=== PATIENT | female | born 1975 | race Two or more races ===

== ENCOUNTER 2020-07-04 09:09 | Outpatient (REF) | payer OTHER, SELFPAY ==
[2020-07-08 15:37] LABS: HPV mRNA E6/E7 rflx Not Detected (Not Detected)
[2020-07-09 11:36] LABS: CT PCR NOT DETECTED (Not Detect.); NG PCR NOT DETECTED (Not Detect.)
== END 2020-07-04 09:10 | disposition home or self-care (01) ==
LOC: HO.LAB 09:09
PROVIDERS: PCP Nurse Practitioner Family; Visit Provider Advanced Practice Midwife
DX: Z01.419 Encounter for gynecological examination (general) (routine) without abnormal findings (principal); Z11.8 Encounter for screening for other infectious and parasitic diseases; Z11.3 Encounter for screening for infections with a predominantly sexual mode of transmission
CPT/HCPCS: 87491; 87591; 87624; 87625; 88142

== ENCOUNTER 2020-07-05 16:33 | Outpatient (REF) | payer OTHER, SELFPAY | END 2020-07-05 16:34 | disposition home or self-care (01) | LOC: HO.MAMMO 16:33 | PROVIDERS: PCP Internal Medicine; Visit Provider Advanced Practice Midwife | DX: Z13.89 Encounter for screening for other disorder (principal) ==

== ENCOUNTER 2020-07-08 09:34 | Outpatient (REF) | payer OTHER, SELFPAY ==
--- NOTE | 2020-07-08 09:39 | MM_ITS ---
EXAMINATION: MM SCREENING DIGITAL MAMMOGRAPHY, BILATERAL CLINICAL INFORMATION: Screening. Asymptomatic. The lifetime risk of breast cancer based on the Tyrer-Cuzick Model is 10.6%. COMPARISON: Mammography: October 24, 2018 and October 08, 2017 TECHNIQUE: Digital mammography is performed in craniocaudal and mediolateral oblique views along with computer-aided detection (CAD). FINDINGS: The breasts are heterogeneously dense, which may obscure small masses (ACR BI-RADS breast composition Category c). There are no significant masses, abnormal calcifications, or other abnormalities. MM/MM screening mammo BI IMPRESSION: There are no significant changes from prior study. ASSESSMENT: BI-RADS 1: Negative RECOMMENDATION: Routine annual mammography screening. This patient's information was entered into a reminder system with a target due date for their next mammogram.
== END 2020-07-08 09:35 | disposition home or self-care (01) ==
LOC: HO.MAMMO 09:34
PROVIDERS: PCP Internal Medicine; Visit Provider Internal Medicine
DX: Z01.419 Encounter for gynecological examination (general) (routine) without abnormal findings (principal); Z12.31 Encounter for screening mammogram for malignant neoplasm of breast
CPT/HCPCS: 77067

== ENCOUNTER → 2020-07-09 13:09 | Outpatient (BNVA) | payer OTHER, SELFPAY | PROVIDERS: Visit Provider Advanced Practice Midwife | DX: Z30.433 Encounter for removal and reinsertion of intrauterine contraceptive device (principal) | CPT/HCPCS: 81025 ==

== ENCOUNTER 2020-08-13 14:39 | Outpatient (REF) | payer OTHER, SELFPAY ==
[2020-08-14 12:28] LABS: BV Int Neg Control Negative (Negative); BV Int Pos Control Positive (Positive)
[2020-08-14 18:57] LABS: C. trachomatis RNA TMA NOT DETECTED (NOT DETECTED); N. gonorrhoeae RNA TMA NOT DETECTED (NOT DETECTED)
== END 2020-08-13 14:40 | disposition home or self-care (01) ==
LOC: HO.LAB 14:39
PROVIDERS: PCP Nurse Practitioner Family; Visit Provider Advanced Practice Midwife
DX: R10.2 Pelvic and perineal pain (principal); Z30.431 Encounter for routine checking of intrauterine contraceptive device
CPT/HCPCS: 36415; 87480; 87491; 87510; 87591; 87660; 99212

== ENCOUNTER 2020-08-20 14:38 | Outpatient (REF) | payer OTHER, SELFPAY ==
--- NOTE | 2020-08-20 14:42 | US_ITS ---
EXAMINATION: PELVIC ULTRASOUND CLINICAL INFORMATION: Pelvic and perineal pain COMPARISON: Pelvic ultrasound report most recent September 2008. Images not available. TECHNIQUE: Transabdominal and transvaginal pelvic ultrasound was performed. Transvaginal exam was performed for better visualization of the uterus and ovaries. FINDINGS: The uterus is anteverted and measures 8 x 4.8 x 5 cm in dimension. There is an IUD in the uterus in satisfactory position. Endometrial thickness is normal estimated at 1.4 cm. There are nabothian cysts in the cervix. No focal uterine lesion is seen. The right ovary is normal-appearing and measures 2.9 x 2.6 x 2.6 cm. The left ovary is enlarged and measures 4.9 x 5.4 x 2.6 cm. There is a 4.1 x 1.9 x 3.9 cm slightly complex cyst with several septations. There is no fluid in the pelvis. US/US transvaginal IMPRESSION: IUD in the uterus in satisfactory position. Enlarged left ovary containing a 4.1 x 1.9 x 3.9 cm slightly complex cyst with several septations.
--- NOTE | 2020-08-20 14:42 | US_ITS ---
EXAMINATION: PELVIC ULTRASOUND CLINICAL INFORMATION: Pelvic and perineal pain COMPARISON: Pelvic ultrasound report most recent September 2008. Images not available. TECHNIQUE: Transabdominal and transvaginal pelvic ultrasound was performed. Transvaginal exam was performed for better visualization of the uterus and ovaries. FINDINGS: The uterus is anteverted and measures 8 x 4.8 x 5 cm in dimension. There is an IUD in the uterus in satisfactory position. Endometrial thickness is normal estimated at 1.4 cm. There are nabothian cysts in the cervix. No focal uterine lesion is seen. The right ovary is normal-appearing and measures 2.9 x 2.6 x 2.6 cm. The left ovary is enlarged and measures 4.9 x 5.4 x 2.6 cm. There is a 4.1 x 1.9 x 3.9 cm slightly complex cyst with several septations. There is no fluid in the pelvis. US/US pelvic complete IMPRESSION: IUD in the uterus in satisfactory position. Enlarged left ovary containing a 4.1 x 1.9 x 3.9 cm slightly complex cyst with several septations.
== END 2020-08-20 14:39 | disposition home or self-care (01) ==
LOC: HO.US 14:38
PROVIDERS: Visit Provider Advanced Practice Midwife
DX: R10.2 Pelvic and perineal pain (principal)
CPT/HCPCS: 76830; 76856

== ENCOUNTER → 2020-09-10 12:02 | Outpatient (BNVA) | payer OTHER, SELFPAY | PROVIDERS: PCP Nurse Practitioner Family; Visit Provider Advanced Practice Midwife ==

== ENCOUNTER 2020-11-11 12:35 | Outpatient (REF) | payer OTHER, SELFPAY ==
--- NOTE | ~2020-11-11 | US_ITS ---
EXAMINATION: PELVIC ULTRASOUND CLINICAL INFORMATION: Left-sided ovarian cyst COMPARISON: Previous pelvic ultrasound most recent August 2018 TECHNIQUE: Transabdominal and transvaginal pelvic ultrasound was performed. Transvaginal exam was performed for better visualization of the uterus and ovaries. FINDINGS: The uterus is anteverted and measures 8.9 x 4.6 x 5.5 cm in dimension. There is an IUD in the uterus in satisfactory position. Endometrial thickness is normal measuring 0.9 cm. No focal uterine lesion is seen. There are nabothian cysts in the cervix. The right ovary is normal-appearing and measures 3.3 x 2.2 x 2.3 cm. Left ovary is enlarged and measures 4.4 x 3.2 x 4.4 cm. There is a 3.8 x 2.8 x 3.8 cm slightly complex left ovarian cyst with slightly thickened irregular wall. This is decreased in size from 4.1 x 1.9 x 3.9 cm on August 2020 exam. There is a small amount of fluid in the pelvis. US/US transvaginal IMPRESSION: IUD in the uterus in satisfactory position. Interval decrease in size in the slightly complex left ovarian cyst now measuring 3.8 x 2.8 x 3.8 cm compared to August 2020 exam.
--- NOTE | ~2020-11-11 | US_ITS ---
EXAMINATION: PELVIC ULTRASOUND CLINICAL INFORMATION: Left-sided ovarian cyst COMPARISON: Previous pelvic ultrasound most recent August 2018 TECHNIQUE: Transabdominal and transvaginal pelvic ultrasound was performed. Transvaginal exam was performed for better visualization of the uterus and ovaries. FINDINGS: The uterus is anteverted and measures 8.9 x 4.6 x 5.5 cm in dimension. There is an IUD in the uterus in satisfactory position. Endometrial thickness is normal measuring 0.9 cm. No focal uterine lesion is seen. There are nabothian cysts in the cervix. The right ovary is normal-appearing and measures 3.3 x 2.2 x 2.3 cm. Left ovary is enlarged and measures 4.4 x 3.2 x 4.4 cm. There is a 3.8 x 2.8 x 3.8 cm slightly complex left ovarian cyst with slightly thickened irregular wall. This is decreased in size from 4.1 x 1.9 x 3.9 cm on August 2020 exam. There is a small amount of fluid in the pelvis. US/US pelvic complete IMPRESSION: IUD in the uterus in satisfactory position. Interval decrease in size in the slightly complex left ovarian cyst now measuring 3.8 x 2.8 x 3.8 cm compared to August 2020 exam.
== END 2020-11-11 12:36 | disposition home or self-care (01) ==
LOC: HO.US 12:35
PROVIDERS: PCP Nurse Practitioner Family; Visit Provider Advanced Practice Midwife
DX: N83.292 Other ovarian cyst, left side (principal)
CPT/HCPCS: 76830; 76856

== ENCOUNTER → 2020-11-25 11:46 | Outpatient (BNVA) | payer OTHER, SELFPAY | PROVIDERS: PCP Nurse Practitioner Family; Visit Provider Advanced Practice Midwife ==

== ENCOUNTER 2020-11-26 08:12 | Outpatient (REF) | payer OTHER, MEDICAID, SELFPAY ==
[2020-11-27 09:36] LABS: CA-125 13 U/mL (<35)
== END 2020-11-26 08:13 | disposition home or self-care (01) ==
LOC: HO.LAB 08:12
PROVIDERS: Visit Provider Advanced Practice Midwife
DX: N83.292 Other ovarian cyst, left side (principal)
CPT/HCPCS: 36415; 86304

== ENCOUNTER 2021-02-10 11:04 | Outpatient (REF) | payer OTHER, MEDICAID, SELFPAY ==
--- NOTE | ~2021-02-10 | US_ITS ---
EXAMINATION: ULTRASOUND PELVIS CLINICAL INFORMATION: Left ovarian cyst COMPARISON: Ultrasound pelvis 11/11/2020 TECHNIQUE: Transabdominal and transvaginal ultrasound of pelvis is performed. FINDINGS: The uterus is anteverted and anteflexed measuring 8.0 cm in length, 4.1 cm in AP and 6.7 cm in transverse dimension. Endometrial thickness is 1.0 cm. The uterus is otherwise homogeneous in echotexture without any focal lesion. There is a small nabothian cysts in the cervix. There is echogenic IUD noted in incorrect location. Right ovary measures 5.9 x 3.1 x 3.3 cm and volume 31.6 mL. There is anechoic cyst measuring 3.6 x 3.1 x 3.2 cm. The left ovary measures 3.6 x 2.2 x 1.9 cm and volume 7.9. Multiple small anechoic small cysts are seen. Previously seen complex cyst left ovary has resolved. Previously right ovary measured 4.4 x 3.2 x 4.4 cm. There is no free fluid in the cul-de-sac. US/US pelvic and transvaginal IMPRESSION: Complex cyst in the left ovary has resolved. There are multiple small left ovarian cysts. A simple right ovarian cyst measuring 3.6 x 3.1 x 3.2 cm. Small nabothian cysts in the cervix. IUD is in correct position.
== END 2021-02-10 11:05 | disposition home or self-care (01) ==
LOC: HO.US 11:04
PROVIDERS: Visit Provider Advanced Practice Midwife
DX: N83.292 Other ovarian cyst, left side (principal)
CPT/HCPCS: 76830; 76856

== ENCOUNTER → 2021-03-03 12:09 | Outpatient (BNVA) | payer OTHER, SELFPAY | PROVIDERS: Visit Provider Advanced Practice Midwife ==

== ENCOUNTER 2021-07-09 08:19 | Outpatient (REF) | payer OTHER, SELFPAY ==
--- NOTE | ~2021-07-09 | MM_ITS ---
EXAMINATION: MM SCREENING DIGITAL BREAST TOMOSYNTHESIS, BILATERAL CLINICAL INFORMATION: Screening. Asymptomatic. The lifetime risk of breast cancer based on the Tyrer-Cuzick Model is 6.8%. COMPARISON: Mammography: July 08, 2020 and studies dating back to December 08, 2017 TECHNIQUE: Digital breast tomosynthesis is performed in both the craniocaudal and mediolateral oblique views along with computer-aided detection (CAD). Synthesized 2D images are generated from the tomosynthesis. FINDINGS: The breasts are heterogeneously dense, which may obscure small masses (ACR BI-RADS breast composition Category c). There are no significant masses, abnormal calcifications, or other abnormalities. MM/MM tomosynthesis screening BI IMPRESSION: There are no significant changes from prior study. ASSESSMENT: BI-RADS 1: Negative RECOMMENDATION: Routine annual mammography screening. This patient's information was entered into a reminder system with a target due date for their next mammogram.
== END 2021-07-09 08:20 | disposition home or self-care (01) ==
LOC: HO.MAMMO 08:19
PROVIDERS: Visit Provider Internal Medicine
DX: Z12.31 Encounter for screening mammogram for malignant neoplasm of breast (principal)
CPT/HCPCS: 77063; 77067

== ENCOUNTER 2021-11-18 08:17 | Outpatient (REF) | payer OTHER, SELFPAY ==
[2021-11-19 07:30] LABS: CT PCR NOT DETECTED (Not Detect.); NG PCR NOT DETECTED (Not Detect.)
[2021-11-19 12:09] LABS: BV Int Neg Control Negative (Negative); BV Int Pos Control Positive (Positive)
== END 2021-11-18 08:18 | disposition home or self-care (01) ==
LOC: HO.LAB 08:17
PROVIDERS: Visit Provider Advanced Practice Midwife
DX: Z01.411 Encounter for gynecological examination (general) (routine) with abnormal findings (principal); N89.8 Other specified noninflammatory disorders of vagina
CPT/HCPCS: 87480; 87491; 87510; 87591; 87660

== ENCOUNTER 2021-12-10 10:39 | Outpatient (REF) | payer OTHER, SELFPAY ==
--- NOTE | ~2021-12-10 | US_ITS ---
EXAMINATION: US PELVIS CLINICAL INFORMATION: EXAMINATION:US pelvic and transvaginal CLINICAL INFORMATION: Reason for Exam R10.2 - Pelvic and perineal pain COMPARISON: Prior ultrasound January 2021 LMP: IUD FINDINGS: UTERUS: The uterus is anteverted. Size: 10.7 x 4.5 x 6.2 cm. Uterine mass: There is no uterine mass. Cervix: There is a nabothian cyst otherwise Grossly unremarkable. Endometrium: No ultrasound evidence of endometrial lesion. endometrial thickness measures 0.[address] ADNEXA: Normal Right ovary: Normal in size. Mildly complex cystic structure in the right ovary 4.5 x 2.9 x 4.1 cm with a daughter cysts. Slightly enlarged compared with the prior study from January 2021, continued surveillance recommended one year follow-up. Left ovary: Normal in size. Doppler exam: Normal Doppler flow identified in both ovaries. FREE FLUID: Trace amount of free fluid. OTHER FINDINGS: None US/US pelvic and transvaginal IMPRESSION: 1. IUD in place properly positioned. 2. Heterogeneous uterus, no measurable fibroid. 3. Mildly complex cystic structure in the right ovary 4.5 cm., This has slightly enlarged, one year follow-up recommended.
== END 2021-12-10 10:40 | disposition home or self-care (01) ==
LOC: HO.US 10:39
PROVIDERS: Visit Provider Advanced Practice Midwife
DX: R10.2 Pelvic and perineal pain (principal)
CPT/HCPCS: 76830; 76856

== ENCOUNTER → 2021-12-25 10:48 | Outpatient (BNVA) | payer OTHER, SELFPAY | PROVIDERS: Visit Provider Advanced Practice Midwife | DX: N83.299 Other ovarian cyst, unspecified side (principal); Z71.2 Person consulting for explanation of examination or test findings | CPT/HCPCS: 99212 ==

== ENCOUNTER 2022-01-29 13:44 | Outpatient (REF) | payer OTHER, SELFPAY ==
--- NOTE | ~2022-01-29 | US_ITS ---
EXAMINATION: US PELVIS CLINICAL INFORMATION: Right ovarian cyst. COMPARISON: None TECHNIQUE: Ultrasound of the pelvis is performed using both transabdominal and transvaginal transducers along with Doppler. Transvaginal imaging is performed due to inadequate visualization transabdominally. FINDINGS: UTERUS: The uterus is anteverted and measures 10.2 cm in length, 5.0 cm in AP and 5.8 cm in transverse dimension. The double wall endometrial thickness is 0.6 cm. There is an IUD within the endometrial canal in correct position. The uterus is smooth in contour and has normal myometrial echogenicity. No visible fibroid. ADNEXA: Both ovaries are visualized. There is normal color flow to the adnexa. There is no ovarian torsion. There is no pelvic ascites or fluid collection. Right ovary measures 3.4 x 3.8 x 2.3 cm and volume 15.6 mL. It appears unremarkable. Previously right ovary measured 5.8 x 3.1 x 5.0 cm and volume 47.1 mL. Left ovary measures 4.2 x 2.1 x 1.7 cm and volume 7.9 mL. It appears unremarkable. Previously left ovary measured 4.5 x 1.5 x 2.9 cm and volume 10.3 mL. US/US pelvic and transvaginal IMPRESSION: IUD in correct position within the endometrial canal. The ovaries are unremarkable. The uterus is unremarkable.
== END 2022-01-29 13:45 | disposition home or self-care (01) ==
LOC: HO.US 13:44
PROVIDERS: Visit Provider Advanced Practice Midwife
DX: N83.291 Other ovarian cyst, right side (principal)
CPT/HCPCS: 76830; 76856

== ENCOUNTER → 2022-03-03 14:03 | Outpatient (BNVA) | payer OTHER, SELFPAY | PROVIDERS: Visit Provider Advanced Practice Midwife | DX: Z71.2 Person consulting for explanation of examination or test findings (principal); Z97.5 Presence of (intrauterine) contraceptive device | CPT/HCPCS: 99212 ==

== ENCOUNTER 2022-07-13 08:59 | Outpatient (REF) | payer OTHER, SELFPAY ==
--- NOTE | ~2022-07-13 | MM_ITS ---
EXAMINATION: MM SCREENING DIGITAL BREAST TOMOSYNTHESIS, BILATERAL CLINICAL INFORMATION: Screening. Asymptomatic. The lifetime risk of breast cancer based on the Tyrer-Cuzick Model is 7%. COMPARISON: Mammography: 07/09/2021, 07/08/2020, 10/24/2018 TECHNIQUE: Digital breast tomosynthesis is performed in both the craniocaudal and mediolateral oblique views along with computer-aided detection (CAD). Synthesized 2D images are generated from the tomosynthesis. FINDINGS: The breasts are heterogeneously dense, which may obscure small masses (ACR BI-RADS breast composition Category c). There are no significant masses, abnormal calcifications, or other abnormalities. No developing density or architectural abnormality. Axillary nodes is similar to prior exam 2019. The skin contours are smooth. MM/MM tomosynthesis screening BI IMPRESSION: No mammographic evidence of malignancy. ASSESSMENT: BI-RADS 2: Benign RECOMMENDATION: Routine annual mammography screening. This patient's information was entered into a reminder system with a target due date for their next mammogram.
== END 2022-07-13 09:00 | disposition home or self-care (01) ==
LOC: HO.MAMMO 08:59
PROVIDERS: PCP Internal Medicine; Visit Provider Internal Medicine
DX: Z12.31 Encounter for screening mammogram for malignant neoplasm of breast (principal)
CPT/HCPCS: 77063; 77067

== ENCOUNTER 2022-11-09 10:08 | Outpatient (REF) | payer OTHER, SELFPAY ==
--- NOTE | ~2022-11-09 | XR_ITS ---
EXAMINATION: XR HAND, RIGHT CLINICAL INFORMATION: Chronic pain. COMPARISON: None available. TECHNIQUE: PA, lateral, and oblique views of the right hand. FINDINGS: Bony alignment and mineralization are normal. The proximal and distal carpal rows are intact. No fracture or dislocation is seen. There is minimal osteoarthritic change of the second distal interphalangeal joint. No abnormal bone erosion or periosteal thickening is seen. No focal soft tissue swelling, gas or foreign body is seen. XR/XR hand RT min 3V IMPRESSION: There is minimal osteoarthritic change of the right second (index finger) distal interphalangeal joint. EXAMINATION: XR KNEE, LEFT CLINICAL INFORMATION: Chronic pain. COMPARISON: Radiographs dated 03/12/2015. TECHNIQUE: AP, lateral, tunnel, and sunrise views of the left knee. FINDINGS: Bones and soft tissues are normal. No fracture or joint effusion. Alignment is anatomic. Joint spaces are well maintained. Small enthesophytes incidentally arise from the superior pole of the patella and the anterior tibial tuberosity. No abnormal soft tissue calcification. IMPRESSION: Normal knee.
--- NOTE | ~2022-11-09 | XR_ITS ---
EXAMINATION: XR HAND, RIGHT CLINICAL INFORMATION: Chronic pain. COMPARISON: None available. TECHNIQUE: PA, lateral, and oblique views of the right hand. FINDINGS: Bony alignment and mineralization are normal. The proximal and distal carpal rows are intact. No fracture or dislocation is seen. There is minimal osteoarthritic change of the second distal interphalangeal joint. No abnormal bone erosion or periosteal thickening is seen. No focal soft tissue swelling, gas or foreign body is seen. XR/XR knee LT 4V IMPRESSION: There is minimal osteoarthritic change of the right second (index finger) distal interphalangeal joint. EXAMINATION: XR KNEE, LEFT CLINICAL INFORMATION: Chronic pain. COMPARISON: Radiographs dated 03/12/2015. TECHNIQUE: AP, lateral, tunnel, and sunrise views of the left knee. FINDINGS: Bones and soft tissues are normal. No fracture or joint effusion. Alignment is anatomic. Joint spaces are well maintained. Small enthesophytes incidentally arise from the superior pole of the patella and the anterior tibial tuberosity. No abnormal soft tissue calcification. IMPRESSION: Normal knee.
== END 2022-11-09 10:09 | disposition home or self-care (01) ==
LOC: HO.XRAY 10:08
PROVIDERS: PCP Internal Medicine; Visit Provider Internal Medicine
DX: M25.562 Pain in left knee (principal); G89.29 Other chronic pain; M65.9 Synovitis and tenosynovitis, unspecified
CPT/HCPCS: 73130; 73564

== ENCOUNTER 2022-11-20 08:20 | Outpatient (REF) | payer OTHER, SELFPAY ==
[2022-11-20 10:36] LABS: HBc Num1 0.07 S/CO (0.00-0.79); HIV AB/AG Nonreactive (Nonreactive); HIV Num 1 0.09 S/CO (0.00-0.99); Hepatitis B Core Antibody Nonreactive (Nonreactive); ~Hepatitis C Antibody Nonreactive (Nonreactive)
[2022-11-20 10:37] LABS: Syphilis Screen Nonreactive (Nonreactive)
[2022-11-20 12:06] LABS: CT PCR NOT DETECTED (Not Detect.); NG PCR NOT DETECTED (Not Detect.)
[2022-11-21 11:33] LABS: BV Int Neg Control Negative (Negative); BV Int Pos Control Positive (Positive)
== END 2022-11-20 08:21 | disposition home or self-care (01) ==
LOC: HO.LAB 08:20
PROVIDERS: PCP Internal Medicine; Visit Provider Advanced Practice Midwife
DX: Z11.4 Encounter for screening for human immunodeficiency virus [HIV] (principal); R10.2 Pelvic and perineal pain; Z20.2 Contact with and (suspected) exposure to infections with a predominantly sexual mode of transmission; N83.299 Other ovarian cyst, unspecified side
CPT/HCPCS: 0353U; 86704; 86780; 86803; 87389; 87480; 87510; 87660

== ENCOUNTER 2023-01-25 09:00 | Outpatient (RCR) | payer OTHER, SELFPAY ==
--- NOTE | 2022-12-07 13:55 | MHC.OT.EP ---
[address] [phone] Occupational Therapy Plan of Care Patient Name: Candido Rivera Date of Evaluation: 12/07/22 Diagnosis: Right finger tenosynovitis Pain Location: 8 throbbing at 2nd MC and ache at 1st CMC jt Pain Score: 8 Pain Scale Used: Numeric (0 - 10) Aggravating Factors: Gripping, daily activities Alleviating Factors: Heat Assessment: Pt is a 47 yo female with a 6 mo ho for right hand pain and mild paresthesia consistent with a dx of 1St basal jt OA and index finger tenosynovitis. 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 Sounding Device Operator Goals: Same as above Treatment Plan: Therapeutic Exercise Therapeutic Activity Home Exercise Program Splinting Patient Education Edema Control ADL Training Ultrasound Iontophoresis Paraffin MHP Joint Mobilization Soft Tissue Mobilization Electronically Signed By: Afsaneh Gastelum OT CHT CLT Please Sign and return to therapist. Thank you once again for your referral.
== END 2023-12-28 13:58 | disposition home or self-care (01) ==
LOC: HO.OT 09:00
PROVIDERS: PCP Internal Medicine; Visit Provider Internal Medicine
DX: M65.9 Synovitis and tenosynovitis, unspecified (principal)
CPT/HCPCS: 29125; 97033; 97035; 97110; 97166; 97760

== ENCOUNTER 2023-03-22 07:07 | Outpatient (REF) | payer OTHER, SELFPAY ==
[2023-03-22 08:19] LABS: Estimated Average Glucose 108 mg/dL; Hemoglobin A1c % 5.4 %
[2023-03-22 08:48] LABS: Cholesterol 163 mg/dL; HDL Cholesterol 35 mg/dL; LDL Cholesterol Calculated 102 mg/dl; Triglycerides 133 mg/dL
[2023-03-22 08:56] LABS: Anion Gap 12 (12-20); Blood Urea Nitrogen 12 mg/dL (9-16); Calcium 9.6 mg/dL (8.4-10.2); Carbon Dioxide 26 mmol/L (22-29); Chloride 105 mmol/L (96-108); Estimated Glomerular Filt Rate 60; Glucose Random 103 mg/dL (60-115); Potassium 3.6 mmol/L (3.3-5.1); Sodium 139 mmol/L (135-145)
[2023-03-22 09:04] LABS: TSH reflex Free T4 3.99 uIU/mL (0.32-4.0)
[2023-03-22 10:00] LABS: Reflex LDLD? No
== END 2023-03-22 07:08 | disposition home or self-care (01) ==
LOC: HO.LAB 07:07
PROVIDERS: Visit Provider Internal Medicine
DX: I10 Essential (primary) hypertension (principal); R73.02 Impaired glucose tolerance (oral)
CPT/HCPCS: 36415; 80048; 80061; 83036; 84443

== ENCOUNTER → 2023-06-28 19:30 | Outpatient (BNV) | payer OTHER, SELFPAY | PROVIDERS: PCP Internal Medicine; Visit Provider Internal Medicine | DX: R06.83 Snoring (principal) | CPT/HCPCS: 95810 ==

== ENCOUNTER → 2023-06-28 20:30 | Outpatient (REF) | payer OTHER, SELFPAY | LOC: HO.SL 20:30 | PROVIDERS: PCP Internal Medicine; Visit Provider Internal Medicine | DX: R06.83 Snoring (principal); I10 Essential (primary) hypertension | CPT/HCPCS: 95810 ==

== ENCOUNTER 2023-11-11 11:27 | Outpatient (REF) | payer OTHER, SELFPAY ==
[2023-11-11 13:32] LABS: Estimated Average Glucose 123 mg/dL; Hemoglobin A1c % 5.9 % (<6.0)
[2023-11-11 13:58] LABS: Anion Gap 13 (12-20); Blood Urea Nitrogen 7 mg/dL (9-16); Calcium 9.6 mg/dL (8.4-10.2); Carbon Dioxide 27 mmol/L (22-29); Chloride 103 mmol/L (96-108); Estimated Glomerular Filt Rate > 60; Glucose Random 95 mg/dL (60-115); Potassium 3.6 mmol/L (3.3-5.1); Sodium 139 mmol/L (135-145); Vitamin D 25-OH Total 32.8 ng/mL (>30)
== END 2023-11-11 11:28 | disposition home or self-care (01) ==
LOC: HO.HHCL 11:27
PROVIDERS: Visit Provider Internal Medicine
DX: I10 Essential (primary) hypertension (principal)
CPT/HCPCS: 36415; 80048; 82306; 83036

== ENCOUNTER 2023-11-22 08:18 | Outpatient (REF) | payer OTHER, SELFPAY | END 2023-11-22 08:19 | disposition home or self-care (01) | LOC: HO.MAMMO 08:18 | PROVIDERS: PCP Internal Medicine; Visit Provider Internal Medicine | DX: Z12.31 Encounter for screening mammogram for malignant neoplasm of breast (principal) | CPT/HCPCS: 77063; 77067 ==

== ENCOUNTER → 2023-11-22 09:30 | Outpatient (BNV) | payer OTHER, SELFPAY | PROVIDERS: PCP Internal Medicine; Visit Provider Radiology Diagnostic Radiology | DX: Z12.31 Encounter for screening mammogram for malignant neoplasm of breast (principal) | CPT/HCPCS: 77063; 77067 ==

== ENCOUNTER 2023-11-25 08:11 | Outpatient (AMB) | payer OTHER, SELFPAY ==
--- NOTE | 2023-11-25 08:21 | A.OFFVIS_ITS ---
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 Doing well with no concerns. She tries to eat healthy and stays active with exercise. Currently is sexually active. She external irritation in a specific area, was given a topical cream in the past which did not help.. STI screening offered; she declines. Denies family history of breast, ovarian or colon cancer. Last pap smear 2019, negative. Mammogram: Completed, pending final read. [facility] Medical History HTN (hypertension) Surgical History H/O wrist surgery Family History Mother HTN (hypertension) Social History Household Members: Spouse and Children Housing: House Alcohol intake: never Patient Tobacco Use Status: Never used Tobacco Current occupational status: unemployed Sexual orientation: Straight/Heterosexual Gender identity: Female Female Reproductive History Menstrual Duration of menses: 3-5 days control method: progestin IUCD (07/2020 Mirena, strings cut short) Total pregnancies: 3 Full term: 3 Number of Living Children: 3 Date of last pap smear: 07/05/20 (negative) Date of Mammogram: 11/22/23 Review of Systems Const All systems reviewed & are unremarkable except as noted in HPI and below Reports as per HPI Eyes Reports no additional complaints ENT Reports no additional complaints Card Reports no additional complaints Resp Reports no additional complaints GI Reports as per HPI and Reports no additional complaints Reports as per HPI Musc Reports no additional complaints Skin/Breast Reports as per HPI Neuro Reports no additional complaints Psych Reports no additional complaints Endo Reports no additional complaints Clark/Lymph Reports no additional complaints Aller/Immun Reports no additional complaints Physical Exam Vital Signs: Last Vital Signs BP 122/82 11/25/23 08:22 BMI result Body Mass Index 33.6 Const General: cooperative, healthy appearing, no acute distress, well developed and alert Orientation/consciousness: patient oriented x3 HEENT Head: Yes normal to inspection Eyes General: appearance normal, both eyes and all related structures Neck Neck: Yes normal visual inspection Thyroid: Thyroid normal Chest Chest palpation & inspection: normal inspection of the chest and other (no puckering, dimpling, peau de orange, retraction, discharge, masses) Breast/axilla inspection: normal inspection of the breasts Breast/axilla palpation: normal palpation of the breasts Resp Effort & Inspection: normal respiratory effort GI Inspection: Yes normal to inspection Palpation (GI): Soft to palpation Rectal Exam - Female: deferred Other: Erythema with a mild excoriation midline above clitoral maxwell, not herpetic appearing General: Yes bladder normal to palpation External Female Exam: normal external appearance and normal appearance of the urethra Speculum Exam - Vagina: normal appearance of the vagina, normal palpation and normal vaginal discharge Speculum Exam - Cervix: normal appearance of the cervix and normal palpation Bimanual exam- vagina & uterus: normal bimanual exam, normal palpation, uterine size normal, bladder normal to palpation, normal palpation and non-tender Bimanual Exam- Adnexa, other: no masses Skin General skin exam: no rashes or lesions noted Rashes: no rashes Neuro General: patient oriented x3 Cognition (Neuro): normal cognition Extrem General: Yes normal to inspection Psych Attitude: cooperative Thought process: Normal thought process present Assessment & Plan Assessment & Plan (1) Encounter for well woman exam with routine gynecological exam: Code(s): Z01.419 - Encounter for gynecological examination (general) (routine) without abnormal findings (2) Vulvar irritation: Code(s): N90.89 - Other specified noninflammatory disorders of vulva and perineum Plan Discussed: Current recommendations for pap smears per ASCCP guidelines. Breast awareness and periodic breast exams. Maintain a healthy lifestyle including a well balanced diet and routine exercise. Mammogram yearly. Advised to clip vulvar hair long to avoid it from curling in an entering the skin surface irritating. Use mild soap and rinse off quickly. Use only cotton underwear. Return to the office in 2-3 weeks for a skin check if there is any a lorie of concern she may require a skin biopsy. Patient verbalizes understanding and agrees to the plan of care. She was given opportunity to ask questions and all questions were answered to the best of my ability. RTO in one year for annual boat cleaner examination. This note is constructed using voice recognition software. While every effort has been made to ensure accuracy, cardiopulmonary technician and eeg tech errors may have been included. Medications: New betamethasone dipropionate 0.05% Apply a thin coat to the area for 1 to 2 weeks or until itching has resolved 1 appl topical BID 2 weeks 45 grams 0RF Discontinued fluconazole (Diflucan) Discontinued Reason: No Longer Medically Relevant 150 mg PO ONCE 1 day 1 tab 0RF Coding Level of Care Code Est Pt Prev Care 40-64y(96675) Diagnoses Encounter for well woman exam with routine gynecological exam Z01.419 Vulvar irritation N90.89
[2023-11-25 08:22] VITALS: BP 122/82; BMI 33.6
== END 2023-11-25 08:42 | disposition home or self-care (01) ==
LOC: HO.HWS 08:11
PROVIDERS: PCP Internal Medicine; Visit Provider Advanced Practice Midwife
DX: Z01.419 Encounter for gynecological examination (general) (routine) without abnormal findings (principal); N90.89 Other specified noninflammatory disorders of vulva and perineum
CPT/HCPCS: 99396

== ENCOUNTER → 2023-11-25 08:11 | Outpatient (BNVA) | payer OTHER, SELFPAY | PROVIDERS: PCP Internal Medicine; Visit Provider Advanced Practice Midwife | DX: Z01.419 Encounter for gynecological examination (general) (routine) without abnormal findings (principal); N90.89 Other specified noninflammatory disorders of vulva and perineum | CPT/HCPCS: 99396 ==

== ENCOUNTER 2023-12-15 08:09 | Outpatient (AMB) | payer OTHER, SELFPAY ==
[2023-12-15 08:38] VITALS: BP 110/70; BMI 33.6
--- NOTE | 2023-12-15 08:38 | MHC.OFFVIS ---
Vital Signs 12/15/23 08:38 Height 5 ft 1 in Weight 178 lb BMI 33.6 BP 110/70 Intake Visit Reasons: Vulva Re-Check? BX Commercial Relationship Manager Required: Yes Commercial Relationship Manager Language: Document Reviewer Name: Marija ACE Information Interpreted: non-clinical & clinical Steward/Stewardess Smoke Room: Steward/Stewardess Smoke Room Present (Marija ACE) Allergies carrot Allergy (Unknown, Verified 12/15/23 08:39) Unknown Is last menstrual period known: No HPI Comments Details: Patient is here for follow up skin check previous appointment was she was given some betamethasone to help itching, had some mild excoriations most likely due to scratching at the time. She reports using the medication which was helpful but then her symptoms have started back again when she stopped the medication. PFSH Medical History HTN (hypertension) Surgical History H/O wrist surgery Family History Mother HTN (hypertension) Social History Household Members: Spouse and Children Housing: House Alcohol intake: never Patient Tobacco Use Status: Never used Tobacco Current occupational status: unemployed Sexual orientation: Straight/Heterosexual Gender identity: Female Female Reproductive History Menstrual control method: none Date of last pap smear: 07/05/20 (negative) Review of Systems Const All systems reviewed & are unremarkable except as noted in HPI and below Endo Reports no additional complaints Physical Exam Vital Signs: Last Vital Signs BP 110/70 12/15/23 08:38 BMI result Body Mass Index 33.6 Const General: cooperative, healthy appearing and no acute distress Other: External exam only- mild hypopigmentation on the clitoris and a flat hyperpigmented lesion on the upper right labia minora abutting the clitoral region. No excoriations. Female genitals images: 1. Upper right labial minora biopsy site Psych Appearance: well kempt Attitude: cooperative Thought process: Normal thought process present Office Procedures Skin Biopsy Details: Vulvar Biopsy: Preop Diagnosis: Vulvar biopsy. The patient was consented for a vulvar skin biopsy procedure today. The purpose of the procedure is to rule out any skin abnormalities in the area of concern(s) including: MARYAM, or skin conditions such as lichen sclerosis. All the risks and benefits were reviewed. The risk of the procedure including: pain, bleeding, swelling, bruising, injury to nerves blood supply, and surrounding tissue, scarring, and permanent skin discoloration. All of her questions and concerns were addressed to the best of my ability and shared decision making. She is agreeable to the plan of care. The patient was placed in the dosal lithotomy position. Using aseptic technique for the procedure the biopsy area was cleansed and prepped with Betadine solution. The skin area was anesthetized with Lidocaine 1% using a 3cc syringe and a 25g needle, 0.5cc was injected perpendicular into the dermis at the biopsy site until elevation was noted. A Shave biopsy technique was utilized. The bleeding site was minimal and controlled by direct pressure for several seconds. Vaseline ointment and guaze dressing was applied to the biopsy site. The patient tolerated the procedure well and left the department in good condition. Post biopsies skin care: Keep the area clean and dry. Apply Vaseline to the area as directed for the 1st week. Wear loose clothing and avoid intimacy until well healed. Report any signs of infection: Fever flu-like symptom, increased pain, redness, any foul odor or pus discharge. Return to the office in 2 weeks for biopsy results. Call sooner if any concerns. All of her questions and concerns were addressed to the best of my ability and shared decision making. She is agreeable to the plan of care. This note is constructed using voice recognition software. While every effort has been made to ensure accuracy, brim curler errors may have been included. Skin biopsy performed by: Omaira Diaz Informed consent given: Yes Consent signed: Yes Type of Biopsy: shave Anesthesia: local Hemostasis: pressure Wound closure: secondary intention Patient tolerated procedure: well Complications: No Results AMB Test Urine AMB Test Urine Negative Last Edit by Marija Calderon CMA on 12/15/23 09:24 Results Reviewed Results Reviewed: Laboratory Last Values Tst Clinic Negative 12/15/23 09:24 Assessment & Plan Assessment & Plan (1) Vulvar lesion: Code(s): N90.89 - Other specified noninflammatory disorders of vulva and perineum (2) Vulvar pruritus: Code(s): L29.2 - Pruritus vulvae Plan See skin biopsy notes. Return to the office in 2 weeks for test results. Orders: Orders AMB HCG Urine Test Today Z32.02 - Encounter for test, result negative Surgical Today N90.89 - Other specified noninflammatory disorders of vulva and perineum Coding Level of Care Code Procedure Only Diagnoses Vulvar lesion N90.89 Vulvar pruritus L29.2
== END 2023-12-15 09:36 | disposition home or self-care (01) ==
PROVIDERS: PCP Internal Medicine; Visit Provider Advanced Practice Midwife
DX: N90.89 Other specified noninflammatory disorders of vulva and perineum (principal); L29.2 Pruritus vulvae; Z32.02 Encounter for pregnancy test, result negative
CPT/HCPCS: 56605

== ENCOUNTER 2023-12-15 08:09 | Outpatient (REF) | payer OTHER, SELFPAY | END 2023-12-15 08:10 | disposition home or self-care (01) | LOC: HO.LNP 08:09 | PROVIDERS: PCP Internal Medicine; Visit Provider Advanced Practice Midwife | DX: N90.89 Other specified noninflammatory disorders of vulva and perineum (principal); L30.8 Other specified dermatitis; L29.2 Pruritus vulvae | CPT/HCPCS: 56605; 81025; 88305; 88312 ==

== ENCOUNTER 2024-06-15 08:10 | Outpatient (REF) | payer OTHER, SELFPAY ==
[2024-06-16 07:51] LABS: CT PCR NOT DETECTED (Not Detect.); NG PCR NOT DETECTED (Not Detect.)
[2024-06-16 09:50] LABS: Bacterial Vaginosis PCR NEGATIVE (Negative); Candida Group PCR DETECTED (Not Detect); Candida glab krusei PCR DETECTED (Not Detect); Trichomonas vaginalis PCR NOT DETECTED (Not Detect)
== END 2024-06-15 08:11 | disposition home or self-care (01) ==
LOC: HO.LNP 08:10
PROVIDERS: PCP Internal Medicine; Visit Provider Advanced Practice Midwife
DX: R10.2 Pelvic and perineal pain (principal); Z71.2 Person consulting for explanation of examination or test findings; L30.9 Dermatitis, unspecified; Z97.5 Presence of (intrauterine) contraceptive device
CPT/HCPCS: 0352U; 81002; 87491; 87591; 99212

== ENCOUNTER 2024-06-15 08:10 | Outpatient (AMB) | payer OTHER, SELFPAY ==
[2024-06-15 08:42] VITALS: BP 116/72; BMI 37.1
--- NOTE | 2024-06-15 08:42 | MHC.OFFVIS ---
Vital Signs 06/15/24 08:42 Height 5 ft 1 in Weight 196 lb 8 oz BMI 37.1 BP 116/72 Blood Pressure Location Lt radial Position Sitting Intake Visit Reasons: Biopsy results, Room 4 Heddler Tier Required: Yes Heddler Tier Services: Heddler Tier Present Programs Director: Programs Director Present Allergies carrot Allergy (Unknown, Verified 12/15/23 08:39) Unknown Is last menstrual period known: Yes (IUD no periods) Post menopausal: No Patient : No HPI Comments Details: Patient is here today for follow up on vulvar biopsy results. She has a history of vulvar itching and burning predominantly in the bilateral labia, had tried the prescribed medication and felt it worked for several days and then her symptoms reoccurred even though she was using the medicine for at least a week. Today she also admits to having pelvic pain with a pinching sensation in the lower pelvis over the last 2 weeks. She denies any urinary symptoms, bowel changes, vaginal discharge or odor, history of Mirena IUD in place with no regular menstrual cycles. [facility] Medical History (Updated 06/15/24 @ 09:57 by Omaira Diaz CNM) IUD (intrauterine device) in place HTN (hypertension) Surgical History H/O wrist surgery Family History Mother HTN (hypertension) Social History Household Members: Spouse and Children Housing: House Alcohol intake: never Patient Tobacco Use Status: Never used Tobacco Current occupational status: unemployed Sexual orientation: Straight/Heterosexual Gender identity: Female Female Reproductive History Menstrual control method: progestin IUCD Total pregnancies: 3 Full term: 3 Premature: 0 Number of Living Children: 3 Ab induced: 0 Ab spontaneous: 0 Ectopics: 0 Multiple births: 0 History of abnormal pap smear: Yes (12/2023) History of STI: No Review of Systems Const All systems reviewed & are unremarkable except as noted in HPI and below Endo Reports no additional complaints Physical Exam Vital Signs: Last Vital Signs BP 116/72 06/15/24 08:42 BMI result Body Mass Index 37.1 Const General: cooperative, healthy appearing and no acute distress Orientation/consciousness: patient oriented x3 GI Inspection: Yes normal to inspection Palpation (GI): Soft to palpation and Other GI palpation findings present (Nontender) Rectal Exam - Female: visual inspection normal Other: External no findings in area patient reports itching and burning. General: Yes bladder normal to palpation External Female Exam: normal appearance of the urethra Speculum Exam - Vagina: normal appearance of the vagina, normal palpation, normal vaginal discharge, vaginal bleeding (Small amount at the os) and other Speculum Exam - Cervix: normal appearance of the cervix, normal palpation and Other cervical findings present (IUD strings present) Bimanual exam- vagina & uterus: normal bimanual exam, normal palpation, uterine size normal, bladder normal to palpation, normal palpation, uterine shape normal and non-tender Bimanual Exam- Adnexa, other: normal adnexae and tender on the left OB/external & speculum: vaginal bleeding (Small amount at the os) Neuro General: patient oriented x3 Psych Appearance: well kempt Attitude: cooperative Thought process: Normal thought process present Results AMB Urinalysis Dipstick UR Leukocytes Negative Last Edit by Ruth Pedersen on 06/15/24 10:08 UR Nitrite Negative Last Edit by Ruth Pedersen on 06/15/24 10:08 UR Urobilinogen 4 Last Edit by Ruth Pedersen on 06/15/24 10:08 UR Protein Negative Last Edit by Ruth Pedersen on 06/15/24 10:08 UR Ph 6.0 Last Edit by Ruth Pedersen on 06/15/24 10:08 UR Blood Negative Last Edit by Ruth Pedersen on 06/15/24 10:08 UR Specific Hamer 1.010 Last Edit by Ruth Pedersen on 06/15/24 10:08 UR Ketone Negative Last Edit by Ruth Pedersen on 06/15/24 10:08 UR Bilirubin Negative Last Edit by Ruth Pedersen on 06/15/24 10:08 UR Glucose Negative Last Edit by Ruth Pedersen on 06/15/24 10:08 Results Reviewed Results Reviewed: Laboratory Last Values Urine pH (Clinic) 6.0 06/15/24 09:36 Specific Hamer (Clinic) 1.010 06/15/24 09:36 Ur Protein (Clinic) Negative 06/15/24 09:36 Ur Ketones (Clinic) Negative 06/15/24 09:36 Urine Blood (Clinic) Negative 06/15/24 09:36 Urine Nitrite Negative 06/15/24 09:36 Urine Bilirubin (Clinic) Negative 06/15/24 09:36 Urobilinogen (Clinic) 4 06/15/24 09:36 Leukocyte Esterase (Clinic) Negative 06/15/24 09:36 Urine Glucose (Clinic) Negative 06/15/24 09:36 Name: Candido Rivera Age/Sex: 48/F Attending: Omaira Diaz CNM : 1975 Submitted by: Omaira Diaz CNM Copies to: Alejandra Morris MD MR #: [id number] Status: DEP REF Collected: 12/15/23 Location: [facility] Received: 12/16/23 Diagnosis Vulva, right labia minora, excision: Spongiotic dermatitis with rare eosinophils. See description and comment. Comment: The findings are nonspecific. The differential includes contact/irritant, drug, infection and allergy/atopy. Clinical History Vulva lesion Microscopic Description Sections have a small fragment of skin with compact hyperkeratosis, mild spongiosis and mild superficial chronic inflammation comprised of lymphocytes and rare plasma cells and eosinophils. Scattered pigment incontinence is present. No fungi are seen, supported by PAS stain. No dysplasia is seen. Material Received Right labia minora lesion Gross Description Received in formalin labeled ?r. labia minora lesion? is a 0.35 greatest dimension draeyobxe-dhzov-pgvvre fragment of allred mucosa, submitted in toto in a cassette labeled A. CEDS Special studies ordered and performed: PAS stain Copies To Alejandra Morris MD [address] [place] [id number] Omaira Diaz CNM [address] [place] [address] Dr. Richter [address] [place] [id number] NOTE: Unless otherwise stated, all tissue is formalin-fixed and paraffin-embedded. Some or all of the immunohistochemical tests reported herein may have been developed and their performance characteristics determined by [facility]. Patient: Candido Rivera Age/[facility]: 48/[id number] MR#: [id number] Page 1 of 2 Assessment & Plan Assessment & Plan (1) Vulvar dermatitis: Code(s): L30.9 - Dermatitis, unspecified (2) IUD (intrauterine device) in place: Code(s): Z97.5 - Presence of (intrauterine) contraceptive device (3) Pelvic pain: Code(s): R10.2 - Pelvic and perineal pain (4) Encounter to discuss test results: Code(s): Z71.2 - Person consulting for explanation of examination or test findings Plan Discussed: Vulvar biopsy results. Skin Care Instructions: Clean with warm water, no soaps, scented products. Use a cool cloth to the area several times a day if swollen and/or uncomfortable. Wear loose, cotton underclothes, avoid tight outer clothing. Air when possible. Avoid any sanitary products with scents. Complete all medications as prescribed. Await final pending results for any changes in the plan of care. Call the office if there is no improvement in 24-48hrs., or if worsening symptoms. Pelvic pain workup-cervical cultures today, urine dip, UPT negative, pelvic ultrasound, and follow up in person for results and plan of care. If increased pain or prolonged symptoms to call the office or seek immediate care in the ED moxe-eyr-hwsukto self-help comfort measures including Tylenol or ibuprofen as prescribed per manufacture taken with food as directed. Heating pad p.r.n.. Reviewed medication use for vulvar symptoms. Review at next visit for plan of care, call sooner if any concerns. All of her questions and concerns were addressed to the best of my ability and shared decision making. She is agreeable to the plan of care. This note is constructed using voice recognition software. While every effort has been made to ensure accuracy, emergency operator errors may have been included. Orders: Orders CT NG by PCR Today Z71.2 - Person consulting for explanation of examination or test findings US pelvic and transvaginal Today R10.2 - Pelvic and perineal pain Bacterial Vaginosis Panel Today Z71.2 - Person consulting for explanation of examination or test findings AMB HCG Urine Test Today Z32.02 - Encounter for test, result negative AMB Urinalysis Dipstick Today R10.2 - Pelvic and perineal pain Medications: Changed From betamethasone dipropionate 0.05% Apply a thin coat to the area for 1 to 2 weeks or until itching has resolved 1 appl topical BID 2 weeks 45 grams 0RF To betamethasone dipropionate 0.05% Apply a thin coat to the area for nightly for one week, then every other night for one week, then twice a week. 1 appl topical BID 2 weeks 45 grams 0RF Coding Level of Care Code Est Pt Level 4 (63523) Diagnoses Vulvar dermatitis L30.9 IUD (intrauterine device) in place Z97.5 Pelvic pain R10.2 Encounter to discuss test results Z71.2
== END 2024-06-15 09:34 | disposition home or self-care (01) ==
PROVIDERS: PCP Internal Medicine; Visit Provider Advanced Practice Midwife
DX: L30.9 Dermatitis, unspecified (principal); Z97.5 Presence of (intrauterine) contraceptive device; R10.2 Pelvic and perineal pain; Z71.2 Person consulting for explanation of examination or test findings
CPT/HCPCS: 99214

== ENCOUNTER 2024-07-05 14:39 | Outpatient (REF) | payer OTHER, SELFPAY | END 2024-07-05 14:40 | disposition home or self-care (01) | LOC: HO.US 14:39 | PROVIDERS: PCP Internal Medicine; Visit Provider Advanced Practice Midwife | DX: R10.2 Pelvic and perineal pain (principal) | CPT/HCPCS: 76830; 76856 ==

== ENCOUNTER 2024-08-24 14:13 | Outpatient (AMB) | payer OTHER, SELFPAY ==
--- NOTE | 2024-08-24 14:22 | MHC.OFFVIS ---
Intake Visit Reasons: Ultra sound follow up Fabric Machine Operator Required: Yes Fabric Machine Operator Language: Mechanical Technologist Name: Brandee [id number] Information Interpreted: non-clinical & clinical Hospitality Services Manager: Hospitality Services Manager Present Allergies carrot Allergy (Unknown, Verified 08/24/24 14:24) Unknown Is last menstrual period known: Yes HPI Comments Details: Patient is here today for US results. She has a history of pelvic pain with pinching sensation. History of ovarian cyst. History of IUD in place. Today she is not reporting any discomfort, but randomly she will have some discomfort. She reports she has ibuprofen at home that she can use. PFSH Medical History Ovarian cyst IUD (intrauterine device) in place HTN (hypertension) Surgical History H/O wrist surgery Family History Mother HTN (hypertension) Social History Household Members: Spouse and Children Housing: House Alcohol intake: never Patient Tobacco Use Status: Never used Tobacco Current occupational status: unemployed Sexual orientation: Straight/Heterosexual Gender identity: Female Female Reproductive History Menstrual control method: progestin IUCD (Mirena 07/2020) Total pregnancies: 3 Full term: 3 Number of Living Children: 3 Review of Systems Const All systems reviewed & are unremarkable except as noted in HPI and below Endo Reports no additional complaints Physical Exam Const General: cooperative, healthy appearing and no acute distress Psych Appearance: well kempt Attitude: cooperative Thought process: Normal thought process present Results Reviewed Results Reviewed: [address] [address] Ultrasound Report Signed Patient: Candido Rivera MR#: [id number] : 1975 Acct:[id number] Age/Sex: 48 / F ADM Date: 07/05/24 Loc: HO.US Attending Dr: Omaira Diaz CNM Ordering Physician: Omaira Diaz CNM Date of Service: 07/05/24 Procedure(s): US pelvic and transvaginal Accession Number(s): [id number] cc: Alejandra Morris MD; Omaira Diaz CNM~ EXAMINATION: US PELVIS CLINICAL INFORMATION: Pelvic and perineal pain, occasional spotting, IUD. COMPARISON: 01/29/2022. TECHNIQUE: Ultrasound of the pelvis is performed using both transabdominal and transvaginal transducers along with Doppler. Transvaginal imaging is performed due to inadequate visualization transabdominally. FINDINGS: The anteverted uterus measures 6.7 x 3.8 x 5.9 cm. Limited visualization due to bowel gas and body habitus. IUD in place within the endometrial cavity. Left ovary measures 3.0 x 1.0 x 1.1 cm, volume 1.7 mL. Right ovary measures 6.5 x 3.7 x 4.8 cm, volume 60 mL. Multiple right ovarian cysts, largest 3.4 cm, 2.9 cm and 2.2 cm are likely simple. US/US pelvic and transvaginal IMPRESSION: 1. IUD in place within the endometrial cavity. Visualization of the endometrium is limited due to shadowing artifact from the IUD. 2. Right ovarian likely simple cysts, largest 3.4 cm, as detailed above, not identified on the prior exam. Correlation with clinical exam recommended to determine further management. Recommend followup ultrasound in 6-8 weeks. Electronically signed by: Jackeline Yates MD 08/20/2024 11:55 AM EST Dictated By: Jackeline Yates MD Signed By: <Electronically signed by Jackeline Yates MD in OV> 08/20/24 1155 DD/ 1454 TD/TT: 07/05/24 1516 R D Manager: Assessment & Plan Assessment & Plan (1) Ovarian cyst: Code(s): N83.209 - Unspecified ovarian cyst, unspecified side Category: Medical Qualifiers: Laterality: unspecified laterality Qualified Code(s): N83.209 - Unspecified ovarian cyst, unspecified side Plan Discussed: Ultrasound findings bilateral multiple ovarian cysts, largest on the right is 3.4 cm. IUD is in position. Advised pelvic rest and warnings if having pelvic pain, if it increases to call for sooner evaluation, if severe pain to go to the emergency room for immediate evaluation. Use of yyww-dlr-ppftssk ibuprofen or prescription as she has on hand. Advised the does she has is high and she should not stay on high level of ibuprofen for long periods of time use it very intermittently and sparingly. She can talk with her primary care about headache management as sometimes you can have a rebound effect from ibuprofen. Always take with food to prevent any GI upset. Most ovarian cysts resolve on their own, very common with the use of the IUD. If complex are persistent and she will need to have further workup of her evaluation. Ultrasound follow up early September, with in office review of results when completed. Advised to schedule her annual exam for October. The patient expressed understanding and agreement with the plan of care. All of her questions and concerns were addressed to the best of my ability. This note is constructed using voice recognition software. While every effort has been made to ensure accuracy, superintendent communications errors may have been included. Total time I personally spent on visit and management today: ?30 minutes. Time spent included review of pertinent office notes in the electronic health record; review of laboratory and imaging results; review of personal family medical history; discussing diagnosis and plan of care with the patient; documenting the encounter in the EMR. Orders: Orders US pelvic and transvaginal 10/02/24 N83.209 - Unspecified ovarian cyst, unspecified side Coding Level of Care Code Est Pt Level 3 (45684) Diagnoses Cyst of ovary, unspecified laterality N83.209 Laterality: unspecified laterality
== END 2024-08-24 15:19 | disposition home or self-care (01) ==
PROVIDERS: PCP Internal Medicine; Visit Provider Advanced Practice Midwife
DX: N83.209 Unspecified ovarian cyst, unspecified side (principal)
CPT/HCPCS: 99213

== ENCOUNTER → 2024-08-24 14:13 | Outpatient (BNVA) | payer OTHER, SELFPAY | PROVIDERS: PCP Internal Medicine; Visit Provider Advanced Practice Midwife | DX: N83.209 Unspecified ovarian cyst, unspecified side (principal); R10.2 Pelvic and perineal pain | CPT/HCPCS: 99212 ==

== ENCOUNTER 2024-10-02 13:00 | Outpatient (REF) | payer OTHER, SELFPAY ==
--- NOTE | ~2024-10-02 | US_ITS ---
CLINICAL HISTORY: N83.209 - Unspecified ovarian cyst, unspecified side US pelvis transabdominal and transvaginal Comparison: 07/05/2024 Findings: Uterus measures 9.5 x 4.7 x 5 cm. Centrally positioned uterine IUD with proximal tip located 8 mm distal to the tip of the gastric fundus. Submucosal fibroid measuring 3.5 x 2.8 x 2.1 cm in the proximal uterine body. Endometrial thickness measures up to 5 mm. Right ovary measures 5.6 x 4 x 5.3 cm. Either 2 separate right ovarian cysts versus septated right ovarian cyst. The 2 cysts/loculatiosn measures 3.9 x 2.6 x 2.9 cm and 4.5 x 3.8 x 3.7 cm, versus 2.2 x 2.1 x 1.4 cm and 3.3 x 3.4 x 3.4 cm previously. Left ovary 3.6 x 1.7 x 1.8 cm. No free fluid. IMPRESSION: 1. Low-lying central IUD with proximal tip located 8 mm distal to the proximal fundal tip. 2. Subserosal fibroid. 3. Either 2 separate right ovarian cysts versus septated right ovarian cyst are more conspicuous than the prior exam. Follow-up with a 6 week ultrasound recommended. This document has been electronically signed by: Zelda Arnold MD on 10/03/2024 10:37:59
--- OUTSIDE RECORDS SUMMARY | 2024-10-02 15:14 | XMS_ITS | Encounter Summary ---
Author Organization [facility] Address [address] [place] [address] Care Team Providers Care Day Haul [employer] Charter Bus Driver Name Role Phone Alejandra Morris MD Primary Care Provider + Jovan Porter PharmD Unavailable [phone] Rhona Saldivar DDS Unavailable + [phone] Reason for Visit * Reason Comments Med Refill Encounter Details Date Type Department Care Team (Late st Contact Info) Description 06/07/2023 Refill [facility] [address], [place] [phone] Alejandra Morris MD [address] [place], [place] [phone] Slow transit constipation Social History Tobacco Use Types Packs/Day Years Used Date Smoking Tobacco: Never Passive Smoke Exposure: Never Smokeless Tobacco: Never Alcohol Use Standard Drinks/Week Comments Never 0 (1 standard drink = 0.6 oz pur e alcohol) Depression Answer Date Recorded Patient Health Questionnaire-9 Score 0 11/09/2022 Housing Stability Answer Date Recorded What is your housing situation today? I have nilsaadela gardner 05/18/[address] you li ve. Do you have problems with any of the following? None of the above 05/18/2023 Food Insecurity Answer Date Recorded Within the past 12 months, y ou worried that your food would run out before you got money to buy more: Never True 05/18/2023 Within the past 12 months,th e food you bought just didn't last and you didn't have enough money to get more: Never True Transportation Answer Date Recorded In the past 12 months, has l ack of transportation kept you from medical appts, meetings, work or from getting things needed for daily living? No 05/18/2023 Utilities Answer Date Recorded In the past 12 months, has t he electric, gas, oil or water company threatened to shut off services in your home? No 05/18/2023 Depression Answer Date Recorded Patient Health Questionnaire-2 Score 0 11/09/2022 Comments Unknown Sex and Gender Information Value Date Recorded Sex Assigned at Female 06/01/2022 10:17 AM EDT Legal Sex Female 10:17 AM EDT Gender Identity Female 06/01/2022 10:17 AM EDT Sexual Orientation Straight 06/01/2022 10 :17 AM EDT documented as of this encounter Plan of Treatment Upcoming Encounters Date Type Department Care Team (Late st Contact Info) Description 11/21/2024 10:30 AM EDT Office Visit [facility] MED[facility]INE [address] [place] [phone] Alejandra Morris MD [address] [place] [phone] documented as of this encounter Goals Goal Patient Goal Type Associated Problems Recent Progress Patient-Stated? Author Blood Pressure < 140/90 Blood Pressure 134/85( 025 8:14 AM EST) No Jovan Porter PharmD documented as of this encounter Visit Diagnoses Diagnosis Slow transit constipation documented in this encounter Additional Health Concerns Assessment Noted Time PHQ-9 Depression Total Score: 0 11/10/19 23 9:18 AM EDT documented as of this encounter Care Teams Day [employer] Charter Bus Driver Relationship Specialty Start Date End Date Alejandra Morris MD [address] [place] [id number] PCP - General Family Medicine 12/17/17 Jovan Porter, Joaquín [address] [place] [phone] Pharmacist Internal Medicine 05/24/23 Rhona Saldivar DDS [address] [place] [address] Dental Production Checker 07/03/24 documented as of this encounter
--- OUTSIDE RECORDS SUMMARY | 2024-10-02 15:14 | XMS_ITS | Encounter Summary ---
Author Organization [facility] Address [address] [place] [address] Care Team Providers Care Turkey Picker Name Role Phone Alejandra Morris MD Primary Care Provider + Jovan Porter PharmD Unavailable [phone] Rhona Saldivar DDS Unavailable [phone] Reason for Visit * Reason Comments route canal Patient presents tod for a route canal on tooth #28 Encounter Details Date Type Department Care Team (Late st Contact Info) Description 09/12/2024 8:00 AM EST Office Visit [facility] [address] [place] [address] hRona Saldivar DDS [address] [place] [address] Irreversible pulpitis (Primary Dx) Social History Tobacco Use Types Packs/Day Years Used Date Smoking Tobacco: Never Passive Smoke Exposure: Never Smokeless Tobacco: Never Alcohol Use Standard Drinks/Week Comments Never 0 (1 standard drink = 0.6 oz pur e alcohol) Depression Answer Date Recorded Patient Health Questionnaire-9 Score 0 11/09/2022 Housing Stability Answer Date Recorded What is your housing situation today? I have nilsa gardner 05/18/[address] you [...] Patient Health Questionnaire-2 Score 0 11/09/2022 Comments No Sex and Gender Information Value Date Recorded Sex Assigned at Female 06/01/2022 10:17 AM EDT Legal Sex Female 10:17 AM EDT Gender Identity Female 06/01/2022 10:17 AM EDT Sexual Orientation Straight 06/01/2022 10 :17 AM EDT documented as of this encounter Last Filed Vital Signs Vital Sign Reading Time Taken Comments Blood Pressure 134/85 09/12/2024 8:14 AM EST Pulse - - Temperature - - Respiratory Rate - - Oxygen Saturation - - Inhaled Oxygen Concentration - - Weight - - Height - - Body Mass Index - - documented in this encounter Progress Notes * Rhona Saldivar DDS - 09/12/2024 8:00 AM EST Patient ID: Candido Rivera is a 49 y.o. female. Time Out: Date: 09/12/2024 Tooth: #28 Procedure: Root Canal Verified the above with patient, assistant director of security, and provider. Confirmed via patient's chart, intraorally and by radiographs. Gas Turbine Powerplant Mechanic: not applicable Medical Hx: Vitals: Blood pressure 134/85. Medications, Med Hx reviewed with patient and updated in chart. Consent Obtained: The risks, benefits, indications, potential complications, and alternatives were explained to the patient and informed consent was obtained with good understanding. Treatment Provided: Dental procedures in this visit D3320 - ENDODONTICS - ENDODONTIC THERAPY (INCLUDING TREATMENT PLAN, CLINICAL PROCEDURES AND FOLLOW-UP CARE) - ENDODONTIC THERAPY, PREMOLAR TOOTH (EXCLUDING FINAL PRESYBETERIAN) 28 (Completed) Service provider: Rhona Saldivar DDS Billing provider: Rhona Saldivar DDS [id number] - ADJUNCTIVE GENERAL SERVICES - PROFESSIONAL VISITS - CASE PRESENTATION, SUBSEQUENT TO DETAILED AND EXTENSIVE TREATMENT PLANNING (Completed) Service provider: Rhona Saldivar DDS Billing provider: Rhona Saldivar DDS Diagnosis: Irreversible pulpitis Topical: 20% Benzocaine Anesthesia: 2% Lidocaine (Xylocaine) w/ 1:100,000 epinephrine Number of Cartridges: 1.5 Injection Type: Buccal infiltration, Long buccal nerve block, and LI nerve infiltration Confirmed profound anesthesia. Isolation: Rub[place] Created access preparation. Working length radiograph taken: 19.5 mm Irrigated with: 6% NaOCl, RC Prep, and 17% EDTA Instrumented using: Hand files Final File: 40 Multi-Step Visit: N/A Master cone size: 40 Master cone radiograph taken. Sealer: Bioceramic Sealer Obturation Material: Ok Percha Removed excess ok percha. Restorative Material: Cavit Final radiograph taken. Patient tolerated procedure well, no complications. Post op instructions given. Dismissed in good condition. NV: POC and crown Clinical Laboratory Scientist: Dara Sheehan/FRANCISCO Stevenson student Dentist: Rhona Saldivar DDS documented in this encounter Plan of Treatment Upcoming Encounters Date Type Department Care Team (Late st Contact Info) Description 11/21/2024 10:30 AM EDT Office Visit [facility] [address] [place] [address] Alejandra Morris MD [address] [place] [address] documented as of this encounter Goals Goal Patient Goal Type Associated Problems Recent Progress Patient-Stated? Author Blood Pressure < 140/90 Blood Pressure 134/85( 025 8:14 AM EST) Jovan Carmichael, PharmD documented as of this encounter Procedures Procedure Name Priority Date/Time Associated Diagnosis Comments 28 ENDODONTIC THERAPY, PREMOLAR TOOTH Routine 09/12/2024 8:00 AM EST Irreversible pulpitis CASE PRESENTATION, DETAILED AND EXTENSIVE TREATMENT PLANNING Routine 09/12/2024 8:00 AM EST Irreversible pulpitis documented in this encounter Visit Diagnoses Diagnosis Irreversible pulpitis- Primary documented in this encounter Additional Health Concerns Assessment Noted Time PHQ-9 Depression Total Score: 0 11/10/19 23 9:18 AM EDT documented as of this encounter Care Teams Turkey Picker Relationship Specialty Start Date End Date Alejandra Morris MD [address] [place] [address] PCP - General Family Medicine 12/17/17 Jovan Porter, Joaquín [address] [place] [id number] Pharmacist Internal Medicine 05/24/23 Rhona Saldivar DDS [address] [place] [id number] Dental Parts Casting Machine Operator 07/03/24 documented as of this encounter
--- OUTSIDE RECORDS SUMMARY | 2024-10-02 15:14 | XMS_ITS | Encounter Summary ---
Author Organization [facility] Address [address] [place] [address] 7 [place] [address] Care Team Providers Care Hogshead Packer Name Role Phone Alejandra Morris MD Primary Care Provider + Jovan Porter PharmD Unavailable [phone] Rhona Saldivar DDS Unavailable [phone] Encounter Details Date Type Department Care Team (Late st Contact Info) Description 07/13/2022 Orders Only [facility] [address] [place], [place] [phone] Dara Bruno, RN [address] [place], [place] [phone] Social History Tobacco Use Types Packs/Day Years Used Date Smoking Tobacco: Never Assessed Comments Unknown Sex and Gender Information Value Date Recorded Sex Assigned at Female 06/01/2022 10:17 AM EDT Legal Sex Female 10:17 AM EDT Gender Identity Female 06/01/2022 10:17 AM EDT Sexual Orientation Straight 06/01/2022 10 :17 AM EDT documented as of this encounter Miscellaneous Notes * Result Encounter Note - Alejandra Morris MD - 07/13/2022 9:59 AM EST Please update mammogram on 07/13/22, benign/BIRADs 2. Next one on 23 * Result Encounter Note - Alejandra Morris MD - 07/13/2022 9:59 AM EST Please update 07/13/22 mammogram -->neg/BIRADs 2, next one on documented in this encounter Plan of Treatment Upcoming Encounters Date Type Department Care Team (Late st Contact Info) Description 11/21/2024 10:30 AM EDT Office Visit [facility] [address] [facility] [place] [address] Alejandra Morris MD [address] [facility] [place] [address] documented as of this encounter Procedures Procedure Name Priority Date/Time Associated Diagnosis Comments BI MAMMOGRAM SCREENING TOMOSYNTHESIS BILATERAL Routine 07/13/2022 9:20 AM EST documented in this encounter Results * BI Mammogram Screening Tomosynthesis Bilateral (07/13/2022 9:20 AM EST) Anatomical Region Laterality Modality Breast Bilateral Mammography 07/13/2022 9:20 AM EST Narrative 07/14/2022 5:06 PM EST ? [facility] ? [address] ?[place] [address] ? Mammography Report ? Signed ? Patient: Candido Rivera ?MR#: [id number] ? : 1975 ?Acct:[id number] ? Age/Sex: 46 / F ?ADM Date: 12/12/22 ? Loc: HO.MAMMO ? Attending Dr: Alejandra Morris MD ? Ordering Physician: Alejandra Morris MD ?Results: 2Be ?? nign Findings ? Date of Service: 07/13/22 ?Follow Up: 1 Year From Orig ?? inal Mammogram ? Procedure(s): MM tomosynthesis screening BI ?? Accession Number(s): [id number] ? cc: Alejandra Morris MD ? EXAMINATION: ?? MM SCREENING DIGITAL BREAST TOMOSYNTHESIS, BILATERAL ? CLINICAL INFORMATION: ? Screening. Asymptomatic. ? The lifetime risk of breast cancer based on the Tyrer-Cuzick Model is ?? 7%. ? COMPARISON: ?? Mammography: 07/09/2021, 07/08/2020, 10/24/2018 ? TECHNIQUE: ?? Digital breast tomosynthesis is performed in both the craniocaudal and ?? mediolateral oblique views along with computer-aided detection (CAD). ?? Synthesized 2D images are generated from the tomosynthesis. ? FINDINGS: ?? The breasts are heterogeneously dense, which may obscure small masses ?? (ACR BI-RADS breast composition Category c). ? There are no significant masses, abnormal calcifications, or other ?? abnormalities. ?? No developing density or architectural abnormality. ?? Axillary nodes is similar to prior exam 2019. The skin contours are ?? smooth. ? MM/MM tomosynthesis screening BI ?? IMPRESSION: ?? No mammographic evidence of malignancy. ? ASSESSMENT: ? BI-RADS 2: Benign ? RECOMMENDATION: ?? Routine annual mammography screening. ? This patient's information was entered into a reminder system with a ?? target due date for their next mammogram. ? Dictated By: ?Alberto Vela MD ? Signed By: ?<Electronically signed by Alberto Vela MD in OV> ?12/13/22 1703 ? DD/DT: 1212/ 0920 ? TD/TT: ? Senior Copywriter: BOLANOS ? Procedure Note Luanne, Image - 12/13/2022 [facility] [address] [place] [address] Mammography Report Signed Patient: Javier Rivera#: [id number] : 1975Acct:[id number] Age/Sex: 46 / FADM Date: 07/13/22 Loc: HO.MAMMO Attending Dr: Alejandra Morris MD Ordering Physician: Alejandra Morris MDResults: 2Be nign Findings Date of Service: 07/13/22Follow Up: 1 Year From Orig inal Mammogram Procedure(s): MM tomosynthesis screening BI Accession Number(s): [id number] cc: Alejandra Morris MD EXAMINATION: MM SCREENING DIGITAL BREAST TOMOSYNTHESIS, BILATERAL CLINICAL INFORMATION: Screening. Asymptomatic. The lifetime risk of breast cancer based on the Tyrer-Cuzick Model is 7%. COMPARISON: Mammography: 07/09/2021, 07/08/2020, 10/24/2018 TECHNIQUE: Digital breast tomosynthesis is performed in both the craniocaudal and mediolateral oblique views along with computer-aided detection (CAD). Synthesized 2D images are generated from the tomosynthesis. FINDINGS: The breasts are heterogeneously dense, which may obscure small masses (ACR BI-RADS breast composition Category c). There are no significant masses, abnormal calcifications, or other abnormalities. No developing density or architectural abnormality. Axillary nodes is similar to prior exam 2019. The skin contours are smooth. MM/MM tomosynthesis screening BI IMPRESSION: No mammographic evidence of malignancy. ASSESSMENT: BI-RADS 2: Benign RECOMMENDATION: Routine annual mammography screening. This patient's information was entered into a reminder system with a target due date for their next mammogram. Dictated By: Alberto Vela MD Signed By: <Electronically signed by Alberto Vela MD in OV> 07/14/22 2098 DD/ 0920 TD/TT: Senior Copywriter: BOLANOS [facility] External Provider IMG BI PROCEDURES Final Result documented in this encounter Visit Diagnoses Not on filedocumented in this encounter Care Teams Hogshead Packer Relationship Specialty Start Date End Date Alejandra Morris MD [address] [place], [place] [phone] PCP - General Family Medicine 12/17/17 Jovan Porter PharmD [address], [place] [phone] Pharmacist Internal Medicine 05/24/23 Rhona Saldivar DDS [address] [place], [place] [phone] Dental Slot Floorperson 07/03/24 documented as of this encounter
--- OUTSIDE RECORDS SUMMARY | 2024-10-02 15:14 | XMS_ITS | Clinical Summary ---
Author Organization [facility] Address [address] [place] [address] Care Team Providers Care Laundry Aide Name Role Phone Alejandra Morris MD Primary Care Provider + Jovan Porter PharmD Unavailable [phone] Rhona Saldivar DDS Unavailable [phone] Allergies Active Allergy Reactions Criticality Noted Date Comments Flavoring Agent (Non-Screening) 07/02 Cat Dander Unknown 04/30/2020 Daucus Carota Unknown 04/30/2020 Dog Epithelium (Canis Lupus Familiaris) Unknown 04/30/2020 Medications Levonorgestrel (Mirena, 52 MG,) 20 MCG/DAY intrauterine device 1 Units by Intrauterine route continuously. Active labetalol (Normodyne) 100 MG tabletIndication s:Primary hypertension TAKE 1 TABLET BY MOUTH TWICE DAILY 180 tablet 3 08/03/19 24 Active ergocalciferol (Vitamin D2) 1.25 MG (60622 UT) capsuleIndicatio ns:Vitamin D deficiency TAKE 1 CAPSULE BY MOUTH ONCE A WEEK 12 capsule 3 09/01/19 24 Active cetirizine (ZyrTEC) 10 MG tablet Take 1 tablet (10 mg) by mouth if needed each day for allergies. 30 tablet 11/11/19 24 Active losartan-hydroCH LOROthiazide (Hyzaar) 100-25 MG tabletIndication s:Primary hypertension TAKE 1 TABLET BY MOUTH EVERY DAY 90 tablet 01/31/20 24 Active cyclobenzaprine (Flexeril) 10 MG tabletIndication s:Spasm of thoracic back muscle Take 1 tablet (10 mg) by mouth at bedtime. 30 tablet 10/21/20 24 Active omeprazole (PriLOSEC) [address] capsule TAKE 1 CAPSULE BY MOUTH DAILY 30-60 MINUTES BEFORE A MEAL 90 capsule 3 05/24/20 24 Active ibuprofen 600 MG tablet Take 1 tablet (600 mg) by mouth every 6 (six) hours if needed for mild pain for up to 10 days. 15 each 09/12/19 25 025 Active Problems Problem Noted Date Diagnosed Date Benign paroxysmal positional vertigo due to bilateral vestibular disorder 05/22/2024 Assessment & Plan (05/22/2024 10:45 AM EDT): D/w patient benign nature of condition, she will re consult prn if sxs persists beyond 4mo Advised to keep hydrated and change position slowly. Take meclizine prn Check BP prn sxs Encounter for colorectal cancer screening 2023 Assessment & Plan (05/22/2024 1:01 PM EDT): She's never had a colonoscopy. I gave her info re cologuard and I will fu at next appt. Urticaria 11/11/2023 Assessment & Plan (11/11/2023 10:25 AM EDT): Resolving. Use zyrtec prn Missing teeth, acquired 07/22/2023 Localized gingival recession 07/22/2023 Spasm of thoracic back muscle 07/12/2023 Assessment & Plan (05/22/2024 10:44 AM EDT): Advised to rs PT appt, she has PT info. Take Meloxicam or flexeril prn, can alternate with tylenol. Assessment & Plan (11/11/2023 10:25 AM EDT): Recurrent, refer to PT Recommended acupuncture clinic Assessment & Plan (07/12/2023 10:24 AM EST): Import Clerk regarding to apply heat to affected area Import Clerk regarding stretch exercises Take Tylenol BID x1 week Import Clerk regarding attending walk-in acupuncture Reconsult PRN and f/u with me in 3 MOS Acute rhinitis 07/12/2023 Assessment & Plan (07/12/2023 10:25 AM EST): Status Post URI Use NS PRN Use Fluticasone x1 week and reconsult PRN Ill-fitting dentures 07/12/2023 Open fracture of tooth with nonunion 05/26/2023 Tooth fracture with loss of restorative material 04/13/2023 Dizziness 04/12/2023 Assessment & Plan (04/13/2023 4:45 PM EDT): Improving Counseled to check BP prn dizziness CT scan brain on 2018 was neg Dysuria 03/11/2023 Assessment & Plan (03/11/2023 12:13 PM EDT): She has UTI Start bactrim x 5 days. I will add Lotrisone cream on vulvar area only externally fu with me PRN if symptoms do not resolve in 3 days Habitual snoring 03/11/2023 Assessment & Plan (03/11/2023 12:13 PM EDT): Due to history of uncontrolled HTN, I will order sleep study Slow transit constipation 03/11/2023 Assessment & Plan (03/11/2023 12:13 PM EDT): Prescription for Colace BID increase water and fiber consumption Vitamin D deficiency 11/09/2022 Assessment & Plan (11/09/2022 10:01 AM EDT): to complete 1 more month of Vit d supplementation recommedned out door exercise at least 15 minutes of sun exposure fu vit d levels in 1 year Chronic pain of left knee 11/09/2022 Assessment & Plan (03/11/2023 12:14 PM EDT): Refer to PT Use Tylenol PRN Assessment & Plan (11/09/2022 10:05 AM EDT): refer to PT continue tylenol PRN Cough 11/06/2022 Sinusitis 11/06/2022 Subacute vaginitis 11/06/2022 Erosion of teeth, limited to enamel 10/01/2022 Atopic dermatitis 08/31/2022 Greater trochanteric pain syndrome 08/31/2022 Assessment & Plan (11/11/2023 10:24 AM EDT): Recurrent Refer to PT Hypertriglyceridemia 08/31/2022 Assessment & Plan (11/09/2022 10:03 AM EDT): We discussed re rx options. She wants to be more strict with life style modifications. Recommended moderate amount of exercise and increased consumption of fruit, vegetables, fish and high fiber foods. We discussed about avoiding consumption of highly saturated fats or trans fats. Information given for low-fat diet FU lipids in 6-12 months Impaired glucose tolerance 08/31/2022 Assessment & Plan (04/13/2023 4:42 PM EDT): Significantly improved. A1c is normal. Has strong Fam Hx DM Counseled re more frequent low calorie/carb meals. Encouraged physical activity as tolerated. FU in 6 months. Assessment & Plan (03/11/2023 12:14 PM EDT): I have discussed with patient regarding increasing physicial activity and decrease calorie intake I'll check FBS with next set of labs. To check RBS at next visit. order labs fu with me in 4 weeks Assessment & Plan (11/09/2022 10:03 AM EDT): Pt has sister's with DM Counseled re more frequent low calorie/carb meals. Encouraged physical activity as tolerated. FU in 6 months Tenosynovitis of finger 08/31/2022 Assessment & Plan (03/11/2023 12:15 PM EDT): Partial improvement s/p OT refer to joint injection clinic continue tylenol and OT exercises at home + finger braces Assessment & Plan (11/09/2022 10:04 AM EDT): Right 2nd MCP joint recommended diclofenac gel and tylenol PRN Refer to PT, consider interarticular injection Assessment & Plan (08/31/2022 12:20 PM EST): Use Tylenol BID, r/o Gout or inflammatory arthritis. FU with me in 3 months. Dental caries 08/28/2022 Dental plaque on multiple teeth 08/28/2022 Secondary oligomenorrhea 12/19/2018 Flexural eczema 12/19/2018 Angioedema 10/24/2018 Chronic low back pain 06/22/2018 Acute serous otitis media 04/20/2018 Primary hypertension 06/10/2015 Assessment & Plan (05/22/2024 10:44 AM EDT): Controlled. Compliant w/meds Continue losartan and labetalol same dose Counseled re low salt diet/increase moderate physical activity. Check home BP BIW and prn CP/SHOEMAKER/MANRIQUEZ Non smoking patient. FU in 6m w labs Assessment & Plan (11/11/2023 10:24 AM EDT): Controlled. Compliant w/meds Continue losartan/hctz + labetalol same dose Counseled re low salt diet/increase moderate physical activity. Check home BP BIW and prn CP/SHOEMAKER/MANRIQUEZ Non smoking patient. Order BMP, due for lipids in 6m Assessment & Plan (07/12/2023 10:02 AM EST): Controlled. Compliant w/meds Continue lisinopril/hctz + labetalol same dose Counseled re low salt diet/increase moderate physical activity. Check home BP BIW and prn CP/SHOEMAKER/MANRIQUEZ Non smoking patient. Assessment & Plan (04/13/2023 4:41 PM EDT): Better controlled, not quite at goal. Encouraged to continue daily meds: Losartan/hctz + labetalol Counseled re low salt diet/increase moderate physical activity. Check home BP BIW and prn CP/SHOEMAKER/MANRIQUEZ Non smoking patient. Fu in 3m Assessment & Plan (03/11/2023 12:16 PM EDT): Uncontrolled. Continue losartan/HCTZ and add low labetalol 100mg BID Counseled re low salt diet/increase moderate physical activity. Check home BP BIW and prn CP/SHOEMAKER/MANRIQUEZ Non smoking patient. Fu with me in 1 month refer to [facility] clinic, order labs Assessment & Plan (11/09/2022 10:02 AM EDT): Seems to be uncontrolled today, per pt it is controlled at home. No change in medications today Counseled re low salt diet/increase moderate physical activity. Check home BP BIW and prn CP/SHOEMAKER/MANRIQUEZ Non smoking patient. Pt to keep BP log for next appointment FU in 4 months Assessment & Plan (08/31/2022 12:20 PM EST): Uncontrolled. Increase losartan to 100/25 mg once per day and FU with me in 3 weeks. Allergic rhinitis 06/10/2015 Obesity 06/10/2015 Assessment & Plan (05/22/2024 1:01 PM EDT): Discussed re weight reduction options including exercise, life style modifications, diet. Recommended to decrease soda and sugary beverage consumption, increase protein intake with meals (at least 1 portion of protein with each meal) to assist with satiety, increase dietary fiber Recommended at least 150 min/week of moderate intensity exercise. 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 doretha fied surface antigen) 05/01/2013,04/12/2012 Influenza, seasonal, injecta ble, preservative free 05/22/2024,04/12/2023 MMRV 07/02/2005 TD (adult), 2 Lf tetanus tox oid, preservative free, adsorbed 07/02/2005 Tdap 05/24/2023,02/10/2011 Social History Tobacco Use Types Packs/Day Years Used Date Smoking Tobacco: Never Passive Smoke Exposure: Never Smokeless Tobacco: Never Tobacco Cessation:Counseling Given: Not Answered Alcohol Use Standard Drinks/Week Comments Never 0 [...] Orientation Straight 06/01/2022 10 :17 AM EDT Last Filed Vital Signs Vital Sign Reading Time Taken Comments Blood Pressure 134/85 09/12/2024 8:14 AM EST Pulse 77 05/22/2024 10:16 AM EDT Temperature 36.8 ??C (98.2 ??F) 05/22/2024 10:16 AM E DT Respiratory Rate 20 07/12/2023 8:52 AM EST Oxygen Saturation 98% 05/22/2024 10:16 AM EDT Inhaled Oxygen Concentration - - Weight 76.4 kg (168 lb 6 oz) 05/22/2024 10:16 AM EDT Height 157.5 cm (5' 2 ) 05/22/2024 10:16 AM EDT Body Mass Index 30.8 05/22/2024 10:16 AM EDT Plan of Treatment Upcoming Encounters Date Type Department Care Team (Late st Contact Info) Description 11/21/2024 10:30 AM EDT Office Visit [facility] MEDICINE [address], [place] [phone] Alejandra Morris MD [address] [place], [place] [phone] Health Maintenance Due Date Last Done Comments CT Colonography 1977 Colonoscopy 1977 Colorectal Cancer Screening 1977 FIT DNA/Cologuard 1977 FIT 1977 FOBT 1975 Sigmoidoscopy 1977 Alcohol/Substance Use Screening 1989 Family Planning (PISQ) 1992 Pap Smear 1998 Depression Screening 11/10/2023 11/09/2022, 11/10/19 23 Dental Prophylaxis 01/22/2024 07/22/2023, 08/28/2022 Dental Oral Exam 02/22/2024 08/23/2023 COVID-19 Vaccine ( season) 2024 08/17/2021, 12/25/2020, 11/27/2020 SDOH Screening 11/01/2024 11/02/2023 Diabetes: Hemoglobin A1C 11/10/2024 024, 03/22/2023, 05/21/2020 Mammogram 11/21/2024 11/22/2023, 07/02, 07/09/2021, Additional history exists Dental X-Ray: Bitewings 06/28/2025 06/27/20 24, 04/21/2024, 11/25/2023, Additional history exists Cervical Cancer Screening 07/04/2025 HPV/Cotest 07/04/2025 07/04/2020, 04/14/2016 Tobacco Screening 09/12/2025 09/12/2024 Dental X-Ray: Full Mouth 07/23/2026 07/22/2023, 11/30 Zoster Vaccines (1 of 2) 2027 Lipid Panel 03/22/2028 03/22/2023, 08/04, 06/09/2021, Additional history exists DTaP/Tdap/Td Vaccines (3 - Td or Tdap) 05/24/2033 05/24/2023, 02/10/2011, 07/02/2005 RSV Patients and Patients Aged 60 years or older (1 - 1-dose 75+ series) 2052 Hepatitis B Vaccines Completed 06/04/2016, 01/17/2016, 11/11/2015 HIV Screening Completed 11/20/2022 Hepatitis C Screening Completed 11/20/2022 Influenza Vaccine Completed 05/22/2024, , 06/10/2021, Additional history exists HIB Vaccines Aged Out No longer eligi ble based on patient's age to complete this topic HPV Vaccines Aged Out No longer eligi ble based on patient's age to complete this topic Hepatitis A Vaccines Aged Out No long er eligible based on patient's age to complete this topic IPV Vaccines Aged Out No longer eligi ble based on patient's age to complete this topic Meningococcal Vaccine Aged Out No shara benjy eligible based on patient's age to complete this topic Pneumococcal Vaccine: Pediatrics (0 to 5 Years) and At-Risk Patients (6 to 49) Years) Aged Out No longer eligible based on patient's age to complete this topic RSV under 20 months Aged Out No longe r eligible based on patient's age to complete this topic Rotavirus Vaccines Aged Out No longer eligible based on patient's age to complete this topic Goals Goal Patient Goal Type Associated Problems Recent Progress Patient-Stated? Author Blood Pressure < 140/90 Blood Pressure 134/85( 025 8:14 AM EST) No Porter, Jovan, Joaquín Procedures Procedure Name Priority Date/Time Associated Diagnosis Comments CASE PRESENTATION, DETAILED AND EXTENSIVE TREATMENT PLANNING Routine 09/12/2024 8:00 AM EST Irreversible pulpitis 28 ENDODONTIC THERAPY, PREMOLAR TOOTH Routine 09/12/2024 8:00 AM EST Irreversible pulpitis US PELVIS TRANSVAGINAL Routine 07/05/2024 2:54 PM EST BITEWING - SINGLE RADIOGRAPHIC IMAGE Routine 06/27/2024 11:30 AM EST Dental crowns status Fracture of removable partial denture BI MAMMOGRAM SCREENING TOMOSYNTHESIS BILATERAL Routine 11/22/2023 9:00 AM EDT HEMOGLOBIN A1C Routine 11/11/2023 11:29 AM EDT Primary hypertension PERIODIC ORAL EVALUATION - ESTABLISHED PATIENT Routine 08/23/2023 10:30 AM EST PROPHYLAXIS - ADULT Routine 07/22/2023 9 :00 AM EST INTRAORAL - COMPLETE SERIES OF RADIOGRAPHIC IMAGES Routine 07/22/2023 9:00 AM EST LIPID PANEL WITH REFLEX TO DIRECT LDL Routine 03/22/2023 7:22 AM EDT Primary hypertension HEPATITIS C ANTIBODY Routine 11/20/2022 9:35 AM EDT HIV ANTIBODY/ANTIGEN ([place] DPH) Routine 11/20/2022 9:35 AM EDT ZZZ HISTORICAL HPV E6/E7 RFLX CARLEY 16 18/45 Routine 07/04/2020 10:04 AM EST from Last 3 Months or Most Recently Relevant to Health Maintenance Results * US Pelvis Transvaginal (07/05/2024 2:54 PM EST) Anatomical Region Laterality Modality Pelvis Ultrasound 07/05/2024 2:54 PM EST Narrative 08/20/2024 11:57 AM EST ? [facility] ?[address] ?[place] [address] ? Ultrasound Report ? Signed ? Patient: Rivera,Betis ?MR#: [id number] ? : 1975 ?Acct:[id number] ? Age/Sex: 48 / F ?ADM Date: 07/05/24 ? Loc: HO.US ? Attending Dr: Omaira Diaz CNM ? Ordering Physician: Omaira Diaz CNM ?? Date of Service: 07/05/24 ?? Procedure(s): US pelvic and transvaginal ?? Accession Number(s): [id number] ? cc: Alejandra Morris MD; Omaira Diaz CNM ? EXAMINATION: ? US PELVIS ? CLINICAL INFORMATION: ? Pelvic and perineal pain, occasional spotting, IUD. ? COMPARISON: ?? 01/29/2022. ? TECHNIQUE: ?? Ultrasound of the pelvis is performed using both transabdominal and ?? transvaginal transducers along with Doppler. Transvaginal imaging is ?? performed due to inadequate visualization transabdominally. ? FINDINGS: ?? The anteverted uterus measures 6.7 x 3.8 x 5.9 cm. Limited ?? visualization due to bowel gas and body habitus. ? IUD in place within the endometrial cavity. ? Left ovary measures 3.0 x 1.0 x 1.1 cm, volume 1.7 mL. ? Right ovary measures 6.5 x 3.7 x 4.8 cm, volume 60 mL. Multiple right ?? ovarian cysts, largest 3.4 cm, 2.9 cm and 2.2 cm are likely simple. ? US/US pelvic and transvaginal ?? IMPRESSION: ?? 1. IUD in place within the endometrial cavity. Visualization of the ?? endometrium is limited due to shadowing artifact from the IUD. ? 2. Right ovarian likely simple cysts, largest 3.4 cm, as detailed ?? above, not identified on the prior exam. Correlation with clinical exam ?? recommended to determine further management. Recommend followup ?? ultrasound in 6-8 weeks. ? Electronically signed by: ??Jackeline Yates MD ??08/20/2024 11:55 AM EST ?? RP ? Dictated By: ?Jackeline Yates MD ? Signed By: ?<Electronically signed by Jackeline Yates MD in OV> ? 08/20/24 1155 ? DD/ 1454 ? TD/TT: 07/05/24 1516 ? Client Representative: ? Procedure Note Donotuseinterpreter, Image - 08/20/[address] [address] Ultrasound Report Signed Patient: Javier Rivera#: [id number] : 1975Acct:[id number] Age/Sex: 48 / FADM Date: 07/05/24 Loc: HO.US Attending Dr: Omaira Diaz CNM Ordering Physician: Omaira Diaz CNM Date of Service: 07/05/24 Procedure(s): US pelvic and transvaginal Accession Number(s): [id number] cc: Alejandra Morris MD; Omaira Diaz CNM EXAMINATION: US PELVIS CLINICAL INFORMATION: Pelvic and perineal pain, occasional spotting, IUD. COMPARISON: 01/29/2022. TECHNIQUE: Ultrasound of the pelvis is performed using both transabdominal and transvaginal transducers along with Doppler. Transvaginal imaging is performed due to inadequate visualization transabdominally. FINDINGS: The anteverted uterus measures 6.7 x 3.8 x 5.9 cm. Limited visualization due to bowel gas and body habitus. IUD in place within the endometrial cavity. Left ovary measures 3.0 x 1.0 x 1.1 cm, volume 1.7 mL. Right ovary measures 6.5 x 3.7 x 4.8 cm, volume 60 mL. Multiple right ovarian cysts, largest 3.4 cm, 2.9 cm and 2.2 cm are likely simple. US/US pelvic and transvaginal IMPRESSION: 1. IUD in place within the endometrial cavity. Visualization of the endometrium is limited due to shadowing artifact from the IUD. 2. Right ovarian likely simple cysts, largest 3.4 cm, as detailed above, not identified on the prior exam. Correlation with clinical exam recommended to determine further management. Recommend followup ultrasound in 6-8 weeks. Electronically signed by: Jackeline Yates MD 08/20/2024 11:[address] [facility] Dictated By: Jackeline Yates MD Signed By: <Electronically signed by Jackeline Yates MD in OV> 08/20/24 1155 DD/ 1454 TD/TT: 07/05/24 1516 Client Representative: [facility] External Provider IMG US PROCEDURES Edited Result - Final * BI Mammogram Screening Tomosynthesis Bilateral (11/22/2023 9:00 AM EDT) Anatomical Region Laterality Modality Breast Bilateral Mammography 11/22/2023 9:00 AM EDT Narrative 12/20/2023 4:57 AM EDT ? [facility] [place] ? [address] [place] [address] ? Mammography Report ? Signed ? Patient: Rivera,Candido ?MR#: [id number] ? : 1975 ?Acct:[id number] ? Age/Sex: 48 / F ?ADM Date: 11/22/23 ? Loc: HO.MAMMO ? Attending Dr: Alejandra Morris MD ? Ordering Physician: Alejandra Morris MD ?Results: 1Ne ?? gative ? Date of Service: 11/22/23 ?Follow Up: 1 Year From Orig ?? inal Mammogram ? Procedure(s): MM tomosynthesis screening BI ?? Accession Number(s): [id number] ? cc: Alejandra Morris MD ? EXAMINATION: ?? MM SCREENING DIGITAL BREAST TOMOSYNTHESIS, BILATERAL ? CLINICAL INFORMATION: ? Screening. Asymptomatic. ? COMPARISON: ?? Mammography: This study is compared with prior exams dating back to ?? 2019. ? TECHNIQUE: ?? Digital breast tomosynthesis is performed in both the craniocaudal and ?? mediolateral oblique views along with computer-aided detection (CAD). ?? Synthesized 2D images are generated from the tomosynthesis. ? FINDINGS: ?? The breasts are heterogeneously dense, which may obscure small masses ?? (ACR BI-RADS breast composition Category c). ? There are no significant masses, abnormal calcifications, or other ?? abnormalities. ? MM/MM tomosynthesis screening BI ?? IMPRESSION: ?? No mammographic evidence of malignancy. ? ASSESSMENT: ? BI-RADS BI-RADS 1 - Negative ? RECOMMENDATION: ?? Routine annual mammography screening. ? 1 year F/U ? This examination should not preclude the clinical evaluation of a ?? suspicious palpable abnormality. ? This patient's information was entered into a reminder system with a ?? target due date for their next mammogram. ? Dictated By: ?Janie Ramirez MD ? Signed By: ?<Electronically signed by Janie Ramirez MD in OV> ? 12/20/23 0453 ? DD/ 0900 ? TD/TT: ? Client Representative: ? Procedure Note Gerardo Stroud - 12/20/2023 [place] [facility] [address] [place] [address] Mammography Report Signed Patient: Javier Rivera#: [id number] : 1975Acct:[id number] Age/Sex: 48 / FADM Date: 11/22/23 Loc: [facility] Attending Dr: Alejandra Morris MD Ordering Physician: Alejandra Morrisesults: 1Ne gative Date of Service: 11/22/23Follow Up: 1 Year From Orig inal Mammogram Procedure(s): MM tomosynthesis screening BI Accession Number(s): [id number] cc: Alejandra Morris MD EXAMINATION: MM SCREENING DIGITAL BREAST TOMOSYNTHESIS, BILATERAL CLINICAL INFORMATION: Screening. Asymptomatic. COMPARISON: Mammography: This study is compared with prior exams dating back to 2019. TECHNIQUE: Digital breast tomosynthesis is performed in both the craniocaudal and mediolateral oblique views along with computer-aided detection (CAD). Synthesized 2D images are generated from the tomosynthesis. FINDINGS: The breasts are heterogeneously dense, which may obscure small masses (ACR BI-RADS breast composition Category c). There are no significant masses, abnormal calcifications, or other abnormalities. MM/MM tomosynthesis screening BI IMPRESSION: No mammographic evidence of malignancy. ASSESSMENT: BI-RADS BI-RADS 1 - Negative RECOMMENDATION: Routine annual mammography screening. 1 year F/U This examination should not preclude the clinical evaluation of a suspicious palpable abnormality. This patient's information was entered into a reminder system with a target due date for their next mammogram. Dictated By: Janie Ramirez MD Signed By: <Electronically signed by Janie Ramirez MD in OV> 12/20/23 0453 DD/ 0900 TD/TT: Client Representative: Alejandra Morris MD [facility] [place] PROCEDURES Edited Result - Final * Hemoglobin A1c (11/11/2023 11:29 AM EDT) Hemoglobin A1c 5.9 <6.0 % [facility] Comment:Hemoglobin A1C Refer ence Range Adults: 4.8 - 6.0 % Non diabetic: < 6.0 % Goal: < 7.0 %Additional Action Suggested: > 8.0 %Note: Hemoglobin A1c results are invalid for patients with abnormal amounts of HbF. Blood transfusions may impact the HbA1c concentration in the patient sample. Estimated Average Glucose 123 mg/dL [facility] Comment:eAG = Estimated ave rage glucose which is %A1C expressed asaverage glucose, using the formula of the K2P-WcgusjqZwcrgrf Glucose study (ADAG), Diabetes Care, Vol.31,#8,Mar. 2007 Blood Venous blood specimen / Unknown 11/11/2023 11:29 AM EDT 11/11/2023 1:20 PM EDT Alejandra Morris MD LAB BLOOD ORDERABLES Fin al Result Performing Organization Address [facility] [address]/[facility] Co de Phone Number [facility] [address] [place] [address] [phone] * Lipid Panel with Reflex to Direct LDL (03/22/2023 7:22 AM EDT) Triglycerides 133 mg/dL [facility] Comment:Desirable Triglyceri de: less than 150 mg/dLBorderline High Triglyceride 150-199 mg/dLHigh Triglyceride: 200-499 mg/dLVery High Triglyceride: greater than or equal to 5OO mg/dL Cholesterol 163 mg/dL [facility] Comment:Desirable Cholestero l: less than 200 mg/dLBorderline High Cholesterol: 200-239 mg/dLHigh Cholesterol: greater than 239 mg/dL LDL Cholesterol Calculated 102 mg/dl [facility] Comment:Desirable LDL: less than 100 mg/dLNear Optimal/Above Optimal LDL: 110- 129 mg/dLBorderline High LDL: 130-159 mg/dLHigh LDL: 160-189 mg/dLVery High LDL: greater than or equal to 190 mg/dL HDL Cholesterol 35 mg/dL [facility] Comment:Desirable HDL: great er than 40 mg/dL Note: This HDL assay may give artificially low results in patients with liver disease. Blood 03/22/2023 7:22 AM EDT 03/22/2023 7:22 AM EDT Alejandra Morris MD LAB BLOOD ORDERABLES Fin al Result Performing Organization Address City/[facility] [address]/ZIP Co de Phone Number [facility] [address] [place] [address] [phone] * Hepatitis C Ab (11/20/2022 9:35 AM EDT) Hepatitis C Antibody Nonreactive Nonreactive [facility] Comment:Antibodies to HCV no t detected; does not exclude early acuteHCV infection. 11/20/2022 9:35 AM EDT 11/20/2022 9:35 AM EDT [facility] External Provider LAB BLO OD ORDERABLES Final Result Performing Organization Address [facility] [address]/ZIP Co de Phone Number [facility] [address] [place] [address] [phone] * HIV Ab/Ag ([facility]) (11/20/2022 9:35 AM EDT) HIV AB/AG Nonreactive Nonreactive [facility] [facility] Comment:HIV-1 p24 Ag and/or HIV-1/HIV-2 Ab not detected.A test result that is nonreactive does not exclude thepossibility of exposure to or infection with HIV-1 and/orHIV-2. Nonreactive results in this assay for individualswith prior exposure to HIV-1 and/or HIV-2 may be due toantigen and antibody levels that are below the limit ofdetection of this assay.The [employer] HIV Ag/Ab Combo assay result andsupplemental assay results should be interpreted inconjunction with the patient's clinical presentation,history and other laboratory results. If the results areinconsistent with clinical evidence, additional testing issuggested to confirm the result. 11/20/2022 9:35 AM EDT 11/20/2022 9:35 AM EDT [facility] External Provider LAB BLO OD ORDERABLES Final Result Performing Organization Address [facility] [address]/ZIP Co de Phone Number [facility] [address] [place] [address] [phone] * HPV E6/E7 RFLX CARLEY 16 18/45 (07/04/2020 10:04 AM EST) HPV mRNA E6/E7 rflx Not Detected Not Detected [facility] Comment: This test was performed using the APTIMA HPV Assay ([employer] This assay detects E6/E7 viral messenger RNA (mRNA) from 14 high-risk HPV types (16,18,31,33,35,39,45,51,52,56,58,59,66,68). The analytical performance characteristics of this assay have been determined by [facility]. The modifications have not been cleared or approved by the FDA. This assay has been validated pursuant to the CLIA regulations and is used for clinical purposes. THIS TEST WAS PERFORMED AT: [email or web address] [address] [place], [place] ??[phone] RIVKA DUPONT MD 07/04/2020 10:0 4 AM EST us Omaira Diaz HISTORICAL/NON ORDERABLE LABS Fi nal Result [facility] [place] [address], from Last 3 Months or Most Recently Relevant to Health Maintenance Insurance HSN FULL [facility] ADULT DENTAL - [place] FULL (MEDICAID) Care Teams Laundry Aide Relationship Specialty Start Date End Date Alejandra Morris MD [address] [place] [address] PCP - General Family Medicine 12/17/17 Jovan Porter, MichelleD [address] [place] [address] Pharmacist Internal Medicine 05/24/23 Rhona Saldivar DDS [address] [place] [address] Dental Bowling Ball Engraver 07/03/24
--- OUTSIDE RECORDS SUMMARY | 2024-10-02 15:14 | XMS_ITS | Encounter Summary ---
Author Organization [employer] [facility] Address [address] [facility] 7t [place] [address] Care Team Providers Care Production Service Manager Name Role Phone Alejandra Morris MD Primary Care Provider + Jovan Porter PharmD Unavailable [phone] Rhona Saldivar DDS Unavailable [phone] Encounter Details Date Type Department Care Team (Late st Contact Info) Description 09/02/2022 Orders Only [facility] [address] [place] [address] Alejandra Morris MD [address] [place], [place] [phone] Vitamin D deficiency (Primary Dx) Social History Tobacco Use Types Packs/Day Years Used Date Smoking Tobacco: Never Passive Smoke Exposure: Never Smokeless Tobacco: Never Alcohol Use Standard Drinks/Week Comments Never 0 (1 standard drink = 0.6 oz pur e alcohol) Comments Unknown Sex and Gender Information Value Date Recorded Sex Assigned at Female 06/01/2022 10:17 AM EDT Legal Sex Female 10:17 AM EDT Gender Identity Female 06/01/2022 10:17 AM EDT Sexual Orientation Straight 06/01/2022 10 :17 AM EDT COVID-19 Exposure Response Date Recorded In the last 10 days, have yo u been in contact with someone who was confirmed or suspected to have Coronavirus/COVID-19? No / Unsure 08/31/2022 11:02 AM EST documented as of this encounter Plan of Treatment Upcoming Encounters Date Type Department Care Team (Late st Contact Info) Description 11/21/2024 10:30 AM EDT Office Visit [facility] [address] [place] [address] Alejandra Morris MD [address] [place] [phone] documented as of this encounter Visit Diagnoses Diagnosis Vitamin D deficiency- Primary documented in this encounter Care Teams Production Service Manager Relationship Specialty Start Date End Date Alejandra Morris MD [address] [place] [phone] PCP - General Family Medicine 12/17/17 Jovan Porter, Joaquín [address] [place] [address] [phone] Pharmacist Internal Medicine 05/24/23 Rhona Saldivar DDS [address] [place] [address] [phone] Dental Thermocouple Tester 07/03/24 documented as of this encounter
--- OUTSIDE RECORDS SUMMARY | 2024-10-02 15:14 | XMS_ITS | Encounter Summary ---
Author Organization [facility] [facility] Address [address] [facility] 7t [place] [address] Care Team Providers Care Warp Bleaching Vat Tender Name Role Phone Alejandra Morris MD Primary Care Provider + Jovan Porter PharmD Unavailable [phone] Rhona Saldivar DDS Unavailable [phone] Encounter Details Date Type Department Care Team (Late st Contact Info) Description 10/02/2022 Abstract [facility] [address] [place] [address] Dharmesh Reyes DDS [address] [place] [address] Social History Tobacco Use Types Packs/Day Years [...] suspected to have Coronavirus/COVID-19? No / Unsure 10/01/2022 1:13 PM EST documented as of this encounter Plan of Treatment Upcoming Encounters Date Type Department Care Team (Late st Contact Info) Description 11/21/2024 10:30 AM EDT Office Visit [facility] [address] [place] [address] Alejandra Morris MD [address] [place] [address] documented as of this encounter Visit Diagnoses Not on filedocumented in this encounter Care Teams Warp Bleaching Vat Tender Relationship Specialty Start Date End Date Alejandra Morris MD [address] [place] [phone] PCP - General Family Medicine 12/17/17 Jovan Porter PharmD [address] [place] [address] [phone] Pharmacist Internal Medicine 05/24/23 Rhona Saldivar DDS [address] [place] [address] [phone] Dental Net Application Support Specialist 07/03/24 documented as of this encounter
--- OUTSIDE RECORDS SUMMARY | 2024-10-02 15:14 | XMS_ITS | Encounter Summary ---
Author Organization [employer] [facility] Address [address] [place] [address] 7t [place] [address] Care Team Providers Care Audiovisual Technician Name Role Phone Alejandra Morris MD Primary Care Provider + Jovan Porter PharmD Unavailable [phone] Rhona Saldivar DDS Unavailable [phone] Encounter Details Date Type Department Care Team (Latest Contact Info) Description 12/16/2018 Abstract [facility] CON[facility] Dental, Provider, DDS Social History Tobacco Use Types Packs/Day Years [...] Description 11/21/2024 10:30 AM EDT Office Visit [facility] [address] [place] [address] Alejandra Morris MD [address] [place], [place] [phone] documented as of this encounter Visit Diagnoses Not on filedocumented in this encounter Care Teams Audiovisual Technician Relationship Specialty Start Date End Date Alejandra Morris MD [address] [place], [place] [phone] PCP - General Family Medicine 5/18/18 Jovan Porter, Joaquín [address] [place], [place] [phone] Pharmacist Internal Medicine 05/24/23 Rhona Saldivar DDS [address] [place], [place] [phone] Dental Licensed Insurance Sales Agent 07/03/24 documented as of this encounter
--- OUTSIDE RECORDS SUMMARY | 2024-10-02 15:14 | XMS_ITS | Encounter Summary ---
Author Organization [employer] [facility] Address [address] [facility] 7t [place] [address] Care Team Providers Care Medical Management Specialist Name Role Phone Alejandra Morris MD Primary Care Provider + Jovan Porter PharmD Unavailable [phone] Rhona Saldivar DDS Unavailable [phone] Encounter Details Date Type Department Care Team (Late st Contact Info) Description 10/02/[address] [facility] [address] [place] [address] Dharmesh Reyes DDS [address] [place] [address] Social History Tobacco Use Types Packs/Day Years [...] Description 11/21/2024 10:30 AM EDT Office Visit [facility] [address] [place] [address] Alejandra Morris MD [address] [place] [address] documented as of this encounter Visit Diagnoses Not on filedocumented in this encounter Care Teams Medical Management Specialist Relationship Specialty Start Date End Date Alejandra Morris MD [address] [place] [phone] PCP - General Family Medicine 12/17/17 Jovan Porter PharmD [address] [place] [address] [phone] Pharmacist Internal Medicine 05/24/23 Rhona Saldivar DDS [address] [place] [address] [phone] Dental Credit Rating Checker 07/03/24 documented as of this encounter
== END 2024-10-02 13:01 | disposition home or self-care (01) ==
LOC: HO.US 13:00
PROVIDERS: PCP Internal Medicine; Visit Provider Advanced Practice Midwife
DX: N83.209 Unspecified ovarian cyst, unspecified side (principal)
CPT/HCPCS: 76830; 76856

== ENCOUNTER → 2024-10-02 13:02 | Outpatient (BNV) | payer OTHER, SELFPAY | PROVIDERS: PCP Internal Medicine; Visit Provider Radiology Diagnostic Radiology | DX: N83.201 Unspecified ovarian cyst, right side (principal) | CPT/HCPCS: 76830; 76856 ==

== ENCOUNTER 2024-10-10 08:29 | Outpatient (REF) | payer OTHER, SELFPAY ==
--- OUTSIDE RECORDS SUMMARY | 2024-10-10 12:04 | XMS_ITS | Encounter Summary ---
Author Organization [employer] [facility] Address [address] [facility] 7t [place] [address] Care Team Providers Care Accounts Receivable Executive Name Role Phone Alejandra Morris MD Primary Care Provider + Jovan Porter PharmD Unavailable [phone] Rhona Saldivar DDS Unavailable [phone] Reason for Visit * Reason Comments Med Refill Encounter Details Date Type Department Care Team (Late st Contact Info) Description 06/07/2023 Refill [facility] MEDICINE [address] [place], [place] [phone] Alejandra Morris MD 230 [place], [place] [phone] Slow transit constipation Social History Tobacco Use [...] Description 11/21/2024 10:30 AM EDT Office Visit [facility] MEDICINE [address] [place] [phone] Alejandra Morris MD [address] [place] [address] documented as of this encounter Goals Goal [...] documented as of this encounter Care Teams Accounts Receivable Executive Relationship Specialty Start Date End Date Alejandra Morris MD [address] [place] [phone] PCP - General Family Medicine 12/17/17 Jovan Porter, Joaquín [address] [place] [address] Pharmacist Internal Medicine 05/24/23 Rhona Saldivar DDS [address] [place] [address] Dental Microbial Specialist 07/03/24 documented as of this encounter
--- OUTSIDE RECORDS SUMMARY | 2024-10-10 12:04 | XMS_ITS | Encounter Summary ---
Author Organization [employer] [facility] Address [address] [facility] 7t [place] [address] Care Team Providers Care Record Maker Name Role Phone Alejandra Morris MD Primary Care Provider + Jovan Porter PharmD Unavailable [phone] Rhona Saldivar DDS Unavailable [phone] Encounter Details Date Type Department Care Team (Late st Contact Info) Description 09/02/2022 Orders Only [facility] MEDICINE [address] [place] [address] Alejandra Morris MD 230 [place], [place] [phone] Vitamin D deficiency (Primary Dx) Social History [...] Description 11/21/2024 10:30 AM EDT Office Visit [facility] MEDICINE [address] [place] [address] Alejandra Morris MD [address] [place] [phone] documented as of this encounter Visit Diagnoses Diagnosis Vitamin D deficiency- Primary documented in this encounter Care Teams Record Maker Relationship Specialty Start Date End Date Alejandra Morris MD [address] [place] [phone] PCP - General Family Medicine 12/17/17 Jovan Porter, Joaquín [address] [place] [address] [phone] Pharmacist Internal Medicine 05/24/23 Rhona Saldivar DDS [address] [place] [address] [phone] Dental Hearing Stenographer 07/03/24 documented as of this encounter
--- OUTSIDE RECORDS SUMMARY | 2024-10-10 12:04 | XMS_ITS | Clinical Summary ---
Author Organization [employer] [facility] Address [address] [facility] 7t [place] [address] Care Team Providers Care Animal Caretaker Name Role Phone Alejandra Morris MD Primary Care Provider + Jovan Porter PharmD Unavailable [phone] Rhona Saldivar DDS Unavailable [phone] Allergies Active Allergy Reactions Criticality Noted Date [...] 24 Active ergocalciferol (Vitamin D2) 1.25 MG (26811 UT) capsuleIndicatio ns:Vitamin D deficiency TAKE 1 [...] Assessment & Plan (07/12/2023 10:24 AM EST): Dementia Program Director regarding to apply heat to affected area Dementia Program Director regarding stretch exercises Take Tylenol BID x1 week Dementia Program Director regarding attending walk-in acupuncture Reconsult PRN and [...] activity. Check home BP BIW and prn CP/SHOEMAKER/AMNRIQUEZ Non smoking patient. Order BMP, due for [...] with me in 1 month refer to [facility] clinic, order labs Assessment & Plan (11/09/2022 [...] Department Care Team Description 10/02/2024 Orders Only [facility] External Provider, [facility] 09/12/2024 8:00 AM EST Office Visit [facility] ADULT DENTAL [address] [place] [address] Rhona Saldivar, DDS Irreversible pulpitis (Primary Dx) 09/01/2024 Telephone [facility] MEDICINE [address] [place] [address] Alejandra Morris MD October recall from Last [...] Office Visit [facility] MEDICINE [address] [place], [place] [phone] Alejandra Morris MD [address] [place], [place] [phone] Health Maintenance Due Date Last Done Comments [...] EST Narrative 10/03/2024 10:39 AM EST ? [facility] ?[address] ?[place] [address] ? Ultrasound Report ? Signed ? Patient: Rivera,Betis ?MR#: [id number] ? : 1975 ?Acct:[id number] ? Age/Sex: 49 / F ?ADM Date: 10/02/24 ? Loc: HO.US ? Attending Dr: Omaira Diaz CNM ? Ordering Physician: Omaira Diaz CNM ?? Date of Service: 10/02/24 ?? Procedure(s): US pelvic and transvaginal ?? Accession Number(s): [id number] ? cc: Alejandra Morris MD; Omaira Diaz [...] 10/03/ 1037 ? TD/TT: 10/03/24 1037 ? Automobile Mechanic Helper: ? Procedure Note Donotuseinterpreter, Image - 10/03/[address] [address] Ultrasound Report Signed Patient: Javier Rivera#: [id number] : 1975Acct:[id number] Age/Sex: 49 / FADM Date: 10/02/24 Loc: HO.US Attending Dr: Omaira Diaz CNM Ordering Physician: Omaira Diaz CNM Date of Service: 10/02/24 Procedure(s): US pelvic and transvaginal Accession Number(s): [id number] cc: Alejandra Morris MD; Omaira Diaz CNM [...] 10/03/24 1038 DD/ 1037 TD/TT: 10/03/24 1037 Automobile Mechanic Helper: [facility] External Provider IMG US PROCEDURES Final Result * BI Mammogram Screening Tomosynthesis Bilateral (11/22/2023 9:00 AM EDT) Anatomical Region Laterality Modality Breast Bilateral Mammography 11/22/2023 9:00 AM EDT Narrative 12/20/2023 4:57 AM EDT ? [facility] ? [address] ?[place] [address] ? Mammography Report ? Signed ? Patient: Candido Rivera ?MR#: [id number] ? : 1975 ?Acct:[id number] ? Age/Sex: 48 / F ?ADM Date: 11/22/23 ? Loc: HO.MAMMO ? Attending Dr: Alejandra Morris MD ? Ordering Physician: Alejandra Morris MD ?Results: 1Ne ?? gative ? Date of Service: 11/22/23 ?Follow Up: 1 Year From Orig ?? inal Mammogram ? Procedure(s): MM tomosynthesis screening BI ?? Accession Number(s): [id number] ? cc: Alejandra Morris MD ? EXAMINATION: [...] 0453 ? DD/ 0900 ? TD/TT: ? Automobile Mechanic Helper: ? Procedure Note Sterlingeliazar, Image - 12/20/2023 [facility] [address] [place] [address] Mammography Report Signed Patient: Javier Rivera#: [id number] : 1975Acct:[id number] Age/Sex: 48 / FADM Date: 11/22/23 Loc: HASMUKH Attending Dr: Alejandra Morris MD Ordering Physician: Alejandra Morris MDResults: 1Ne gative Date of Service: 11/22/23Follow Up: 1 Year From Orig inal Mammogram Procedure(s): MM tomosynthesis screening BI Accession Number(s): [id number] cc: Alejandra Morris MD EXAMINATION: MM SCREENING [...] in OV> 12/20/23 0453 DD/ 0900 TD/TT: Automobile Mechanic Helper: Alejandra Morris MD IMG BI PROCEDURES Edited Result - Final * Hemoglobin A1c (11/11/2023 11:29 AM EDT) Hemoglobin A1c 5.9 <6.0 % [facility] Comment:Hemoglobin A1C Refer ence Range Adults: 4.8 - 6.0 % Non diabetic: < 6.0 % Goal: < 7.0 %Additional Action Suggested: > 8.0 %Note: Hemoglobin A1c results are invalid for patients with abnormal amounts of HbF. Blood transfusions may impact the HbA1c concentration in the patient sample. Estimated Average Glucose 123 mg/dL [facility] Comment:eAG = Estimated ave rage glucose which is %A1C expressed asaverage glucose, using the formula of the M9Q-ImrjafqFynloui Glucose study (ADAG), Diabetes Care, Vol.31,#8,Mar. 2007 Blood Venous blood specimen / Unknown 11/11/2023 11:29 AM EDT 11/11/2023 1:20 PM EDT Alejandra Morris MD LAB BLOOD ORDERABLES Fin al Result Performing Organization Address [facility] Co de Phone Number [facility] [address] [place] [phone] * Lipid Panel with Reflex to Direct LDL (03/22/2023 7:22 AM EDT) Triglycerides 133 mg/dL [facility] Comment:Desirable Triglyceri de: less than 150 mg/dLBorderline High Triglyceride 150-199 mg/dLHigh Triglyceride: 200-499 mg/dLVery High Triglyceride: greater than or equal to 5OO mg/dL Cholesterol 163 mg/dL [facility] Comment:Desirable Cholestero l: less than 200 mg/dLBorderline High Cholesterol: 200-239 mg/dLHigh Cholesterol: greater than 239 mg/dL LDL Cholesterol Calculated 102 mg/dl [facility] Comment:Desirable LDL: less than 100 mg/dLNear Optimal/Above Optimal LDL: 110- 129 mg/dLBorderline High LDL: 130-159 mg/dLHigh LDL: 160-189 mg/dLVery High LDL: greater than or equal to 190 mg/dL HDL Cholesterol 35 mg/dL [facility] Comment:Desirable HDL: great er than 40 mg/dL Note: This HDL assay may give artificially low results in patients with liver disease. Blood 03/22/2023 7:22 AM EDT 03/22/2023 7:22 AM EDT us Alejandra Morris MD LAB BLOOD ORDERABLES Fin al Result Performing Organization Address [facility]/ZIP Co de Phone Number [facility] [address] [place] [address] [phone] * Hepatitis C Ab (11/20/2022 9:35 AM EDT) Hepatitis C Antibody Nonreactive Nonreactive [facility] Comment:Antibodies to HCV no t detected; does not exclude early acuteHCV infection. 11/20/2022 9:35 AM EDT 11/20/2022 9:35 AM EDT [facility] External Provider LAB BLO OD ORDERABLES Final Result Performing Organization Address [facility] Co de Phone Number [facility] [address] [place] [address] [phone] * HIV Ab/Ag ([facility] CHERYL) (11/20/2022 9:35 AM EDT) Pathologist [facility] HIV AB/AG Nonreactive Nonreactive [facility] Comment:HIV-1 p24 Ag and/or HIV-1/HIV-2 Ab not detected.A test result that is nonreactive does not exclude thepossibility of exposure to or infection with HIV-1 and/orHIV-2. Nonreactive results in this assay for individualswith prior exposure to HIV-1 and/or HIV-2 may be due toantigen and antibody levels that are below the limit ofdetection of this assay.The Mandel Shingle Grader HIV Ag/Ab Combo assay result andsupplemental assay results should be interpreted inconjunction with the patient's clinical presentation,history and other laboratory results. If the results areinconsistent with clinical evidence, additional testing issuggested to confirm the result. 11/20/2022 9:35 AM EDT 11/20/2022 9:35 AM EDT [facility] External Provider LAB BLO OD ORDERABLES Final Result Performing Organization Address [facility] Co de Phone Number [facility] [address] [place] [address] [phone] * HPV E6/E7 RFLX CARLEY 16 18/45 (07/04/2020 10:04 AM EST) HPV mRNA E6/E7 rflx Not Detected Not Detected [facility] Comment: This test was performed using the APTIMA HPV Assay ([employer] This assay detects E6/E7 viral messenger RNA (mRNA) from 14 high-risk HPV types (16,18,31,33,35,39,45,51,52,56,58,59,66,68). The analytical performance characteristics of this assay have been determined by [employer]. The modifications have not been cleared or approved by the FDA. This assay has been validated pursuant to the CLIA regulations and is used for clinical purposes. THIS TEST WAS PERFORMED AT: [facility] [address] [place] [address] [address] [place], [place] ??[phone] RIVKA DUPONT MD 07/04/2020 10:0 4 AM EST us Omaira Diaz HISTORICAL/NON ORDERABLE LABS Fi nal Result Performing Organization Address City/State/[facility] Co de Phone Number [facility] Anywhere [address] from Last 3 Months or Most Recently Relevant to Health Maintenance Insurance HS FULL [facility] LIMITED DENTAL - HSN FULL (MEDICAID) Care Teams Animal Caretaker Relationship Specialty Start Date End Date Alejandra Morris MD [address] [place] [address] PCP - General Family Medicine 12/17/17 Jovan Porter, PharmD [address] [place] [address] Pharmacist Internal Medicine 05/24/23 Rhona Saldivar DDS [address] [place] [address] Dental Granite Block Paver 07/03/24
--- OUTSIDE RECORDS SUMMARY | 2024-10-10 12:04 | XMS_ITS | Encounter Summary ---
Author Organization [facility] Address [address] [facility] 7t [place] [address] Care Team Providers Care Manuscript Reader Name Role Phone Alejandra Morris MD Primary Care Provider + Jovan Porter PharmD Unavailable [phone] Rhona Saldivar DDS Unavailable [phone] Reason for Visit * Reason Comments route canal Patient presents tod for a route canal on tooth #28 Encounter Details Date Type Department Care Team (Late st Contact Info) Description 09/12/2024 8:00 AM EST Office Visit [facility] ADULT DENTAL [address] [place] [address] Rhona Saldivar DDS [address] [place] [address] Irreversible pulpitis (Primary Dx) Social History Tobacco [...] Root Canal Verified the above with patient, dental office assistant, and provider. Confirmed via patient's chart, intraorally and by radiographs. Finishing Range Operator: not applicable Medical Hx: Vitals: Blood pressure [...] - ENDODONTIC THERAPY, PREMOLAR TOOTH (EXCLUDING FINAL HINDU) 28 (Completed) Service provider: Rhona Saldivar DDS [...] in good condition. NV: POC and crown Stock Holder: Dara Sheehan/FRANCISCO Stevenson student Dentist: Rhona Saldivar DDS documented in this encounter Plan of Treatment Upcoming Encounters Date Type Department Care Team (Late st Contact Info) Description 11/21/2024 10:30 AM EDT Office Visit [facility] [address] [place] [address] Alejandra Morris MD [address] [place] [address] documented as of this encounter Goals Goal [...] documented as of this encounter Care Teams Manuscript Reader Relationship Specialty Start Date End Date Alejandra Morris MD [address] [place] [address] PCP - General Family Medicine 12/17/17 Jovan Porter, Joaquín [address] [place] [phone] Pharmacist Internal Medicine 05/24/23 Rhona Saldivar DDS [address] [place] [phone] Dental Train Planner 07/03/24 documented as of this encounter
--- OUTSIDE RECORDS SUMMARY | 2024-10-10 12:05 | XMS_ITS | Encounter Summary ---
Author Organization [employer] [facility] Address [address] [facility] 7t [place] [address] Care Team Providers Care Big Data Developer Name Role Phone Alejandra Morris MD Primary Care Provider + Jovan Porter PharmD Unavailable [phone] Rhona Saldivar DDS Unavailable [phone] Encounter Details Date Type Department Care Team (Late st Contact Info) Description 10/02/2022 Abstract [facility] ADULT DENT[facility] [address] [place] [address] Dharmesh Reyes DDS [address] [place] [address] Social History Tobacco Use Types Packs/Day Years [...] Description 11/21/2024 10:30 AM EDT Office Visit [facility] MED[facility] [address] [place] [address] Alejandra Morris MD [address] [place] [address] documented as of this encounter Visit Diagnoses Not on filedocumented in this encounter Care Teams Big Data Developer Relationship Specialty Start Date End Date Alejandra Morris MD [address] [place] [phone] PCP - General Family Medicine 12/17/17 Jovan Porter PharmD [address] [place] [address] [phone] Pharmacist Internal Medicine 05/24/23 Rhona Saldivar DDS [address] [place] [address] [phone] Dental Barrel Dedenting Machine Operator 07/03/24 documented as of this encounter
--- OUTSIDE RECORDS SUMMARY | 2024-10-10 12:05 | XMS_ITS | Encounter Summary ---
Author Organization [employer] [facility] Address [address] [place] [address] 7t [place] [address] Care Team Providers Care Aerospace Physiological Technician Name Role Phone Alejandra Morris MD Primary Care Provider + Jovan Porter PharmD Unavailable [phone] Rhona Saldivar DDS Unavailable [phone] Encounter Details Date Type Department Care Team (Latest Contact Info) Description 12/16/2018 Abstract [facility] Dental, Provider, DDS Social History [...] Description 11/21/2024 10:30 AM EDT Office Visit [facility] MEDICINE [address] [place] [address] Alejandra Morris MD [address] [place], [place] [phone] documented as of this encounter Visit Diagnoses Not on filedocumented in this encounter Care Teams Aerospace Physiological Technician Relationship Specialty Start Date End Date Alejandra Morris MD [address] [place], [place] [phone] PCP - General Family Medicine 5/18/18 Jovan Porter, Joaquín [address] [place], [place] [phone] Pharmacist Internal Medicine 05/24/23 Rhona Saldivar DDS [address] [place], [place] [phone] Dental Mulcher Operator 07/03/24 documented as of this encounter
--- OUTSIDE RECORDS SUMMARY | 2024-10-10 12:05 | XMS_ITS | Encounter Summary ---
Author Organization [facility] Address [address] [place] [address] 7 [place] [address] Care Team Providers Care Sonar Watchstander Name Role Phone Alejandra Morris MD Primary Care Provider + Jovan Porter PharmD Unavailable [phone] Rhona Saldivar DDS Unavailable [phone] Encounter Details Date Type Department Care Team (Late st Contact Info) Description 07/13/2022 Orders Only [facility] [address] [place], [place] [phone] Dara Bruno, RN [address] [place], [place] [phone] Social History Tobacco Use Types Packs/Day Years [...] Office Visit [facility] [address] [facility] [place] [address] Alejandra Morris MD [address] [facility] [place] [address] documented as of this encounter Procedures Procedure Name Priority Date/Time Associated Diagnosis Comments BI MAMMOGRAM SCREENING TOMOSYNTHESIS BILATERAL Routine 07/13/2022 9:20 AM EST documented in this encounter Results * BI Mammogram Screening Tomosynthesis Bilateral (07/13/2022 9:20 AM EST) Anatomical Region Laterality Modality Breast Bilateral Mammography 07/13/2022 9:20 AM EST Narrative 07/14/2022 5:06 PM EST ? [facility] [place] ? [address] ?[place] [address] ? Mammography Report ? Signed ? Patient: Candido Rivera ?MR#: [id number] ? : 1975 ?Acct:[id number] ? Age/Sex: 46 / F ?ADM Date: 12/12/22 ? Loc: HO.MAMMO ? Attending Dr: Alejandra Morris MD ? Ordering Physician: Alejandra Morris MD ?Results: 2Be ?? nign Findings ? Date of Service: 07/13/22 ?Follow Up: 1 Year From Orig ?? inal Mammogram ? Procedure(s): MM tomosynthesis screening BI ?? Accession Number(s): [id number] ? cc: Alejandra Morris MD ? EXAMINATION: [...] ? DD/DT: 1212/ 0920 ? TD/TT: ? Laboratory Monitor: BOLANOS ? Procedure Note Luanne, Image - 12/13/2022 [facility] [address] [place] [address] Mammography Report Signed Patient: Javier Rivera#: [id number] : 1975Acct:[id number] Age/Sex: 46 / FADM Date: 07/13/22 Loc: HO.MAMMO Attending Dr: Alejandra Morris MD Ordering Physician: Alejandra Morris MDResults: 2Be nign Findings Date of Service: 07/13/22Follow Up: 1 Year From Orig inal Mammogram Procedure(s): MM tomosynthesis screening BI Accession Number(s): [id number] cc: Alejandra Morris MD EXAMINATION: MM SCREENING [...] by Alberto Vela MD in OV> 07/14/22 5267 DD/ 0920 TD/TT: Laboratory Monitor: BOLANOS [facility] External Provider IMG BI PROCEDURES Final Result documented in this encounter Visit Diagnoses Not on filedocumented in this encounter Care Teams Sonar Watchstander Relationship Specialty Start Date End Date Alejandra Morris MD [address] [place], [place] [phone] PCP - General Family Medicine 12/17/17 Jovan Porter PharmD [address] [place], [place] [phone] Pharmacist Internal Medicine 05/24/23 Rhona Saldivar DDS 230 [place], [place] [phone] Dental Manager Of Enterprise 07/03/24 documented as of this encounter
--- OUTSIDE RECORDS SUMMARY | 2024-10-10 12:05 | XMS_ITS | Encounter Summary ---
Author Organization [employer] [facility] Address [address] [facility] 7t [place] [address] Care Team Providers Care Meat Process Worker Name Role Phone Alejandra Morris MD Primary Care Provider + Jovan Porter PharmD Unavailable [phone] Rhona Saldivar DDS Unavailable [phone] Encounter Details Date Type Department Care Team (Late st Contact Info) Description 10/02/2022 Abstract [facility] ADULT DENTAL [address] [place] [address] Dharmesh Reyes DDS [address] [place] [address] Social History Tobacco Use Types Packs/Day Years [...] Description 11/21/2024 10:30 AM EDT Office Visit [facility] 230 [place] [address] Alejandra Morris MD 230 [place] [address] documented as of this encounter Visit Diagnoses Not on filedocumented in this encounter Care Teams Meat Process Worker Relationship Specialty Start Date End Date Alejandra Morris MD [address] [place] [address] PCP - General Family Medicine 12/17/17 Jovan Porter PharmD [address] [place] [address] [phone] Pharmacist Internal Medicine 05/24/23 Rhona Saldivar DDS [address] [place] [address] [phone] Dental Data Communications Software Consultant 07/03/24 documented as of this encounter
--- OUTSIDE RECORDS SUMMARY | 2024-10-10 12:05 | XMS_ITS | Encounter Summary ---
Author Organization [facility] Address [address] 7t [place] [address] Care Team Providers Care Learning Technologist Name Role Phone Alejandra Morris MD Primary Care Provider + Jovan Porter PharmD Unavailable [phone] Rhona Saldivar DDS Unavailable + Encounter Details Date Type Department Care Team (Late st Contact Info) Description 10/02/2024 Orders Only [facility] External Provider, [facility] Social History Tobacco Use Types Packs/Day Years [...] the past 12 months, has t he [employer], gas, oil or water [email or web address] threatened to shut off services in your [...] Description 11/21/2024 10:30 AM EDT Office Visit [facility] [address] [place] [address] Alejandra Morris MD [address] [place] [address] documented as of this encounter Goals Goal [...] EST Narrative 10/03/2024 10:39 AM EST ? [facility] ?[address] ?[place] [address] ? Ultrasound Report ? Signed ? Patient: Rivera,Betis ?MR#: [id number] ? : 1975 ?Acct:[id number] ? Age/Sex: 49 / F ?ADM Date: 03/03/25 ? Loc: HO.US ? Attending Dr: Omaira Diaz CNM ? Ordering Physician: Omaira Diaz CNM ?? Date of Service: 10/02/24 ?? Procedure(s): US pelvic and transvaginal ?? Accession Number(s): [id number] ? cc: Alejandra Morris MD; Omaira Diaz [...] DD/ 1037 ? TD/TT: 10/03/24 1037 ? Hand Stemmer: ? Procedure Note Gerardo Stroud - 10/03/[address] [address] Ultrasound Report Signed Patient: Alejandra RiveraArthur#: [id number] : 1975Acct:[id number] Age/Sex: 49 / FADM Date: 10/02/24 Loc: HO.US Attending Dr: Omaira Diaz CNM Ordering Physician: Omaira Diaz CNM Date of Service: 10/02/24 Procedure(s): US pelvic and transvaginal Accession Number(s): [id number] cc: Alejandra Morris MD; Omaira Diaz CNM [...] 10/03/24 1038 DD/ 1037 TD/TT: 10/03/24 1037 Hand Stemmer: [facility] External Provider IMG US PROCEDURES Final Result documented in this encounter Visit Diagnoses Not on filedocumented in this encounter Additional Health Concerns Assessment Noted Time PHQ-9 Depression Total Score: 0 04/10/20 23 9:18 AM EDT documented as of this encounter Care Teams Learning Technologist Relationship Specialty Start Date End Date Alejandra Morris MD 230 [place] [address] PCP - General Family Medicine 12/17/17 Jovan Porter PharmD 230 [place] [address] Pharmacist Internal Medicine 05/24/23 Rhona Saldivar DDS [address] [place] [address] Dental Hostess 07/03/24 documented as of this encounter
[2024-10-11 05:12] LABS: CT PCR NOT DETECTED (Not Detect.); NG PCR NOT DETECTED (Not Detect.)
== END 2024-10-10 08:30 | disposition home or self-care (01) ==
LOC: HO.LNP 08:29
PROVIDERS: PCP Internal Medicine; Visit Provider Advanced Practice Midwife
DX: Z30.433 Encounter for removal and reinsertion of intrauterine contraceptive device (principal); N83.201 Unspecified ovarian cyst, right side; D21.9 Benign neoplasm of connective and other soft tissue, unspecified
CPT/HCPCS: 58300; 58301; 81025; 87491; 87591; J7298

== ENCOUNTER 2024-10-10 08:29 | Outpatient (AMB) | payer OTHER, SELFPAY ==
--- NOTE | 2024-10-10 09:04 | A.OFFVIS_ITS ---
Vital Signs 10/10/24 09:09 Height 5 ft 1 in Weight 196 lb BMI 37.0 BP 110/80 Intake Visit Reasons: US follow up Coating Machine Operator Helper Required: Yes Coating Machine Operator Helper Language: Data Governance Consultant Services: Coating Machine Operator Helper Present (in person) Coating Machine Operator Helper Name: Marija ACE Information Interpreted: non-clinical & clinical Wire Galvanizer: Wire Galvanizer Present (Marija ACE) Accompanied by: Self / Same As Patient Allergies carrot Allergy (Unknown, Verified 10/10/24 09:10) Unknown Is last menstrual period known: No (mirena) HPI Comments Details: Patient is here today for a follow up pelvic ultrasound due to history of ovarian cyst. She currently has an Mirena IUD in place in the ultrasound reveals it is low lying. She wishes to have it exchanged today. [facility] Medical History (Updated 10/10/24 @ 09:44 by Omaira Diaz CNM) Fibroid Ovarian cyst IUD (intrauterine device) in place HTN (hypertension) Surgical History H/O wrist surgery Family History Mother HTN (hypertension) Social History Household Members: Spouse and Children Housing: House Alcohol intake: never Patient Tobacco Use Status: Never used Tobacco Current occupational status: unemployed Sexual orientation: Straight/Heterosexual Gender identity: Female Review of Systems Const All systems reviewed & are unremarkable except as noted in HPI and below Physical Exam Vital Signs: Last Vital Signs BP 110/80 10/10/24 09:09 BMI result Body Mass Index 37.0 Const General: cooperative, healthy appearing and no acute distress Orientation/consciousness: patient oriented x3 GI Inspection: Yes normal to inspection Palpation (GI): Soft to palpation and Other GI palpation findings present ( Nontender) Rectal Exam - Female: visual inspection normal General: Yes bladder normal to palpation External Female Exam: normal appearance of the urethra Speculum Exam - Vagina: normal appearance of the vagina, normal palpation and normal vaginal discharge Speculum Exam - Cervix: normal appearance of the cervix, normal palpation and Other cervical findings present (IUD strings at the os) Bimanual exam- vagina & uterus: normal bimanual exam, normal palpation, uterine size normal, bladder normal to palpation, normal palpation, uterine shape normal and non-tender Bimanual Exam- Adnexa, other: normal adnexae Neuro General: patient oriented x3 Office Procedures IUD Insert/Removal Details 59012-DBR Insertion 81338-OCM Removal Procedure code (CPT) selection complete Contraception Insert/Removal Details Details: The patient is here today for a Mirena IUD removal/ reinsertion, due to low lying IUD position. She was counseled on the side effects including: menstrual cycle changes, pain, infection, bleeding, or expulsion. A urine test was completed and was negative. She was consented for the IUD insertion and has signed the consent form. All questions were answered. The patient was placed in the dorsal lithotomy position. A speculum was inserted vaginally and the cervix and strings were visualized at the os. A ring forcep was utilized, and the patient was asked to give a deep cough while the strings were grasped and gently tugged at the same time, removing the IUD device intact. A single toothed tenaculum was applied to the cervix for stabilization, and the uterus was sounded to 9 cm. The device was inserted and released with a gentle motion. Bleeding from the tenaculum sites and the procedure were minimal. The strings were trimmed to 3cm. All of the equipment was removed and the bimanual was normal, no tip was palpable at the cervical os. The patient tolerated the procedure well and left the office in good condition. Post IUD Insertion Care: There may be some post insertion bleeding for several days that is usually light and can turn to a light brown or pink in color. Mild cramping may occur. Nothing in the vagina including: tampons, douching or intimacy for several days. You may take an over the counter mild analgesia like Tylenol or Advil (if no allergies), per the manufacturers recommendations on dosing and frequency. Follow the directions completely. Call the office if any: fever (over 100.4), flu like symptoms, abdominal pain, worsening cramping not resolved with over the counter medications, foul smelling vaginal odor, signs of infected appearing discharge, or heavy bleeding. Use a condom for a back up method if indicated for 7 days. Always use a condom for STI prevention; IUD's are not protective against STD's. Return to the office in 6 weeks for IUD recheck. This note is constructed using voice recognition software. While every effort has been made to ensure accuracy, classified ad taker errors may have been included. 81673 - Insertion and Removal Office Meds Mirena 21 mcg/24 hr (up to 8 years) 52 mg intrauterine device Performing Provider: Omaira Diaz CNM Performing Location: [facility] Administered by: Marija Calderon CMA on 10/10/24 10:09 Dose Route Admin Location Dispensed Lot Number Expiration Date [facility] [place] [employer] 1 device intrauterine [facility] 1 device [id number] 12/29/26 86391-853-79 [employer] Results AMB Test Urine AMB Test Urine Negative Last Edit by Marija Calderon CMA on 09:15 Results Reviewed Results Reviewed: Laboratory Last Values [facility] Clinic Negative 10/10/24 09:11 [place] [address] Ultrasound Report Signed Patient: Candido Rivera MR#: [id number] : 1975 Acct:[id number] Age/Sex: 49 / F ADM Date: 10/02/24 Loc: HO.US Attending Dr: Omaira Diaz CNM Ordering Physician: Omaira Diaz CNM Date of Service: 10/02/24 Procedure(s): US pelvic and transvaginal Accession Number(s): [id number] cc: Alejandra Morris MD; Omaira Diaz CNM~ CLINICAL HISTORY: N83.209 - Unspecified ovarian cyst, unspecified side US pelvis transabdominal and transvaginal Comparison: 07/05/2024 Findings: Uterus measures 9.5 x 4.7 x 5 cm. Centrally positioned uterine IUD with proximal tip located 8 mm distal to the tip of the gastric fundus. Submucosal fibroid measuring 3.5 x 2.8 x 2.1 cm in the proximal uterine body. Endometrial thickness measures up to 5 mm. Right ovary measures 5.6 x 4 x 5.3 cm. Either 2 separate right ovarian cysts versus septated right ovarian cyst. The 2 cysts/loculatiosn measures 3.9 x 2.6 x 2.9 cm and 4.5 x 3.8 x 3.7 cm, versus 2.2 x 2.1 x 1.4 cm and 3.3 x 3.4 x 3.4 cm previously. Left ovary 3.6 x 1.7 x 1.8 cm. No free fluid. IMPRESSION: 1. Low-lying central IUD with proximal tip located 8 mm distal to the proximal fundal tip. 2. Subserosal fibroid. 3. Either 2 separate right ovarian cysts versus septated right ovarian cyst are more conspicuous than the prior exam. Follow-up with a 6 week ultrasound recommended. This document has been electronically signed by: Zelda Arnold MD on 10/03/2024 10:37:59 Dictated By: Zelda Arnold MD Signed By: <Electronically signed by Zelda Arnold MD in OV> 10/03/24 1038 DD/ 1037 TD/TT: 10/03/24 1037 Divisional Merchandising Manager: Assessment & Plan Assessment & Plan (1) Ovarian cyst: Code(s): N83.209 - Unspecified ovarian cyst, unspecified side Category: Medical Qualifiers: Laterality: right Qualified Code(s): N83.201 - Unspecified ovarian cyst, right side Plan: Discussed: Ultrasound findings-fibroid, complex ovarian cyst, and low lying IUD positioning. See report for details. Plan a follow up sooner for ovarian cyst. IUD exchange today. Follow up in person for test results with the IUD check an ultrasound results. Advised to call if there is any right-sided pelvic pain or other concerns. Counseled regarding findings of: Complex ovarian cyst, which is often benign, and most resolve on their own overtime. Some develop into premalignant or malignant tumors. Limitations of testing for diagnostic purposes. Further monitoring and evaluation is recommended with US, possible CT, or MRI study. If persists, or is indicated (Ca-125, Carbohydrate Antigen 19-9, & Carcinoe mbryonic Antigen) labs will be ordered and referral to [facility] or general gynecology for MD care if indicated for possible surgical consult. The patient expressed understanding and agreement with the plan of care. All of her questions and concerns were addressed to the best of my ability. This note is constructed using voice recognition software. While every effort has been made to ensure accuracy, classified ad taker errors may have been included. (2) Fibroid: Code(s): D21.9 - Benign neoplasm of connective and other soft tissue, unspecified Category: Medical Plan: Counseled re: Leiomyoma: common pelvic neoplasm. Differential diagnosis-may include but not limited to- leiomyosarcoma which is a rare uterine sarcoma 3- 7/100,000, difficult to distinguish from fibroids on ultrasound from uterine sarcoma's. Unlikely any single test will have a highly positive predictive value. Hysterectomy is not recommended for sole purpose of excluding malignant neoplasm. Consult for surgical exploration, medical treatment, other treatments, verses expectant management, pros and cons, risks and benefits. Expectant management follow up in 6 months, then yearly for stability. Patient prefers to proceed with expectant management. Report any AUB, pelvic pressure, bloating, or pain. Referral to MD if indicated for level of care if indicated. Orders: Orders AMB HCG Urine Test Today Z32.02 - Encounter for test, result negative US pelvic and transvaginal 11/13/24 N83.209 - Unspecified ovarian cyst, unspecified side AMB IUD Insertion/Removal - Practice Supplied Today Z30.430 - Encounter for insertion of intrauterine contraceptive device CT NG by PCR Today Z30.430 - Encounter for insertion of intrauterine contraceptive device Coding Level of Care Code Procedure Only Diagnoses Cyst of right ovary N83.201 Laterality: right Fibroid D21.9 CPT Codes Details - CPT: 22695-NTX Insertion ([id number]) Details - CPT: 09343-GNY Removal ([id number]) Details - Contraception: 99734 - Insertion and Removal ([id number])
[2024-10-10 09:09] VITALS: BP 110/80; BMI 37.0
--- OUTSIDE RECORDS SUMMARY | 2024-10-10 09:11 | XMS_ITS | Clinical Summary ---
Author Organization [employer] [facility] Address [address] [facility] 7t [place] [address] Care Team Providers Care Rose Grower Name Role Phone Alejandra Morris MD Primary Care Provider + Jovan Porter PharmD Unavailable [phone] Rhona Saldivar DDS Unavailable [phone] Allergies Active Allergy Reactions Criticality Noted Date [...] 24 Active ergocalciferol (Vitamin D2) 1.25 MG (40196 UT) capsuleIndicatio ns:Vitamin D deficiency TAKE 1 [...] Assessment & Plan (07/12/2023 10:24 AM EST): Metal Fitter regarding to apply heat to affected area Metal Fitter regarding stretch exercises Take Tylenol BID x1 week Metal Fitter regarding attending walk-in acupuncture Reconsult PRN and [...] with me in 1 month refer to [facility] clinic, order labs Assessment & Plan (11/09/2022 10:02 AM EDT): Seems to be uncontrolled today, per pt it is controlled at home. No change in medications today Counseled re low salt diet/increase moderate physical activity. Check home BP BIW and prn CP/SHOEMAKER/MARNIQUEZ Non smoking patient. Pt to keep BP [...] Encounters Date Type Department Care Team Description 10/02/2024 Orders Only [facility] External Provider, [facility] 09/12/2024 8:00 AM EST Office Visit [facility] [address] [place] [address] Rhona Saldivar, DDS Irreversible pulpitis (Primary Dx) 09/01/2024 Telephone [facility] [address] [place] [address] Alejandra Morris MD October recall from Last 3 Months Immunizations Name Administration [...] Description 11/21/2024 10:30 AM EDT Office Visit [facility] [address] [place], [place] [phone] Alejandra Morris MD [address] [place], [place] [phone] Health Maintenance Due Date Last Done Comments [...] 025 8:14 AM EST) No Porter, Jovan, PharmD Procedures Procedure Name Priority Date/Time Associated Diagnosis Comments US PELVIS TRANSVAGINAL Routine 10/03/2024 10:37 AM EST CASE PRESENTATION, DETAILED AND EXTENSIVE TREATMENT PLANNING Routine 09/12/2024 8:00 AM EST Irreversible pulpitis 28 ENDODONTIC THERAPY, PREMOLAR TOOTH Routine 09/12/2024 8:00 AM EST Irreversible pulpitis BITEWING - SINGLE RADIOGRAPHIC IMAGE Routine 06/27/2024 [...] Health Maintenance Results * US Pelvis Transvaginal (10/03/2024 10:37 AM EST) Anatomical Region Laterality Modality Pelvis Ultrasound 10/03/2024 10:3 7 AM EST Narrative 10/03/2024 10:39 AM EST ? [facility] ?[address] ?[place] [address] ? Ultrasound Report ? Signed ? Patient: Rivera,Betis ?MR#: [id number] ? : 1975 ?Acct:[id number] ? Age/Sex: 49 / F ?ADM Date: 10/02/24 ? Loc: HO.US ? Attending Dr: Omaira Diaz CNM ? Ordering Physician: Omaira Diaz CNM ?? Date of Service: 10/02/24 ?? Procedure(s): US pelvic and transvaginal ?? Accession Number(s): [id number] ? cc: Alejandra Mroris MD; Omaira Diaz CNM ? CLINICAL HISTORY: N83.209 - Unspecified ovarian cyst, unspecified side ? US pelvis transabdominal and transvaginal ? Comparison: 07/05/2024 ? Findings: ?? Uterus measures 9.5 x 4.7 x 5 cm. Centrally positioned uterine IUD with ?? proximal tip located 8 mm distal to the tip of the gastric fundus. ?? Submucosal fibroid measuring 3.5 x 2.8 x 2.1 cm in the proximal uterine ?? body. ?? Endometrial thickness measures up to 5 mm. ?? Right ovary measures 5.6 x 4 x 5.3 cm. Either 2 separate right ovarian ?? cysts versus septated right ovarian cyst. The 2 cysts/loculatiosn measures ?? 3.9 x 2.6 x 2.9 cm and 4.5 x 3.8 x 3.7 cm, versus 2.2 x 2.1 x 1.4 cm and ?? 3.3 x 3.4 x 3.4 cm previously. ?? Left ovary 3.6 x 1.7 x 1.8 cm. ? No free fluid. ? IMPRESSION: ?? 1. Low-lying central IUD with proximal tip located 8 mm distal to the ?? proximal fundal tip. ?? 2. Subserosal fibroid. ?? 3. Either 2 separate right ovarian cysts versus septated right ovarian ?? cyst are more conspicuous than the prior exam. Follow-up with a 6 week ?? ultrasound recommended. ? This document has been electronically signed by: Zelda Arnold MD on ?? 10/03/2024 10:37:59 ? Dictated By: ?Zelda Arnold MD ? Signed By: ?<Electronically signed by Zelda Arnold MD in OV> ? 10/03/24 1038 ? DD/DT: 10/03/ 1037 ? TD/TT: 10/03/24 1037 ? Stencil Printer: ? Procedure Note Donotuseinterpreter, Image - 10/03/[address] [address] Ultrasound Report Signed Patient: Javier Rivera#: [id number] : 1975Acct:[id number] Age/Sex: 49 / FADM Date: 10/02/24 Loc: HO.US Attending Dr: Omaira Diaz CNM Ordering Physician: Omaira Diaz CNM Date of Service: 10/02/24 Procedure(s): US pelvic and transvaginal Accession Number(s): [id number] cc: Alejandra Morris MD; Omaira Diaz CNM CLINICAL HISTORY: N83.209 - Unspecified ovarian cyst, unspecified side US pelvis transabdominal and transvaginal Comparison: 07/05/2024 Findings: Uterus measures 9.5 x 4.7 x 5 cm. Centrally positioned uterine IUD with proximal tip located 8 mm distal to the tip of the gastric fundus. Submucosal fibroid measuring 3.5 x 2.8 x 2.1 cm in the proximal uterine body. Endometrial thickness measures up to 5 mm. Right ovary measures 5.6 x 4 x 5.3 cm. Either 2 separate right ovarian cysts versus septated right ovarian cyst. The 2 cysts/loculatiosn measures 3.9 x 2.6 x 2.9 cm and 4.5 x 3.8 x 3.7 cm, versus 2.2 x 2.1 x 1.4 cm and 3.3 x 3.4 x 3.4 cm previously. Left ovary 3.6 x 1.7 x 1.8 cm. No free fluid. IMPRESSION: 1. Low-lying central IUD with proximal tip located 8 mm distal to the proximal fundal tip. 2. Subserosal fibroid. 3. Either 2 separate right ovarian cysts versus septated right ovarian cyst are more conspicuous than the prior exam. Follow-up with a 6 week ultrasound recommended. This document has been electronically signed by: Zelda Arnold MD on 10/03/2024 10:37:59 Dictated By: Zelda Arnold MD Signed By: <Electronically signed by Zelda Arnold MD in OV> 10/03/24 1038 DD/ 1037 TD/TT: 10/03/24 1037 Stencil Printer: [facility] External Provider IMG US PROCEDURES Final Result * BI Mammogram Screening Tomosynthesis Bilateral (11/22/2023 9:00 AM EDT) Anatomical Region Laterality Modality Breast Bilateral Mammography 11/22/2023 9:00 AM EDT Narrative 12/20/2023 4:57 AM EDT ? [facility] [place] ? [address] ?[place] [address] ? Mammography Report ? Signed ? Patient: Candido Rivera ?MR#: [id number] ? : 1975 ?Acct:[id number] ? Age/Sex: 48 / F ?ADM Date: 11/22/23 ? Loc: HO.MAMMO ? Attending Dr: Alejandra Morris MD ? Ordering Physician: Alejandra Morris MD ?Results: 1Ne ?? gative ? Date of Service: 11/22/23 ?Follow Up: 1 Year From Orig ?? inal Mammogram ? Procedure(s): MM tomosynthesis screening BI ?? Accession Number(s): [id number] ? cc: Alejandra Morris MD ? EXAMINATION: [...] 0453 ? DD/ 0900 ? TD/TT: ? Stencil Printer: ? Procedure Note Sterlingeliazar, Image - 12/20/2023 [facility] [address] [place] [address] Mammography Report Signed Patient: Javier Rivera#: [id number] : 1975Acct:[id number] Age/Sex: 48 / FADM Date: 11/22/23 Loc: HASMUKH Attending Dr: Alejandra Morris MD Ordering Physician: Alejandra Morris MDResults: 1Ne gative Date of Service: 11/22/23Follow Up: 1 Year From Orig inal Mammogram Procedure(s): MM tomosynthesis screening BI Accession Number(s): [id number] cc: Alejandra Morris MD EXAMINATION: MM SCREENING [...] in OV> 12/20/23 0453 DD/ 0900 TD/TT: Stencil Printer: Alejandra Morris MD IMG BI PROCEDURES Edited Result - Final * Hemoglobin A1c (11/11/2023 11:29 AM EDT) Hemoglobin A1c 5.9 <6.0 % [facility] Comment:Hemoglobin A1C Refer ence Range Adults: 4.8 - 6.0 % Non diabetic: < 6.0 % Goal: < 7.0 %Additional Action Suggested: > 8.0 %Note: Hemoglobin A1c results are invalid for patients with abnormal amounts of HbF. Blood transfusions may impact the HbA1c concentration in the patient sample. Estimated Average Glucose 123 mg/dL [facility] Comment:eAG = Estimated ave rage glucose which is %A1C expressed asaverage glucose, using the formula of the U0P-YycdixsXjknagb Glucose study (ADAG), Diabetes Care, Vol.31,#8,Mar. 2007 Blood Venous blood specimen / Unknown 11/11/2023 11:29 AM EDT 11/11/2023 1:20 PM EDT Alejandra Morris MD LAB BLOOD ORDERABLES Fin al Result Performing Organization Address [facility] Co de Phone Number [facility] [address] [place] [phone] * Lipid Panel with Reflex to Direct LDL (03/22/2023 7:22 AM EDT) Triglycerides 133 mg/dL [facility] Comment:Desirable Triglyceri de: less than 150 mg/dLBorderline High Triglyceride 150-199 mg/dLHigh Triglyceride: 200-499 mg/dLVery High Triglyceride: greater than or equal to 5OO mg/dL Cholesterol 163 mg/dL [facility] Comment:Desirable Cholestero l: less than 200 mg/dLBorderline High Cholesterol: 200-239 mg/dLHigh Cholesterol: greater than 239 mg/dL LDL Cholesterol Calculated 102 mg/dl [facility] Comment:Desirable LDL: less than 100 mg/dLNear Optimal/Above Optimal LDL: 110- 129 mg/dLBorderline High LDL: 130-159 mg/dLHigh LDL: 160-189 mg/dLVery High LDL: greater than or equal to 190 mg/dL HDL Cholesterol 35 mg/dL [facility] Comment:Desirable HDL: great er than 40 mg/dL Note: This HDL assay may give artificially low results in patients with liver disease. Blood 03/22/2023 7:22 AM EDT 03/22/2023 7:22 AM EDT us Alejandra Morris MD LAB BLOOD ORDERABLES Fin al Result Performing Organization Address [facility]/ZIP Co de Phone Number [facility] [address] [place] [address] [phone] * Hepatitis C Ab (11/20/2022 9:35 AM EDT) Hepatitis C Antibody Nonreactive Nonreactive [facility] Comment:Antibodies to HCV no t detected; does not exclude early acuteHCV infection. 11/20/2022 9:35 AM EDT 11/20/2022 9:35 AM EDT [facility] External Provider LAB BLO OD ORDERABLES Final Result Performing Organization Address [facility] Co de Phone Number [facility] [address] [place] [address] [phone] * HIV Ab/Ag (MI CHERYL) (11/20/2022 9:35 AM EDT) Pathologist [facility] HIV AB/AG Nonreactive Nonreactive [facility] Comment:HIV-1 p24 Ag and/or HIV-1/HIV-2 Ab not detected.A test result that is nonreactive does not exclude thepossibility of exposure to or infection with HIV-1 and/orHIV-2. Nonreactive results in this assay for individualswith prior exposure to HIV-1 and/or HIV-2 may be due toantigen and antibody levels that are below the limit ofdetection of this assay.The [employer] HIV Ag/Ab Combo assay result andsupplemental assay results should be interpreted inconjunction with the patient's clinical presentation,history and other laboratory results. If the results areinconsistent with clinical evidence, additional testing issuggested to confirm the result. 11/20/2022 9:35 AM EDT 11/20/2022 9:35 AM EDT [facility] External Provider LAB BLO OD ORDERABLES Final Result Performing Organization Address [facility] Co de Phone Number [facility] [address] [place] [address] [phone] * HPV E6/E7 RFLX CARLEY 16 18/45 (07/04/2020 10:04 AM EST) HPV mRNA E6/E7 rflx Not Detected Not Detected [facility] Comment: This test was performed using the APTIMA HPV Assay ([employer] This assay detects E6/E7 viral messenger RNA (mRNA) from 14 high-risk HPV types (16,18,31,33,35,39,45,51,52,56,58,59,66,68). The analytical performance characteristics of this assay have been determined by [employer]. The modifications have not been cleared or approved by the FDA. This assay has been validated pursuant to the CLIA regulations and is used for clinical purposes. THIS TEST WAS PERFORMED AT: [facility] [address] [place] [address] [address] [place], [place] ??[phone] RIVKA DUPONT MD 07/04/2020 10:0 4 AM EST us Omaira Diaz HISTORICAL/NON ORDERABLE LABS Fi nal Result Performing Organization Address City/State/[facility] Co de Phone Number [facility] [address] from Last 3 Months or Most Recently Relevant to Health Maintenance Insurance HS FULL [facility] - HSN FULL (MEDICAID) Care Teams Rose Grower Relationship Specialty Start Date End Date Alejandra Morris MD [address] [place] [phone] PCP - General Family Medicine 12/17/17 Jovan Porter, PharmD [address] [place] [address] Pharmacist Internal Medicine 05/24/23 Rhona Saldivar DDS [address] [place] [address] Dental Kitchen Assistant 07/03/24
--- OUTSIDE RECORDS SUMMARY | 2024-10-10 09:11 | XMS_ITS | Encounter Summary ---
Author Organization [email or web address] [facility] Address [address] [facility] 7t [place] [address] Care Team Providers Care Apartment Locator Name Role Phone Alejandra Morris MD Primary Care Provider + Jovan Porter PharmD Unavailable [phone] Rhona Saldivar DDS Unavailable [phone] Reason for Visit * Reason Comments Med Refill Encounter Details Date Type Department Care Team (Late st Contact Info) Description 06/07/2023 Refill [facility] [address] [place], [place] [phone] Alejandra Morris MD [address] [place], [place] [phone] Slow transit constipation Social History Tobacco Use [...] Description 11/21/2024 10:30 AM EDT Office Visit [facility] [address] [place] [phone] Alejandra Morris MD [address] [place] [phone] documented as of this encounter Goals Goal [...] documented as of this encounter Care Teams Apartment Locator Relationship Specialty Start Date End Date Alejandra Morris MD [address] [place] [address] PCP - General Family Medicine 12/17/17 Jovan Porter, Joaquín [address] [place] [address] Pharmacist Internal Medicine 05/24/23 Rhona Saldivar DDS [address] [place] [address] Dental Organizational Research Consultant 07/03/24 documented as of this encounter
--- OUTSIDE RECORDS SUMMARY | 2024-10-10 09:12 | XMS_ITS | Encounter Summary ---
Author Organization [employer] [facility] Address [address] [place] [address] 7 [place] [address] Care Team Providers Care Motorman/Woman Name Role Phone Alejandra Morris MD Primary Care Provider + Jovan Porter PharmD Unavailable [phone] Rhona Saldivar DDS Unavailable [phone] Encounter Details Date Type Department Care Team (Late st Contact Info) Description 07/13/2022 Orders Only [facility] [address] [place], [place] [phone] Dara Bruno, RN [address] [place], [place] [phone] Social History Tobacco Use Types Packs/Day Years [...] Description 11/21/2024 10:30 AM EDT Office Visit [facility] [address] [facility] [place] [address] Alejandra Morris MD [address] [facility] [place] [address] documented as of this encounter Procedures Procedure Name Priority Date/Time Associated Diagnosis Comments BI MAMMOGRAM SCREENING TOMOSYNTHESIS BILATERAL Routine 07/13/2022 9:20 AM EST documented in this encounter Results * BI Mammogram Screening Tomosynthesis Bilateral (07/13/2022 9:20 AM EST) Anatomical Region Laterality Modality Breast Bilateral Mammography 07/13/2022 9:20 AM EST Narrative 07/14/2022 5:06 PM EST ? [facility] [place] ? [address] ?[place] [address] ? Mammography Report ? Signed ? Patient: Candido Rivera ?MR#: [id number] ? : 1975 ?Acct:[id number] ? Age/Sex: 46 / F ?ADM Date: 12/12/22 ? Loc: HO.MAMMO ? Attending Dr: Alejandra Morris MD ? Ordering Physician: Alejandra Morris MD ?Results: 2Be ?? nign Findings ? Date of Service: 07/13/22 ?Follow Up: 1 Year From Orig ?? inal Mammogram ? Procedure(s): MM tomosynthesis screening BI ?? Accession Number(s): [id number] ? cc: Alejandra Morris MD ? EXAMINATION: [...] ? DD/DT: 1212/ 0920 ? TD/TT: ? Button Sewer: BOLANOS ? Procedure Note Luanne, Image - 12/13/2022 [facility] [address] [place] [address] Mammography Report Signed Patient: Javier Rivera#: [id number] : 1975Acct:[id number] Age/Sex: 46 / FADM Date: 07/13/22 Loc: HO.MAMMO Attending Dr: Alejandra Morris MD Ordering Physician: Alejandra Morris MDResults: 2Be nign Findings Date of Service: 07/13/22Follow Up: 1 Year From Orig inal Mammogram Procedure(s): MM tomosynthesis screening BI Accession Number(s): [id number] cc: Alejandra Morris MD EXAMINATION: MM SCREENING [...] by Alberto Vela MD in OV> 07/14/22 2491 DD/ 0920 TD/TT: Button Sewer: BOLANOS [facility] External Provider IMG BI PROCEDURES Final Result documented in this encounter Visit Diagnoses Not on filedocumented in this encounter Care Teams Motorman/Woman Relationship Specialty Start Date End Date Alejandra Morris MD [address] [place], [place] [phone] PCP - General Family Medicine 12/17/17 Jovan Porter PharmD [address] [place], [place] [phone] Pharmacist Internal Medicine 05/24/23 Rhona Saldivar DDS [address] [place], [place] [phone] Dental Rate Manager 07/03/24 documented as of this encounter
--- OUTSIDE RECORDS SUMMARY | 2024-10-10 09:12 | XMS_ITS | Encounter Summary ---
Author Organization [facility] Address [address] [facility] 7t [place] [address] Care Team Providers Care Hvac Service Technician Name Role Phone Alejandra Morris MD Primary Care Provider + Jovan Porter PharmD Unavailable [phone] Rhona Saldivar DDS Unavailable [phone] Encounter Details Date Type Department Care Team (Late st Contact Info) Description 09/02/2022 Orders Only [facility] [address] [place] [address] Alejandra Morris MD [address] [place], [place] [phone] Vitamin D deficiency (Primary Dx) Social History [...] Description 11/21/2024 10:30 AM EDT Office Visit [facility] [address] [place] [address] Alejandra Morris MD [address] [place] [address] documented as of this encounter Visit Diagnoses Diagnosis Vitamin D deficiency- Primary documented in this encounter Care Teams Hvac Service Technician Relationship Specialty Start Date End Date Alejandra Morris MD [address] [place] [phone] PCP - General Family Medicine 12/17/17 Jovan Porter, Joaquín [address] [place] [phone] Pharmacist Internal Medicine 05/24/23 Rhona Saldivar DDS [address] [place] [phone] Dental Merchandise Planner 07/03/24 documented as of this encounter
--- OUTSIDE RECORDS SUMMARY | 2024-10-10 09:12 | XMS_ITS | Encounter Summary ---
Author Organization [employer] [facility] Address [address] 7t [place] [address] Care Team Providers Care Bulk Picker Name Role Phone Alejandra Morris MD Primary Care Provider + Jovan Porter PharmD Unavailable [phone] Rhona Saldivar DDS Unavailable + Encounter Details Date Type Department Care Team (Late st Contact Info) Description 10/02/2024 Orders Only [facility] External Provider, [facility] Social History Tobacco Use Types Packs/Day Years [...] the past 12 months, has t he [employer], gas, oil or water [employer] threatened to shut off services in your [...] Description 11/21/2024 10:30 AM EDT Office Visit [facility] [address] [place] [address] Alejandra Morris MD [address] [place] [address] documented as of this encounter Goals Goal Patient Goal Type Associated Problems Recent Progress Patient-Stated? Author Blood Pressure < 140/90 Blood Pressure 134/85( 025 8:14 AM EST) No Jovan Porter, Joaquín documented as of this encounter Procedures Procedure Name Priority Date/Time Associated Diagnosis Comments US PELVIS TRANSVAGINAL Routine 10/03/2024 10:37 AM EST documented in this encounter Results * US Pelvis Transvaginal (10/03/2024 10:37 AM EST) Anatomical Region Laterality Modality Pelvis Ultrasound 10/03/2024 10:3 7 AM EST Narrative 10/03/2024 10:39 AM EST ? [facility] ?[address] ?[place] [address] ? Ultrasound Report ? Signed ? Patient: Rivera,Betis ?MR#: [id number] ? : 1975 ?Acct:[id number] ? Age/Sex: 49 / F ?ADM Date: 03/03/25 ? Loc: HO.US ? Attending Dr: Omaira Diaz CNM ? Ordering Physician: Omaira Diaz CNM ?? Date of Service: 10/02/24 ?? Procedure(s): US pelvic and transvaginal ?? Accession Number(s): [id number] ? cc: Alejandra Morris MD; Omaira Diaz CNM ? CLINICAL HISTORY: [...] MD in OV> ? 10/03/24 1038 ? DD/ 1037 ? TD/TT: 10/03/24 1037 ? Business Project Manager: ? Procedure Note Gerardo Stroud - 10/03/[address] [address] Ultrasound Report Signed Patient: Alejandra RiveraArthur#: [id number] : 1975Acct:[id number] Age/Sex: 49 / FADM Date: 10/02/24 Loc: HO.US Attending Dr: Omaira Diaz CNM Ordering Physician: Omaira Diaz CNM Date of Service: 10/02/24 Procedure(s): US pelvic and transvaginal Accession Number(s): [id number] cc: Alejandra Morris MD; Omaira Diaz CNM [...] 10/03/24 1038 DD/ 1037 TD/TT: 10/03/24 1037 Business Project Manager: [facility] External Provider IMG US PROCEDURES Final Result documented in this encounter Visit Diagnoses Not on filedocumented in this encounter Additional Health Concerns Assessment Noted Time PHQ-9 Depression Total Score: 0 04/10/20 23 9:18 AM EDT documented as of this encounter Care Teams Bulk Picker Relationship Specialty Start Date End Date Alejandra Morris MD [address] [place] [address] PCP - General Family Medicine 12/17/17 Jovan Porter PharmD [address] [place] [address] Pharmacist Internal Medicine 05/24/23 Rhona Saldivar DDS [address] [place] [address] Dental Weight Loss Consultant 07/03/24 documented as of this encounter
--- OUTSIDE RECORDS SUMMARY | 2024-10-10 09:12 | XMS_ITS | Encounter Summary ---
Author Organization [employer] [facility] Address [address] [place] [address] 7t [place] [address] Care Team Providers Care Recovery Coach Name Role Phone Alejandra Morris MD Primary Care Provider + Jovan Porter PharmD Unavailable [phone] Rhona Saldivar DDS Unavailable [phone] Encounter Details Date Type Department Care Team (Latest Contact Info) Description 12/16/2018 Abstract [facility] Dental, Provider, DDS Social History Tobacco [...] Description 11/21/2024 10:30 AM EDT Office Visit [facility] [address] [place] [address] Alejandra Morris MD [address] [place], [place] [phone] documented as of this encounter Visit Diagnoses Not on filedocumented in this encounter Care Teams Recovery Coach Relationship Specialty Start Date End Date Alejandra Morris MD [address] [place], [place] [phone] PCP - General Family Medicine 5/18/18 Jovan Porter, Joaquín [address] [place], [place] [phone] Pharmacist Internal Medicine 05/24/23 Rhona Saldivar DDS [address] [place], [place] [phone] Dental Electronics Research Engineer 07/03/24 documented as of this encounter
--- OUTSIDE RECORDS SUMMARY | 2024-10-10 09:12 | XMS_ITS | Encounter Summary ---
Author Organization [employer] [facility] Address [address] [facility] 7t [place] [address] Care Team Providers Care Credit Risk Review Officer Name Role Phone Alejandra Morris MD Primary Care Provider + Jovan Porter PharmD Unavailable [phone] Rhona Saldivar DDS Unavailable [phone] Reason for Visit * Reason Comments route canal Patient presents tod for a route canal on tooth #28 Encounter Details Date Type Department Care Team (Late st Contact Info) Description 09/12/2024 8:00 AM EST Office Visit [facility] ADULT DENTAL [address] [place] [address] Rhona Saldivar DDS [address] [place] [address] Irreversible pulpitis (Primary Dx) Social History Tobacco [...] Root Canal Verified the above with patient, photo studio assistant, and provider. Confirmed via patient's chart, intraorally and by radiographs. Talent Acquisition Administrator: not applicable Medical Hx: Vitals: Blood pressure [...] - ENDODONTIC THERAPY, PREMOLAR TOOTH (EXCLUDING FINAL CONFUCIANIST) 28 (Completed) Service provider: Rhona Saldivar DDS [...] in good condition. NV: POC and crown Charrer: Dara Sheehan/FRANCISCO Stevenson student Dentist: Rhona Saldivar DDS documented in this encounter Plan of Treatment Upcoming Encounters Date Type Department Care Team (Late st Contact Info) Description 11/21/2024 10:30 AM EDT Office Visit [facility] MEDICINE [address] [place] [address] Alejandra Morris MD [address] [place] [address] documented as of this encounter Goals Goal [...] documented as of this encounter Care Teams Credit Risk Review Officer Relationship Specialty Start Date End Date Alejandra Morris MD [address] [place] [address] PCP - General Family Medicine 12/17/17 Jovan Porter, Joaquín [address] [place] [phone] Pharmacist Internal Medicine 05/24/23 Rhona Saldivar DDS [address] [place] [phone] Dental Conflict Resolution Professional 07/03/24 documented as of this encounter
--- OUTSIDE RECORDS SUMMARY | 2024-10-10 09:12 | XMS_ITS | Encounter Summary ---
Author Organization [employer] [facility] Address [address] [facility] 7t [place] [address] Care Team Providers Care Rotary Derrick Operator Name Role Phone Alejandra Morris MD Primary Care Provider + Jovan Porter PharmD Unavailable [phone] Rhona Saldivar DDS Unavailable [phone] Encounter Details Date Type Department Care Team (Late st Contact Info) Description 10/02/2022 Abstract [facility] ADULT DENTAL [address] [place] [address] Dharmesh Reyes DDS [address] [place] [address] Social History Tobacco Use Types Packs/Day Years [...] 10:30 AM EDT Office Visit [facility] MEDICINE [address] [place] [address] Alejandra Morris MD 230 [place] [address] documented as of this encounter Visit Diagnoses Not on filedocumented in this encounter Care Teams Rotary Derrick Operator Relationship Specialty Start Date End Date Alejandra Morris MD [address] [place] [address] PCP - General Family Medicine 12/17/17 Jovan Porter PharmD [address] [place] [address] [phone] Pharmacist Internal Medicine 05/24/23 Rhona Saldivar DDS [address] [place] [address] [phone] Dental Ammonium Nitrate Crystallizer 07/03/24 documented as of this encounter
--- OUTSIDE RECORDS SUMMARY | 2024-10-10 09:12 | XMS_ITS | Encounter Summary ---
Author Organization [employer] [facility] Address [address] [facility] 7t [place] [address] Care Team Providers Care Pastoral Counselor Name Role Phone Alejandra Morris MD Primary Care Provider + Jovan Porter PharmD Unavailable [phone] Rhona Saldivar DDS Unavailable [phone] Encounter Details Date Type Department Care Team (Late st Contact Info) Description 10/02/2022 Abstract [facility] ADULT DENTAL [address] [place] [address] Dharmesh Reyes DDS 230 [place] [address] Social History Tobacco Use Types Packs/Day Years [...] Description 11/21/2024 10:30 AM EDT Office Visit [facility] MEDICINE 230 [place] [address] Alejandra Morris MD 230 [place] [address] documented as of this encounter Visit Diagnoses Not on filedocumented in this encounter Care Teams Pastoral Counselor Relationship Specialty Start Date End Date Alejandra Morris MD [address] [place] [phone] PCP - General Family Medicine 12/17/17 Jovan Porter PharmD [address] [place] [address] [phone] Pharmacist Internal Medicine 05/24/23 Rhona Saldivar DDS [address] [place] [address] [phone] Dental Blown Film Extrusion Operator 07/03/24 documented as of this encounter
== END 2024-10-10 10:23 | disposition home or self-care (01) ==
LOC: HO.HWS 08:29
PROVIDERS: PCP Internal Medicine; Visit Provider Advanced Practice Midwife
DX: Z30.430 Encounter for insertion of intrauterine contraceptive device (principal); N83.201 Unspecified ovarian cyst, right side; D21.9 Benign neoplasm of connective and other soft tissue, unspecified; Z32.02 Encounter for pregnancy test, result negative
CPT/HCPCS: 58300; 58301

== ENCOUNTER 2024-11-16 10:55 | Outpatient (REF) | payer OTHER, SELFPAY ==
--- OUTSIDE RECORDS SUMMARY | 2024-11-16 13:19 | XMS_ITS | Encounter Summary ---
Author Organization [employer] [facility] Address [address] [facility] 7t [place] [address] Care Team Providers Care Returned Goods Receiving Clerk Name Role Phone Alejandra Morris MD Primary Care Provider + Jovan Porter PharmD Unavailable [phone] Rhona Saldivar DDS Unavailable [phone] Reason for Visit * Reason Comments Med Refill Encounter Details Date Type Department Care Team (Late st Contact Info) Description 06/07/2023 Refill [facility] 230 [place], [place] [phone] Alejandra Morris MD 230 [place], [place] [phone] Slow transit constipation Social History Tobacco Use [...] Team (Late st Contact Info) Description 11/21/2024 1:45 PM EDT Office Visit [facility] [address] [place] [address] Alejandra Morris MD [address] [place] [address] 12/05/2024 10:00 AM EDT Office Visit [facility] ADULT DENTAL [address] [place] [address] Rhona Saldivar DDS 230 [place] [address] documented as of this encounter Goals Goal Patient Goal Type Associated Problems Recent Progress Patient-Stated? Author Blood Pressure < 140/90 Blood Pressure 166/98( 025 9:16 AM EDT) Jovan Carmichael, MichelleD documented as of this encounter Visit Diagnoses Diagnosis Slow transit constipation documented in this encounter Additional Health Concerns Assessment Noted Time PHQ-9 Depression Total Score: 0 11/10/19 23 9:18 AM EDT documented as of this encounter Care Teams Returned Goods Receiving Clerk Relationship Specialty Start Date End Date Alejandra Morris MD [address] [place] [address] PCP - General Family Medicine 12/17/17 Jovan Porter, MichelleD 230 [place] [address] Pharmacist Internal Medicine 05/24/23 Rhona Saldivar DDS 230 [place] [address] Dental Group Tester 07/03/24 documented as of this encounter
--- OUTSIDE RECORDS SUMMARY | 2024-11-16 13:20 | XMS_ITS | Encounter Summary ---
Author Organization [facility] Address [address] [facility] 7t [place] [address] Care Team Providers Care Auto Body Mechanic Name Role Phone Alejandra Morris MD Primary Care Provider + Jovan Porter PharmD Unavailable [phone] Rhona Saldivar DDS Unavailable [phone] Reason for Visit * Reason Comments Rosa Sanchez Rosa Sanchez prep, post and core Encounter Details Date Type Department Care Team (Late st Contact Info) Description 11/16/2024 8:00 AM EDT Office Visit [facility] D[facility]AL 230 [place] [address] Rhona Saldivar DDS 230 [place] [address] Full coverage crown needed for root canal-treated tooth (Primary Dx); Full coverage crown needed for tooth at risk for fracture Social History Tobacco Use Types Packs/Day Years Used Date Smoking Tobacco: Never Passive Smoke Exposure: Never Smokeless Tobacco: Never Alcohol Use Standard Drinks/Week Comments Never 0 (1 standard drink = 0.6 oz pur e alcohol) Depression Answer Date Recorded Patient Health Questionnaire-9 Score 0 11/09/2022 Housing Stability Answer Date Recorded What is your housing situation today? I have nilsa gardner 11/10/[address] you li ve. Do you have problems with any of the following? None of the above 11/10/2024 Food Insecurity Answer Date Recorded Within the [...] getting things needed for daily living? No 11/10/2024 Utilities Answer Date Recorded In the past 12 months, has t he electric, gas, oil or water company threatened to shut off services in your home? No 11/10/2024 Depression Answer Date Recorded Patient Health Questionnaire-2 Score 0 11/09/2022 Internet Access Answer Date Recorded Internet Access Q1 Yes 11/10/2024 Internet Access Q2 Not on file 11/10/2024 Comments No Sex and Gender Information Value Date Recorded Sex Assigned at Female 06/01/2022 10:17 AM EDT Legal Sex Female 10:17 AM EDT Gender Identity Female 06/01/2022 10:17 AM EDT Sexual Orientation Straight 06/01/2022 10 :17 AM EDT documented as of this encounter Last Filed Vital Signs Vital Sign Reading Time Taken Comments Blood Pressure 166/98 11/16/2024 9:16 AM EDT Pulse 72 11/16/2024 8:19 AM EDT Temperature - - Respiratory Rate - - Oxygen Saturation - - Inhaled Oxygen Concentration - - Weight - - Height - - Body Mass Index - - documented in this encounter Progress Notes * Rhona Saldivar, NILE - 11/16/2024 8:00 AM EDT Patient ID: Candido Rivera is a 49 y.o. female. Time Out: Timeout Date: 11/16/24, Timeout Time: 823 (POst&core crown prep #28) Location: [facility] Tooth: #28 Procedure: Rosa Sanchez and Post & Core Verified the above with patient, mri assistant, and provider. Confirmed via patient's chart, intraorally and by radiographs. Precision Mechanical Instrument Maker: not applicable Chief Complaint Patient presents with Rosa Sanchez Rosa Sanchez prep, post and core Medical Hx: Vitals: Blood pressure (!) 166/98, pulse 72. Medications, Med Hx reviewed with patient and updated in chart. Consent Obtained: The risks, benefits, indications, potential complications, and alternatives were explained to the patient and informed consent was obtained with good understanding. Treatment Provided: Dental procedures in this visit D2954 - PREFABRICATED POST AND CORE IN ADDITION TO CROWN 28 (Completed) Service provider: Rhona Saldivar DDS Billing provider: Rhona Saldivar DDS D2700.1 - CROWN PREP (Completed) Service provider: Rhona Saldivar DDS Billing provider: Rhona Saldivar DDS D0220 - INTRAORAL - PERIAPICAL FIRST RADIOGRAPHIC IMAGE (Completed) Service provider: Rhona Saldivar DDS Billing provider: Rhona Saldivar DDS D9450 - CASE PRESENTATION, DETAILED AND EXTENSIVE TREATMENT PLANNING (Completed) Service provider: Rhona Saldivar DDS Billing provider: Rhona Saldivar DDS Topical: 20% Benzocaine Anesthesia: 3% Carbocaine (Mepivacaine) w/o epinephrine Number of Cartridges: 1 Injection Type: Buccal infiltration, Long buccal nerve block, and LI nerve infiltration Confirmed profound anesthesia. Isolation: high speed suction and cotton rolls Post and Core: Temporary buddhist removed. Canal length: 19.5 mm Neel-percha removed using Dillon Ludwin Post space made: 14 mm Peeso reamer used size: 0-yellow Post type used: Flexipost Post size used: 0-yellow PA taken to confirm post size and length. Irrigation: Chlorhexidine Post space dried using paper points. Etch: 37% Phosphoric Acid Etch Corbin: I-Corbin Post cemented with: Relyx Unicem Core: Filtek [place] Flowable Composite PA taken to confirm fit. Occlusion checked with articulating paper and adjustments made as needed. Core smoothed and polished. .Rosa Sanchez Preparation: Prepared tooth for: Ceramic crown Gingival Retraction: Traxodent and Retraction cap Final Impression taken with: [employer] Light Body Bite Registration taken with: Oliver VPS Provisional fabricated with: Paradigm Temp Material and cemented with: TempBond Shade: A3 Lab used: [facility] Due Date: 11/29/2024 POI given to patient with instructions for homecare, to avoid sticky or crunchy foods, and to call if temp crown becomes dislodged. All questions answered. Patient tolerated procedure well, and was discharged alert, oriented, and in stable condition. NV: Rosa Sanchez delivery and mail sorter: FRANCISCO Christianson Dentist: Rhona Saldivar DDS documented in this encounter Plan of Treatment Upcoming Encounters Date Type Department Care Team (Late st Contact Info) Description 11/21/2024 1:45 PM EDT Office Visit [facility] [address] [place] [address] Alejandra Morris MD 230 [place] [address] 12/05/2024 10:00 AM EDT Office Visit [facility] [address] [place] [address] Rhona Saldivar DDS 230 [place] [address] Scheduled Orders Name Type Priority Associated Diagnoses Orde r Schedule DENTAL LAB FIXED Dental Routine Ordered: 11/16/2024 documented as of this encounter Goals Goal Patient Goal Type Associated Problems Recent Progress Patient-Stated? Author Blood Pressure < 140/90 Blood Pressure 166/98( 025 9:16 AM EDT) No Jovan Porter, PharmD documented as of this encounter Procedures Procedure Name Priority Date/Time Associated Diagnosis Comments CROWN PREP Routine 11/16/2024 8:00 AM EDT Full coverage crown needed for root canal-treated tooth Full coverage crown needed for tooth at risk for fracture 28 PREFABRICATED POST AND CORE IN ADDITION TO CROWN Routine 11/16/2024 8:00 AM EDT Full coverage crown needed for root canal-treated tooth Full coverage crown needed for tooth at risk for fracture INTRAORAL - PERIAPICAL FIRST RADIOGRAPHIC IMAGE Routine 11/16/2024 8:00 AM EDT Full coverage crown needed for root canal-treated tooth Full coverage crown needed for tooth at risk for fracture CASE PRESENTATION, DETAILED AND EXTENSIVE TREATMENT PLANNING Routine 11/16/2024 8:00 AM EDT Full coverage crown needed for root canal-treated tooth Full coverage crown needed for tooth at risk for fracture documented in this encounter Visit Diagnoses Diagnosis Full coverage crown needed for root canal-treated tooth- Primary Full coverage crown needed for tooth at risk for fracture documented in this encounter Additional Health Concerns Assessment Noted Time PHQ-9 Depression Total Score: 0 11/10/19 23 9:18 AM EDT documented as of this encounter Care Teams Auto Body Mechanic Relationship Specialty Start Date End Date Alejandra Morris MD 230 [place] [address] PCP - General Family Medicine 12/17/17 Jovan Porter PharmD [address] [place] [address] Pharmacist Internal Medicine 05/24/23 Rhona Saldivar DDS [address] [place] [address] Dental English Lecturer 07/03/24 documented as of this encounter
--- OUTSIDE RECORDS SUMMARY | 2024-11-16 13:20 | XMS_ITS | Encounter Summary ---
Author Organization [employer] [facility] Address [address] [place] [address] 7t [place] [address] Care Team Providers Care Selling Manager Name Role Phone Alejandra Morris MD Primary Care Provider + Jovan Porter PharmD Unavailable [phone] Rhona Saldivar DDS Unavailable [phone] Encounter Details Date Type Department Care Team (Latest Contact Info) Description 12/16/2018 Abstract [facility] CONVERSIONS Dental, Provider, DDS Social History Tobacco [...] Description 11/21/2024 1:45 PM EDT Office Visit [facility] MEDICINE [address] [place] [address] Alejandra Morris MD 230 [place], [place] [phone] 12/05/2024 10:00 AM EDT Office Visit [facility] ADULT DENTAL [address] [place] [address] Rhona Saldivar, DDS [address] [place] [address] documented as of this encounter Visit Diagnoses Not on filedocumented in this encounter Care Teams Selling Manager Relationship Specialty Start Date End Date Alejandra Morris MD [address] [place] [address] PCP - General Family Medicine 12/17/17 Jovan Porter PharmD [address] [place] [address] Pharmacist Internal Medicine 05/24/23 Rhona Saldivar DDS [address] [place] [address] [phone] Dental Pearl Diver 07/03/24 documented as of this encounter
--- OUTSIDE RECORDS SUMMARY | 2024-11-16 13:20 | XMS_ITS | Encounter Summary ---
Author Organization [employer] [facility] Address [address] [place] [address] 7 [place] [address] Care Team Providers Care Assignment Editor Name Role Phone Alejandra Morris MD Primary Care Provider + Jovan Porter PharmD Unavailable [phone] Rhona Saldivar DDS Unavailable [phone] Encounter Details Date Type Department Care Team (Late st Contact Info) Description 07/13/2022 Orders Only [facility] 230 [place], [place] [phone] Dara Bruno, RN [address] [place], [place] [phone] Social History Tobacco Use Types Packs/Day Years [...] 07/13/22 mammogram -->neg/BIRADs 2, next one on '23 documented in this encounter Plan of Treatment Upcoming Encounters Date Type Department Care Team (Late st Contact Info) Description 11/21/2024 1:45 PM EDT Office Visit [facility] [address] [facility] [place] [address] Alejandra Morris MD [address] [place] [address] 12/05/2024 10:00 AM EDT Office Visit [facility] ADULT D[facility]AL [address] [facility] [place] [address] Rhona Saldivar DDS [address] [facility] [place] [address] documented as of this encounter Procedures Procedure Name Priority Date/Time Associated Diagnosis Comments BI MAMMOGRAM SCREENING TOMOSYNTHESIS BILATERAL Routine 07/13/2022 9:20 AM EST documented in this encounter Results * BI Mammogram Screening Tomosynthesis Bilateral (07/13/2022 9:20 AM EST) Anatomical Region Laterality Modality Breast Bilateral Mammography 07/13/2022 9:20 AM EST Narrative 07/14/2022 5:06 PM EST ? [facility] ? [address] ?[place] [address] ? Mammography Report ? Signed ? Patient: Rivera,Betis ?MR#: [id number] ? : 1975 ?Acct:[id number] ? Age/Sex: 46 / F ?ADM Date: 12/12/22 ? Loc: HO.MAMMO ? Attending Dr: Radha. Alexandra MD ? Ordering Physician: Alejandra Morris MD ?Results: 2Be ?? nign Findings ? Date of Service: 07/13/22 ?Follow Up: 1 Year From Orig ?? inal Mammogram ? Procedure(s): MM tomosynthesis screening BI ?? Accession Number(s): [id number] ? cc: Alejandra Morris MD ? EXAMINATION: [...] signed by Alberto Vela MD in OV> ?07/14/22 1703 ? DD/ 0920 ? TD/TT: ? Rate Clerk: BOLANOS ? Procedure Note Donotmylater, Image - 07/14/2022 Maria D [facility]'s [address] [place] [address] Mammography Report Signed Patient: Javier Rivera#: [id number] : 1975Acct:[id number] Age/Sex: 46 / FADM Date: 07/13/22 Loc: HO.MAMMO Attending Dr: Alejandra Morris MD Ordering Physician: Alejandra Morris MDResults: 2Be nign Findings Date of Service: 07/13/22Follow Up: 1 Year From Orig inal Mammogram Procedure(s): MM tomosynthesis screening BI Accession Number(s): [id number] cc: Alejandra Morris MD EXAMINATION: MM SCREENING [...] by Alberto Vela MD in OV> 07/14/22 1703 DD/ 0920 TD/TT: Rate Clerk: [facility] External Provider IMG BI PROCEDURES Final Result documented in this encounter Visit Diagnoses Not on filedocumented in this encounter Care Teams Assignment Editor Relationship Specialty Start Date End Date Alejandra Morris MD 230 [place] [address] PCP - General Family Medicine 12/17/17 Jovan Porter, Joaquín [address] [place] [address] Pharmacist Internal Medicine 05/24/23 Rhona Saldivar DDS 230 [place] [address] Dental Psychiatric Registered Nurse 07/03/24 documented as of this encounter
--- OUTSIDE RECORDS SUMMARY | 2024-11-16 13:20 | XMS_ITS | Clinical Summary ---
Author Organization [facility] Address [address] [facility] 7t [place] [address] Care Team Providers Care Supercharger Mechanic Name Role Phone Alejandra Morris MD Primary Care Provider + Jovan Porter PharmD Unavailable [phone] Rhona Saldivar DDS Unavailable [phone] Allergies Active Allergy Reactions Criticality Noted Date Comments Flavoring Agent (Non-Screening) 07/02 Cat Dander Unknown 04/30/2020 Daucus Carota Unknown 04/30/2020 Dog Epithelium (Canis Lupus Familiaris) Unknown 04/30/2020 Medications Levonorgestrel (Mirena, 52 MG,) 20 MCG/DAY intrauterine device 1 Units by Intrauterine route continuously. Active labetalol (Normodyne) 100 MG tabletIndication s:Primary hypertension TAKE 1 TABLET BY MOUTH TWICE DAILY 180 tablet 3 4 Active ergocalciferol (Vitamin D2) 1.25 MG (05111 UT) capsuleIndicatio ns:Vitamin D deficiency TAKE 1 CAPSULE BY MOUTH ONCE A WEEK 12 capsule 3 4 Active Additional Information Patient not taking.Reported on 11/16/2024 cetirizine (ZyrTEC) 10 MG tablet Take 1 tablet (10 mg) by mouth if needed each day for allergies. 30 tablet 4 Active losartan-hydroCH LOROthiazide (Hyzaar) 100-25 MG tabletIndication s:Primary hypertension TAKE 1 TABLET BY MOUTH EVERY DAY 90 tablet 4 Active cyclobenzaprine (Flexeril) 10 MG tabletIndication s:Spasm of thoracic back muscle Take 1 tablet (10 mg) by mouth at bedtime. 30 tablet 4 Active omeprazole (PriLOSEC) [address] capsule TAKE 1 CAPSULE BY MOUTH DAILY 30-60 MINUTES BEFORE A MEAL 90 capsule 3 4 Active Active Problems Problem Noted Date Diagnosed Date [...] Assessment & Plan (07/12/2023 10:24 AM EST): Claims Sorter regarding to apply heat to affected area Claims Sorter regarding stretch exercises Take Tylenol BID x1 week Claims Sorter regarding attending walk-in acupuncture Reconsult PRN and [...] with me in 1 month refer to [facility] clinic, order labs Assessment & Plan (11/09/2022 [...] Encounters Date Type Department Care Team Description 11/16/2024 8:00 AM EDT Office Visit [facility] [address] [place] [address] Rhona Saldivar, NILE Full coverage crown needed for root canal-treated tooth (Primary Dx); Full coverage crown needed for tooth at risk for fracture 11/10/2024 Patient Outreach [facility] [address] [place] [address] Alejandra Morris MD Pre-visit Planning (SDOH screening negative and tobacco screening negative) 10/24/2024 Telephone [facility] [address] [place] [address] Alejandra Morris MD Appointment Request 10/10/2024 Orders Only GENERIC EXTERNAL DATA DEPARTMENT Provider, Generic External Data 10/02/2024 Orders Only [facility] External Provider, [facility] 09/12/2024 8:00 AM EST Office Visit [facility] [address] [place] [address] FernieBoyd, Rhona, DDS Irreversible pulpitis (Primary Dx) 09/01/2024 Telephone [facility] [address] [place] [address] Alejandra Morris MD October recall from Last [...] Pulse 72 11/16/2024 8:19 AM EDT Temperature 36.8 ??C (98.2 ??F) [...] Description 11/21/2024 1:45 PM EDT Office Visit [facility] [address] [place] [address] Alejandra Morris MD [address] [place] [address] 12/05/2024 10:00 AM EDT Office Visit [facility] [address] [place] [address] Rhona Saldivar DDS [address] [place] [address] Health Maintenance Due Date Last Done Comments CT Colonography 1977 Colonoscopy 1977 Colorectal Cancer Screening 1977 FIT DNA/Cologuard 1977 FIT 1977 FOBT 1977 Sigmoidoscopy 1977 Alcohol/Substance Use Screening 1989 Family Planning (PISQ) 1992 Pap Smear 1998 Depression Screening 11/10/2023 11/09/2022, 11/10/19 Dental Prophylaxis 01/22/2024 07/22/2023, 08/28/2022 Dental Oral Exam 02/22/2024 08/23/2023 COVID-19 Vaccine ( season) 2024 08/17/2021, 12/25/2020, 11/27/2020 SDOH Screening 11/01/2024 11/02/2023 Mammogram 11/21/2024 11/22/2023, 07/02, 07/09/2021, Additional history exists Dental X-Ray: Bitewings 06/28/2025 06/27/20 24, 04/21/2024, 11/25/2023, Additional history exists Cervical Cancer Screening 07/04/2025 HPV/Cotest 07/04/2025 07/04/2020, 04/14/2016 Tobacco Screening 11/16/2025 11/16/2024 Dental X-Ray: Full Mouth 07/23/2026 07/22/2023, 11/30 [...] 025 9:16 AM EDT) No Jovan Porter, MichelleD Procedures Procedure Name Priority Date/Time Associated Diagnosis [...] needed for tooth at risk for fracture CROWN PREP Routine 11/16/2024 8:00 AM EDT Full coverage crown needed for root canal-treated tooth Full coverage crown needed for tooth at risk for fracture 28 PREFABRICATED POST AND CORE IN ADDITION TO CROWN Routine 11/16/2024 8:00 AM EDT Full coverage crown needed for root canal-treated tooth Full coverage crown needed for tooth at risk for fracture CHLAMYDIA/N. GONORRHOEAE RNA, TMA, UROGENITAL Routine 10/10/2024 8:29 AM EDT US PELVIS TRANSVAGINAL Routine 10/03/2024 10:37 AM EST CASE PRESENTATION, DETAILED AND EXTENSIVE TREATMENT PLANNING Routine 09/12/2024 8:00 AM EST Irreversible pulpitis 28 ENDODONTIC THERAPY, PREMOLAR TOOTH Routine 09/12/2024 8:00 AM EST Irreversible pulpitis BITEWING - SINGLE RADIOGRAPHIC IMAGE Routine 06/27/2024 11:30 AM EST Dental crowns status Fracture of removable partial denture BI MAMMOGRAM SCREENING TOMOSYNTHESIS BILATERAL Routine 11/22/2023 9:00 AM EDT PERIODIC ORAL EVALUATION - ESTABLISHED PATIENT Routine [...] Recently Relevant to Health Maintenance Results * Chlamydia/N. Gonorrhoeae RNA, TMA, Urogenitial (10/10/2024 8:29 AM EDT) CT PCR NOT DETECTED Not Detect. [facility] Comment:A not detected test result does not exclude the possibilityof infection because test results can be affected byimproper specimen collection, concurrent antibiotic therapy,or the number of organisms in the specimen which may bebelow the sensitivity of the test. As with many diagnostictests, results from the Xpert CT/NG assay should beinterpreted in conjunction with other laboratory andclinical data available to the clinician.Xpert CT/NG performance has not been evaluated in patientsless than 14 years of age. The assay should not be used forthe evaluationof suspected sexual abuse or for other medico-legalindications. Additional testing is recommended in anycircumstance when false positive or false negative resultscould lead to adverse medical, social or psychologicalconsequences. NG PCR NOT DETECTED Not Detect. [facility] Comment:A not detected test result does not exclude the possibilityof infection because test results can be affected byimproper specimen collection, concurrent antibiotic therapy,or the number of organisms in the specimen which may bebelow the sensitivity of the test. As with many diagnostictests, results from the Xpert CT/NG assay should beinterpreted in conjunction with other laboratory andclinical data available to the clinician.Xpert CT/NG performance has not been evaluated in patientsless than 14 years of age. The assay should not be used forthe evaluationof suspected sexual abuse or for other medico-legalindications. Additional testing is recommended in anycircumstance when false positive or false negative resultscould lead to adverse medical, social or psychologicalconsequences. 10/10/2024 8:29 AM EDT 10/10/2024 3:10 PM EDT Narrative [facility] - 10/11/2024 5:12 AM EDT Vaginal us Generic External Data Provider LAB MICROBIOLOGY - GENERAL ORDERABLES Final Result Performing Organization Address City/State/[facility] Co de Phone Number [facility] [address] [place] [address] [phone] * US Pelvis Transvaginal (10/03/2024 10:37 AM EST) Anatomical Region Laterality Modality Pelvis Ultrasound 10/03/2024 10:3 7 AM EST Narrative 10/03/2024 10:39 AM EST ? [facility] ?[address] [place] [address]. ?[place] [address] ? Ultrasound Report ? Signed ? Patient: Rivera,Betis ?MR#: [id number] ? : 1975 ?Acct:[id number] ? Age/Sex: 49 / F ?ADM Date: 03/03/25 ? Loc: HO.US ? Attending Dr: Omaira Diaz CNM ? Ordering Physician: Omaira Diaz CNM ?? Date of Service: 10/02/24 ?? Procedure(s): US pelvic and transvaginal ?? Accession Number(s): [id number] ? cc: Alejandra Morris MD; Omaira Diaz [...] DD/ 1037 ? TD/TT: 10/03/24 1037 ? Community Ambassador: ? Procedure Note Gerardo Stroud - 10/03/[address] [address] Ultrasound Report Signed Patient: Javier Rivera#: [id number] : 1975Acct:[id number] Age/Sex: 49 / FADM Date: 10/02/24 Loc: HO.US Attending Dr: Omaira Diaz CNM Ordering Physician: Omaira Diaz CNM Date of Service: 10/02/24 Procedure(s): US pelvic and transvaginal Accession Number(s): [id number] cc: Alejandra Morris MD; Omaira Diaz CNM [...] 10/03/24 1038 DD/ 1037 TD/TT: 10/03/24 1037 Community Ambassador: [facility] External Provider IMG US PROCEDURES Final Result * BI Mammogram Screening Tomosynthesis Bilateral (11/22/2023 9:00 AM EDT) Anatomical Region Laterality Modality Breast Bilateral Mammography 11/22/2023 9:00 AM EDT Narrative 12/20/2023 4:57 AM EDT ? [place] [facility] ? [address] [place] [address] ? Mammography Report ? Signed ? Patient: Rivera,Betis ?MR#: [id number] ? : 1975 ?Acct:[id number] ? Age/Sex: 48 / F ?ADM Date: 11/22/23 ? Loc: HO.MAMMO ? Attending Dr: Alejandra Morris MD ? Ordering Physician: Alejandra Morris MD ?Results: 1Ne ?? gative ? Date of Service: 11/22/23 ?Follow Up: 1 Year From Orig ?? inal Mammogram ? Procedure(s): MM tomosynthesis screening BI ?? Accession Number(s): [id number] ? cc: Alejandra Morris MD ? EXAMINATION: [...] by Janie Ramirez MD in OV> ? 12/20/23452 ? DD/ 0900 ? TD/TT: ? Community Ambassador: ? Procedure Note Luanne, Gerardo - 12/20/2023 [place] [facility] [address] [place] [address] Mammography Report Signed Patient: Javier Rivera#: [id number] : 1975Acct:[id number] Age/Sex: 48 / FADM Date: 11/22/23 Loc: HO.MAMMO Attending Dr: Alejandra Morris MD Ordering Physician: Alejandra Morris MDResults: 1Ne gative Date of Service: 11/22/23Follow Up: 1 Year From Orig ina Mammogram Procedure(s): MM tomosynthesis screening BI Accession Number(s): [id number] cc: Alejandra Morris MD EXAMINATION: MM SCREENING [...] Ramirez MD in OV> 12/20/23 0453 DD/ 09 TD/TT: Community Ambassador: Alejandra Morris MD IMG BI PROCEDURES Edited Result - Final * Lipid Panel with Reflex to Direct LDL (03/22/2023 7:22 AM EDT) Triglycerides 133 mg/dL [facility] Comment:Desirable Triglyceri de: less than 150 mg/dLBorderline High Triglyceride 150-199 mg/dLHigh Triglyceride: 200-499 mg/dLVery High Triglyceride: greater than or equal to 5OO mg/dL Cholesterol 163 mg/dL [facility] Comment:Desirable Cholestero l: less than 200 mg/dLBorderline High Cholesterol: 200-239 mg/dLHigh Cholesterol: greater than 239 mg/dL LDL Cholesterol Calculated 102 mg/dl [facility] Comment:Desirable LDL: less than 100 mg/dLNear Optimal/Above Optimal LDL: 110- 129 mg/dLBorderline High LDL: 130-159 mg/dLHigh LDL: 160-189 mg/dLVery High LDL: greater than or equal to 190 mg/dL HDL Cholesterol 35 mg/dL [facility] Comment:Desirable HDL: great er than 40 mg/dL Note: This HDL assay may give artificially low results in patients with liver disease. Blood 03/22/2023 7:22 AM EDT 03/22/2023 7:22 AM EDT us Alejandra Morris MD LAB BLOOD ORDERABLES Fin al Result Performing Organization Address [facility] de Phone Number [facility] [address] [place] [phone] * Hepatitis C Ab (11/20/2022 9:35 AM EDT) Hepatitis C Antibody Nonreactive Nonreactive [facility] Comment:Antibodies to HCV no t detected; does not exclude early acuteHCV infection. 11/20/2022 9:35 AM EDT 11/20/2022 9:35 AM EDT Result [facility] External Provider LAB BLO OD ORDERABLES Final Result Performing Organization Address [facility] [address] [place] [phone] * HIV Ab/Ag (CANDY SQUIRES) (11/20/2022 9:35 AM EDT) HIV AB/AG Nonreactive Nonreactive [facility] Comment:HIV-1 p24 Ag and/or HIV-1/HIV-2 Ab not detected.A test result that is nonreactive does not exclude thepossibility of exposure to or infection with HIV-1 and/orHIV-2. Nonreactive results in this assay for individualswith prior exposure to HIV-1 and/or HIV-2 may be due toantigen and antibody levels that are below the limit ofdetection of this assay.The [employer]el Carpet Floor Layer Apprentice HIV Ag/Ab Combo assay result andsupplemental assay results should be interpreted inconjunction with the patient's clinical presentation,history and other laboratory results. If the results areinconsistent with clinical evidence, additional testing issuggested to confirm the result. 11/20/2022 9:35 AM EDT 11/20/2022 9:35 AM EDT Result [facility] External Provider LAB BLO OD ORDERABLES Final Result Performing Organization Address [facility] Co de Phone Number [facility] [address] [place] [address] [phone] * HPV E6/E7 RFLX CARLEY 16 18/45 (07/04/2020 10:04 AM EST) HPV mRNA E6/E7 rflx Not Detected Not Detected [facility] Comment: This test was performed using the APTIMA HPV Assay ([employer] This assay detects E6/E7 viral messenger RNA (mRNA) from 14 high-risk HPV types (16,18,31,33,35,39,45,51,52,56,58,59,66,68). The analytical performance characteristics of this assay have been determined by [employer]. The modifications have not been cleared or approved by the FDA. This assay has been validated pursuant to the CLIA regulations and is used for clinical purposes. THIS TEST WAS PERFORMED AT: [facility] [address] [place], [place] ??[phone] RIVKA DUPONT MD 07/04/2020 10:0 4 AM EST us Omaira Diaz HISTORICAL/NON ORDERABLE LABS Fi nal Result [facility] [address] from Last 3 Months or Most Recently Relevant to Health Maintenance Insurance [facility]SN F[facility] AD[facility]ENTAL - HSN FULL (MEDICAID) Care Teams Supercharger Mechanic Relationship Specialty Start Date End Date Alejandra Morris MD [address] [place] [address] PCP - General Family Medicine 12/17/17 Jovan Porter, MichelleD [address] [place] [phone] Pharmacist Internal Medicine 05/24/23 Rhona Saldivar DDS [address] [place] [address] Dental Manager Winter 07/03/24
--- OUTSIDE RECORDS SUMMARY | 2024-11-16 13:20 | XMS_ITS | Encounter Summary ---
Author Organization [facility] Address [address] [facility] 7t [place] [address] Care Team Providers Care Peoplesoft Hr Developer Name Role Phone Alejandra Morris MD Primary Care Provider + Jovan Porter PharmD Unavailable [phone] Rhona Saldivar DDS Unavailable [phone] Encounter Details Date Type Department Care Team (Late st Contact Info) Description 09/02/2022 Orders Only [facility] [address] [place] [address] Alejandra Morris MD [address] [place], [place] [phone] Vitamin D deficiency (Primary Dx) Social History [...] Description 11/21/2024 1:45 PM EDT Office Visit [facility] [address] [place] [address] Alejandra Morris MD [address] [place] [phone] 12/05/2024 10:00 AM EDT Office Visit [facility] [address] [place] [address] Rhona Saldivar DDS [address] [place] [address] documented as of this encounter Visit Diagnoses Diagnosis Vitamin D deficiency- Primary documented in this encounter Care Teams Peoplesoft Hr Developer Relationship Specialty Start Date End Date Alejandra Morris MD [address] [place] [phone] PCP - General Family Medicine 12/17/17 Jovan Porter, MichelleD [address] [place] [address] [phone] Pharmacist Internal Medicine 05/24/23 Rhona Saldivar DDS [address] [place] [phone] Dental Online Project Manager 07/03/24 documented as of this encounter
--- OUTSIDE RECORDS SUMMARY | 2024-11-16 13:20 | XMS_ITS | Encounter Summary ---
Author Organization [facility] [facility] Address [address] [place] [address] 7t [place] [address] Care Team Providers Care Bagger Meat Name Role Phone Alejandra oMrris MD Primary Care Provider + Jovan Porter PharmD Unavailable [phone] Rhona Saldivar DDS Unavailable [phone] Encounter Details Date Type Department Care Team (Late st Contact Info) Description 10/02/2022 Abstract [facility] [address] [place] [address] Dharmesh Reyes DDS [address] [place] [address] Social History Tobacco Use Types Packs/Day Years [...] Encounters Date Type Department Care Team (Late Contact Info) Description 11/21/2024 1:45 PM EDT Office Visit [facility] [address] [place] [address] Alejandra Morris MD [address] [place] [address] 12/05/2024 10:00 AM EDT Office Visit [facility] [address] [place] [address] Rhona Saldivar DDS [address] [place] [address] documented as of this encounter Visit Diagnoses Not on filedocumented in this encounter Care Teams Bagger Meat Relationship Specialty Start Date End Date Alejandra Morris MD [address] [place] [address] PCP - General Family Medicine 12/17/17 Jovan Porter, Joaquín [address] [place] [address] Pharmacist Internal Medicine 05/24/23 Rhona Saldivar DDS [address] [place] [phone] Dental Manager Library 07/03/24 documented as of this encounter
--- OUTSIDE RECORDS SUMMARY | 2024-11-16 13:20 | XMS_ITS | Encounter Summary ---
Author Organization [facility] Address [address] [place] [address] 7t [place] [address] Care Team Providers Care Pulley Maintainer Name Role Phone Alejandra Morris MD Primary Care Provider + Jovan Porter PharmD Unavailable [phone] Rhona Saldivar DDS Unavailable [phone] Encounter Details Date Type Department Care Team (Late st Contact Info) Description 10/02/2022 Abstract [facility] [address] [place] [address] Dharmesh Reyes DDS [address] [place] [address] Social History Tobacco Use Types Packs/Day Years [...] Description 11/21/2024 1:45 PM EDT Office Visit [facility] [address] [place] [address] Alejandra Morris MD [address] [place] [address] 12/05/2024 10:00 AM EDT Office Visit [facility] [address] [place] [address] Rhona Saldivar DDS [address] [place] [address] documented as of this encounter Visit Diagnoses Not on filedocumented in this encounter Care Teams Pulley Maintainer Relationship Specialty Start Date End Date Alejandra Morris MD [address] [place] [phone] PCP - General Family Medicine 12/17/17 Jovan Porter, Joaquín [address] [place] [address] Pharmacist Internal Medicine 05/24/23 Rhona Saldivar DDS [address] [place] [phone] Dental Qc Tech 07/03/24 documented as of this encounter
== END 2024-11-16 10:56 | disposition home or self-care (01) ==
LOC: HO.US 10:55
PROVIDERS: PCP Internal Medicine; Visit Provider Advanced Practice Midwife
DX: N83.209 Unspecified ovarian cyst, unspecified side (principal)
CPT/HCPCS: 76830; 76856

== ENCOUNTER → 2024-11-16 10:57 | Outpatient (BNV) | payer OTHER, SELFPAY | PROVIDERS: PCP Internal Medicine; Visit Provider Radiology Diagnostic Radiology | DX: N83.291 Other ovarian cyst, right side (principal); Z97.5 Presence of (intrauterine) contraceptive device | CPT/HCPCS: 76830; 76856 ==

== ENCOUNTER 2024-11-27 08:05 | Outpatient (REF) | payer OTHER, SELFPAY ==
--- OUTSIDE RECORDS SUMMARY | 2024-11-27 08:16 | XMS_ITS | Encounter Summary ---
Author Organization [facility] [facility] Address [address] [facility] 7t [place] [address] Care Team Providers Care Special Trackwork Blacksmith Name Role Phone Alejandra Morris MD Primary Care Provider + Jovan Porter PharmD Unavailable [phone] Rhona Saldivar DDS Unavailable [phone] Reason for Visit * Reason Comments Med Refill Encounter Details Date Type Department Care Team (Late st Contact Info) Description 06/07/[address] [facility] [address] [place], [place] [phone] Alejandra Morris MD [address] [place], [place] [phone] Slow transit constipation Social History Tobacco Use [...] Care Team (Late st Contact Info) Description 12/05/2024 10:00 AM EDT Office Visit [facility] [address] [place] [address] Rhona Saldivar DDS [address] [place] [address] 02/15/2025 9:00 AM EDT Office Visit [facility] [address] [place] [address] Alejandra Morris MD [address] [place] [address] documented as of this encounter Goals Goal Patient Goal Type Associated Problems Recent Progress Patient-Stated? Author Blood Pressure < 140/90 Blood Pressure 140/100(2024 1:09 PM EDT) Jovan Carmichael, PharmD documented as of this encounter Visit Diagnoses Diagnosis Slow transit constipation documented in this encounter Additional Health Concerns Assessment Noted Time PHQ-9 Depression Total Score: 0 11/10/19 23 9:18 AM EDT documented as of this encounter Care Teams Special Trackwork Blacksmith Relationship Specialty Start Date End Date Alejandra Morris MD [address] [place] [address] PCP - General Family Medicine 12/17/17 Jovan Porter, MichelleD [address] [place] [address] Pharmacist Internal Medicine 05/24/23 Rhona Saldivar DDS [address] [place] [address] Dental Men'S Furnishings Salesperson 07/03/24 documented as of this encounter
--- OUTSIDE RECORDS SUMMARY | 2024-11-27 08:17 | XMS_ITS | Clinical Summary ---
Author Organization [employer] [facility], Formerly [facility] Address [address] [facility] 7t [place] [address] Care Team Providers Care School Janitor Name Role Phone Alejandra Morris MD Primary Care Provider + Jovan Porter PharmD Unavailable [phone] Rhona Saldivar DDS Unavailable [phone] Allergies Active Allergy Reactions Criticality Noted Date Comments Flavoring Agent (Non-Screening) 07/02 Cat Dander Unknown 04/30/2020 Daucus Carota Unknown 04/30/2020 Dog Epithelium (Canis Lupus Familiaris) Unknown 04/30/2020 Medications Levonorgestrel (Mirena, 52 MG,) 20 MCG/DAY intrauterine device 1 Units by Intrauterine route continuously. Active losartan-hydroC HLOROthiazide (Hyzaar) 100-25 MG tabletIndicatio ns:Primary hypertension TAKE 1 TABLET BY MOUTH EVERY DAY 90 tablet 024 Active cyclobenzaprine (Flexeril) 10 MG tabletIndicatio ns:Spasm of thoracic back muscle Take 1 tablet (10 mg) by mouth at bedtime. 30 tablet 024 Active omeprazole (PriLOSEC) [address] capsule TAKE 1 CAPSULE BY MOUTH DAILY 30-60 MINUTES BEFORE A MEAL 90 capsule 3 024 Active labetalol (Normodyne) 100 MG tabletIndicatio ns:Primary hypertension Take 2 tablets (200 mg) by mouth 2 times daily. 180 tablet 3 025 Active Ketotifen Fumarate 0.035 % solution Administer 1 drop into affected eye(s) 2 times daily. 10 mL 1 Active acetaminophen (Tylenol Extra Strength) 500 MG tablet Take 1 tablet (500 mg) by mouth every 6 (six) hours if needed for mild pain. 120 tablet 025 2024 Active cetirizine (ZyrTEC) 10 MG tablet Take 1 tablet (10 mg) by mouth if needed each day for allergies. 30 tablet 3 025 2024 Active labetalol (Normodyne) 100 MG tabletIndicatio ns:Primary hypertension TAKE 1 TABLET BY MOUTH TWICE DAILY 180 tablet 3 024 2024 Discontinued(R eorder (will not trigger notification to Pharmacy)) ergocalciferol (Vitamin D2) 1.25 MG (37758 UT) capsuleIndicati ons:Vitamin D deficiency TAKE 1 CAPSULE BY MOUTH ONCE A WEEK 12 capsule 3 024 2024 Discontinued(T herapy completed) cetirizine (ZyrTEC) 10 MG tablet Take 1 tablet (10 mg) by mouth if needed each day for allergies. 30 tablet 024 2024 Discontinued(R eorder (will not trigger notification to Pharmacy)) Active Problems Problem Noted Date Diagnosed Date [...] Assessment & Plan (07/12/2023 10:24 AM EST): Rn Case Management regarding to apply heat to affected area Rn Case Management regarding stretch exercises Take Tylenol BID x1 week Rn Case Management regarding attending walk-in acupuncture Reconsult PRN and [...] 04/20/2018 Primary hypertension 06/10/2015 Assessment & Plan (11/21/2024 7:26 PM EDT): Uncontrolled. Compliant w/meds Continue losartan and increase labetalol to 200mg bid, FU w me in 4w Counseled re low salt diet/increase moderate physical activity. Check home BP BIW and prn CP/SHOEMAKER/MANRIQUEZ Non smoking patient. Assessment & Plan (05/22/2024 10:44 AM EDT): [...] with me in 1 month refer to [facility] clinic, order labs Assessment & Plan (11/09/2022 [...] rhinitis 06/10/2015 Obesity 06/10/2015 Assessment & Plan (11/21/2024 7:27 PM EDT): Discussed re weight reduction options including exercise, life style modifications, diet. Recommended to decrease soda and sugary beverage consumption, increase protein intake with meals (at least 1 portion of protein with each meal) to assist with satiety, increase dietary fiber Recommended at least 150 min/week of moderate intensity exercise. Assessment & Plan (05/22/2024 1:01 PM EDT): [...] Encounters Date Type Department Care Team Description 11/21/2024 1:45 PM EDT Office Visit [address] [address] Alejandra Morris MD Primary hypertension (Primary Dx); Class 1 obesity due to excess calories with serious comorbidity and body mass index (BMI) of 31.0 to 31.9 in adult; Dietary counseling; Exercise counseling 11/21/2024 Travel 11/16/2024 8:00 AM EDT Office Visit [facility] [address] [place] [address] Rhona Saldivar DDS Full coverage crown needed for root canal-treated tooth (Primary Dx); Full coverage crown needed for tooth at risk for fracture 11/10/2024 Patient Outreach [address] [address] Alejandra Morris MD Pre-visit Planning (SDOH screening negative and tobacco screening negative) 10/24/[address] [address] Alejandra Morris MD Appointment Request 10/10/2024 Orders Only GENERIC EXTERNAL DATA DEPARTMENT Provider, Generic External Data 10/02/2024 Orders Only [facility] External Provider, [facility] 09/12/2024 8:00 AM EST Office Visit [facility] [address] [place] [address] Rhnoa Saldivar DDS Irreversible pulpitis (Primary Dx) 09/01/2024 Telephone [facility] [address] [place] [address] Alejandra Morris MD October recall from Last [...] got money to buy more: Never True 11/21/2024 Within the past 12 months,th e food [...] Date Recorded Patient Health Questionnaire-2 Score 0 11/21/2024 Internet Access Answer Date Recorded Internet Access Q1 No 11/21/2024 Internet Access Q2 I do not want or need it 11/01 Comments No Sex and Gender Information Value Date Recorded Sex Assigned at Female 06/01/2022 10:17 AM EDT Legal Sex Female 10:17 AM EDT Gender Identity Female 06/01/2022 10:17 AM EDT Sexual Orientation Straight 06/01/2022 10 :17 AM EDT Last Filed Vital Signs Vital Sign Reading Time Taken Comments Blood Pressure 140/100 11/21/2024 1:09 PM EDT Pulse 74 11/21/2024 12:57 PM EDT Temperature 36.8 ??C (98.2 ??F) 11/21/2024 12:57 PM E DT Respiratory Rate 20 07/12/2023 8:52 AM EST Oxygen Saturation 98% 11/21/2024 12:57 PM EDT Inhaled Oxygen Concentration - - Weight 78.7 kg (173 lb 8 oz) 11/21/2024 12:57 PM EDT Height 157.5 cm (5' 2 ) 11/21/2024 12:57 PM EDT Body Mass Index 31.73 11/21/2024 12:57 PM EDT Plan of Treatment Upcoming Encounters Date Type Department Care Team (Late st Contact Info) Description 12/05/2024 10:00 AM EDT Office Visit [facility] [address] [place] [address] Rhona Saldivar DDS [address] [place] [address] 02/15/2025 9:00 AM EDT Office Visit [facility] [address] [place] [address] Alejandra Morris MD [address] [place] [address] Health Maintenance Due Date Last Done Comments CT Colonography 1977 Colonoscopy 1977 Colorectal Cancer Screening 1977 FIT DNA/Cologuard 1977 FIT 1977 FOBT 1977 Sigmoidoscopy 1977 Alcohol/Substance Use Screening 1989 Family Planning (PISQ) 1992 Pap Smear 1998 Dental Prophylaxis 01/22/2024 07/22/2023, 08/28/2022 Dental Oral Exam 02/22/2024 08/23/2023 COVID-19 Vaccine ( season) 2024 08/17/2021, 12/25/2020, 11/27/2020 Mammogram 11/21/2024 11/22/2023, 07/02, 07/09/2021, Additional history exists Dental X-Ray: Bitewings 06/28/2025 06/27/20 24, 04/21/2024, 11/25/2023, Additional history exists Cervical Cancer Screening 07/04/2025 HPV/Cotest 07/04/2025 07/04/2020, 04/14/2016 Depression Screening 11/21/2025 11/21/2024, 11/10/19 23 SDOH Screening 11/21/2025 11/21/2024 Tobacco Screening 11/21/2025 11/21/2024 Dental X-Ray: Full Mouth 07/23/2026 07/22/2023, 11/30 [...] 140/90 Blood Pressure 140/100(2024 1:09 PM EDT) No Jovan Porter, Joaquín Procedures Procedure Name Priority Date/Time Associated [...] EDT) CT PCR NOT DETECTED Not Detect. [facility] Comment:A not detected test result [...] psychologicalconsequences. NG PCR NOT DETECTED Not Detect. [facility] Comment:A not detected test result [...] AM EDT 10/10/2024 3:10 PM EDT Narrative [facility] - 10/11/2024 5:12 AM EDT Vaginal us Generic External Data Provider LAB MICROBIOLOGY - GENERAL ORDERABLES Final Result Performing Organization Address City/State/[facility] Co de Phone Number [facility] [address] [place] [phone] * US Pelvis Transvaginal (10/03/2024 10:37 AM EST) Anatomical Region Laterality Modality Pelvis Ultrasound 10/03/2024 10:3 7 AM EST Narrative 10/03/2024 10:39 AM EST ? [facility] ?[address] [place] [address]. ?[place] [address] ? Ultrasound Report ? Signed ? Patient: Rivera,Betis ?MR#: [id number] ? : 1975 ?Acct:[id number] ? Age/Sex: 49 / F ?ADM Date: 03/03/25 ? Loc: HO.US ? Attending Laureano Diaz CNM ? Ordering Physician: Omaira Diaz CNM ?? Date of Service: 10/02/24 ?? Procedure(s): US pelvic and transvaginal ?? Accession Number(s): [id number] ? cc: Alejandra Morris MD; Omaira Diaz [...] DD/ 1037 ? TD/TT: 10/03/24 1037 ? Hip Hop Artist: ? Procedure Note Luanne, Image - 10/03/[address] [address] Ultrasound Report Signed Patient: Javier Rivera#: [id number] : 1975Acct:[id number] Age/Sex: 49 / FADM Date: 10/02/24 Loc: HO. Attending Dr: Omaira Diaz CNM Ordering Physician: Omaira Diaz CNM Date of Service: 10/02/24 Procedure(s): US pelvic and transvaginal Accession Number(s): [id number] cc: Alejandra Morris MD; Omaira Diaz CNM [...] 10/03/24 1038 DD/ 1037 TD/TT: 10/03/24 1037 Hip Hop Artist: [facility] External Provider IMG US PROCEDURES Final Result * BI Mammogram Screening Tomosynthesis Bilateral (11/22/2023 9:00 AM EDT) Anatomical Region Laterality Modality Breast Bilateral Mammography 11/22/2023 9:00 AM EDT Narrative 12/20/2023 4:57 AM EDT ? [facility] ? [address] ?[place] [address] ? Mammography Report ? Signed ? Patient: Rivera,Betis ?MR#: [id number] ? : 1975 ?Acct:[id number] ? Age/Sex: 48 / F ?ADM Date: 11/22/23 ? Loc: HO.MAMMO ? Attending Dr: Alejandra Morris MD ? Ordering Physician: Alejandra Morris MD ?Results: 1Ne ?? gative ? Date of Service: 11/22/23 ?Follow Up: 1 Year From Orig ?? inal Mammogram ? Procedure(s): MM tomosynthesis screening BI ?? Accession Number(s): [id number] ? cc: Alejandra Morris MD ? EXAMINATION: [...] 12/20/23452 ? DD/ 0900 ? TD/TT: ? Hip Hop Artist: ? Procedure Note Donotjacobointerpreter, Image - 12/20/2023 [facility] [address] [place] [address] Mammography Report Signed Patient: Javier Rivera#: [id number] : 1975Acct:[id number] Age/Sex: 48 / FADM Date: 11/22/23 Loc: HO.MAMMO Attending Dr: Alejandra Morris MD Ordering Physician: Alejandra Morris MDResults: 1Ne gative Date of Service: 11/22/23Follow Up: 1 Year From Orig ina Mammogram Procedure(s): MM tomosynthesis screening BI Accession Number(s): [id number] cc: Alejandra Morris MD EXAMINATION: MM SCREENING [...] in OV> 12/20/23 0453 DD/ 0900 TD/TT: Hip Hop Artist: Alejandra Morris MD IMG BI PROCEDURES Edited Result - Final * Lipid Panel with Reflex to Direct LDL (03/22/2023 7:22 AM EDT) Triglycerides 133 mg/dL [facility] Comment:Desirable Triglyceri de: less than 150 mg/dLBorderline High Triglyceride 150-199 mg/dLHigh Triglyceride: 200-499 mg/dLVery High Triglyceride: greater than or equal to 5OO mg/dL Cholesterol 163 mg/dL [facility] Comment:Desirable Cholestero l: less than 200 mg/dLBorderline High Cholesterol: 200-239 mg/dLHigh Cholesterol: greater than 239 mg/dL LDL Cholesterol Calculated 102 mg/dl [facility] Comment:Desirable LDL: less than 100 mg/dLNear Optimal/Above Optimal LDL: 110- 129 mg/dLBorderline High LDL: 130-159 mg/dLHigh LDL: 160-189 mg/dLVery High LDL: greater than or equal to 190 mg/dL HDL Cholesterol 35 mg/dL [facility] Comment:Desirable HDL: great er than 40 mg/dL Note: This HDL assay may give artificially low results in patients with liver disease. Blood 03/22/2023 7:22 AM EDT 03/22/2023 7:22 AM EDT us Alejandra Morris MD LAB BLOOD ORDERABLES Fin al Result [facility] [address] [place] [phone] * Hepatitis C Ab (11/20/2022 9:35 AM EDT) Hepatitis C Antibody Nonreactive Nonreactive [facility] Comment:Antibodies to HCV no t detected; does not exclude early acuteHCV infection. 11/20/2022 9:35 AM EDT 11/20/2022 9:35 AM EDT [facility] External Provider LAB BLO OD ORDERABLES Final Result Performing Organization Address [facility] Number [facility] [address] [place] [phone] * HIV Ab/Ag ([facility]) (11/20/2022 9:35 AM EDT) Pathologist [facility] HIV AB/AG Nonreactive Nonreactive [facility] Comment:HIV-1 p24 Ag and/or HIV-1/HIV-2 Ab not detected.A test result that is nonreactive does not exclude thepossibility of exposure to or infection with HIV-1 and/orHIV-2. Nonreactive results in this assay for individualswith prior exposure to HIV-1 and/or HIV-2 may be due toantigen and antibody levels that are below the limit ofdetection of this assay.The [employer] Operator HIV Ag/Ab Combo assay result andsupplemental assay results should be interpreted inconjunction with the patient's clinical presentation,history and other laboratory results. If the results areinconsistent with clinical evidence, additional testing issuggested to confirm the result. 11/20/2022 9:35 AM EDT 11/20/2022 9:35 AM EDT [facility] External Provider LAB BLO OD ORDERABLES Final Result Performing Organization Address [facility] Co de Phone Number [facility] [address] [place] [phone] * HPV E6/E7 RFLX CARLEY 16 18/45 (07/04/2020 10:04 AM EST) HPV mRNA E6/E7 rflx Not Detected Not Detected [facility] Comment: This test was performed using the APTIMA HPV Assay ([employer] This assay detects E6/E7 viral messenger RNA (mRNA) from 14 high-risk HPV types (16,18,31,33,35,39,45,51,52,56,58,59,66,68). The analytical performance characteristics of this assay have been determined by [facility]. The modifications have not been cleared or approved by the FDA. This assay has been validated pursuant to the CLIA regulations and is used for clinical purposes. THIS TEST WAS PERFORMED AT: [facility] [address] [place] [address],[address] [place], [place] ??[phone] RIVKA DUPONT MD 07/04/2020 10:0 4 AM EST us Omaira Diaz HISTORICAL/NON ORDERABLE LABS Fi nal Result [facility] [address] from Last 3 Months or Most Recently Relevant to Health Maintenance Insurance HSN FULL [facility] ADULT [facility] - HSN FULL (MEDICAID) Care Teams School Janitor Relationship Specialty Start Date End Date Alejandra Morris MD [address] [place] [phone] PCP - General Family Medicine 12/17/17 Jovan Proter, MichelleD [address] [place] [address] [phone] Pharmacist Internal Medicine 05/24/23 Rhona Saldivar DDS [address] [place] [address] [phone] Dental Sales Promotion Representative 07/03/24
--- OUTSIDE RECORDS SUMMARY | 2024-11-27 08:17 | XMS_ITS | Encounter Summary ---
Author Organization [employer] [facility] Address [address] [place] [address] 7t [place] [address] Care Team Providers Care Digital Media Representative Name Role Phone Alejandra Morris MD Primary Care Provider + Jovan Porter PharmD Unavailable [phone] Rhona Saldivar DDS Unavailable [phone] Encounter Details Date Type Department Care Team (Late st Contact Info) Description 10/02/2022 Abstract [facility] [address] [place] [address] Dharmesh Reyes DDS [address] [place] [address] Social History Tobacco Use Types Packs/Day Years [...] Description 12/05/2024 10:00 AM EDT Office Visit [facility] [address] [place] [address] Rhona Saldivar DDS [address] [place] [address] 02/15/2025 9:00 AM EDT Office Visit [facility] [address] [place] [address] Alejandra Morris MD [address] [place] [phone] documented as of this encounter Visit Diagnoses Not on filedocumented in this encounter Care Teams Digital Media Representative Relationship Specialty Start Date End Date Alejandra Morris MD [address] [place] [phone] PCP - General Family Medicine 12/17/17 Jovan Porter, Joaquín [address] [place] [phone] Pharmacist Internal Medicine 05/24/23 Rhona Saldivar DDS [address] [place] [phone] Dental User Interface Engineer 07/03/24 documented as of this encounter
--- OUTSIDE RECORDS SUMMARY | 2024-11-27 08:17 | XMS_ITS | Encounter Summary ---
Author Organization [employer] [facility] Address [address] [place] [address] 7t [place] [address] Care Team Providers Care Die Repair Name Role Phone Alejandra Morris MD Primary Care Provider + Jovan Porter PharmD Unavailable [phone] Rhona Saldivar DDS Unavailable [phone] Encounter Details Date Type Department Care Team (Late st Contact Info) Description 10/02/2022 Abstract [facility] [address] [place] [address] Dharmesh Reyes DDS [address] [place] [address] Social History Tobacco Use Types Packs/Day Years [...] Description 12/05/2024 10:00 AM EDT Office Visit [facility] [address] [place] [address] Rhona Saldivar DDS [address] [place] [address] 02/15/2025 9:00 AM EDT Office Visit [facility] [address] [place] [address] Alejandra Morris MD [address] [place] [phone] documented as of this encounter Visit Diagnoses Not on filedocumented in this encounter Care Teams Die Repair Relationship Specialty Start Date End Date Alejandra Morris MD [address] [place] [phone] PCP - General Family Medicine 12/17/17 Jovan Porter, Joaquín [address] [place] [phone] Pharmacist Internal Medicine 05/24/23 Rhona Saldivar DDS [address] [place] [phone] Dental Leather Lacer 07/03/24 documented as of this encounter
--- OUTSIDE RECORDS SUMMARY | 2024-11-27 08:17 | XMS_ITS | Encounter Summary ---
Author Organization [employer] [facility] Address [address] [place] [address] 7t [place] [address] Care Team Providers Care Senior Informatica Etl Developer Name Role Phone Alejandra Morris MD Primary Care Provider + Jovan Porter PharmD Unavailable [phone] Rhona Saldivar DDS Unavailable [phone] Encounter Details Date Type Department Care Team (Latest Contact Info) Description 12/16/2018 Abstract [facility] CONVERSIONS Dental, Provider, DDS Social History Tobacco [...] Description 12/05/2024 10:00 AM EDT Office Visit [facility] [address] [place] [address] Rhona Saldivar, DDS [address] [place] [address] 02/15/2025 9:00 AM EDT Office Visit [facility] [address] [place] [address] Alejandra Morris MD [address] [place], [place] [phone] documented as of this encounter Visit Diagnoses Not on filedocumented in this encounter Care Teams Senior Informatica Etl Developer Relationship Specialty Start Date End Date Alejandra Morris MD [address] [place] [phone] PCP - General Family Medicine 12/17/17 Jovan Porter, Joaquín [address] [place] [address] [phone] Pharmacist Internal Medicine 05/24/23 Rhona Saldivar DDS [address] [place] [address] [phone] Dental Sock Turner 07/03/24 documented as of this encounter
--- OUTSIDE RECORDS SUMMARY | 2024-11-27 08:17 | XMS_ITS | Encounter Summary ---
Author Organization [employer] [facility] Address [address] [facility] 7t [place] [address] Care Team Providers Care Assembler Carbon Brushes Name Role Phone Alejandra Morris MD Primary Care Provider + Jovan Porter PharmD Unavailable [phone] Rhona Saldivar DDS Unavailable [phone] Encounter Details Date Type Department Care Team (Late st Contact Info) Description 09/02/2022 Orders Only [facility] [address] [place] [address] Alejandra Morris MD [address] [place], [place] [phone] Vitamin D deficiency (Primary Dx) Social History [...] Description 12/05/2024 10:00 AM EDT Office Visit [facility] [address] [place] [address] Rhona Saldivar DDS [address] [place] [phone] 02/15/2025 9:00 AM EDT Office Visit [facility] [address] [place] [phone] Alejandra Morris MD [address] [place] [phone] documented as of this encounter Visit Diagnoses Diagnosis Vitamin D deficiency- Primary documented in this encounter Care Teams Assembler Carbon Brushes Relationship Specialty Start Date End Date Alejandra Morris MD [address] [place] [phone] PCP - General Family Medicine 12/17/17 Jovan Porter, MichelleD [address] [place] [address] [phone] Pharmacist Internal Medicine 05/24/23 Rhona Saldivar DDS [address] [place] [address] [phone] Dental Rental Car Deliverer 07/03/24 documented as of this encounter
--- OUTSIDE RECORDS SUMMARY | 2024-11-27 08:17 | XMS_ITS | Encounter Summary ---
Author Organization [facility] Address [address] [place] [address] 7 [place] [address] Care Team Providers Care Boiler Or Engine Operator Name Role Phone Alejandra Morris MD Primary Care Provider + Jovan Porter PharmD Unavailable [phone] Rhona Saldivar DDS Unavailable [phone] Encounter Details Date Type Department Care Team (Late st Contact Info) Description 07/13/2022 Orders Only [facility] [address] [place], [place] [phone] Dara Bruno, RN [address] [place], [place] [phone] Social History Tobacco Use Types Packs/Day Years [...] 07/13/22 mammogram -->neg/BIRADs 2, next one on 23 documented in this encounter Plan of Treatment Upcoming Encounters Date Type Department Care Team (Late st Contact Info) Description 12/05/2024 10:00 AM EDT Office Visit [facility] [address] [place] [address] Rhona Saldivar, DDS [address] [place] [address] 02/15/2025 9:00 AM EDT Office Visit [facility] 230 [facility] [place] [address] Alejandra Morris MD [address] [place] [address] documented as of this encounter Procedures Procedure Name Priority Date/Time Associated Diagnosis Comments BI MAMMOGRAM SCREENING TOMOSYNTHESIS BILATERAL Routine 07/13/2022 9:20 AM EST documented in this encounter Results * BI Mammogram Screening Tomosynthesis Bilateral (07/13/2022 9:20 AM EST) Anatomical Region Laterality Modality Breast Bilateral Mammography 07/13/2022 9:20 AM EST Narrative 07/14/2022 5:06 PM EST ? [facility] [place] ? [address] ?[place] [address] ? Mammography Report ? Signed ? Patient: Rivera,Betis ?MR#: [id number] ? : 1975 ?Acct:[id number] ? Age/Sex: 46 / F ?ADM Date: 12/12/22 ? Loc: HO.MAMMO ? Attending Dr: Radha. Alexandra MD ? Ordering Physician: Alejandra Morris MD ?Results: 2Be ?? nign Findings ? Date of Service: 07/13/22 ?Follow Up: 1 Year From Orig ?? inal Mammogram ? Procedure(s): MM tomosynthesis screening BI ?? Accession Number(s): [id number] ? cc: Alejandra Morris MD ? EXAMINATION: [...] 1703 ? DD/ 0920 ? TD/TT: ? Admitting Supervisor: BOLANOS ? Procedure Note Donotmylater, Image - 07/14/[address] [facility]'s [address] [place] [address] Mammography Report Signed Patient: Javier Rivera#: [id number] : 1975Acct:[id number] Age/Sex: 46 / FADM Date: 07/13/22 Loc: HO.MAMMO Attending Dr: Alejandra Morris MD Ordering Physician: Alejandra Morris MDResults: 2Be nign Findings Date of Service: 07/13/22Follow Up: 1 Year From Orig inal Mammogram Procedure(s): MM tomosynthesis screening BI Accession Number(s): [id number] cc: Alejandra Morris MD EXAMINATION: MM SCREENING [...] in OV> 07/14/22 1703 DD/ 0920 TD/TT: Admitting Supervisor: CICI [facility] External Provider IMG BI PROCEDURES Final Result documented in this encounter Visit Diagnoses Not on filedocumented in this encounter Care Teams Boiler Or Engine Operator Relationship Specialty Start Date End Date Alejandra Morris MD [address] [place] [address] PCP - General Family Medicine 12/17/17 Jovan Porter, Joaquín [address] [place] [address] Pharmacist Internal Medicine 05/24/23 Rhona Saldivar DDS [address] [place] [address] Dental Pilot Teacher 07/03/24 documented as of this encounter
== END 2024-11-27 08:06 | disposition home or self-care (01) ==
LOC: HO.MAMMO 08:05
PROVIDERS: PCP Internal Medicine; Visit Provider Internal Medicine
DX: Z12.31 Encounter for screening mammogram for malignant neoplasm of breast (principal)
CPT/HCPCS: 77063; 77067

== ENCOUNTER → 2024-11-27 08:15 | Outpatient (BNV) | payer OTHER, SELFPAY | PROVIDERS: PCP Internal Medicine; Visit Provider Internal Medicine | DX: Z12.31 Encounter for screening mammogram for malignant neoplasm of breast (principal) | CPT/HCPCS: 77063; 77067 ==

== ENCOUNTER 2024-11-28 12:58 | Outpatient (REF) | payer OTHER, SELFPAY ==
--- OUTSIDE RECORDS SUMMARY | 2024-11-28 15:42 | XMS_ITS | Encounter Summary ---
Author Organization [facility] Address [address] [facility] 7t [place] [address] Care Team Providers Care Radio Electrician Name Role Phone Alejandra Morris MD Primary Care Provider + Jovan Porter PharmD Unavailable [phone] Rhona Saldivar DDS Unavailable [phone] Encounter Details Date Type Department Care Team (Late st Contact Info) Description 09/02/2022 Orders Only [facility] [address] [place] [address] Alejandra Morris MD [address] [place], [place] [phone] Vitamin D deficiency (Primary Dx) Social History [...] Description 12/05/2024 10:00 AM EDT Office Visit [facility] [address] [place] [address] Rhona Saldivar DDS [address] [place] [address] 02/15/2025 9:00 AM EDT Office Visit [facility] [address] [place] [address] Alejandra Morris MD [address] [place] [address] documented as of this encounter Visit Diagnoses Diagnosis Vitamin D deficiency- Primary documented in this encounter Care Teams Radio Electrician Relationship Specialty Start Date End Date Alejandra Morris MD [address] [place] [phone] PCP - General Family Medicine 12/17/17 Jovan Porter, MichelleD [address] [place] [phone] Pharmacist Internal Medicine 05/24/23 Rhona Saldivar DDS [address] [place] [phone] Dental Animal Treatment Investigator 07/03/24 documented as of this encounter
--- OUTSIDE RECORDS SUMMARY | 2024-11-28 15:42 | XMS_ITS | Encounter Summary ---
Author Organization [employer] [facility] Address [address] [place] [address] 7t [place] [address] Care Team Providers Care Laser Systems Engineer Name Role Phone Alejandra Morris MD Primary Care Provider + Jovan Porter PharmD Unavailable [phone] Rhona Saldivar DDS Unavailable [phone] Encounter Details Date Type Department Care Team (Late st Contact Info) Description 10/02/2022 Abstract [facility] [address] [place] [address] Dharmesh Reyes DDS [address] [place] [address] Social History Tobacco Use Types Packs/Day Years [...] 10:00 AM EDT Office Visit [facility] [address] [place] [address] Rhona Saldivar DDS [address] [place] [address] 02/15/2025 9:00 AM EDT Office Visit [facility] [address] [place] [address] Alejandra Morris MD [address] [place] [address] documented as of this encounter Visit Diagnoses Not on filedocumented in this encounter Care Teams Laser Systems Engineer Relationship Specialty Start Date End Date Alejandra Morris MD [address] [place] [address] PCP - General Family Medicine 12/17/17 Jovan Porter, Joaquín [address] [place] [address] Pharmacist Internal Medicine 05/24/23 Rhona Saldivar DDS [address] [place] [address] Dental Mophead Trimmer And Wrapper 07/03/24 documented as of this encounter
--- OUTSIDE RECORDS SUMMARY | 2024-11-28 15:42 | XMS_ITS | Encounter Summary ---
Author Organization [facility] Address [address] [place] [address] 7t [place] [address] Care Team Providers Care Licensed Dispensing Optician Name Role Phone Alejandra Morris MD Primary Care Provider + Jovan Porter PharmD Unavailable [phone] Rhona Saldivar DDS Unavailable [phone] Encounter Details Date Type Department Care Team (Late st Contact Info) Description 10/02/2022 Abstract [facility] ADULT D[facility] [address] [place] [address] Dharmesh Reyes DDS [address] [place] [address] Social History Tobacco Use Types Packs/Day Years [...] 10:00 AM EDT Office Visit [facility]ULT [facility] [address] [place] [address] Rhona Saldivar DDS [address] [place] [address] 02/15/2025 9:00 AM EDT Office Visit [facility] MED[facility] [address] [place] [address] Alejandra Morris MD [address] [place] [address] documented as of this encounter Visit Diagnoses Not on filedocumented in this encounter Care Teams Licensed Dispensing Optician Relationship Specialty Start Date End Date Alejandra Morris MD [address] [place] [address] PCP - General Family Medicine 12/17/17 Jovan Porter, Joaquín [address] [place] [address] Pharmacist Internal Medicine 05/24/23 Rhona Saldivar DDS [address] [place] [address] Dental Grants Administrator 07/03/24 documented as of this encounter
--- OUTSIDE RECORDS SUMMARY | 2024-11-28 15:42 | XMS_ITS | Encounter Summary ---
Author Organization [facility] Address [address] [facility] 7t [place] [address] Care Team Providers Care Manager Emergency Department Name Role Phone Alejandra Morris MD Primary Care Provider + Jovan Porter PharmD Unavailable [phone] Rhona Saldivar DDS Unavailable [phone] Reason for Visit * Reason Comments Med Refill Encounter Details Date Type Department Care Team (Late st Contact Info) Description 06/07/2023 Refill [facility] [address] [place], [place] [phone] Alejandra Morris MD 230 [place], [place] [phone] Slow transit constipation Social History Tobacco Use [...] Description 12/05/2024 10:00 AM EDT Office Visit [facility] ADULT DENTAL [address] [place] [address] Rhona Saldivar DDS [address] [place] [address] 02/15/2025 9:00 AM EDT Office Visit [facility] [address] [place] [address] Alejandra Morris MD [address] [place] [address] documented as of this encounter Goals Goal [...] documented as of this encounter Care Teams Manager Emergency Department Relationship Specialty Start Date End Date Alejandra Morris MD [address] [place] [address] PCP - General Family Medicine 12/17/17 Jovan Porter, MichelleD [address] [place] [address] Pharmacist Internal Medicine 05/24/23 Rhona Saldivar DDS [address] [place] [address] Dental Tire Curer 07/03/24 documented as of this encounter
--- OUTSIDE RECORDS SUMMARY | 2024-11-28 15:42 | XMS_ITS | Encounter Summary ---
Author Organization [facility] Address [address] [place] [address] 7 [place] [address] Care Team Providers Care Wine Maker Name Role Phone Alejandra Morris MD Primary Care Provider + Jovan Porter PharmD Unavailable [phone] Rhona Saldivar DDS Unavailable [phone] Encounter Details Date Type Department Care Team (Late st Contact Info) Description 07/13/2022 Orders Only [facility] 230 [place], [place] [phone] Dara Bruno, RN [address] [place], [place] [phone] Social History Tobacco Use Types Packs/Day Years [...] Description 12/05/2024 10:00 AM EDT Office Visit [facility]ULT D[facility] [address] [place] [address] Rhona Saldivar, DDS [address] [place] [address] 02/15/2025 9:00 AM EDT Office Visit [facility] 230 [facility] [place] [address] Alejandra Morris MD 230 [place] [address] documented as of this encounter Procedures Procedure Name Priority Date/Time Associated Diagnosis Comments BI MAMMOGRAM SCREENING TOMOSYNTHESIS BILATERAL Routine 07/13/2022 9:20 AM EST documented in this encounter Results * BI Mammogram Screening Tomosynthesis Bilateral (07/13/2022 9:20 AM EST) Anatomical Region Laterality Modality Breast Bilateral Mammography 07/13/2022 9:20 AM EST Narrative 07/14/2022 5:06 PM EST ? [facility] [place] ? [address] ?[place] [address] ? Mammography Report ? Signed ? Patient: Rivera,Betis ?MR#: [id number] ? : 1975 ?Acct:[id number] ? Age/Sex: 46 / F ?ADM Date: 12/12/22 ? Loc: HO.MAMMO ? Attending Dr: Radha. Alexandra MD ? Ordering Physician: Alejandra Morris MD ?Results: 2Be ?? nign Findings ? Date of Service: 07/13/22 ?Follow Up: 1 Year From Orig ?? inal Mammogram ? Procedure(s): MM tomosynthesis screening BI ?? Accession Number(s): [id number] ? cc: Alejandra Morris MD ? EXAMINATION: [...] 1703 ? DD/ 0920 ? TD/TT: ? It Solutions Architect: BOLANOS ? Procedure Note Donotmylater, Image - 07/14/2022 Maria D [facility]'s [address] [place] [address] Mammography Report Signed Patient: Javier Rivera#: [id number] : 1975Acct:[id number] Age/Sex: 46 / FADM Date: 07/13/22 Loc: HO.MAMMO Attending Dr: Alejandra Morris MD Ordering Physician: Alejandra Morris MDResults: 2Be nign Findings Date of Service: 07/13/22Follow Up: 1 Year From Orig inal Mammogram Procedure(s): MM tomosynthesis screening BI Accession Number(s): [id number] cc: Alejandra Morris MD EXAMINATION: MM SCREENING [...] in OV> 07/14/22 1703 DD/ 0920 TD/TT: It Solutions Architect: CICI [facility] External Provider IMG BI PROCEDURES Final Result documented in this encounter Visit Diagnoses Not on filedocumented in this encounter Care Teams Wine Maker Relationship Specialty Start Date End Date Alejandra Morris MD 230 [place] [address] PCP - General Family Medicine 12/17/17 Jovan Porter, Joaquín [address] [place] [address] Pharmacist Internal Medicine 05/24/23 Rhona Saldivar DDS [address] [place] [address] Dental Police Pilot 07/03/24 documented as of this encounter
--- OUTSIDE RECORDS SUMMARY | 2024-11-28 15:42 | XMS_ITS | Clinical Summary ---
Author Organization Identification [employer] [facility] Address [address] [facility] 7t [place] [address] Care Team Providers Care Workforce Analyst Name Role Phone Alejandra Morris MD Primary Care Provider + Jovan Porter PharmD Unavailable [phone] Rhona Saldivar DDS Unavailable [phone] Allergies Active Allergy Reactions Criticality Noted Date [...] to Pharmacy)) ergocalciferol (Vitamin D2) 1.25 MG (19208 UT) capsuleIndicati ons:Vitamin D deficiency TAKE 1 [...] Assessment & Plan (07/12/2023 10:24 AM EST): Sheep Farm Worker regarding to apply heat to affected area Sheep Farm Worker regarding stretch exercises Take Tylenol BID x1 week Sheep Farm Worker regarding attending walk-in acupuncture Reconsult PRN and [...] with me in 1 month refer to [facility] clinic, order labs Assessment & [...] Description 11/21/2024 1:45 PM EDT Office Visit [address] [address] Alejandra Morris MD Primary hypertension (Primary Dx); Class 1 obesity due to excess calories with serious comorbidity and body mass index (BMI) of 31.0 to 31.9 in adult; Dietary counseling; Exercise counseling 11/21/2024 Travel 11/16/2024 8:00 AM EDT Office Visit [facility] [address] [place] [phone] Rhona Saldivar DDS Full coverage crown needed for root canal-treated tooth (Primary Dx); Full coverage crown needed for tooth at risk for fracture 11/10/2024 Patient Outreach [address] [address] Alejandra Morris MD Pre-visit Planning (SDOH screening negative and tobacco screening negative) 10/24/[address] [address] Alejandra Morris MD Appointment Request 10/10/2024 Orders Only GENERIC EXTERNAL DATA DEPARTMENT Provider, Generic External Data 10/02/2024 Orders Only [facility] External Provider, [facility] 09/12/2024 8:00 AM EST Office Visit [facility] [address] [place] [address] Rhona Saldivar DDS Irreversible pulpitis (Primary Dx) 09/01/2024 Telephone [facility] [address] [place] [address] Alejandra Morris MD October recall from Last [...] Description 12/05/2024 10:00 AM EDT Office Visit [facility] [address] [place] [address] Rhona Saldivar DDS [address] [place] [address] 02/15/2025 9:00 AM EDT Office Visit [facility] [address] [place] [address] Alejandra Morris MD [address] [place] [address] Health Maintenance Due Date Last Done Comments [...] EDT) CT PCR NOT DETECTED Not Detect. [facility] Comment:A not detected test result [...] psychologicalconsequences. NG PCR NOT DETECTED Not Detect. [facility] Comment:A not detected test result [...] AM EDT 10/10/2024 3:10 PM EDT Narrative [facility] - 10/11/2024 5:12 AM EDT Vaginal us Generic External Data Provider LAB MICROBIOLOGY - GENERAL ORDERABLES Final Result Performing Organization Address City/State/[facility] Co de Phone Number [facility] [address] [place] [address] [phone] * US Pelvis Transvaginal (10/03/2024 10:37 AM EST) Anatomical Region Laterality Modality Pelvis Ultrasound 10/03/2024 10:3 7 AM EST Narrative 10/03/2024 10:39 AM EST ? [facility] ?[address] [place] [address]. ?[place] [address] ? Ultrasound Report ? Signed ? Patient: Rivera,Betis ?MR#: [id number] ? : 1975 ?Acct:[id number] ? Age/Sex: 49 / F ?ADM Date: 03/03/25 ? Loc: HO.US ? Attending Laureano Diaz CNM ? Ordering Physician: Omaira Diaz CNM ?? Date of Service: 10/02/24 ?? Procedure(s): US pelvic and transvaginal ?? Accession Number(s): [id number] ? cc: Alejandra Morris MD; Omaira Diaz [...] DD/ 1037 ? TD/TT: 10/03/24 1037 ? Oil Heaterman: ? Procedure Note Luanne, Image - 10/03/[address] [address] Ultrasound Report Signed Patient: Javier Rivera#: [id number] : 1975Acct:[id number] Age/Sex: 49 / FADM Date: 10/02/24 Loc: HO. Attending Dr: Omaira Diaz CNM Ordering Physician: Omaira Diaz CNM Date of Service: 10/02/24 Procedure(s): US pelvic and transvaginal Accession Number(s): [id number] cc: Alejandra Morris MD; Omaira Diaz CNM [...] 10/03/24 1038 DD/ 1037 TD/TT: 10/03/24 1037 Oil Heaterman: [facility] External Provider IMG US PROCEDURES Final Result * BI Mammogram Screening Tomosynthesis Bilateral (11/22/2023 9:00 AM EDT) Anatomical Region Laterality Modality Breast Bilateral Mammography 11/22/2023 9:00 AM EDT Narrative 12/20/2023 4:57 AM EDT ? [facility] ? [address] ?[place] [address] ? Mammography Report ? Signed ? Patient: Rivera,Betis ?MR#: [id number] ? : 1975 ?Acct:[id number] ? Age/Sex: 48 / F ?ADM Date: 11/22/23 ? Loc: HO.MAMMO ? Attending Dr: Alejandra Morris MD ? Ordering Physician: Alejandra Morris MD ?Results: 1Ne ?? gative ? Date of Service: 11/22/23 ?Follow Up: 1 Year From Orig ?? inal Mammogram ? Procedure(s): MM tomosynthesis screening BI ?? Accession Number(s): [id number] ? cc: Alejandra Morris MD ? EXAMINATION: [...] 12/20/23452 ? DD/ 0900 ? TD/TT: ? Oil Heaterman: ? Procedure Note Donotjacobointerpreter, Image - 12/20/2023 [facility] [address] [place] [address] Mammography Report Signed Patient: Javier Rivera#: [id number] : 1975Acct:[id number] Age/Sex: 48 / FADM Date: 11/22/23 Loc: HO.MAMMO Attending Dr: Alejandra Morris MD Ordering Physician: Alejandra Morris MDResults: 1Ne gative Date of Service: 11/22/23Follow Up: 1 Year From Orig ina Mammogram Procedure(s): MM tomosynthesis screening BI Accession Number(s): [id number] cc: Alejandra Morris MD EXAMINATION: MM SCREENING [...] in OV> 12/20/23 0453 DD/ 0900 TD/TT: Oil Heaterman: Alejandra Morris MD IMG BI PROCEDURES Edited Result - Final * Lipid Panel with Reflex to Direct LDL (03/22/2023 7:22 AM EDT) Triglycerides 133 mg/dL [facility] Comment:Desirable Triglyceri de: less than 150 mg/dLBorderline High Triglyceride 150-199 mg/dLHigh Triglyceride: 200-499 mg/dLVery High Triglyceride: greater than or equal to 5OO mg/dL Cholesterol 163 mg/dL [facility] Comment:Desirable Cholestero l: less than 200 mg/dLBorderline High Cholesterol: 200-239 mg/dLHigh Cholesterol: greater than 239 mg/dL LDL Cholesterol Calculated 102 mg/dl [facility] Comment:Desirable LDL: less than 100 mg/dLNear Optimal/Above Optimal LDL: 110- 129 mg/dLBorderline High LDL: 130-159 mg/dLHigh LDL: 160-189 mg/dLVery High LDL: greater than or equal to 190 mg/dL HDL Cholesterol 35 mg/dL [facility] Comment:Desirable HDL: great er than 40 mg/dL Note: This HDL assay may give artificially low results in patients with liver disease. Blood 03/22/2023 7:22 AM EDT 03/22/2023 7:22 AM EDT us Alejandra Morris MD LAB BLOOD ORDERABLES Fin al Result [facility] [address] [place] [phone] * Hepatitis C Ab (11/20/2022 9:35 AM EDT) Hepatitis C Antibody Nonreactive Nonreactive [facility] Comment:Antibodies to HCV no t detected; does not exclude early acuteHCV infection. 11/20/2022 9:35 AM EDT 11/20/2022 9:35 AM EDT [facility] External Provider LAB BLO OD ORDERABLES Final Result Performing Organization Address [facility] Number [facility] [address] [place] [phone] * HIV Ab/Ag ([facility]) (11/20/2022 9:35 AM EDT) Pathologist [facility] HIV AB/AG Nonreactive Nonreactive [facility] Comment:HIV-1 p24 Ag and/or HIV-1/HIV-2 Ab not detected.A test result that is nonreactive does not exclude thepossibility of exposure to or infection with HIV-1 and/orHIV-2. Nonreactive results in this assay for individualswith prior exposure to HIV-1 and/or HIV-2 may be due toantigen and antibody levels that are below the limit ofdetection of this assay.The [employer] HIV Ag/Ab Combo assay result andsupplemental assay results should be interpreted inconjunction with the patient's clinical presentation,history and other laboratory results. If the results areinconsistent with clinical evidence, additional testing issuggested to confirm the result. 11/20/2022 9:35 AM EDT 11/20/2022 9:35 AM EDT [facility] External Provider LAB BLO OD ORDERABLES Final Result Performing Organization Address [facility] Co de Phone Number [facility] [address] [place] [phone] * HPV E6/E7 RFLX CARLEY 16 18/45 (07/04/2020 10:04 AM EST) HPV mRNA E6/E7 rflx Not Detected Not Detected [facility] Comment: This test was performed using the APTIMA HPV Assay ([employer] This assay detects E6/E7 viral messenger RNA (mRNA) from 14 high-risk HPV types (16,18,31,33,35,39,45,51,52,56,58,59,66,68). The analytical performance characteristics of this assay have been determined by [employer]. The modifications have not been cleared or approved by the FDA. This assay has been validated pursuant to the CLIA regulations and is used for clinical purposes. THIS TEST WAS PERFORMED AT: [employer] [address] [place] [address],[address] [place], [place] ??[phone] RIVKA DUPONT MD 07/04/2020 10:0 4 AM EST us Omaira Diaz HISTORICAL/NON ORDERABLE LABS Fi nal Result [facility] [address] from Last 3 Months or Most Recently Relevant to Health Maintenance Insurance HSN FULL [facility] ADULT DENTAL - HSN FULL (MEDICAID) Care Teams Workforce Analyst Relationship Specialty Start Date End Date Alejandra Morris MD [address] [place] [phone] PCP - General Family Medicine 12/17/17 Jovan Porter, MichelleD [address] [place] [address] [phone] Pharmacist Internal Medicine 05/24/23 Rhona Saldivar DDS [address] [place] [address] [phone] Dental Edge Setter 07/03/24
--- OUTSIDE RECORDS SUMMARY | 2024-11-28 15:42 | XMS_ITS | Encounter Summary ---
Author Organization [employer] [facility] Address [address] [place] [address] 7t [place] [address] Care Team Providers Care Social Media Editor Name Role Phone Alejandra Morris MD Primary Care Provider + Jovan Porter PharmD Unavailable [phone] Rhona Saldivar DDS Unavailable [phone] Encounter Details Date Type Department Care Team (Latest Contact Info) Description 12/16/2018 Abstract [facility] Dental, Provider, [...] Description 12/05/2024 10:00 AM EDT Office Visit [facility] [address] [place] [address] Rhona Saldivar, DDS [address] [place] [address] 02/15/2025 9:00 AM EDT Office Visit [facility] [address] [place] [address] Alejandra Morris MD [address] [place], [place] [phone] documented as of this encounter Visit Diagnoses Not on filedocumented in this encounter Care Teams Social Media Editor Relationship Specialty Start Date End Date Alejandra Morris MD [address] [place] [phone] PCP - General Family Medicine 12/17/17 Jovan Porter, Joaquín [address] [place] [address] [phone] Pharmacist Internal Medicine 05/24/23 Rhona Saldivar DDS [address] [place] [address] [phone] Dental Machine Maintenance Servicer 07/03/24 documented as of this encounter
== END 2024-11-28 12:59 | disposition home or self-care (01) ==
LOC: HO.LAB 12:58
PROVIDERS: PCP Internal Medicine; Visit Provider Advanced Practice Midwife
DX: N89.8 Other specified noninflammatory disorders of vagina (principal); Z97.5 Presence of (intrauterine) contraceptive device; Z01.419 Encounter for gynecological examination (general) (routine) without abnormal findings
CPT/HCPCS: 99396; 99459

== ENCOUNTER 2024-11-28 12:58 | Outpatient (AMB) | payer OTHER, SELFPAY ==
--- NOTE | 2024-11-28 12:59 | MHC.OFFVIS ---
Vital Signs 11/28/24 13:00 Height 5 ft 1 in Weight 175 lb BMI 33.1 BP 120/80 Intake Visit Reasons: Annual Notched Blade Loader Required: Yes Notched Blade Loader Language: Yard Warehouse Worker Name: Rebecca [id number] Cryptographic Technician: Cryptographic Technician Present (Cris) Allergies carrot Allergy (Unknown, Verified 11/28/24 13:00) Unknown HPI Comments Details: She is a premenopausal woman presenting for annual examination. Doing well with lab instructor concerns: has discharge, irritation. She has changed her toilet paper and hermelindo pads to unscented, avoiding any products that may irritate her self. IUD placed 09/2024 for HMB. Currently is sexually active. She tries to eat healthy and stays active with exercise. Denies family history of breast, ovarian or colon cancer. Last pap smear 2019, negative. Mammogram: Pending read. [facility] Medical History (Updated 11/28/24 @ 13:28 by Omaira Diaz CNM) Fibroid Ovarian cyst IUD (intrauterine device) in place HTN (hypertension) Surgical History H/O wrist surgery Family History Mother HTN (hypertension) Social History Household Members: Spouse and Children Housing: House Alcohol intake: never Patient Tobacco Use Status: Never used Tobacco Current occupational status: unemployed Sexual orientation: Straight/Heterosexual Gender identity: Female Female Reproductive History Menstrual control method: progestin IUCD (Mirena 10/10/24) Total pregnancies: 3 Full term: 3 Number of Living Children: 3 Date of last pap smear: 07/04/20 (neg pap and hpv) Date of Mammogram: 11/27/24 Review of Systems Const All systems reviewed & are unremarkable except as noted in HPI and below Reports as per HPI Eyes Reports no additional complaints ENT Reports no additional complaints Card Reports no additional complaints Resp Reports no additional complaints GI Reports as per HPI and Reports no additional complaints Reports as per HPI Musc Reports no additional complaints Skin/Breast Reports as per HPI Neuro Reports no additional complaints Psych Reports no additional complaints Endo Reports no additional complaints Clark/Lymph Reports no additional complaints Aller/Immun Reports no additional complaints Physical Exam Vital Signs: Last Vital Signs BP 120/80 11/28/24 13:00 BMI result Body Mass Index 33.1 Const General: cooperative, healthy appearing, no acute distress, well developed and alert Orientation/consciousness: patient oriented x3 HEENT Head: Yes normal to inspection Eyes General: appearance normal, both eyes and all related structures Neck Neck: Yes normal visual inspection Thyroid: Thyroid normal Chest Chest palpation & inspection: normal inspection of the chest and other (no puckering, dimpling, peau de orange, retraction, discharge, masses) Breast/axilla inspection: normal inspection of the breasts Breast/axilla palpation: normal palpation of the breasts Resp Effort & Inspection: normal respiratory effort GI Inspection: Yes normal to inspection Palpation (GI): Soft to palpation Rectal Exam - Female: deferred General: Yes bladder normal to palpation External Female Exam: normal external appearance, normal appearance of the urethra and external swelling Speculum Exam - Vagina: normal appearance of the vagina, normal palpation and normal vaginal discharge Speculum Exam - Cervix: normal appearance of the cervix, normal palpation and Other cervical findings present (IUD at the os) Bimanual exam- vagina & uterus: normal bimanual exam, normal palpation, uterine size normal, bladder normal to palpation, normal palpation and non-tender Bimanual Exam- Adnexa, other: no masses Skin General skin exam: no rashes or lesions noted Rashes: no rashes Neuro General: patient oriented x3 Cognition (Neuro): normal cognition Extrem General: Yes normal to inspection Psych Attitude: cooperative Thought process: Normal thought process present Assessment & Plan Assessment & Plan (1) Encounter for annual routine gynecological examination: Code(s): Z01.419 - Encounter for gynecological examination (general) (routine) without abnormal findings Category: Medical Plan Discussed: Current recommendations for pap smears per ASCCP guidelines. Pap obtained. Breast awareness and periodic breast exams. Mammogram yearly. Maintain a healthy lifestyle including a well balanced diet and routine exercise. BV panel and GC chlamydia obtained, await results for plan of care. Rx for topical clobetasol betamethasone sent in. Follow up pending pelvic exam results when ready. Patient verbalizes understanding and agrees to the plan of care. She was given opportunity to ask questions and all questions were answered to the best of my ability. RTO in one year for annual lab instructor examination. This note is constructed using voice recognition software. While every effort has been made to ensure accuracy, automotive glass mechanic errors may have been included. Orders: Orders Bacterial Vaginosis Panel Today N89.8 - Other specified noninflammatory disorders of vagina CT NG by PCR Today N89.8 - Other specified noninflammatory disorders of vagina HPV High risk Today Z01.419 - Encounter for gynecological examination (general) (routine) without abnormal findings Pap Smear Today Z01.419 - Encounter for gynecological examination (general) (routine) without abnormal findings Medications: New clotrimazole-betamethasone 1-0.05 % apply externally a thin coat to the area 1 appl topical BID 45 grams 0RF itching 7 days Coding Level of Care Code Est Pt Prev Care 40-64y(99975) Diagnoses Encounter for annual routine gynecological examination Z01.419
[2024-11-28 13:00] VITALS: BP 120/80; BMI 33.1
== END 2024-11-28 13:43 | disposition home or self-care (01) ==
LOC: HO.HWS 12:58
PROVIDERS: PCP Internal Medicine; Visit Provider Advanced Practice Midwife
DX: Z01.419 Encounter for gynecological examination (general) (routine) without abnormal findings (principal)
CPT/HCPCS: 99396; 99459

== ENCOUNTER 2024-11-28 13:35 | Outpatient (REF) | payer OTHER, SELFPAY ==
[2024-11-28 21:22] LABS: Bacterial Vaginosis PCR NEGATIVE (Negative); Candida Group PCR DETECTED (Not Detect); Candida glab krusei PCR DETECTED (Not Detect); Trichomonas vaginalis PCR NOT DETECTED (Not Detect)
[2024-11-28 22:06] LABS: CT PCR NOT DETECTED (Not Detect.); NG PCR NOT DETECTED (Not Detect.)
[2024-12-01 13:42] LABS: HPV Genotype 16 Negative (Negative); HPV Genotype 18 Negative (Negative); HPV High Risk Negative (Negative)
== END 2024-11-28 13:36 | disposition home or self-care (01) ==
LOC: HO.LNP 13:35
PROVIDERS: Visit Provider Advanced Practice Midwife
DX: Z01.419 Encounter for gynecological examination (general) (routine) without abnormal findings (principal); N89.8 Other specified noninflammatory disorders of vagina
CPT/HCPCS: 81515; 87491; 87591; 87626; 88175

== ENCOUNTER 2024-12-12 14:32 | Outpatient (AMB) | payer OTHER, SELFPAY ==
--- NOTE | 2024-12-12 15:05 | A.OFFVIS_ITS ---
Intake Visit Reasons: US follow up Area Coordinator Required: Yes Area Coordinator Language: Fish Roe Processor Name: Lashay Ackerman1 Information Interpreted: non-clinical & clinical Allergies carrot Allergy (Unknown, Verified 11/28/24 13:00) Unknown HPI Comments Details: Patient is here today to discuss test results. History of recent pelvic ultrasound, history of heavy menstrual bleeding with the IUD in place, history of ovarian cyst. She does not have any right sided pelvic pain, only occasional left sided pain. [facility] Medical History (Updated 11/28/24 @ 13:28 by Omaira Diaz CNM) Fibroid Ovarian cyst IUD (intrauterine device) in place HTN (hypertension) Surgical History H/O wrist surgery Family History Mother HTN (hypertension) Social History Household Members: Spouse and Children Housing: House Alcohol intake: never Patient Tobacco Use Status: Never used Tobacco Current occupational status: unemployed Sexual orientation: Straight/Heterosexual Gender identity: Female Results Reviewed Results Reviewed: [place] [address] Ultrasound Report Signed Patient: Candido Rivera MR#: [id number] : 1975 Acct:[id number] Age/Sex: 49 / F ADM Date: 11/16/24 Loc: HO.US Attending Dr: Omaira Diaz CNM Ordering Physician: Omaira Diaz CNM Date of Service: 11/16/24 Procedure(s): US pelvic and transvaginal Accession Number(s): [id number] cc: Alejandra Morris MD; Omaira Diaz CNM~ CLINICAL HISTORY: N83.209 - CYST OF OVARY --- Additional Notes or Special Instructions: 6 week follow up US pelvis transabdominal and transvaginal with color and duplex Doppler Comparison: US - US PELVIC AND TRANSVAGINAL - 10/02/24 13:13 EST US/SR - US PELVIC AND TRANSVAGINAL - 07/05/24 14:48 EST US/SR - US PELVIC AND TRANSVAGINAL - 01/29/22 14:19 EDT Findings: Transabdominal scanning performed for overall anatomy. Transvaginal scanning performed for additional detail. LMP: None since IUD Anteverted uterus, prominent in size normal in echotexture measuring 11.1 x 4.9 x 6.2 cm. A uterine fibroid was not demonstrated on this current exam. Well defined endometrium, measuring 4.0 mm in thickness. The horizontal and vertical limbs of the IUD are well postioned within the endometrial cavity. The right ovary measures, 6.2 x 3.9 x 4.4 cm. Septated cyst measuring 5.9 x 2.8 x 4.0 cm and adjacent daughter cyst measuring 5 x 3 x 2 mm. This previously measured 4.5 x 3.8 x 3.7 cm. Normal color Doppler with spectral tracing. The left ovary measures, 2.8 x 1.5 x 1.3 cm. Normal sonographic appearance left ovary. Doppler interrogation was not performed of the left ovary. No adnexal masses or fluid collections. No free fluid. Impression: 1. Uterus normal size and position with normal thickness endometrium. 2. The horizontal and vertical limbs of the IUD well positioned in the endomertial cavity. 3. Dominant septated cystic lesion in the right ovary has increased in size adjacent daughter cyst is present. MRI with contrast may be of further diagnostic value. This document has been electronically signed by: Chapincito Jackson MD on 12/08/2024 13:00:37 Dictated By: Chapincito Jackson MD Signed By: <Electronically signed by Chapincito Jackson MD in OV> 12/08/24 1301 DD/ 1300 TD/TT: 12/08/24 1300 Rail Tractor Operator: Assessment & Plan Assessment & Plan (1) Complex ovarian cyst: Code(s): N83.299 - Other ovarian cyst, unspecified side Category: Medical Plan Discussed: Ultrasound findings by 5.9 cm right-sided ovarian cyst with daughter cyst. Advised warnings if any sudden or severe pain on the right side to report to the emergency room immediately. If experiencing mild discomfort to take an [id number] ibuprofen, Tylenol if no contraindications based on manufacture's recommendation p.r.n. for pain. Plan MRI with the without contrast for further evaluation and follow up in person for test results. The patient expressed understanding and agreement with the plan of care. All of her questions and concerns were addressed to the best of my ability. This note is constructed using voice recognition software. While every effort has been made to ensure accuracy, mobility architect errors may have been included. Orders: Orders MR pelvis wo/w con Today N83.299 - Other ovarian cyst, unspecified side Coding Level of Care Code Est Pt Level 3 (33714) Diagnoses Complex ovarian cyst N83.299
--- OUTSIDE RECORDS SUMMARY | 2024-12-12 15:40 | XMS_ITS | Encounter Summary ---
Author Organization [email or web address] Address [address] [facility] 7t [place] [address] Care Team Providers Care Cogeneration Technician Name Role Phone Alejandra Morris MD Primary Care Provider + Jovan Porter PharmD Unavailable [phone] Rhona Saldivar DDS Unavailable [phone] Reason for Visit * Reason Comments Med Refill Encounter Details Date Type Department Care Team (Late st Contact Info) Description 06/07/2023 Refill [facility] [address] [place], [place] [phone] Alejandra Morris MD [address] [place], [place] [phone] Slow transit constipation Social History Tobacco Use [...] Care Team (Late st Contact Info) Description 02/15/2025 9:00 AM EDT Office Visit [facility] [address] [place] [address] Alejandra Morris MD [address] [place] [address] 06/14/2025 1:00 PM EST Office Visit [facility] ADULT DENTAL [address] [place] [address] Angie Young documented as of this encounter Goals Goal Patient Goal Type Associated Problems Recent Progress Patient-Stated? Author Blood Pressure < 140/90 Blood Pressure 120/80( 025 10:17 AM EDT) No Jovan Porter, MichelleD documented as of this encounter Visit Diagnoses Diagnosis Slow transit constipation documented in this encounter Additional Health Concerns Assessment Noted Time PHQ-9 Depression Total Score: 0 11/10/19 23 9:18 AM EDT documented as of this encounter Care Teams Cogeneration Technician Relationship Specialty Start Date End Date Alejandra Morris MD [address] [place] [address] PCP - General Family Medicine 12/17/17 Jovan Porter, Joaquín [address] [place] [phone] Pharmacist Internal Medicine 05/24/23 Rhona Saldivar DDS [address] [place] [phone] Dental Chief Controller 07/03/24 documented as of this encounter
--- OUTSIDE RECORDS SUMMARY | 2024-12-12 15:40 | XMS_ITS | Encounter Summary ---
Author Organization [employer] [facility] Address [address] [place] [address] 7t [place] [address] Care Team Providers Care Animal Nursery Worker Name Role Phone Alejandra Morris MD Primary Care Provider + Jovan Porter PharmD Unavailable [phone] Rhona Saldivar DDS Unavailable [phone] Encounter Details Date Type Department Care Team (Latest Contact Info) Description 12/16/2018 Abstract [facility] CONVERSIONS Dental, Provider, DDS Social History [...] Description 02/15/2025 9:00 AM EDT Office Visit [facility] MEDICINE [address] [place], [place] [phone] Alejandra Morris MD [address] [place], [place] [phone] 06/14/2025 1:00 PM EST Office Visit [facility] ADULT DENTAL [address] [place], [place] [phone] Angie Young documented as of this encounter Visit Diagnoses Not on filedocumented in this encounter Care Teams Animal Nursery Worker Relationship Specialty Start Date End Date Alejandra Morris MD [address] [place] [phone] PCP - General Family Medicine 12/17/17 Jovan Porter, Joaquín [address] [place] [address] [phone] Pharmacist Internal Medicine 05/24/23 Rhona Saldivar DDS [address] [place] [phone] Dental Process Line Operator 07/03/24 documented as of this encounter
--- OUTSIDE RECORDS SUMMARY | 2024-12-12 15:40 | XMS_ITS | Encounter Summary ---
Author Organization [employer] [facility] Address [address] [facility] 7t [place] [address] Care Team Providers Care Medical Office Clerk Name Role Phone Alejandra Morris MD Primary Care Provider + Jovan Porter PharmD Unavailable [phone] FranciscoRhona Au DDS Unavailable [phone] Reason for Visit * Reason Comments Dentures Encounter Details Date Type Department Care Team (Late st Contact Info) Description 12/07/2024 10:00 AM EDT Office Visit [facility] [address] [place] [address] Francisco-Rhona Boyd, DDS [address] [place], [place] [phone] Tooth fracture with loss of restorative material (Primary Dx); Fracture of removable partial denture Social History Tobacco Use Types Packs/Day Years [...] Sign Reading Time Taken Comments Blood Pressure 120/80 12/07/2024 10:17 AM EDT Pulse - - Temperature - - Respiratory Rate - - Oxygen Saturation - - Inhaled Oxygen Concentration - - Weight - - Height - - Body Mass Index - - documented in this encounter Progress Notes * Rhona Saldivar DDS - 12/07/2024 10:00 AM EDT Patient ID: Candido Rivera is a 49 y.o. female. Time Out: Timeout Date: 12/07/24, Timeout Time: 1018 (denture repair delivery) Location: [facility] Tooth: Maxilla and Mandible Procedure: Dentures repair delivery Verified the above with patient, anesthesiologists' assistant, and provider. Confirmed via patient's chart, intraorally and by radiographs. Athletic Training Internship: not applicable Chief Complaint Patient presents with Dentures Medical Hx: Vitals: Blood pressure 120/80. Medications, Med Hx reviewed with patient and updated in chart. Consent Obtained: The risks, benefits, indications, potential complications, and alternatives were explained to the patient and informed consent was obtained with good understanding. Treatment Provided: Dental procedures in this visit D5612 - REPAIR RESIN PARTIAL DENTURE BASE, MAX (Completed) Service provider: Rhona Saldivar DDS Billing provider: Rhona Saldivar DDS D5660 - ADD CLASP TO EXISTING PARTIAL DENTURE - PER TOOTH 28 (Completed) Service provider: Rhona Saldivar DDS Billing provider: Rhona Saldivar DDS D9450 - CASE PRESENTATION, DETAILED AND EXTENSIVE TREATMENT PLANNING (Completed) Service provider: Rhona Saldivar DDS Billing provider: Rhona Saldivar DDS Tried in denture(s) -Evaluated for comfort, fit, phonetics, and stability (f, v, s, th sounds; swallow, yawn, etc) -Evaluated for satisfactory esthetics. -Occlusion verified; adjustments made as necessary. Patient has received information sheet for denture care and expectations. Pt was provided with denture case and denture brush. NV: 6 mo periodic exam [employer] Software Developer: FRANCISCO Gustafson Dentist: Rhona Saldivar DDS documented in this encounter Plan of Treatment Upcoming Encounters Date Type Department Care Team (Late st Contact Info) Description 02/15/2025 9:00 AM EDT Office Visit [facility] MEDICINE [address] [place] [address] Alejandra Morris MD [address] [place], [place] [phone] 06/14/2025 1:00 PM EST Office Visit [facility] ADULT DENTAL [address] [place] [address] Angie Young documented as of this encounter Goals Goal Patient Goal Type Associated Problems Recent Progress Patient-Stated? Author Blood Pressure < 140/90 Blood Pressure 120/80( 025 10:17 AM EDT) Jovan Carmichael, PharmD documented as of this encounter Procedures Procedure Name Priority Date/Time Associated Diagnosis Comments REPAIR RESIN PARTIAL DENTURE BASE, MAX Routine 12/07/2024 10:00 AM EDT Tooth fracture with loss of restorative material Fracture of removable partial denture CASE PRESENTATION, DETAILED AND EXTENSIVE TREATMENT PLANNING Routine 12/07/2024 10:00 AM EDT Tooth fracture with loss of restorative material Fracture of removable partial denture 28 ADD CLASP TO EXISTING PARTIAL DENTURE - PER TOOTH Routine 12/07/2024 10:00 AM EDT Tooth fracture with loss of restorative material Fracture of removable partial denture documented in this encounter Visit Diagnoses Diagnosis Tooth fracture with loss of restorative material- Primary Fractured dental restorative material with loss of material Fracture of removable partial denture documented in this encounter Additional Health Concerns Assessment Noted Time PHQ-9 Depression Total Score: 0 11/10/19 9:18 AM EDT documented as of this encounter Care Teams Medical Office Clerk Relationship Specialty Start Date End Date Alejandra Morris MD [address] [place] [address] PCP - General Family Medicine 12/17/17 Jovan Porter PharmD [address] [place] [phone] Pharmacist Internal Medicine 05/24/23 Rhona Saldivar DDS [address] [place] [phone] Dental Tomato Pulper Operator 07/03/24 documented as of this encounter
--- OUTSIDE RECORDS SUMMARY | 2024-12-12 15:40 | XMS_ITS | Encounter Summary ---
Author Organization [facility] [facility] Address [address] [facility] 7[address] [place] [address] Care Team Providers Care Maintenance Truck Driver Name Role Phone Alejandra Morris MD Primary Care Provider + Jovan Porter PharmD Unavailable [phone] Rhona Saldivar DDS Unavailable Encounter Details Date Type Department Care Team ([facility] Contact Info) Description 10/02/2022 Abstract [facility] ADULT D[facility]AL [address] [place] [address] Dharmesh Reyes DDS [address] [place] [address] Social History Tobacco Use Types Packs/Day Years [...] Department Care Team (Late Contact Info) Description 02/15/2025 9:00 AM EDT Office Visit [facility] [address] [place] [address] Alejandra Morris MD [address] [place], [place] [phone] 06/14/2025 1:00 PM EST Office Visit [facility]ULT [facility] [address] [place], [place] [phone] Angie Young documented as of this encounter Visit Diagnoses Not on filedocumented in this encounter Care Teams Maintenance Truck Driver Relationship Specialty Start Date End Date Alejandra Morris MD [address] [place] [address] [phone] PCP - General Family Medicine 12/17/17 Jovan Porter, MichelleD [address] [place] [address] [phone] Pharmacist Internal Medicine 05/24/23 Rhona Saldivar DDS [address] [place] [address] [phone] Dental Project Management Advisor 07/03/24 documented as of this encounter
--- OUTSIDE RECORDS SUMMARY | 2024-12-12 15:40 | XMS_ITS | Encounter Summary ---
Author Organization [employer] Address [address] [place] [address] 7t [place] [address] Care Team Providers Care Cable Mechanic Name Role Phone Alejandra Morris MD Primary Care Provider + Jovan Porter PharmD Unavailable [phone] Rhona Saldivar DDS Unavailable Encounter Details Date Type Department Care Team (Late st Contact Info) Description 07/13/2022 Orders Only [facility] [address] [place] [address] Dara Bruno, RN [address] [place] [address] Social History Tobacco Use Types Packs/Day Years [...] Description 02/15/2025 9:00 AM EDT Office Visit [facility] [address] [place] [address] Alejandra Morris MD [address] [place] [address] 06/14/2025 1:00 PM EST Office Visit [facility] ADULT DENTAL [address] [place] [address] Angie Young documented as of this encounter Procedures Procedure Name Priority Date/Time Associated Diagnosis Comments BI MAMMOGRAM SCREENING TOMOSYNTHESIS BILATERAL Routine 07/13/2022 9:20 AM EST documented in this encounter Results * BI Mammogram Screening Tomosynthesis Bilateral (07/13/2022 9:20 AM EST) Anatomical Region Laterality Modality Breast Bilateral Mammography 07/13/2022 9:20 AM EST Narrative 07/14/2022 5:06 PM EST ? [facility] [place] ? [address] ?[place] [address] ? Mammography Report ? Signed ? Patient: Rivera,Betis ?MR#: [id number] ? : 1975 ?Acct:[id number] ? Age/Sex: 46 / F ?ADM Date: 12/12/22 ? Loc: HO.MAMMO ? Attending Dr: Alejandra Morris MD ? Ordering Physician: Alexandra,Radha. MD ?Results: 2Be ?? nign Findings ? Date of Service: 07/13/22 ?Follow Up: 1 Year From Orig ?? inal Mammogram ? Procedure(s): MM tomosynthesis screening BI ?? Accession Number(s): [id number] ? cc: Alejandra Morris MD ? EXAMINATION: [...] signed by Alberto Vela MD in OV> ?07/14/ 1703 ? DD/ 0920 ? TD/TT: ? Planning Consultant: BOLANOS ? Procedure Note Donotuseinterpreter, Image - 07/14/2022 Maria D [facility] [address] [place] [address] Mammography Report Signed Patient: Javier Rivera#: [id number] : 1975Acct:[id number] Age/Sex: 46 / FADM Date: 07/13/22 Loc: HO.MAMMO Attending Dr: Alejandra Morris MD Ordering Physician: Alejandra Morris MDResults: 2Be nign Findings Date of Service: 07/13/22Follow Up: 1 Year From Orig inal Mammogram Procedure(s): MM tomosynthesis screening BI Accession Number(s): [id number] cc: Alejandra Morris MD EXAMINATION: MM SCREENING [...] Vela MD Signed By: <Electronically signed by Ablerto Vela MD in OV> 07/14/22 1703 DD/ 0920 TD/TT: Planning Consultant: CICI [facility] External Provider IMG BI PROCEDURES Final Result documented in this encounter Visit Diagnoses Not on filedocumented in this encounter Care Teams Cable Mechanic Relationship Specialty Start Date End Date Alejandra Morris MD [address] [place] [address] PCP - General Family Medicine 12/17/17 Jovan Porter, MichelleD [address] [place] [address] Pharmacist Internal Medicine 05/24/23 Rhona Saldivar DDS [address] [place] [address] Dental Flying I Instructor 07/03/24 documented as of this encounter
--- OUTSIDE RECORDS SUMMARY | 2024-12-12 15:40 | XMS_ITS | Encounter Summary ---
Author Organization [employer] [facility] Address [address] 7[address] [place] [address] Care Team Providers Care Logging Shovel Operator Name Role Phone Alejandra Morris MD Primary Care Provider + Jovan Porter PharmD Unavailable [phone] Rohna Saldivar DDS Unavailable + Encounter Details Date Type Department Care Team (Late st Contact Info) Description 11/16/2024 Orders Only [facility] External Provider, [facility] Social History Tobacco Use Types Packs/Day [...] Description 02/15/2025 9:00 AM EDT Office Visit [facility] [address] [place], [place] [phone] Alejandra Morris MD [address] [place], [place] [phone] 06/14/2025 1:00 PM EST Office Visit [facility] ADULT DENTAL [address] [place], [place] [phone] Angie Young documented as of this encounter Goals Goal Patient Goal Type Associated Problems Recent Progress Patient-Stated? Author Blood Pressure < 140/90 Blood Pressure 120/80( 025 10:17 AM EDT) No Jovan Porter, Joaquín documented as of this encounter Procedures Procedure Name Priority Date/Time Associated Diagnosis Comments US PELVIS TRANSVAGINAL Routine 12/08/2024 1:00 PM EDT documented in this encounter Results * US Pelvis Transvaginal (12/08/2024 1:00 PM EDT) Anatomical Region Laterality Modality Pelvis Ultrasound 12/08/2024 1:00 PM EDT Narrative 12/08/2024 1:02 PM EDT ? [facility] ?[address] ?[place] [address] ? Ultrasound Report ? Signed ? Patient: Rivera,Betis ?MR#: [id number] ? : 1975 ?Acct:[id number] ? Age/Sex: 49 / F ?ADM Date: 04/17/25 ? Loc: HO.US ? Attending Dr: Omaira Diaz CNM ? Ordering Physician: Omaira Diaz CNM ?? Date of Service: 11/16/24 ?? Procedure(s): US pelvic and transvaginal ?? Accession Number(s): [id number] ? cc: Alejandra Morris MD; Omaira Diaz CNM ? CLINICAL HISTORY: N83.209 - CYST OF OVARY --- Additional Notes or Special Instructions: 6 week follow up ? US pelvis transabdominal and transvaginal with color and duplex Doppler ? Comparison: US - US PELVIC AND TRANSVAGINAL - 10/02/24 13:13 EST ?? US/SR - US PELVIC AND TRANSVAGINAL - 07/05/24 14:48 EST ?? US/SR - US PELVIC AND TRANSVAGINAL - 01/29/22 14:19 EDT ? Findings: ?? Transabdominal scanning performed for overall anatomy. Transvaginal ?? scanning performed for additional detail. ? LMP: None since IUD ? Anteverted uterus, prominent in size normal in echotexture measuring 11.1 ?? x 4.9 x 6.2 cm. A uterine fibroid was not demonstrated on this current ?? exam. ?? Well defined endometrium, measuring 4.0 mm in thickness. The horizontal ?? and vertical limbs of the IUD are well postioned within the endometrial ?? cavity. ? The right ovary measures, 6.2 x 3.9 x 4.4 cm. Septated cyst measuring 5.9 ?? x 2.8 x 4.0 cm and adjacent daughter cyst measuring 5 x 3 x 2 mm. This ?? previously measured 4.5 x 3.8 x 3.7 cm. Normal color Doppler with spectral ?? tracing. ?? The left ovary measures, 2.8 x 1.5 x 1.3 cm. Normal sonographic appearance ?? left ovary. Doppler interrogation was not performed of the left ovary. ?? No adnexal masses or fluid collections. ?? No free fluid. ? Impression: ?? 1. Uterus normal size and position with normal thickness endometrium. ?? 2. The horizontal and vertical limbs of the IUD well positioned in the ?? endomertial cavity. ?? 3. Dominant septated cystic lesion in the right ovary has increased in ?? size adjacent daughter cyst is present. MRI with contrast may be of ?? further diagnostic value. ? This document has been electronically signed by: Chapincito Jackson MD on ?? 12/08/2024 13:00:37 ? Dictated By: ?Chapincito Jackson MD ? Signed By: ?<Electronically signed by Chapincito Jackson MD in OV> ?12/08/24 1301 ? DD/ 1300 ? TD/TT: 12/08/24 1300 ? White Washer: ? Procedure Note Doneliazar, Image - 12/08/2024 [place] [address] Ultrasound Report Signed Patient: Javier Rivera#: [id number] : 1975Acct:[id number] Age/Sex: 49 / FADM Date: 11/16/24 Loc: HO.US Attending Dr: Omaira Diaz CNM Ordering Physician: Omaira Diaz CNM Date of Service: 11/16/24 Procedure(s): US pelvic and transvaginal Accession Number(s): [id number] cc: Alejandra Morris MD; Omaira Diaz CNM CLINICAL HISTORY: N83.209 - CYST OF OVARY --- Additional Notes or SpecialInstructions: 6 week follow up US pelvis transabdominal and transvaginal with color and duplex Doppler Comparison: US - US PELVIC AND TRANSVAGINAL - 10/02/24 13:13 EST US/SR - US PELVIC AND TRANSVAGINAL - 07/05/24 14:48 EST US/SR - US PELVIC AND TRANSVAGINAL - 01/29/22 14:19 EDT Findings: Transabdominal scanning performed for overall anatomy. Transvaginal scanning performed for additional detail. LMP: None since IUD Anteverted uterus, prominent in size normal in echotexture measuring 11.1 x 4.9 x 6.2 cm. A uterine fibroid was not demonstrated on this current exam. Well defined endometrium, measuring 4.0 mm in thickness. The horizontal and vertical limbs of the IUD are well postioned within the endometrial cavity. The right ovary measures, 6.2 x 3.9 x 4.4 cm. Septated cyst measuring 5.9 x 2.8 x 4.0 cm and adjacent daughter cyst measuring 5 x 3 x 2 mm. This previously measured 4.5 x 3.8 x 3.7 cm. Normal color Doppler with spectral tracing. The left ovary measures, 2.8 x 1.5 x 1.3 cm. Normal sonographic appearance left ovary. Doppler interrogation was not performed of the left ovary. No adnexal masses or fluid collections. No free fluid. Impression: 1. Uterus normal size and position with normal thickness endometrium. 2. The horizontal and vertical limbs of the IUD well positioned in the endomertial cavity. 3. Dominant septated cystic lesion in the right ovary has increased in size adjacent daughter cyst is present. MRI with contrast may be of further diagnostic value. This document has been electronically signed by: Chapincito Jackson MD on 12/08/2024 13:00:37 Dictated By: Chapincito Jackson MD Signed By: <Electronically signed by Chapincito Jackson MD in OV> 12/08/24 1301 DD/ 1300 TD/TT: 12/08/24 1300 [place]her: [facility] External Provider IMG US PROCEDURES Final Result documented in this encounter Visit Diagnoses Not on filedocumented in this encounter Additional Health Concerns Assessment Noted Time PHQ-9 Depression Total Score: 0 11/10/19 23 9:18 AM EDT documented as of this encounter Care Teams Logging Shovel Operator Relationship Specialty Start Date End Date Alejandra Morris MD [address] [place] [phone] PCP - General Family Medicine 12/17/17 Jovan Porter, Joaquín [address] [place] [phone] Pharmacist Internal Medicine 05/24/23 Rhona Saldivar DDS [address] [place] [phone] Dental Brick Tester 07/03/24 documented as of this encounter
--- OUTSIDE RECORDS SUMMARY | 2024-12-12 15:40 | XMS_ITS | Clinical Summary ---
Author Organization [employer] Address [address] [facility] 7t [place] [address] Care Team Providers Care Design Release Engineer Name Role Phone Alejandra Morris MD Primary Care Provider + Jovan Porter PharmD Unavailable [phone] Rhona Saldivar DDS Unavailable [phone] Allergies Active Allergy Reactions Criticality Noted Date [...] eye(s) 2 times daily. 10 mL 1 025 Active acetaminophen (Tylenol Extra Strength) 500 MG [...] to Pharmacy)) ergocalciferol (Vitamin D2) 1.25 MG (49596 UT) capsuleIndicati ons:Vitamin D deficiency TAKE 1 [...] Assessment & Plan (07/12/2023 10:24 AM EST): Plate Printer regarding to apply heat to affected area Plate Printer regarding stretch exercises Take Tylenol BID x1 week Plate Printer regarding attending walk-in acupuncture Reconsult PRN and [...] month refer to [facility] clinic, order labs Assessment & Plan (11/09/2022 [...] Encounters Date Type Department Care Team Description 12/07/2024 10:00 AM EDT Office Visit [facility] ADULT DENTAL [address] [place] [phone] Rhona Saldivar DDS Tooth fracture with loss of restorative material (Primary Dx); Fracture of removable partial denture 12/05/2024 10:00 AM EDT Office Visit [facility] ADULT DENTAL [address] [place] [address] Rhona Saldivar DDS Full coverage crown needed for root canal-treated tooth (Primary Dx); Fracture of removable partial denture 11/27/2024 Orders Only [facility] MEDICINE [address] [place] [phone] Alejandra Morris MD 11/21/2024 1:45 PM EDT Office Visit [address] [address] Alejandra Morris MD Primary hypertension (Primary Dx); Class 1 obesity due to excess calories with serious comorbidity and body mass index (BMI) of 31.0 to 31.9 in adult; Dietary counseling; Exercise counseling 11/21/2024 Travel 11/16/2024 8:00 AM EDT Office Visit [facility] ADULT DENTAL [address] [place] [address] Rhona Saldivar DDS Full coverage crown needed for root canal-treated tooth (Primary Dx); Full coverage crown needed for tooth at risk for fracture 11/16/2024 Orders Only [facility] External Provider, [facility] 11/10/2024 Patient Outreach [facility] [address] [place] [address] Alejandra Morris MD Pre-visit Planning (SDOH screening negative and tobacco screening negative) 10/24/2024 Telephone [facility] [place] [address] Alejandra Morris MD Appointment Request 10/10/2024 Orders Only GENERIC EXTERNAL DATA DEPARTMENT Provider, Generic External Data 10/02/2024 Orders Only [facility] External Provider, [facility] from Last 3 Months Immunizations Name Administration [...] Pressure 120/80 12/07/2024 10:17 AM EDT Pulse 74 11/21/2024 12:57 PM EDT [...] Description 02/15/2025 9:00 AM EDT Office Visit [facility] [address] [place] [address] Alejandra Morris MD [address] [place] [address] 06/14/2025 1:00 PM EST Office Visit [facility] ADULT DENTAL [address] [place] [address] Angie Young Health Maintenance Due Date Last Done Comments CT Colonography 1975 Colonoscopy 1977 Colorectal Cancer Screening 1977 FIT DNA/Cologuard 1977 FIT 1977 FOBT 1977 Sigmoidoscopy 1977 Alcohol/Substance Use Screening 1989 Family Planning (PISQ) 1992 Pap Smear 1998 Dental Prophylaxis 01/22/2024 07/22/2023, 08/28/2022 Dental Oral Exam 02/22/2024 08/23/2023 COVID-19 Vaccine ( season) 2024 08/17/2021, 12/25/2020, 11/27/2020 Dental X-Ray: Bitewings 06/28/2025 06/27/20 24, 04/21/2024, 11/25/2023, Additional history exists Cervical Cancer Screening 07/04/2025 HPV/Cotest 07/04/2025 07/04/2020, 04/14/2016 Depression Screening 11/21/2025 11/21/2024, 11/10/19 23 SDOH Screening 11/21/2025 11/21/2024 Mammogram 11/27/2025 11/27/2024, 11/01, 07/13/2022, Additional history exists Tobacco Screening 12/07/2025 12/07/2024 Dental X-Ray: Full Mouth 07/23/2026 07/22/2023, 11/30 [...] this topic Meningococcal Vaccine Aged Out No hsara benjy eligible based on patient's age to [...] 10:17 AM EDT) No Jovan Porter, MichelleD Procedures Procedure Name Priority Date/Time Associated Diagnosis Comments US PELVIS TRANSVAGINAL Routine 12/08/2024 1:00 PM EDT CASE PRESENTATION, DETAILED AND EXTENSIVE TREATMENT PLANNING Routine 12/07/2024 10:00 AM EDT Tooth fracture with loss of restorative material Fracture of removable partial denture 28 ADD CLASP TO EXISTING PARTIAL DENTURE - PER TOOTH Routine 12/07/2024 10:00 AM EDT Tooth fracture with loss of restorative material Fracture of removable partial denture REPAIR RESIN PARTIAL DENTURE BASE, MAX Routine 12/07/2024 10:00 AM EDT Tooth fracture with loss of restorative material Fracture of removable partial denture DENTURE IMPRESSION Routine 12/05/2024 10 :00 AM EDT Fracture of removable partial denture CASE PRESENTATION, DETAILED AND EXTENSIVE TREATMENT PLANNING Routine 12/05/2024 10:00 AM EDT Full coverage crown needed for root canal-treated tooth INTRAORAL - PERIAPICAL FIRST RADIOGRAPHIC IMAGE Routine 12/05/2024 10:00 AM EDT Full coverage crown needed for root canal-treated tooth 28 CROWN - PORCELAIN/CERAMIC Routine 12/05/2024 10:00 AM EDT Full coverage crown needed for root canal-treated tooth BI MAMMOGRAM SCREENING TOMOSYNTHESIS BILATERAL Routine 11/27/2024 8:15 AM EDT CASE PRESENTATION, DETAILED AND EXTENSIVE TREATMENT PLANNING [...] PELVIS TRANSVAGINAL Routine 10/03/2024 10:37 AM EST BITEWING - SINGLE RADIOGRAPHIC IMAGE Routine 06/27/2024 11:30 AM EST Dental crowns status Fracture of removable partial denture PERIODIC ORAL EVALUATION - ESTABLISHED PATIENT Routine [...] Health Maintenance Results * US Pelvis Transvaginal (12/08/2024 1:00 PM EDT) Only the most recent of2 resultswithin the time period is included. Anatomical Region Laterality Modality Pelvis Ultrasound 12/08/2024 1:00 PM EDT Narrative 12/08/2024 1:02 PM EDT ? [facility] ?[address] ?[place] [address] ? Ultrasound Report ? Signed ? Patient: Candido Rivera ?MR#: [id number] ? : 1975 ?Acct:[id number] ? Age/Sex: 49 / F ?ADM Date: 11/16/24 ? Loc: HO.US ? Attending Dr: Omaira Diaz CNM ? Ordering Physician: Omaira Diaz CNM ?? Date of Service: 11/16/24 ?? Procedure(s): US pelvic and transvaginal ?? Accession Number(s): [id number] ? cc: Alejandra Morris MD; Omaira Diaz [...] DD/ 1300 ? TD/TT: 12/08/24 1300 ? Curber: ? Procedure Note Gerardo Stroud - 12/08/2024 [place] [address] Ultrasound Report Signed Patient: Javier Rivera#: [id number] : 1975Acct:[id number] Age/Sex: 49 / FADM Date: 11/16/24 Loc: HO.US Attending Dr: Omaira Diaz CNM Ordering Physician: Omaira Diaz CNM Date of Service: 11/16/24 Procedure(s): US pelvic and transvaginal Accession Number(s): [id number] cc: Alejandra Morris MD; Omaira Diaz CNM [...] document has been electronically signed by: Chapincito Jcakson MD on 12/08/2024 13:00:37 Dictated By: Chapincito Jackson MD Signed By: <Electronically signed by Chapincito Jackson MD in OV> 12/08/24 1301 DD/ 1300 TD/TT: 12/08/24 1300 Curber: us [facility] External Provider IMG US PROCEDURES Final Result * BI Mammogram Screening Tomosynthesis Bilateral (11/27/2024 8:15 AM EDT) Anatomical Region Laterality Modality Breast Bilateral Mammography 11/27/2024 8:15 AM EDT Narrative 12/03/2024 11:39 AM EDT ? [facility] ? [address] ?[place] [address] ?[phone] ? Mammography Report ? Signed ? Patient: Rivera,Betis ?MR#: [id number] ? : 1975 ?Acct:[id number] ? Age/Sex: 49 / F ?ADM Date: 11/27/24 ? Loc: HO.MAMMO ? Attending Dr: Alejandra Morris MD ? Ordering Physician: Alejandra Morris MD ?Results: 1Ne ?? gative ? Date of Service: 11/27/24 ?Follow Up: 1 Year From Orig ?? inal Mammogram ? Procedure(s): MM tomosynthesis screening BI ?? Accession Number(s): [id number] ? cc: Alejandra Morris MD ? EXAMINATION: ?? MM SCREENING DIGITAL BREAST TOMOSYNTHESIS, BILATERAL ? CLINICAL INFORMATION: ? Screening. Asymptomatic. ? COMPARISON: ?? Mammography: Comparison is made with available priors ? TECHNIQUE: ?? Digital breast mammography with tomosynthesis is performed in both the ?? craniocaudal and mediolateral oblique views along with computer-aided ?? detection (CAD). ? FINDINGS: ?? The breasts are heterogeneously [...] due date for their next mammogram. ? Electronically signed by: ??Kiersten Boyer DO ??12/03/2024 11:36 AM EDT ? Dictated By: ?Kiersten Boyer DO ? Signed By: ?<Electronically signed by Kiersten Boyer, DO in OV> ? 12/03/24 1136 ? DD/ 0815 ? TD/TT: 11/27/24 0830 ? Curber: ? Procedure Note Luanne, Image - 12/03/2024 [place] [facility] [address] [place] [address] Mammography Report Signed Patient: Javier Rivera#: [id number] : 1975Acct:[id number] Age/Sex: 49 / FADM Date: 11/27/24 Loc: [facility] Attending Dr: Alejandra Morris MD Ordering Physician: Alejandra Morris MDResults: 1Ne gative Date of Service: 11/27/24Follow Up: 1 Year From Orig inal Mammogram Procedure(s): MM tomosynthesis screening BI Accession Number(s): [id number] cc: Alejandra Morris MD EXAMINATION: MM SCREENING DIGITAL BREAST TOMOSYNTHESIS, BILATERAL CLINICAL INFORMATION: Screening. Asymptomatic. COMPARISON: Mammography: Comparison is made with available priors TECHNIQUE: Digital breast mammography with tomosynthesis is performed in both the craniocaudal and mediolateral oblique views along with computer-aided detection (CAD). FINDINGS: The breasts are heterogeneously dense, which [...] target due date for their next mammogram. Electronically signed by: Kiersten Boyer DO 12/03/2024 11:36 AM EDT Dictated By: Kiersten Boyer DO Signed By: <Electronically signed by Kiersten Boyer DO in OV> 12/03/24 1136 DD/ 0815 TD/TT: 11/27/24 0830 Curber: Alejandra Morris MD [facility] BI PROCEDURES Edited Result - Final * Chlamydia/N. Gonorrhoeae RNA, TMA, Urogenitial (10/10/2024 8:29 AM EDT) CT PCR NOT DETECTED Not Detect. [facility] Comment:A not detected test result [...] psychologicalconsequences. NG PCR NOT DETECTED Not Detect. [facility] Comment:A not detected test result [...] AM EDT 10/10/2024 3:10 PM EDT Narrative [facility] - 10/11/2024 5:12 AM EDT Vaginal us Generic External Data Provider LAB MICROBIOLOGY - GENERAL ORDERABLES Final Result [facility] [address] [place] [address] [phone] * Lipid Panel with Reflex to Direct LDL (03/22/2023 7:22 AM EDT) Triglycerides 133 mg/dL [facility] Comment:Desirable Triglyceri de: less than 150 mg/dLBorderline High Triglyceride 150-199 mg/dLHigh Triglyceride: 200-499 mg/dLVery High Triglyceride: greater than or equal to 5OO mg/dL Cholesterol 163 mg/dL [facility] Comment:Desirable Cholestero l: less than 200 mg/dLBorderline High Cholesterol: 200-239 mg/dLHigh Cholesterol: greater than 239 mg/dL LDL Cholesterol Calculated 102 mg/dl [facility] Comment:Desirable LDL: less than 100 mg/dLNear Optimal/Above Optimal LDL: 110- 129 mg/dLBorderline High LDL: 130-159 mg/dLHigh LDL: 160-189 mg/dLVery High LDL: greater than or equal to 190 mg/dL HDL Cholesterol 35 mg/dL [facility] Comment:Desirable HDL: great er than 40 mg/dL Note: This HDL assay may give artificially low results in patients with liver disease. Blood 03/22/2023 7:22 AM EDT 03/22/2023 7:22 AM EDT Alejandra Morris MD LAB BLOOD ORDERABLES Fin al Result Performing Organization Address [facility] Co de Phone Number [facility] [address] [place] [address] [phone] * Hepatitis C Ab (11/20/2022 9:35 AM EDT) Hepatitis C Antibody Nonreactive Nonreactive [facility] Comment:Antibodies to HCV no t detected; does not exclude early acuteHCV infection. 11/20/2022 9:35 AM EDT 11/20/2022 9:35 AM EDT [facility] External Provider LAB BLO OD ORDERABLES Final Result Performing Organization Address [facility] Co de Phone Number [facility] [address] [place] [address] [phone] * HIV Ab/Ag (CANDY CHERYL) (11/20/2022 9:35 AM EDT) HIV AB/AG Nonreactive Nonreactive [facility] Comment:HIV-1 p24 Ag and/or HIV-1/HIV-2 Ab not detected.A test result that is nonreactive does not exclude thepossibility of exposure to or infection with HIV-1 and/orHIV-2. Nonreactive results in this assay for individualswith prior exposure to HIV-1 and/or HIV-2 may be due toantigen and antibody levels that are below the limit ofdetection of this assay.The [employer] HIV Ag/Ab Combo assay result andsupplemental assay results should be interpreted inconjunction with the patient's clinical presentation,history and other laboratory results. If the results areinconsistent with clinical evidence, additional testing issuggested to confirm the result. 11/20/2022 9:35 AM EDT 11/20/2022 9:35 AM EDT [facility] External Provider LAB BLO OD ORDERABLES Final Result Performing Organization Address [facility] Co de Phone Number [facility] [address] [place] [address] [phone] * HPV E6/E7 RFLX CARLEY 16 18/45 (07/04/2020 10:04 AM EST) HPV mRNA E6/E7 rflx Not Detected Not Detected [facility] Comment: This test was performed using the APTIMA HPV Assay ([employer] This assay detects E6/E7 viral messenger RNA (mRNA) from 14 high-risk HPV types (16,18,31,33,35,39,45,51,52,56,58,59,66,68). The analytical performance characteristics of this assay have been determined by [employer]. The modifications have not been cleared or approved by the FDA. This assay has been validated pursuant to the CLIA regulations and is used for clinical purposes. THIS TEST WAS PERFORMED AT: [facility] [address] [place], [place] ??[phone] RIVKA DUPONT MD 07/04/2020 10:0 4 AM EST Omaira Diaz HISTORICAL/NON ORDERABLE LABS Fi nal Result Performing Organization Address City/[facility] Co de Phone Number [facility] [address] from Last 3 Months or Most Recently Relevant to Health Maintenance Insurance [place] [facility] ADULT DENTAL - HSN FULL (MEDICAID) * Guarantor: Candido Rivera Account Type Relation to Patient Date of Phone Billing Address Personal/Family Self [address] Care Teams Design Release Engineer Relationship Specialty Start Date End Date Alejandra Morris MD [address] [place], [place] PCP - General Family Medicine 12/17/17 Jovan Porter, Joaquín [address] [place] [address] Pharmacist Internal Medicine 05/24/23 Rhona Saldivar DDS [address] [place] [address] Dental Lead Setter 07/03/24
--- OUTSIDE RECORDS SUMMARY | 2024-12-12 15:40 | XMS_ITS | Encounter Summary ---
Author Organization [employer] [facility] Address [address] [facility] 7t [place] [address] Care Team Providers Care Sheet Cutting Operator Name Role Phone Alejandra Morris MD Primary Care Provider + Jovan Porter PharmD Unavailable [phone] Rhona Saldivar DDS Unavailable Encounter Details Date Type Department Care Team ([facility] Contact Info) Description 10/02/2022 Abstract [facility] ADULT DENTAL [address] [place] [address] Dharmesh Reyes DDS [address] [place] [address] Social History Tobacco Use Types Packs/Day Years [...] Description 02/15/2025 9:00 AM EDT Office Visit [facility] MEDICINE [address] [place] [address] Alejandra Morris MD [address] [place], [place] [phone] 06/14/2025 1:00 PM EST Office Visit [facility] ADULT DENTAL [address] [place], [place] [phone] Angie Young documented as of this encounter Visit Diagnoses Not on filedocumented in this encounter Care Teams Sheet Cutting Operator Relationship Specialty Start Date End Date Alejandra Morris MD [address] [place] [address] [phone] PCP - General Family Medicine 12/17/17 Jovan Porter, MichelleD [address] [place] [address] [phone] Pharmacist Internal Medicine 05/24/23 Rhona Saldivar DDS [address] [place] [address] [phone] Dental Retail Marketing Manager 07/03/24 documented as of this encounter
--- OUTSIDE RECORDS SUMMARY | 2024-12-12 15:40 | XMS_ITS | Encounter Summary ---
Author Organization [employer] [facility] Address [address] [facility] 7[address] [place] [address] Care Team Providers Care Corporate Manager Name Role Phone Alejandra Morris MD Primary Care Provider + Jovan Porter PharmD Unavailable [phone] Rhona Saldivar DDS Unavailable [phone] Encounter Details Date Type Department Care Team (Late st Contact Info) Description 09/02/2022 Orders Only [facility] MEDICINE [address] [place] [address] Alejandra Morris MD [address] [place], [place] [phone] Vitamin D deficiency (Primary Dx) Social History [...] Description 02/15/2025 9:00 AM EDT Office Visit [facility] MEDICINE [address] [place] [address] Alejandra Morris MD [address] [place] [address] 06/14/2025 1:00 PM EST Office Visit [facility] ADULT DENTAL [address] [place], [place] [phone] Angie Young documented as of this encounter Visit Diagnoses Diagnosis Vitamin D deficiency- Primary documented in this encounter Care Teams Corporate Manager Relationship Specialty Start Date End Date Alejandra Morris MD [address] [place] [address] [phone] PCP - General Family Medicine 12/17/17 Jovan Porter PharmD [address] [place] [address] [phone] Pharmacist Internal Medicine 05/24/23 Rhona Saldivar DDS [address] [place] [address] [phone] Dental Diabetes Education Coordinator 07/03/24 documented as of this encounter
== END 2024-12-12 16:00 ==
LOC: HO.HWS 14:32
PROVIDERS: PCP Internal Medicine; Visit Provider Advanced Practice Midwife
DX: N83.299 Other ovarian cyst, unspecified side (principal)
CPT/HCPCS: 99213

== ENCOUNTER → 2024-12-12 14:32 | Outpatient (BNVA) | payer OTHER, SELFPAY | PROVIDERS: PCP Internal Medicine; Visit Provider Advanced Practice Midwife | DX: N83.291 Other ovarian cyst, right side (principal) | CPT/HCPCS: 99212 ==

== ENCOUNTER → 2025-01-01 08:55 | Outpatient (BNV) | payer OTHER, SELFPAY | PROVIDERS: PCP Internal Medicine; Visit Provider Radiology Diagnostic Radiology | DX: N83.291 Other ovarian cyst, right side (principal) | CPT/HCPCS: 72197 ==

== ENCOUNTER 2025-01-01 08:58 | Outpatient (REF) | payer OTHER, SELFPAY ==
--- NOTE | ~2025-01-01 | MR_ITS ---
EXAMINATION: MR PELVIS WITHOUT THEN WITH IV CONTRAST HISTORY: N83.299 - Other ovarian cyst, unspecified side. TECHNIQUE: Axial T1, fat-suppressed T1, and fat-suppressed T2, and sagittal and coronal T2-weighted MR images of the pelvis were obtained. Subsequently, axial and sagittal fat-suppressed T1-weighted images were obtained after the intravenous administration of 8 mm Gadavist. COMPARISON: Correlation is made with a pelvic ultrasound dated 11/16/2024. FINDINGS: The uterus measures 9.3 x 5.0 x 5.3 cm. The junctional zone appears thickened measuring up to 11 mm, which can be seen in the setting of adenomyosis. No cystic spaces is seen in the junctional zone. There are nabothian cysts in the cervix. No fibroids are identified. An IUD is seen in place in the endometrial cavity. There is a 4.9 x 5.7 x 4.2 cm multiseptated right ovarian cystic lesion, as seen on ultrasound. No enhancing solid component is identified. The left ovary measures 2.7 x 2.7 x 1.6 cm and is unremarkable, demonstrating small follicles. No ascites or pelvic lymphadenopathy is identified. Incidental note is made of a markedly distended gallbladder containing numerous calculi. A 2.2 cm cystic structure is seen in the left upper quadrant which may be related to the pancreas. MR/MR pelvis wo/w con IMPRESSION: 1. 4.9 x 5.7 x 4.2 cm multiseptated right ovarian cystic lesion. No solid component is identified. As this lesion has progressively increased in size on ultrasound, laparoscopy should be considered. 2. Thickened junctional zone of the uterus which can be seen in the setting of adenomyosis. Clinical correlation is recommended. 3. Distended gallbladder with cholelithiasis. 4. 2.2 cm cystic structure in the left upper quadrant which may be related to the pancreas. Abdominal MRI without and with contrast is recommended. Electronically signed by: Rickie Friedman MD 01/01/2025 11:45 AM EDT
--- OUTSIDE RECORDS SUMMARY | 2025-01-01 09:28 | XMS_ITS | Encounter Summary ---
Author Organization [employer] Address [address] [facility] 7t [place] [address] Care Team Providers Care Museum Tour Guide Name Role Phone Alejandra Morris MD Primary Care Provider + Jovan Porter PharmD Unavailable [phone] Rhona Saldivar DDS Unavailable [phone] Reason for Visit * Reason Comments Med Refill Encounter Details Date Type Department Care Team (Late st Contact Info) Description 06/07/[address] [facility] MED[facility] [address] [place], [place] [phone] Alejandra Morris MD [address] [place], [place] [phone] Slow transit constipation Social History Tobacco Use [...] 02/15/2025 9:00 AM EDT Office [address] [facility] [address] [place] [phone] Alejandra Morris MD [address] [place] [phone] 06/14/2025 1:00 PM EST Office Visit [facility] ADULT DENTAL [address] [place] [phone] Angie Young documented as of this encounter [...] documented as of this encounter Care Teams Museum Tour Guide Relationship Specialty Start Date End Date Alejandra Morris MD [address] [place] [phone] PCP - General Family Medicine 12/17/17 Jovan Porter, Joaquín [address] [place] [address] Pharmacist Internal Medicine 05/24/23 Rhona Saldivar DDS [address] [place] [phone] Dental Window Framer 07/03/24 documented as of this encounter
[2025-01-01] MEDS: gadobutroL 10 ML VIAL IVPUSH (09:35)
== END 2025-01-01 08:59 | disposition home or self-care (01) ==
LOC: HO.MRI 08:58
PROVIDERS: PCP Internal Medicine; Visit Provider Advanced Practice Midwife
DX: N83.299 Other ovarian cyst, unspecified side (principal)
CPT/HCPCS: 72197; A9585

== ENCOUNTER 2025-01-03 15:03 | Outpatient (AMB) | payer OTHER, SELFPAY ==
--- NOTE | 2025-01-03 15:07 | A.OFFVIS_ITS ---
Intake Visit Reasons: Follow up per Omaira Heating Element Winder Required: Yes Heating Element Winder Language: Credit Verification Clerk Services: Heating Element Winder Present ([employer]) Heating Element Winder Name: Franky [id number] Information Interpreted: clinical only Plasma Specialist: Plasma Specialist Present (Teresa) Accompanied by: Self / Same As Patient Allergies carrot Allergy (Unknown, Verified 01/03/25 15:13) Unknown Is last menstrual period known: Yes HPI Comments Details: Patient is here today for a follow up on her MRI results. History of complex ovarian cyst. She has experienced pelvic pain on the left side. PFS Medical History (Updated 11/28/24 @ 13:28 by Omaira Diaz CNM) Fibroid Ovarian cyst IUD (intrauterine device) in place HTN (hypertension) Surgical History H/O wrist surgery Family History Mother HTN (hypertension) Social History Household Members: Spouse and Children Housing: House Alcohol intake: never Patient Tobacco Use Status: Never used Tobacco Current occupational status: unemployed Sexual orientation: Straight/Heterosexual Gender identity: Female Review of Systems Const All systems reviewed & are unremarkable except as noted in HPI and below Endo Reports no additional complaints Physical Exam Const General: cooperative, healthy appearing and no acute distress Psych Appearance: well kempt Attitude: cooperative Thought process: Normal thought process present Results Reviewed Results Reviewed: [place] [address] Magnetic Resonance Report Signed Patient: Candido Rivera MR#: [id number] : 1975 Acct:[id number] Age/Sex: 49 / F ADM Date: 01/01/25 Loc: HO.MRI Attending Dr: Omaira Diaz CNM Ordering Physician: Omaira Diaz CNM Date of Service: 01/01/25 Procedure(s): MR pelvis wo/w con Accession Number(s): [id number] cc: Alejandra Morris MD; Omaira Diaz CNM~ EXAMINATION: MR PELVIS WITHOUT THEN WITH IV CONTRAST HISTORY: N83.299 - Other ovarian cyst, unspecified side. TECHNIQUE: Axial T1, fat-suppressed T1, and fat-suppressed T2, and sagittal and coronal T2-weighted MR images of the pelvis were obtained. Subsequently, axial and sagittal fat-suppressed T1-weighted images were obtained after the intravenous administration of 8 mm Gadavist. COMPARISON: Correlation is made with a pelvic ultrasound dated 11/16/2024. FINDINGS: The uterus measures 9.3 x 5.0 x 5.3 cm. The junctional zone appears thickened measuring up to 11 mm, which can be seen in the setting of adenomyosis. No cystic spaces is seen in the junctional zone. There are nabothian cysts in the cervix. No fibroids are identified. An IUD is seen in place in the endometrial cavity. There is a 4.9 x 5.7 x 4.2 cm multiseptated right ovarian cystic lesion, as seen on ultrasound. No enhancing solid component is identified. The left ovary measures 2.7 x 2.7 x 1.6 cm and is unremarkable, demonstrating small follicles. No ascites or pelvic lymphadenopathy is identified. Incidental note is made of a markedly distended gallbladder containing numerous calculi. A 2.2 cm cystic structure is seen in the left upper quadrant which may be related to the pancreas. MR/MR pelvis wo/w con IMPRESSION: 1. 4.9 x 5.7 x 4.2 cm multiseptated right ovarian cystic lesion. No solid component is identified. As this lesion has progressively increased in size on ultrasound, laparoscopy should be considered. 2. Thickened junctional zone of the uterus which can be seen in the setting of adenomyosis. Clinical correlation is recommended. 3. Distended gallbladder with cholelithiasis. 4. 2.2 cm cystic structure in the left upper quadrant which may be related to the pancreas. Abdominal MRI without and with contrast is recommended. Electronically signed by: Rickie Friedman MD 01/01/2025 11:45 AM EDT Dictated By: Rickie Friedman MD Signed By: <Electronically signed by Rickie Friedman MD in OV> 01/01/25 1145 DD/ 0855 TD/TT: 01/01/25 0938 Irrigation Worker: Assessment & Plan Assessment & Plan (1) Complex ovarian cyst: Code(s): N83.299 - Other ovarian cyst, unspecified side Category: Medical Plan Counseled regarding findings of: MRI results-IMPRESSION: 1. 4.9 x 5.7 x 4.2 cm multiseptated right ovarian cystic lesion. No solid component is identified. As this lesion has progressively increased in size on ultrasound, laparoscopy should be considered. 2. Thickened junctional zone of the uterus which can be seen in the setting of adenomyosis. Clinical correlation is recommended. 3. Distended gallbladder with cholelithiasis. 4. 2.2 cm cystic structure in the left upper quadrant which may be related to the pancreas. Abdominal MRI without and with contrast is recommended. Complex ovarian cyst, which is often benign, and most resolve on their own overtime. Some develop into premalignant or malignant tumors. Limitations of testing for diagnostic purposes. Further monitoring and evaluation is recommended with US, possible CT, or MRI study. Labs ordered: Ca-125, Carbohydrate Antigen 19-9, & Carcinoembryonic Antigen. Referral to [facility] or general gynecology for MD care if indicated for possible surgical consult. Referral placed to DOPER OPERATOR/Oncology at [facility] due to insurance requirements. Copy of this information/reports/notes to be sent to her primary care at [facility] to follow up on the non agile tester concerns noted in the impression of the MRI today. All of her questions and concerns were addressed to the best of my ability and shared decision making. She is agreeable to the plan of care. This note is constructed using voice recognition software. While every effort has been made to ensure accuracy, executive advisor errors may have been included. Orders: Orders Carbohydrate Antigen 19-9 Today N83.299 - Other ovarian cyst, unspecified side Carcinoembryonic Antigen Today N83.299 - Other ovarian cyst, unspecified side CA-125 Today N83.299 - Other ovarian cyst, unspecified side Referrals Gynecologic Oncology Referral N83.299 - Other ovarian cyst, unspecified side Coding Level of Care Code Est Pt Level 3 (14776) Diagnoses Complex ovarian cyst N83.299
--- OUTSIDE RECORDS SUMMARY | 2025-01-03 15:12 | XMS_ITS | Encounter Summary ---
Author Organization [employer] Address [address] [facility] 7[address] [place] [address] Care Team Providers Care Dredge Lever Operator Name Role Phone Alejandra Morris MD Primary Care Provider + Jovan Porter PharmD Unavailable [phone] Rhona Saldivar DDS Unavailable [phone] Reason for Visit * Reason Comments Med Refill Encounter Details Date Type Department Care Team (Late st Contact Info) Description 06/07/2023 Refill [facility] [address] [place], [place] [phone] Alejandra Morris MD [address] [place], [place] [phone] Slow transit constipation Social History Tobacco Use [...] Description 02/15/2025 9:00 AM EDT Office Visit [facility] [address] [place] [phone] Alejandra Morris MD [address] [place] [phone] 06/14/2025 1:00 PM EST Office Visit [facility] [address] [place] [phone] Angie Young documented as of this encounter [...] documented as of this encounter Care Teams Dredge Lever Operator Relationship Specialty Start Date End Date Alejandra Morris MD [address] [place] [phone] PCP - General Family Medicine 12/17/17 Jovan Porter, Joaquín [address] [place] [address] Pharmacist Internal Medicine 05/24/23 Rhona Saldivar DDS [address] [place] [address] Dental Cleat Maker 07/03/24 documented as of this encounter
== END 2025-01-03 16:14 | disposition home or self-care (01) ==
LOC: HO.HWS 15:03
PROVIDERS: PCP Internal Medicine; Visit Provider Advanced Practice Midwife
DX: N83.299 Other ovarian cyst, unspecified side (principal)
CPT/HCPCS: 99213

== ENCOUNTER 2025-01-03 15:03 | Outpatient (REF) | payer MEDICAID, OTHER, SELFPAY ==
[2025-01-04 09:19] LABS: CA-125 16 U/mL (<35)
[2025-01-04 09:58] LABS: Carbohydrate Antigen 19-9 10 U/mL (<34)
== END 2025-01-03 15:04 | disposition home or self-care (01) ==
LOC: HO.LAB 15:03
PROVIDERS: PCP Internal Medicine; Visit Provider Advanced Practice Midwife
DX: N83.291 Other ovarian cyst, right side (principal); Z97.5 Presence of (intrauterine) contraceptive device
CPT/HCPCS: 82378; 86301; 86304; 99212

== ENCOUNTER → 2025-01-19 15:41 | Outpatient (BNV) | payer OTHER, SELFPAY | PROVIDERS: PCP Internal Medicine; Visit Provider Radiology Diagnostic Radiology | DX: K80.20 Calculus of gallbladder without cholecystitis without obstruction (principal) | CPT/HCPCS: 74183 ==

== ENCOUNTER 2025-01-19 15:42 | Outpatient (REF) | payer OTHER, SELFPAY ==
--- NOTE | ~2025-01-19 | MR_ITS ---
EXAMINATION: MR ABDOMEN WITHOUT THEN WITH IV CONTRAST HISTORY: pancreatic cystic lesion incidentally found on pelvic MRI, please evaluate COMPARISON: Correlation is made with an MRI of the pelvis dated 01/01/2025. TECHNIQUE: Axial in and out of phase T1-weighted gradient echo, axial diffusion weighted, and axial and coronal HASTE T2 with fat saturation images were obtained through the abdomen. Subsequently, fat suppressed axial and coronal T1-weighted images were obtained after the intravenous administration of 8.5 mL Gadavist. FINDINGS: Liver: There is no loss of signal intensity in the liver on opposed phase imaging to suggest steatosis. There is no enhancing liver mass. The hepatic and portal veins are patent. There is no intra- or extrahepatic biliary dilatation. Gallbladder: The gallbladder is markedly distended and demonstrates numerous intraluminal calculi. The bile within the gallbladder is T1 hyperintense and T2 hypointense consistent with proteinaceous or hemorrhagic content. There are multiple calculi in the gallbladder neck the largest of which measures 2.1 cm in size. There is resultant mass effect and narrowing of the common bile duct. No pericholecystic inflammatory changes are identified. Spleen: The spleen is unremarkable. Pancreas: The pancreas is unremarkable. The pancreatic duct is normal in caliber. Adrenals: The right adrenal gland is unremarkable. There is a 2.1 x 1.5 x 1.5 cm cyst associated with the left adrenal gland. There is no associated enhancement. Kidneys: The right kidney is unremarkable. There is a 9 mm cyst in the interpolar region of the left kidney. There is no hydronephrosis. Lymph nodes: There is no retroperitoneal lymphadenopathy in the upper abdomen. Fluid: There is no ascites in the upper abdomen. Visualized bowel: There is wall thickening of the hepatic flexure of the colon with inflammatory stranding of the surrounding fat. Visualized bones: The visualized bones demonstrate normal marrow signal intensity. MR/MR abdomen wo/w con IMPRESSION: 1. The previously seen 2.1 x 1.5 x 1.5 cm cyst in the left upper quadrant is associated with the left adrenal gland, and likely represents a post traumatic or post infectious cyst. 2. Markedly distended gallbladder with cholelithiasis. There are multiple calculi in the gallbladder neck causing mass effect and narrowing of the common bile duct. 3. Wall thickening of the hepatic flexure of the colon with surrounding inflammatory changes. Findings may represent colitis or a mass. Further evaluation with colonoscopy is recommended if this has not recently been performed. Electronically signed by: Rickie Friedman MD 01/22/2025 08:05 AM EDT
[2025-01-19] MEDS: gadobutroL 10 ML VIAL IVPUSH (16:31)
== END 2025-01-19 15:43 | disposition home or self-care (01) ==
LOC: HO.MRI 15:42
PROVIDERS: PCP Internal Medicine; Visit Provider Internal Medicine
DX: K86.2 Cyst of pancreas (principal)
CPT/HCPCS: 74183; A9585

== ENCOUNTER 2025-01-23 11:19 | Outpatient (REF) | payer OTHER, SELFPAY ==
--- OUTSIDE RECORDS SUMMARY | 2025-01-23 12:57 | XMS_ITS | Encounter Summary ---
Author Organization [employer] Address [address] [facility] 7[address] [place] [address] Care Team Providers Care Associate Juvenile Court Judge Name Role Phone Alejandra Morris MD Primary Care Provider + Jvoan Porter PharmD Unavailable [phone] Rhona Saldivar DDS Unavailable [phone] Reason for Visit * Reason Comments Med Refill Encounter Details Date Type Department Care Team (Late st Contact Info) Description 06/07/2023 Refill [facility] [address] [place], [place] [phone] Alejandra Morris MD [address] [place], [place] [phone] Slow transit constipation Social History Tobacco Use [...] Care Team (Late st Contact Info) Description 04/16/2025 3:15 PM EDT Office Visit [facility] [address] [place] [phone] Alejandra Morris MD [address] [place] [phone] 06/14/2025 1:00 PM EST Office Visit [facility] ADULT DENTAL [address] [place] [phone] Angie Young documented as of this encounter Goals Goal Patient Goal Type Associated Problems Recent Progress Patient-Stated? Author Blood Pressure < 140/90 Blood Pressure 140/90( 025 8:53 AM EDT) No Jovan Porter, MichelleD documented as of this encounter Visit Diagnoses Diagnosis Slow transit constipation documented in this encounter Additional Health Concerns Assessment Noted Time PHQ-9 Depression Total Score: 0 11/10/19 23 9:18 AM EDT documented as of this encounter Care Teams Associate Juvenile Court Judge Relationship Specialty Start Date End Date Alejandra Morris MD [address] [place] [phone] PCP - General Family Medicine 12/17/17 Jovan Porter, Joaquín [address] [place] [address] [phone] Pharmacist Internal Medicine 05/24/23 Rhona Saldivar DDS [address] [place] [phone] Dental Traffic Or System Dispatcher 07/03/24 documented as of this encounter
[2025-01-23 13:00] LABS: MANUAL DIFF FLAG NO
[2025-01-23 13:10] LABS: Basophils Percent Auto 0.7 % (0-2); Eosinophils Absolute Auto 0.2 X10*3/uL (0.0-0.4); Eosinophils Percent Auto 2.8 % (0-4); Hematocrit 38.1 % (37.0-47.0); Hemoglobin 12.7 g/dl (12.0-16.0); Imm Gran Abs Auto 0.01 X10*3/uL (0.00-0.03); Imm Gran Pct Auto 0.2 % (0.0-0.4); Lymphocytes Absolute Auto 2.1 X10*3/uL (1.2-4.9); Lymphocytes Percent Auto 35.2 % (20-40); Mean Corpuscular HGB Conc 33.3 g/dl (31.0-35.0); Mean Corpuscular Hemoglobin 29.7 pg (27.0-33.0); Mean Platelet Volume 12.7 fL (9.4-12.3); Monocytes Absolute Auto 0.4 X10*3/uL (0.1-1.2); Monocytes Percent Auto 6.3 % (2-11); Neutrophils Absolute Auto 3.3 x10*3/uL (2.0-8.3); Neutrophils Percent Auto 54.8 % (45-73); Platelet Count 192 X10*3/uL (160-400); Red Blood Count 4.28 X10*6/uL (4.20-5.50); Red Cell Distribution Width 12.5 % (11.0-16.0); White Blood Count 6.1 X10*3/uL (4.8-10.8)
[2025-01-23 13:38] LABS: Anion Gap 12 (12-20); Blood Urea Nitrogen 8 mg/dL (9-16); Calcium 9.1 mg/dL (8.4-10.2); Carbon Dioxide 25 mmol/L (22-29); Chloride 108 mmol/L (96-108); Cholesterol 142 mg/dL (<200); Estimated Glomerular Filt Rate > 60; Glucose Random 90 mg/dL (60-115); HDL Cholesterol 39 mg/dL (>40); LDL Cholesterol Calculated 89 mg/dL (<100); Sodium 141 mmol/L (135-145); Triglycerides 73 mg/dL (<150)
[2025-01-23 13:42] LABS: TSH reflex Free T4 2.73 uIU/mL (0.32-4.0); Vitamin D 25-OH Total 30.4 ng/mL (>30)
[2025-01-23 13:46] LABS: Reflex LDLD? No
== END 2025-01-23 11:20 | disposition home or self-care (01) ==
LOC: HO.HHCL 11:19
PROVIDERS: PCP Internal Medicine; Referring Provider Advanced Practice Midwife; Visit Provider Internal Medicine
DX: I10 Essential (primary) hypertension (principal); H81.13 Benign paroxysmal vertigo, bilateral; M62.830 Muscle spasm of back
CPT/HCPCS: 36415; 80048; 80061; 82306; 84443; 85025

== ENCOUNTER 2025-03-22 15:17 | Outpatient (AMB) | payer OTHER, SELFPAY ==
--- NOTE | 2025-03-22 15:18 | A.OFFVIS_ITS ---
Vital Signs 3 03/22/25 15:20 Height 5 ft 1 in Weight 177 lb BMI 33.4 BP 160/92 H Blood Pressure Location Rt brachial Position Sitting Pulse 79 Intake Visit Reasons: Calculus of gallbladder Intake Note: Patient here referred by pcp Dr. Morris for evaluation and treatment of calculus of gallbladder. Patient c/o: on and off pain in RUQ area, worse when eating fatty foods. Abdomen MRI: 01-19-2025 Visual Display Manager Required: Yes Visual Display Manager Name: Daisy Parnell [id number] Information Interpreted: clinical only (Daisy # [id number]) Accompanied by: daughter Yenifer Allergies carrot Allergy (Unknown, Verified 03/22/25 15:25) Unknown Medication List - Last Reconciled 03/22/25 by Salbador Barriga MD betamethasone dipropionate 0.05% 1 appl topical BID 2 weeks cetirizine 10 mg PO DAILY PRN clotrimazole-betamethasone 1-0.05 % 1 appl topical BID 7 days ergocalciferol (vitamin D2) 1,250 mcg PO QWEEK fluticasone propionate 50 mcg/actuation 2 sprays intranasal DAILY PRN ibuprofen 800 mg PO Q8H PRN labetalol 100 mg PO BID levonorgestrel (Mirena) intrauterine loratadine 10 mg PO DAILY losartan-hydrochlorothiazide 100-25 mg 1 tab PO DAILY metoprolol succinate ER 100 mg PO DAILY miconazole nitrate 2% (Monistat 7) 1 appful vaginal BEDTIME 7 days omeprazole 20 mg PO DAILY polyvinyl alcohol 1.4% 1 drp ophthalmic (eye) HPI Comments Details: 49-year-old female patient presenting for evaluation of gallstones. She reports abdominal pain throughout the abdomen but most significantly in the right side in the upper quadrant. Pain seems to be made worse when she touches her abdomen. She also notes the pain to increase after eating greasy foods. She does report nausea without vomiting. She denies fever or chills. The symptoms started approximately 1 month ago at but have persisted since then. She underwent workup with a pelvic MRI which partially showed a distended gallbladder with multiple gallstones. Subsequent abdominal MRI confirmed a markedly distended gallbladder with numerous intraluminal calculi. Multiple calculi are noted in the gallbladder neck, the largest of which measures 2.1 cm in size. This results in a mass effect leading to narrowing of the common bile duct. [facility] Medical History Fibroid Ovarian cyst IUD (intrauterine device) in place HTN (hypertension) Surgical History H/O wrist surgery Family History Mother HTN (hypertension) Social History Household Members: Spouse and Children Housing: House Alcohol intake: never Patient Tobacco Use Status: Never used Tobacco Current occupational status: unemployed Sexual orientation: Straight/Heterosexual Gender identity: Female Review of Systems Const All systems reviewed & are unremarkable except as noted in HPI and below Denies chills, Denies fever(s), Denies headache(s), Denies poor appetite and Denies weakness ENT Denies headache(s) Card Denies chest pain, Denies irregular heart rhythm, Denies palpitations and Denies dyspnea Resp Denies cough, Denies excessive phlegm production and Denies dyspnea GI Reports abdominal pain, Denies bloating, Denies change in bowel habits, Denies constipation, Denies heartburn, Denies diarrhea, Reports nausea and Denies vomiting Denies urinary frequency Musc Denies back pain, Denies muscle weakness and Denies numbness Skin/Breast Denies changing lesions and Denies unusual bruising Neuro Denies headache(s), Denies numbness, Denies paresthesias and Denies weakness Psych Denies anxiety and Denies depression Endo Denies palpitations Clark/Lymph Denies lymphadenopathy Physical Exam Vital Signs: Last Vital Signs Pulse 79 03/22/25 15:20 BP 160/92 H 03/22/25 15:20 BMI result Body Mass Index 33.4 Const General: cooperative and no acute distress Nutritional Appearance: well nourished Orientation/consciousness: patient oriented x3 Limitations: no limitations HEENT Head: Yes normocephalic and Yes atraumatic Ears: hearing grossly normal bilaterally Resp Effort & Inspection: normal respiratory effort, no audible wheezes, no cough and no respiratory distress Cardio Jugular venous distension: no JVD GI Inspection: Yes normal to inspection Palpation (GI): Soft to palpation and Tenderness to palpation present (GI) in the LLQ, in the RLQ, in the RUQ and Shannon's sign positive Percussion: Yes normal to percussion Auscultation: normal bowel sounds Rectal Exam - Female: deferred Skin Other: Warm, dry, no rash Neuro General: patient oriented x3 Extrem General: Yes no clubbing, cyanosis or edema Results Reviewed Results Reviewed: MRI abdomen: Assessment & Plan Assessment & Plan (1) Symptomatic cholelithiasis: Code(s): K80.20 - Calculus of gallbladder without cholecystitis without obstruction Category: Medical Plan 49-year-old female patient presenting with complaints of abdominal pain associated with fatty food intake with a workup which revealed a markedly distended gallbladder with multiple gallstones including a large gallstone in the neck of the gallbladder. Findings are consistent with symptomatic cholelithiasis, possibly acute cholecystitis. I reviewed the MRI findings with the patient and her daughter and recommended consideration of a laparoscopic or possible open cholecystectomy. After I reviewed the procedure, risks and alternatives, she consents to a laparoscopic or possible open cholecystectomy. She will be scheduled as a short-stay surgery. Coding Level of Care Code New Pt Level 4 (46409) Diagnoses Symptomatic cholelithiasis K80.20
--- OUTSIDE RECORDS SUMMARY | 2025-03-22 15:19 | XMS_ITS | Encounter Summary ---
Author Organization [employer] Address [address] [facility] 7t [place] [address] Care Team Providers Care Security Management Specialist Name Role Phone Alejandra Morris MD Primary Care Provider + Jovan Porter PharmD Unavailable [phone] Rhona Saldivar DDS Unavailable [phone] Reason for Visit * Reason Comments Med Refill Encounter Details Date Type Department Care Team (Late st Contact Info) Description 06/07/2023 Refill [facility] [address] [place], [place] [phone] Alejandra Morris MD [address] [place], [place] [phone] Slow transit constipation Social History Tobacco Use [...] Description 04/16/2025 3:15 PM EDT Office Visit [facility] [address] [place] [phone] Alejandra Morris MD [address] [place] [phone] 06/14/2025 1:00 PM EST Office Visit [facility] ADULT D[facility] [address] [place] [phone] Angie Young documented as of this encounter Goals Goal Patient Goal Type Associated Problems Recent Progress Patient-Stated? Author Blood Pressure < 140/90 Blood Pressure 142/86( 025 2:45 PM EDT) No Jovan Porter, MichelleD documented as of this encounter Visit Diagnoses Diagnosis Slow transit constipation documented in this encounter Additional Health Concerns Assessment Noted Time PHQ-9 Depression Total Score: 0 11/10/19 23 9:18 AM EDT documented as of this encounter Care Teams Security Management Specialist Relationship Specialty Start Date End Date Alejandra Morris MD [address] [place] [phone] PCP - General Family Medicine 12/17/17 Jovan Porter, Joaquín [address] [place] [address] [phone] Pharmacist Internal Medicine 05/24/23 Rhona Saldivar DDS [address] [place] [phone] Dental Truck Driver Supervisor 07/03/24 documented as of this encounter
--- OUTSIDE RECORDS SUMMARY | 2025-03-22 15:19 | XMS_ITS | Clinical Summary ---
Author Organization [facility] Address [address] [place] [address] Phone Care Team Providers Care Gravel Inspector Name Role Phone Unavailable Primary Care Provider Unavailabl e Allergies No known active allergies Medications acetaminophen (TYLENOL) 500 mg tablet Take 1 tablet (500 mg total) by mouth every 6 (six) hours if needed. for mild pain 11/21/2024 Active labetaloL (NORMODYNE) 100 mg tablet Take 2 tablets (200 mg total) by mouth 2 times daily. 11/21/2024 Active losartan-hydroC HLOROthiazide (HYZAAR) 100-25 mg per tablet Take 1 tablet by mouth daily. 02/08/2025 Active omeprazole (PriLOSEC) [address] capsule TAKE 1 CAPSULE BY MOUTH 30 TO 60 MINUTES BEFORE A MEAL 01/15/2025 Active Active Problems Problem Noted Date Diagnosed Date Right ovarian cyst 02/15/2025 Encounters Date Type Department Care Team Description 02/15/2025 2:00 PM EDT Consult [address] [phone] Reymundo Rock MD Right ovarian cyst (Primary Dx) from Last 3 Months Surgical History Surgery Date Site/Laterality Comments CARPAL TUNNEL RELEASE Bilateral Medical History Medical History Date Comments Hypertension GERD (gastroesophageal reflux disease) Social History Tobacco Use Types Packs/Day Years Used Date Smoking Tobacco: Never Smokeless Tobacco: Never Tobacco Cessation:Counseling Given: Not Answered Alcohol Use Standard Drinks/Week Comments Never 0 (1 standard drink = 0.6 oz pur e alcohol) Comments Unknown Sex and Gender Information Value Date Recorded Sex Assigned at Not on file Legal Sex Female 11:04 AM EDT Gender Identity Not on file Sexual Orientation Not on file Obstetrics History Last Filed Vital Signs Vital Sign Reading Time Taken Comments Blood Pressure 151/96 02/15/2025 1:59 PM EDT Pulse 71 02/15/2025 1:59 PM EDT Temperature 36.4 C (97.6 F) 02/15/2025 1:59 PM EDT Respiratory Rate - - Oxygen Saturation - - Inhaled Oxygen Concentration - - Weight 77.1 kg (170 lb) 02/15/2025 1:59 PM EDT Height 154.9 cm (5' 1 ) 02/15/2025 1:59 PM EDT Body Mass Index 32.12 02/15/2025 1:59 PM EDT Plan of Treatment Scheduled Procedures Name Priority Associated Diagnoses Date/Ti me OOPHORECTOMY ROBOT TWO Right ovarian cyst Health Maintenance Due Date Last Done Comments Breast Cancer Screening 1975 Cervical Cancer Screening: Pap Smear 1998 COVID-19 Vaccine ( season) 2024 08/17/2021, 12/25/2020, 11/27/2020 Depression Screening 08/02/2024 Cholesterol Screening (Lipid Panel) 01/18/2025 Colorectal Cancer Screening: Colonoscopy 01/18/2025 HIV Screening 01/18/2025 Hepatitis C Screening 01/18/2025 Social Influencers of Health Screening 01/18/2025 Influenza Vaccine (#1) 2025 , 04/12/2023, 06/10/2021, Additional history exists Hypertension/CHF/CAD Annual BMP Blood Test 01/23/2026 01/23/2025 DTaP,Tdap,and Td Vaccines (4 - Td or Tdap) 05/24/2033 05/24/2023, 02/10/2011, 07/02/2005 MMR Vaccines Aged Out 07/02/2005 No longer eligi ble based on patient's age to complete this topic Varicella Vaccines Aged Out 07/02/2005 No longer eligible based on patient's age to complete this topic Hepatitis B Vaccines Completed 06/04/2016, 01/17/2016, 11/11/2015 HIB Vaccines Aged Out No longer eligi [...] patient's age to complete this topic Meningococcal ACWY Vaccine Aged Out N o longer eligible based on patient's age to complete this topic Meningococcal B Vaccine Aged Out No l onger eligible based on patient's age to complete this topic Pneumococcal Vaccine: Pediatrics (0 to 5 Years) and At-Risk Patients (6 to 49 Years) Aged Out No longer eligible based on patient's age to complete this topic RSV Immunization Patients Under 20 months Aged Out No longer eligible based on patient's age to complete this topic Insurance [facility]
[2025-03-22 15:20] VITALS: BP 160/92; PULSE 79; BMI 33.4
== END 2025-03-22 15:56 | disposition home or self-care (01) ==
PROVIDERS: PCP Internal Medicine; Referring Provider Internal Medicine; Visit Provider Surgery
DX: K80.20 Calculus of gallbladder without cholecystitis without obstruction (principal)
CPT/HCPCS: 99204

== ENCOUNTER → 2025-03-22 15:17 | Outpatient (BNVA) | payer OTHER, SELFPAY | PROVIDERS: PCP Internal Medicine; Referring Provider Internal Medicine; Visit Provider Surgery | DX: K80.20 Calculus of gallbladder without cholecystitis without obstruction (principal) | CPT/HCPCS: 99202 ==

== ENCOUNTER 2025-04-05 09:15 | Day surgery (SDC) | payer OTHER, SELFPAY ==
--- OUTSIDE RECORDS SUMMARY | 2025-03-26 16:43 | XMS_ITS | Clinical Summary ---
Author Organization [facility] Address [address] [place] [address] Phone Care Team Providers Care Blankbook Forwarder Name Role Phone Unavailable Primary Care Provider [...] Team Description 02/15/2025 2:00 PM EDT Consult [address] [phone] Reymundo Rock MD Right ovarian [...] 02/15/2025 1:59 PM EDT Plan of Treatment Upcoming Encounters Date Type Department Care Team (Latest Contact Info) Description 04/06/2025 10:00 AM EDT Pre-Admission Testing [facility] Pre-Admission Testing [address] [place] [phone] 04/09/2025 11:00 AM EDT Hospital Encounter [facility] Main OR [address] [place] [phone] Reymundo Rock MD [address] [place] [phone] 04/09/2025 11:00 AM EDT - 04/09/2025 2:00 PM EDT Surgery [address] [phone] Reymundo Rock MD [address] [place] [phone] DAVINCI assisted laparoscopic right salpingo-oophorectom y, possible total hysterectomy, bilateral salpingo-oophorectom y, staging. [70441 (CPT )] 04/26/2025 10:00 AM EDT Office Visit [facility] Care [address] [phone] Reymundo Rock MD [address] [place] [id number] Scheduled Procedures Name Priority Associated Diagnoses Date/Ti me OOPHORECTOMY ROBOT TWO Right ovarian cyst 04/09/2025 11:00 AM EDT Health Maintenance Due Date Last Done Comments [...] patient's age to complete this topic Insurance [facility]
[2025-04-03 08:46] VITALS: BMI 33.4
--- NOTE | 2025-04-04 08:38 | HO.ANESPROP2 ---
Documented by User: Yue Nguyen NP 04/04/25 08:40 HPI - Anesthesia Eval Consult details Narrative: 49yo F for Cholecystectomy Laparoscopic,possible open PMFSH Active Problems Active Problems: All Active Problems Symptomatic cholelithiasis (Acute) Fibroid (Acute) Ovarian cyst (Acute) Encounter to discuss test results (Acute) Encounter for annual routine gynecological examination (Acute) Past Medical History Medical History Fibroid Ovarian cyst IUD (intrauterine device) in place HTN (hypertension) Family History Family History Mother HTN (hypertension) Surgical History Surgical History H/O wrist surgery Social History Social History Household Members: Spouse and Children Housing: House Alcohol intake: never Patient Tobacco Use Status: Never used Tobacco Use of substances other than those prescribed or required for medical reasons: No Are you DNR?: No Advance Directives: No Advance Directives Information Provided: Yes Current occupational status: unemployed Sexual orientation: Straight/Heterosexual Gender identity: Female Meds Allergies Allergy/AdvReac Type Severity Reaction Status Date / Time carrot Allergy Unknown Unknown Verified 03/22/25 15:25 Home Medications ?Medication ?Instructions ?Recorded ?Confirmed ?Last Taken ?Type metoprolol succinate 100 mg 100 mg PO DAILY 07/04/20 03/22/25 Unknown History tablet,extended release 24 hr loratadine 10 mg tablet 10 mg PO DAILY 11/25/20 03/22/25 Unknown History omeprazole 20 mg capsule,delayed 20 mg PO DAILY 11/25/20 03/22/25 Unknown History release cetirizine 10 mg tablet 10 mg PO DAILY PRN allergies 11/25/23 03/22/25 Unknown History ergocalciferol (vitamin D2) 1,250 1,250 mcg PO QWEEK 11/25/23 03/22/25 Unknown History mcg (50,000 unit) capsule fluticasone propionate 50 2 spray intranasal DAILY PRN 11/25/23 03/22/25 Unknown History mcg/actuation nasal spray,suspension ibuprofen 800 mg tablet 800 mg PO Q8H PRN mild pain 11/25/23 03/22/25 Unknown History labetalol 100 mg tablet 100 mg PO BID 11/25/23 03/22/25 Unknown History losartan 100 1 tab PO DAILY 11/25/23 03/22/25 Unknown History mg-hydrochlorothiazide 25 mg tablet polyvinyl alcohol 1.4 % eye drops 1 drp ophthalmic (eye) dry eyes 11/25/23 03/22/25 Unknown History levonorgestrel (Mirena) intrauterine 10/10/24 03/22/25 Unknown History Exam Height,Weight and Vital Signs: Height 5 ft 1 in Weight 80.286 kg Pertinent Lab Results Pertinent Lab Results: Laboratory Tests 01/23/25 11:26 WBC 6.1 Hgb 12.7 Hct 38.1 Plt Count 192 Sodium 141 Potassium 4.0 Chloride 108 Carbon Dioxide 25 BUN 8 L Creatinine 0.78 Assessment and Plan Assessment Anesthesia Assessment: Chart Reviewed Documented by User: Stephanie Diaz MD 04/05/25 10:25 PMFSH Past Medical History Medical History Fibroid Ovarian cyst IUD (intrauterine device) in place HTN (hypertension) Family History Family History Mother HTN (hypertension) Family history of problems with anesthesia: No Surgical History Surgical History H/O wrist surgery History of Problems with Anesthesia: No Social History Social History Household Members: Spouse and Children Housing: House Alcohol intake: never Patient Tobacco Use Status: Never used Tobacco Use of substances other than those prescribed or required for medical reasons: No Are you DNR?: No Advance Directives: No Advance Directives Information Provided: Yes Current occupational status: unemployed Sexual orientation: Straight/Heterosexual Gender identity: Female Meds Allergies Allergy/AdvReac Type Severity Reaction Status Date / Time carrot Allergy Unknown Unknown Verified 03/22/25 15:25 Home Medications ?Medication ?Instructions ?Recorded ?Confirmed ?Last Taken ?Type metoprolol succinate 100 mg 100 mg PO DAILY 07/04/20 03/22/25 Unknown History tablet,extended release 24 hr loratadine 10 mg tablet 10 mg PO DAILY 11/25/20 03/22/25 Unknown History omeprazole 20 mg capsule,delayed 20 mg PO DAILY 11/25/20 03/22/25 Unknown History release cetirizine 10 mg tablet 10 mg PO DAILY PRN allergies 11/25/23 03/22/25 Unknown History ergocalciferol (vitamin D2) 1,250 1,250 mcg PO QWEEK 11/25/23 03/22/25 Unknown History mcg (50,000 unit) capsule fluticasone propionate 50 2 spray intranasal DAILY PRN 11/25/23 03/22/25 Unknown History mcg/actuation nasal spray,suspension ibuprofen 800 mg tablet 800 mg PO Q8H PRN mild pain 11/25/23 03/22/25 Unknown History labetalol 100 mg tablet 100 mg PO BID 11/25/23 03/22/25 Unknown History losartan 100 1 tab PO DAILY 11/25/23 03/22/25 Unknown History mg-hydrochlorothiazide 25 mg tablet polyvinyl alcohol 1.4 % eye drops 1 drp ophthalmic (eye) dry eyes 11/25/23 03/22/25 Unknown History levonorgestrel (Mirena) intrauterine 10/10/24 03/22/25 Unknown History Exam Airway Mallampati Class: III TM Dist: <=3cm Neck ROM: Full Heart: rrr Lungs: cta Assessment and Plan Assessment Anesthesia Assessment: Anesthesia Plan Discussed Final Anesthetic Review Family History of Problems with Anesthesia: No History of Problems with Anesthesia: No NPO: Yes ASA Class: II Final Preanesthetic Review: No Changes in Pt Med Stat, Meds/Allgs Chart Reviewed, Consent Obtained/Reviewed and Anes Risks/Benef Reviewed Patient Risk: Low Procedure Risk: Intermediate Anesthetic Plan Anesthetic Plan: GA and Agree w/ Assess. and Plan Disposition: Standard PACU
[2025-04-05] VITALS (7 sets, daily range): BP systolic 103–130; BP diastolic 63–82; PULSE 70–83; RESP 18; TEMP 36.1; O2SAT 92–98
[2025-04-05 10:07] LABS: UPreg QC Valid YES
--- NOTE | 2025-04-05 10:11 | MHC.SHP ---
Pre-Procedural Eval Section A - 24 Hr Update-Section A only Date of Service: 04/05/25 The patient is an INPATIENT: No Changes since office visit: Yes Patient answered all questions; No Cold of Flu in the past 2 weeks, No New Medical Problems and No Changes in Medication The patient has been examined within 24 hours of the surgical procedure. The History & Physical has been completed within 30 days and I have reviewed it.: Yes Section B - Complete if H&P > 30 days Chief Complaint: Calculus of gallbladder without cholecystitis Allergies: Allergies Allergy/AdvReac Type Severity Reaction Status Date / Time carrot Allergy Unknown Unknown Verified 03/22/25 15:25 Plan Diagnosis/Plan: Unchanged I have reviewed the history and physical and performed a pertinent physical examination on my patient. No changes have occurred unless specified. Time Spent With Patient Time: Total time managing care of this patient today ____ minutes.
[2025-04-05] MEDS: Lactated Ringers 1,000 ML 100 ML IVCONT (10:30)
--- NOTE | 2025-04-05 12:29 | W.PM.OPN ---
Operative Note Operative Note Date of Service: 04/05/25 Narrative: Preoperative diagnosis: Acute cholecystitis, cholelithiasis Postoperative diagnosis: Same Procedure: Laparoscopic cholecystectomy Surgeon: Salbador Barriga MD Capacitor Assembler: Susana Mendoza PA-C, HELEN Marina Anesthesia: General endotracheal Indications for procedure: Complaints of abdominal pain in the right upper quadrant. MRI showing multiple gallstones within the gallbladder with thickened gallbladder wall suggestive of acute cholecystitis Operative findings: Markedly dilated gallbladder with large collection gallstones and biliary sludge Specimen: gallbladder Estimated blood loss: 5 mL Complications: None Procedure details: Patient was brought to the OR and placed in a supine position. After administering general anesthesia the patient's abdomen was prepped with ChloraPrep and draped in a sterile fashion. A surgical time-out was called the consent confirmed. Patient received preoperative antibiotics and Venodyne boots were in place. Local anesthesia consisting of 0.5% Sensorcaine without epinephrine was infiltrated in a periumbilical region. A 5 mm incision was made above the umbilicus in a transverse fashion. The Veress needle was then inserted while elevating abdominal cavity with towel clips. After positive drop test the abdomen was insufflated to a pressure of 15 mm of mercury. The Veress needle was then removed and a 5 mm trocar inserted. The camera was inserted in the abdomen explored. A 12 mm trocar was then placed in the epigastrium. Two 5 mm trocars placed in the right upper quadrant by the executive administrative assistant. The patient was placed in reverse Trendelenburg positioning and rotated to the left. Because of the dark gallbladder was markedly distended, it was decompressed with suctioned to allow proper grasping. The gallbladder was grasped with the fundus and retracted cephalad by the executive administrative assistant. The infundibulum was then grasped and retracted away from the liver bed, also by the executive administrative assistant. The Dolphin dissected was then used by the surgeon to dissect the peritoneum off the infundibulum to reveal the junction with the cystic duct. Cystic artery was noted slightly medial and posterior to the cystic duct. After obtaining a critical view the cystic duct was doubly clipped and divided. The cystic artery was then doubly clipped and divided. The gallbladder was then dissected off the liver bed using electrocautery with an L hook. Hemostasis was assured all times using the electrocautery. When the gallbladder is completely dissected off the liver bed was placed in an Endo-Catch bag and brought out through the epigastric incision. The gallbladder was sent to pathology for further examination. The abdomen was then re-examined. The liver bed was irrigated and suctioned dry. No bleeding or bile leak could be identified. CO2 was then evacuated and all trocars removed. Fascia was closed at the epigastric incision using a [id number] 0 Polysorb suture. Skin was closed in all incisions using a subcuticular 4 0 Polysorb suture by both the surgeon and executive administrative assistant. Sterile dressings consisting of Steri-Strips, 2 x 2 gauze, and Tegaderm were then applied. The patient tolerated the procedure well. Sponge instrument and needle counts reported as correct. The patient was transferred to PACU in stable condition.
== END 2025-04-05 14:44 | disposition home or self-care (01) ==
PROVIDERS: Nurse Practitioner; PCP Internal Medicine; Visit Provider Surgery
PROC: 0FT44ZZ Resection of Gallbladder, Percutaneous Endoscopic Approach (ICD-10-PCS; CPT 47562; principal; 2025-04-05 11:20)
DX: K80.12 Calculus of gallbladder with acute and chronic cholecystitis without obstruction (principal); Z79.51 Long term (current) use of inhaled steroids; D21.9 Benign neoplasm of connective and other soft tissue, unspecified; N83.209 Unspecified ovarian cyst, unspecified side; I10 Essential (primary) hypertension; Z97.5 Presence of (intrauterine) contraceptive device; Z79.899 Other long term (current) drug therapy; Z98.890 Other specified postprocedural states; Z56.0 Unemployment, unspecified
CPT/HCPCS: 47562; 81025; 88304; J0330; J1100; J1171; J2405; J2704; J2765; J2795; J3010

== ENCOUNTER → 2025-04-05 09:15 | Outpatient (BNV) | payer OTHER, SELFPAY | PROVIDERS: PCP Internal Medicine; Visit Provider Surgery | DX: K80.00 Calculus of gallbladder with acute cholecystitis without obstruction (principal) | CPT/HCPCS: 47562 ==

== ENCOUNTER 2025-04-17 07:58 | Outpatient (AMB) | payer OTHER, SELFPAY ==
--- NOTE | 2025-04-17 08:00 | A.OFFVIS_ITS ---
Vital Signs 04/17/25 08:01 Height 5 ft 1 in Weight 173 lb 8.061 oz BMI 32.8 BP 110/70 Blood Pressure Location Lt brachial Position Sitting Pulse 71 Pulse Source Pulse Oximeter Pulse Oximetry (%) 98 Oxygen Delivery Method Room Air Intake Visit Reasons: Adrenal nodule Intake Note: New patient present today for Adrenal nodule office visit. Health And Human Performance Professor Required: Yes Health And Human Performance Professor Language: Cyber Ops Planner Services: Health And Human Performance Professor Present Health And Human Performance Professor Name: Connor [id number] Information Interpreted: non-clinical & clinical Accompanied by: Self / Same As Patient Allergies carrot Allergy (Unknown, Verified 04/17/25 08:05) Unknown Medication List - Last Reconciled 04/17/25 by Vivi Slater MD betamethasone dipropionate 0.05% 1 appl topical BID 2 weeks cetirizine 10 mg PO DAILY PRN clotrimazole-betamethasone 1-0.05 % 1 appl topical BID 7 days ergocalciferol (vitamin D2) 1,250 mcg PO QWEEK fluticasone propionate 50 mcg/actuation 2 sprays intranasal DAILY PRN ibuprofen 800 mg PO Q8H PRN labetalol 300 mg PO BID levonorgestrel (Mirena) intrauterine loratadine 10 mg PO DAILY losartan-hydrochlorothiazide 100-25 mg 1 tab PO DAILY miconazole nitrate 2% (Monistat 7) 1 appful vaginal BEDTIME 7 days omeprazole 20 mg PO DAILY oxycodone 5 mg PO Q6H PRN polyvinyl alcohol 1.4% 1 drp ophthalmic (eye) HPI Comments Details: 29-year-old female here today for initial evaluation of left adrenal gland nodule. MR abdomen 01/22/2025: I reviewed the images myself which Showed left adrenal gland 2.1 X1.5 X1.5 cm cyst. Right adrenal gland unremarkable. Symptoms: -Pt denies any weight gain, lost 20 lbs since Jun 2024, more activity , avoiding fatty foods -denies hirsutism,severe acne ,headaches , , -denies any hx of proximal muscle weakness, easy bruisability ,no abdominal striae,no headache,diaphoresis -History of hypertension On losartan/hydrochlorothiazide 100-25 daily, labetalol 300 mg twice daily? -Denies history of glucose intolerance,no abdominal pain ,skin infection or hyperpigmentation. -no recent vertebra or fragility fracture, -No truncal obesity,facial plethora or recent mood change. No hx of depression. - no episodic palpitaions, pallor, abdominal pain, diaphoresis . (2 months ago one episode of sharp stabbing pain that was sudden, self resolved, isolated episode) Physical exam General: sitting comfortably in no acute distress HEENT: normocephalic/atraumatic, Neck: supple, symmetrical, no thyromegaly , no dorsocervical or supraclavicular fat pads Cardiac: normal heart sounds Pulm: normal breath sounds B/L, no added breath sounds Abd: not distended, no tenderness Extremities: no edema, no signs of myxedema ? Laboratory Tests 01/23/25 11:26 Potassium 4.0 Creatinine 0.78 Estimated GFR > 60 TSH 2.73 EXAMINATION: MR ABDOMEN WITHOUT THEN WITH IV CONTRAST 01/19/25 HISTORY: pancreatic cystic lesion incidentally found on pelvic MRI, please evaluate COMPARISON: Correlation is made with an MRI of the pelvis dated 01/01/2025. TECHNIQUE: Axial in and out of phase T1-weighted gradient echo, axial diffusion weighted, and axial and coronal HASTE T2 with fat saturation images were obtained through the abdomen. Subsequently, fat suppressed axial and coronal T1-weighted images were obtained after the intravenous administration of 8.5 mL Gadavist. FINDINGS: Liver: There is no loss of signal intensity in the liver on opposed phase imaging to suggest steatosis. There is no enhancing liver mass. The hepatic and portal veins are patent. There is no intra- or extrahepatic biliary dilatation. Gallbladder: The gallbladder is markedly distended and demonstrates numerous intraluminal calculi. The bile within the gallbladder is T1 hyperintense and T2 hypointense consistent with proteinaceous or hemorrhagic content. There are multiple calculi in the gallbladder neck the largest of which measures 2.1 cm in size. There is resultant mass effect and narrowing of the common bile duct. No pericholecystic inflammatory changes are identified. Spleen: The spleen is unremarkable. Pancreas: The pancreas is unremarkable. The pancreatic duct is normal in caliber. Adrenals: The right adrenal gland is unremarkable. There is a 2.1 x 1.5 x 1.5 cm cyst associated with the left adrenal gland. There is no associated enhancement. Kidneys: The right kidney is unremarkable. There is a 9 mm cyst in the interpolar region of the left kidney. There is no hydronephrosis. Lymph nodes: There is no retroperitoneal lymphadenopathy in the upper abdomen. Fluid: There is no ascites in the upper abdomen. Visualized bowel: There is wall thickening of the hepatic flexure of the colon with inflammatory stranding of the surrounding fat. Visualized bones: The visualized bones demonstrate normal marrow signal intensity. MR/MR abdomen wo/w con IMPRESSION: 1. The previously seen 2.1 x 1.5 x 1.5 cm cyst in the left upper quadrant is associated with the left adrenal gland, and likely represents a post traumatic or post infectious cyst. 2. Markedly distended gallbladder with cholelithiasis. There are multiple calculi in the gallbladder neck causing mass effect and narrowing of the common bile duct. 3. Wall thickening of the hepatic flexure of the colon with surrounding inflammatory changes. Findings may represent colitis or a mass. Further evaluation with colonoscopy is recommended if this has not recently been performed. Electronically signed by: Rickie Friedman MD 01/22/2025 08:05 AM EDT [facility] Medical History (Updated 04/17/25 @ 08:40 by Vivi Slater MD) Adrenal nodule Fibroid Ovarian cyst IUD (intrauterine device) in place HTN (hypertension) Surgical History Hx laparoscopic cholecystectomy (04/05/25) H/O wrist surgery Family History Mother HTN (hypertension) Social History Household Members: Spouse and Children Housing: House Alcohol intake: never Comment: counts correct Patient Tobacco Use Status: Never used Tobacco Current occupational status: unemployed Sexual orientation: Straight/Heterosexual Gender identity: Female Physical Exam Vital Signs: Last Vital Signs Pulse 71 04/17/25 08:01 BP 110/70 04/17/25 08:01 Pulse Ox 98 04/17/25 08:01 Oxygen Delivery Method Room Air 04/17/25 08:01 BMI result Body Mass Index 32.8 Assessment & Plan Assessment & Plan (1) Adrenal nodule: Code(s): E27.9 - Disorder of adrenal gland, unspecified Category: Medical Plan: 49-year-old female coming in today for initial evaluation of left adrenal gland nodule. MR abdomen 01/22/2025: I reviewed the images myself which Showed left adrenal gland 2.1 X1.5 X1.5 cm cyst. Right adrenal gland unremarkable. Our first concern is to be sure that this is not an adrenal cortical carcinoma. ?Fortunately adrenal cortical carcinomas are exceedingly rare. ?However they do carry with them a very poor prognosis.?Given his clinical history with no deterioration in overall health; I have low suspicion for adrenocortical carcinoma to start with. ?Our next step will be to repeat the imaging of his adrenal gland with?adrenal washout protocol to comment on Hounsfield units and washout. ?? Another concern of adrenal masses is that they might be metastatic disease from another primary malignancy. ?This seems unlikely in her case case. ??A renal cancer which can metastasize to the adrenal glands probably would have been identified on his initial imaging study. ?Usually metastatic disease to the adrenal glands goes to both adrenal glands. ?Finally there is no evidence of breast cancer which?may?metastasize to the adrenal glands?as well. ? Most adrenal masses are noncancerous or benign adrenal adenomas. ?However they can occasionally be functional and the hormones that are produced can cause clinical problems.??She has not been screened for any hormonal excess; although low clinical suspicion for pheochromocytoma; given the adrenal adenoma in question is greater than 1 cm and we currently do not have Hounsfield units reading on it; I will err on the side of caution and screen with plasma free metanephrines with his blood work today. ? She does have hypertension but no history of hypokalemia however at this time, we will check aldosterone and plasma renin activity testing. ? We will check a 1 mg overnight dexamethasone suppression test which she will prescribed .?However he has no clinical features of Wilburton syndrome. No skin thinning, no facial plethora, no abdominal striae, has been losing weight with lifestyle modification, no history of diabetes, does have history of hypertension that is well-controlled, no fragility fracture. ? The greatest likelihood is that this will be a nonfunctional benign adrenal adenoma that does not need to be removed. ?However we want to be careful that we have excluded all the other possibilities?first. Plan: -ordered CT adrenal gland -ordered baseline ACTH, cortisol, DHEA-S, plasma metanephrine and normetanephrine levels, aldosterone, renin, BMP -ordered dexamethasone suppression test -follow up in 8 weeks to discuss results Plan I spent 45 minutes in reviewing the record, seeing the patient and documenting in the medical record. Orders: Orders CT adrenal wo/w IV con Today E27.9 - Disorder of adrenal gland, unspecified Renin 04/18/25 E27.9 - Disorder of adrenal gland, unspecified Aldosterone 04/18/25 E27.9 - Disorder of adrenal gland, unspecified Basic Metabolic Panel 04/18/25 E27.9 - Disorder of adrenal gland, unspecified Metanephrines, Plasma 04/18/25 E27.9 - Disorder of adrenal gland, unspecified Adrenocorticotropic Hormone 04/18/25 E27.9 - Disorder of adrenal gland, unspecified Cortisol Random 04/18/25 E27.9 - Disorder of adrenal gland, unspecified DHEA Sulfate 04/18/25 E27.9 - Disorder of adrenal gland, unspecified Cortisol Random 04/23/25 E27.9 - Disorder of adrenal gland, unspecified Adrenocorticotropic Hormone 04/23/25 E27.9 - Disorder of adrenal gland, unspecified Dexamethasone 04/23/25 E27.9 - Disorder of adrenal gland, unspecified Medications: New dexamethasone Take 1 tablet at 11 pm at night and go for blood work at 8 AM next morning 1 mg PO ONCE 1 tab 0RF Patient Instructions: Do Ct scan , someone will call you to schedule this Do a first set of blood work at 8 AM this week Then next week do dexamethasone suppression test Dexamethasone suppression test instructions I would like you to do a dexamethasone suppression test to rule out Cushings syndrome. You will take a 1 mg pill of dexamethasone at 11 PM and then have a blood draw for cortisol at 8AM the next morning. It is important to make sure you take the dexamethasone at 11 PM and have the blood test as close to 8AM as possible. Realice adalberto tomograf?a computarizada; alguien le llamar? para programarla. Realice shah primer an?lisis de sarah a las 8:00 a. m. esta semana. Luego, la pr?xima semana, h?gase adalberto prueba de supresi?n con dexametasona. Instrucciones para la prueba de supresi?n con dexametasona Me gustar?a que le hicieran adalberto prueba de supresi?n con dexametasona para descartar el s?ndrome de Osiel. Juanito? adalberto pastilla de 1 mg de dexametasona a las 11:00 p. m. y se le realizar? adalberto extracci?n de sarah para medir el cortisol a las 8:00 a. m. de la ma?mey siguiente. Es importante asegurarse de juanito la dexametasona a las 11:00 p. m. y realizarse el an?lisis de sarah lo m?s cerca posible de las 8:00 a. m. Coding Level of Care Code New Pt Level 4 (13828) Diagnoses Adrenal nodule E27.9 Time Spent (min) 45
[2025-04-17 08:01] VITALS: BP 110/70; PULSE 71; O2SAT 98; BMI 32.8
== END 2025-04-17 08:53 | disposition home or self-care (01) ==
LOC: HO.ENCR 07:58
PROVIDERS: PCP Internal Medicine; Visit Provider Student in an Organized Health Care Education/Training Program
DX: E27.9 Disorder of adrenal gland, unspecified (principal)
CPT/HCPCS: 99204

== ENCOUNTER → 2025-04-17 07:58 | Outpatient (BNVA) | payer OTHER, SELFPAY | PROVIDERS: PCP Internal Medicine; Visit Provider Student in an Organized Health Care Education/Training Program | DX: E27.9 Disorder of adrenal gland, unspecified (principal) | CPT/HCPCS: 99202 ==

== ENCOUNTER 2025-04-18 07:56 | Outpatient (REF) | payer OTHER, SELFPAY ==
--- OUTSIDE RECORDS SUMMARY | 2025-04-18 08:01 | XMS_ITS | Encounter Summary ---
Author Organization [employer] Address [address] [place] [address] Care Team Providers Care Breaker Engineer Name Role Phone Alejanrda Morris MD Primary Care Provider + Jovan Porter PharmD Unavailable [phone] Rhona Saldivar DDS Unavailable + [phone] Reason for Visit * Reason Comments Med Refill Encounter Details Date Type Department Care Team (Late st Contact Info) Description 06/07/2023 Refill [facility] MEDICINE [address], [place] [phone] Alejandra Morris MD [address] [place], [place] [phone] Slow transit constipation Social History Tobacco Use [...] Care Team (Late st Contact Info) Description 06/12/2025 11:45 AM EST Office Visit [facility] MEDICINE [address] [place] [phone] Alejandra Morris MD [address] [place] [phone] 06/14/2025 1:00 PM EST Office Visit [facility] ADULT DENTAL [address] [place] [phone] Angie Young documented as of this encounter [...] documented as of this encounter Care Teams Breaker Engineer Relationship Specialty Start Date End Date Alejandra Morris MD [address] [place] [phone] PCP - General Family Medicine 12/17/17 Jovan Porter, MichelleD [address] [place] [phone] Pharmacist Internal Medicine 05/24/23 Rhona Saldivar DDS [address] [place] [phone] Dental Brinell Tester 07/03/24 documented as of this encounter
--- OUTSIDE RECORDS SUMMARY | 2025-04-18 08:02 | XMS_ITS | Encounter Summary ---
Author Organization [employer] [facility] Address [address] [place] [address] 7[address] [place] [address] Care Team Providers Care Training Instructor Name Role Phone Alejandra Morris MD Primary Care Provider + Jovan Porter PharmD Unavailable [phone] Rhona Saldivar DDS Unavailable [phone] Encounter Details Date Type Department Care Team (Latest Contact Info) Description 12/16/2018 Abstract [facility] CONVERSIONS Dental, Provider, DDS Social History [...] Description 06/12/2025 11:45 AM EST Office Visit [facility] MEDICINE [address] [place] [address] Alejandra Morris MD [address] [place], [place] [phone] 06/14/2025 1:00 PM EST Office Visit [facility] ADULT DENTAL [address] [place] [address] Angie Young documented as of this encounter Visit Diagnoses Not on filedocumented in this encounter Care Teams Training Instructor Relationship Specialty Start Date End Date Alejandra Morris MD [address] [place] [phone] PCP - General Family Medicine 12/17/17 Jovan Porter, Joaquín [address] [place] [phone] Pharmacist Internal Medicine 05/24/23 Rhona Saldivar DDS [address] [place] [phone] Dental Upper Leather Sorter 07/03/24 documented as of this encounter
--- OUTSIDE RECORDS SUMMARY | 2025-04-18 08:02 | XMS_ITS | Clinical Summary ---
Author Organization [employer] Address [address] [facility] [address] [place] [address] Care Team Providers Care Optical Fabricator Name Role Phone Alejandra Morris MD Primary Care Provider + Jovan Porter PharmD Unavailable [phone] Rhona Saldivar DDS Unavailable [phone] Allergies Active Allergy Reactions Criticality Noted Date Comments Flavoring Agent (Non-Screening) 07/02 Cat Dander Unknown 04/30/2020 Daucus Carota Unknown 04/30/2020 Dog Epithelium (Canis Lupus Familiaris) Unknown 04/30/2020 Medications Levonorgestrel (Mirena, 52 MG,) 20 MCG/DAY intrauterine device 1 Units by Intrauterine route continuously. Active cyclobenzaprine (Flexeril) 10 MG tabletIndicatio ns:Spasm of thoracic back muscle Take 1 tablet (10 mg) by mouth at bedtime. 30 tablet 024 Active omeprazole (PriLOSEC) [address] capsule TAKE 1 CAPSULE BY MOUTH DAILY 30-60 MINUTES BEFORE A MEAL 90 capsule 3 024 Active Ketotifen Fumarate 0.035 % solution Administer 1 drop into affected eye(s) 2 times daily. 10 mL 1 025 Active losartan-hydroC HLOROthiazide (Hyzaar) 100-25 MG tabletIndicatio ns:Primary hypertension Take 1 tablet by mouth Once per day. 90 tablet 3 025 Active fluticasone (Flonase) 50 MCG/ACT nasal spray Administer 1 spray into each nostril Once per day. 16 g 2 025 Active cetirizine (ZyrTEC) 10 MG tablet TAKE 1 TABLET BY MOUTH EVERY DAY NEEDED FOR ALLERGIES 90 tablet 1 025 Active labetalol (Normodyne) 100 MG tabletIndicatio ns:Primary hypertension Take 2 tablets (200 mg) by mouth 2 times daily. 180 tablet 3 Active hydroCHLOROthia zide 12.5 MG tablet Take 1 tablet (12.5 mg) by mouth Once per day. 30 tablet 11 025 2025 Active labetalol (Normodyne) 100 MG tabletIndicatio ns:Primary hypertension Take 2 tablets (200 mg) by mouth 2 times daily. 180 tablet 3 025 2024 Discontinued(R eorder (will not trigger notification to Pharmacy)) labetalol (Normodyne) 300 MG tabletIndicatio ns:Primary hypertension Take 1 tablet (300 mg) by mouth 2 times daily. 180 tablet 3 025 2024 Discontinued(S lino effects) Active Problems Problem Noted Date Diagnosed Date Calculus of gallbladder and bile duct without cholecystitis or obstruction 02/08/2025 Assessment & Plan (02/08/2025 3:22 PM EDT): Patient is mildly symptomatic, advised to cut down on fatty foods Refer to general surgery for cholecystectomy evaluation Advised to go to ED if she develops severe abdominal pain, nausea, vomiting, fever or icterus Adrenal nodule 02/08/2025 Assessment & Plan (02/08/2025 3:19 PM EDT): Its a 2 cm cystic lesion, given hx HTN, I will refer to endocrinology to recommend fu and ro pheochromocytoma Pancreatic cyst 01/03/2025 Assessment & Plan (02/08/2025 3:23 PM EDT): Not seen on MRI, it was probably a shadow from a GB stone No need for additional follow-up Benign paroxysmal positional vertigo due to bilateral [...] Assessment & Plan (07/12/2023 10:24 AM EST): Tax Specialist regarding to apply heat to affected area Tax Specialist regarding stretch exercises Take Tylenol BID x1 week Tax Specialist regarding attending walk-in acupuncture Reconsult PRN and [...] BP prn dizziness CT scan brain on 2017 was neg Dysuria 03/11/2023 Assessment & Plan [...] 04/20/2018 Primary hypertension 06/10/2015 Assessment & Plan (02/08/2025 3:09 PM EDT): Today, patient is out of losartan for over 6 months. Patient is asymptomatic, I sent refill for losartan/HCTZ which she will restart today and she will continue labetalol twice daily, she will follow-up BP with RN in 3 to 4 weeks Continue with a low sodium diet and regular exercise as tolerated. For BP < or = to 139/89 (or 129/79 for diabetic patients) continue current medication regimen and follow up with PCP in 1-2m. For BP > or = to 140/90 (or 130/80 for diabetic patients) increase Labetalol to 300 mg twice a day okay Follow up with the Nurse for a second blood pressure check in 2-4 weeks if BP 140-150/90+ (or 130-150/80+ for diabetic patients). Refer to CDTM for BP >150/90+. If second Nurse visit is needed: For BP < or = to 139/89 (or 129/79 for diabetic patients) continue current medication regimen and follow up with the PCP in 1-2m. For BP > or = to 140/90 (or 130/80 for diabetic patients) Start amlodipine 5 mg/d and Follow up with the PCP in 2mo. Assessment & Plan (11/21/2024 7:26 PM EDT): [...] activity. Check home BP BIW and prn CP/SHOEMAKER/MANIRQUEZ Non smoking patient. Order BMP, due for [...] with me in 1 month refer to [facility] clinic, order labs Assessment & [...] Encounters Date Type Department Care Team Description 04/09/2025 Telephone [facility] MED[facility] [address] [facility] [place] [address] Halley Farmer RN Blood Pressure Medication 04/05/2025 Orders Only GENERIC EXTERNAL DATA DEPARTMENT Provider, Generic External Data 03/19/2025 2:30 PM EDT Clinical Support [facility] MEDICINE [address] [place] [address] Halley Farmer RN Hypertension, unspecified type; Primary hypertension 03/19/2025 Travel 03/13/2025 9:15 AM EDT Office Visit [facility] ADULT DENTAL [address] [place] [place] [address] Onesimo Saldivarmia, DDS 02/26/2025 9:30 AM EDT Clinical Support [facility] MED[facility] [address] [place] [place] [address] Allison Alva, RN Primary hypertension 02/26/2025 Refill [facility] [address] [place] [address] Allison Alva, CELIA Primary hypertension 02/26/2025 Travel 02/13/2025 Refill [facility] [address] [place] [address] Alejandra Morris MD 02/08/2025 12:15 PM EDT Office Visit [facility] [address] [facility] [place] [address] Alejandra Morris MD Calculus of gallbladder and bile duct without cholecystitis or obstruction (Primary Dx); Primary hypertension; Adrenal nodule (CMS/HCC); Pancreatic cyst; Encounter for screening colonoscopy 02/08/2025 Travel 02/07/2025 Telephone [facility] MED[facility]INE [address] [place] [address] Alejandra Morris MD Chart prep 01/17/2025 3:00 PM EDT Office Visit [facility] ADULT DENTAL [address] [place] [address] Rhona Saldivar DDS from Last 3 Months Immunizations Immunization Administration Dates Next Due Hep B, adult [...] Date Recorded Patient Health Questionnaire-9 Score 0 02/08/2025 Patient Health Questionnaire-9 Score 0 02/08/2025 Last PHQ-9: Questionnaire Data Not on file 0 02/08/2025 Housing Stability Answer Date Recorded What is your housing situation today? I have nilsa jj 11/10/[address] you li [...] Date Recorded Patient Health Questionnaire-2 Score 0 02/08/2025 Internet Access Answer Date Recorded Internet Access [...] Sign Reading Time Taken Comments Blood Pressure 142/86 03/19/2025 2:45 PM EDT Pulse 75 03/19/2025 2:45 PM EDT Temperature 37 C (98.6 F) 02/08/2025 12:23 PM EDT Respiratory Rate 18 03/19/2025 2:45 PM EDT Oxygen Saturation 96% 03/19/2025 2:45 PM EDT Inhaled Oxygen Concentration - - Weight 79.4 kg (175 lb 2 oz) 02/08/2025 12:23 PM EDT Height 154.9 cm (5' 1 ) 02/08/2025 12:23 PM EDT Body Mass Index 33.09 02/08/2025 12:23 PM EDT Plan of Treatment Upcoming Encounters Date Type Department Care Team (Late st Contact Info) Description 06/12/2025 11:45 AM EST Office Visit [facility] MEDICINE [address] [place] [address] Alejandra Morris MD [address] [place] [address] 06/14/2025 1:00 PM EST Office Visit [facility] ADULT DENTAL [address] [place] [address] Angie Young Health Maintenance Due Date Last Done Comments CT Colonography 1975 Colonoscopy 1975 Colorectal Cancer Screening 1975 FIT DNA/Cologuard 1975 FIT 1975 FOBT 1975 Sigmoidoscopy 1975 Family Planning (PISQ) 1992 Pap Smear 1998 Dental Prophylaxis 01/22/2024 07/22/2023, 08/28/2022 Dental Oral Exam 02/22/2024 08/23/2023 COVID-19 Vaccine ( season) 2025 08/17/2021, 12/25/2020, 11/27/2020 Influenza Vaccine (#1) 2025 , 04/12/2023, 06/10/2021, Additional history exists Cervical Cancer Screening 07/04/2025 HPV/Cotest 07/04/2025 07/04/2020, 04/14/2016 SDOH Screening 11/21/2025 11/21/2024 Mammogram 11/27/2025 11/27/2024, 0409/2023, 07/13/2022, Additional history exists Alcohol/Substance Use Screening 02/08/2026 02/08/2025 Depression Screening 02/08/2026 02/08/2025, 02/09/20 25 Disability Screening 02/08/2026 02/08/2025 Tobacco Screening 03/13/2026 03/13/2025 Dental X-Ray: Bitewings 03/14/2026 03/13/20, 06/27/2024, 04/21/2024, Additional history exists Dental X-Ray: Full Mouth 07/23/2026 07/22/2023, 11/30 Zoster Vaccines (1 of 2) 2027 Lipid Panel 01/23/2030 01/23/2025, 08/2 08/2022, 08/31/2022, Additional history exists DTaP/Tdap/Td Vaccines (3 - Td or Tdap) 05/24/2033 05/24/2023, 02/10/2011, 07/02/2005 RSV Patients and Patients Aged 60 years or older (1 - 1-dose 75+ series) 2052 Hepatitis B Vaccines Completed 06/04/2016, 01/17/2016, 11/11/2015 HIV Screening Completed 11/20/2022 Hepatitis C Screening Completed 11/20/2022 HIB Vaccines Aged Out No longer eligi [...] Years) and At-Risk Patients (6 to 49) Years Aged Out No longer eligible based on [...] 025 2:45 PM EDT) No Jovan Porter, Joaquín Procedures Procedure Name Priority Date/Time Associated Diagnosis Comments GROSS AND MICROSCOPIC LEVEL 3 Routine 04/05/2025 12:18 PM EDT HCG, QL, URINE Routine 04/05/2025 9:35 AM EDT DENTURE ADJUSTMENT Routine 03/13/2025 9: 15 AM EDT INTRAORAL - PERIAPICAL FIRST RADIOGRAPHIC IMAGE Routine 03/13/2025 9:15 AM EDT BITEWING - SINGLE RADIOGRAPHIC IMAGE Routine 03/13/2025 9:15 AM EDT CBC WITH AUTO DIFFERENTIAL Routine 01/23/2025 11:26 AM EDT Benign paroxysmal positional vertigo due to bilateral vestibular disorder TSH W/REFLEX TO FT4 Routine 01/23/2025 1 1:26 AM EDT Benign paroxysmal positional vertigo due to bilateral vestibular disorder VITAMIN D,25-OH,TOTAL,IA Routine 01/23/2025 11:26 AM EDT Benign paroxysmal positional vertigo due to bilateral vestibular disorder Spasm of thoracic back muscle LIPID PANEL WITH REFLEX TO DIRECT LDL Routine 01/23/2025 11:26 AM EDT Primary hypertension BASIC METABOLIC PANEL Routine 01/23/2025 11:26 AM EDT Primary hypertension MR ABDOMEN W AND WO CONTRAST Routine 01/19/2025 2:57 PM EDT Pancreatic cyst CASE PRESENTATION, DETAILED AND EXTENSIVE TREATMENT PLANNING Routine 01/17/2025 3:00 PM EDT REPAIR RESIN PARTIAL DENTURE BASE, MAX Routine 01/17/2025 3:00 PM EDT BI MAMMOGRAM SCREENING TOMOSYNTHESIS BILATERAL Routine 11/27/2024 8:15 AM EDT PERIODIC ORAL EVALUATION - ESTABLISHED PATIENT Routine 08/23/2023 10:30 AM EST PROPHYLAXIS - ADULT Routine 07/22/2023 9 :00 AM EST INTRAORAL - COMPLETE SERIES OF RADIOGRAPHIC IMAGES Routine 07/22/2023 9:00 AM EST HEPATITIS C ANTIBODY Routine 11/20/2022 9:35 AM EDT HIV ANTIBODY/ANTIGEN ([place] DPH) Routine 11/20/2022 9:35 AM EDT ZZZ HISTORICAL HPV E6/E7 RFLX CARLEY 16 18/45 Routine 07/04/2020 10:04 AM EST from Last 3 Months or Most Recently Relevant to Health Maintenance Results * Gross and Microscopic Level 3 (04/05/2025 12:18 PM EDT) 04/05/2025 12:1 8 PM EDT 04/05/2025 1:14 PM EDT [facility] - 04/06/2025 1:18 PM EDT ----- ------- Name: Kristie Lane Age/Sex: 49/F : 1975 [facility]#: [id number] Unit#: [id number] Attend Dr: Salbador Barriga MD Re04/05/25 Status: [facility] Location: [facility] Disch: ----- ------- SPEC : [id number] RECD: 04/05/25-1314 STATUS: JONAH BAPTISTE NUM: [id number] LISA: 04/05/25-[address] [facility] [address]: Salbador Barriga MD ENTERED: 04/05/25-1324 SP TYPE: Surgical OTHR DR: Alejandra Morris MD ORDERED: Gross Micro L3 Diagnosis Gallbladder, cholecystectomy: -Chronic cholecystitis with predominantly denuded and attenuated mucosa, and dense hyalinized fibrosis. -Cholelithiasis. Clinical History Cholecystitis Microscopic Description Microscopic sections reviewed. Material Received Gallbladder Gross Description Received in formalin labeled gallbladder is an intact, smooth and shaggy allred-pink and pink-purple gallbladder measuring 15.0 x 6.0 x 4.5 cm, resected in continuity with 0.6 cm of clipped yet patent cystic duct. Upon opening the gallbladder contains copious black bile and multiple multifaceted, hard, yet, friable green-black choleliths ranging from 0.4-2.0 cm in greatest dimension, one of which is lodged within the neck of the gallbladder immediately proximal to the margin of resection of the cystic duct. The mucosa is finely reticulated, focally congested, allred and allred-pink. The wall measures 0.1 cm in thickness. Development Geologist sections are submitted in a cassette labeled A1 to include the margin of resection of the duct. CEDS IHC S/NG Disclaimer NOTE: Unless otherwise stated, all tissue is formalin-fixed and paraffin-embedded. Some or all of the immunohistochemical tests reported herein may have been developed and their performance characteristics determined by [facility]. They have not been cleared or approved by the U.S. Food and Drug Administration (FDA). However, the FDA has determined that such clearance or approval is not necessary. This laboratory is certified under the Clinical Laboratory Improvement Amendments of 1988 (CLIA) as qualified to perform high complexity clinical laboratory testing. CONTINUED ON NEXT PAGE ----- ------- Name: Kristie Lane Age/Sex: 49/F : 1975 Unit#: [id number] Attend Dr: Salbador Barriga MD Re04/05/25 Status: [facility] Location: [facility] Disch: ----- ------- SPEC : [id number] RECD: 04/05/25 STATUS: JONAH BAPTISTE NUM: [id number] LISA: 04/05/25-[address] [facility] [address]: Salbador Barriga MD ENTERED: 04/05/25 SP TYPE: Surgical OTHR DR: Alejandra Morris MD ORDERED: Gross Micro L3 Copies To: Alejandra Morris MD [address] [address] Salbador Barriga MD [facility] [address] [place] [id number] ----- ------- Signed (signature on file) Lin Normangee 04/06/25 1318 ----- ------- END OF REPORT Generic External Data Provider LAB CYTOLOGY ORDE RABLES Final Result Performing Organization Address [facility] de Phone Number [facility] [address] [place], [place] [phone] * HCG, Qualitative, Urine (04/05/2025 9:35 AM EDT) Urine NEGATIVE NEGATIVE [facility] Comment:This test was develo ped to detect early . Falsenegative results may occur after the 5th - 7th week ofpregnancy when using this test method. If clinicallyindicated, consider a serum hCG. 04/05/2025 9:35 AM EDT 04/05/2025 9:58 AM EDT Generic External Data Provider LAB URINE ORDERAB LES Final Result Performing Organization Address [facility]/ZIP Co de Phone Number [facility] [address] [place] [address] [phone] * Vitamin D, 25-Hydroxy, Total, Immunoassay (01/23/2025 11:26 AM EDT) Vitamin D 25-OH Total 30.4 >30 ng/mL [facility] Comment: Health Based Reference Values*< 20 ng/mL Oxjxwafuv33-46 ng/mL Insufficient> 30 ng/mL Sufficient*Michael PETE. N Engl J Med. 2007;357:266-280There is no well-established upper level of normal vitamin Dlevels. Some laboratories use 50 ng/mL as an upper limit ofnormal. However, toxicity is patient-dependent and may occurat any level. Careful correlation with the patient'spresentation is necessary and, if there is concern forvitamin D toxicity, treatment should be consideredirrespective of the serum level.Care must be taken in interpreting Vitamin D results fromdifferent laboratories and methodologies. Published datademonstrated that results from patients undergoinghemodialysis may show a negative bias when tested withvarious automated 25-OH vitamin D assays when compared toLC-MS/MS.When testing samples from patients whose predominant form ofVitamin D is Vitamin D2, such as patients receiving VitaminD2 supplementation, results that are subtherapeutic shouldbe confirmed with another method such as LC-MS/MS. Blood 01/23/2025 11:2 6 AM EDT 01/23/2025 12:56 PM EDT us Alejandra Morris MD LAB BLOOD ORDERABLES Fin al Result Performing Organization Address City/[facility]/ZIP Co de Phone Number [facility] [address] [place] [phone] * TSH with Reflex to Free T4 (01/23/2025 11:26 AM EDT) TSH reflex Free T4 2.73 0.32 - 4.0 uIU/mL [facility] Blood 01/23/2025 11:2 6 AM EDT 01/23/2025 12:56 PM EDT Alejandra Morris MD LAB BLOOD ORDERABLES Fin al Result [facility] [address] [place] [address] [phone] * (ABNORMAL) Lipid Panel with Reflex to Direct LDL (01/23/2025 11:26 AM EDT) Triglycerides 73 <150 mg/dL [facility] Comment:Desirable Triglyceri de: less than 150 mg/dLBorderline High Triglyceride 150-199 mg/dLHigh Triglyceride: 200-499 mg/dLVery High Triglyceride: greater than or equal to 5OO mg/dL Cholesterol 142 <200 mg/dL [facility] Comment:Desirable Cholestero l: less than 200 mg/dLBorderline High Cholesterol: 200-239 mg/dLHigh Cholesterol: greater than 239 mg/dL LDL Cholesterol Calculated 89 <100 mg/dL [facility] Comment:Desirable LDL: less than 100 mg/dLNear Optimal/Above Optimal LDL: 110- 129 mg/dLBorderline High LDL: 130-159 mg/dLHigh LDL: 160-189 mg/dLVery High LDL: greater than or equal to 190 mg/dL HDL Cholesterol 39(L) >40 mg/dL [facility] Comment:Desirable HDL: great er than 40 mg/dL Note: This HDL assay may give artificially low results in patients with liver disease. Blood 01/23/2025 11:2 6 AM EDT 01/23/2025 12:56 PM EDT Alejandra Morris MD LAB BLOOD ORDERABLES Fin al Result Performing Organization Address [facility] Co de Phone Number [facility] [address] [place] [address] [phone] * (ABNORMAL) CBC auto differential (01/23/2025 11:26 AM EDT) White Blood Count 6.1 4.8 - 10.8 X10*3/uL [facility] Red Blood Count 4.28 4.20 - 5.50 X10*6/uL [facility] Hemoglobin 12.7 12.0 - 16.0 g/dl [facility] Hematocrit 38.1 37.0 - 47.0 % [facility] Mean Corpuscular Volume 89.0 80.0 - 98.0 fL [facility] Mean Corpuscular Hemoglobin 29.7 27.0 - 33.0 pg [facility] Mean Corpuscular HGB Conc 33.3 31.0 - 35.0 g/dl [facility] Red Cell Distribution Width 12.5 11.0 - 16.0 % [facility] Platelet Count 192 160 - 400 X10*3/uL [facility] Mean Platelet Volume 12.7(H) 9.4 - 12.3 fL [facility] Neutrophils Percent Auto 54.8 45 - 73 % [facility] Imm Gran Pct Auto 0.2 0.0 - 0.4 % [facility] Lymphocytes Percent Auto 35.2 20 - 40 % [facility] Monocytes Percent Auto 6.3 2 - 11 % [facility] Eosinophils Percent Auto 2.8 0 - 4 % [facility] Basophils Percent Auto 0.7 0 - 2 % [facility] NRBC Pct Auto 0.0 0.0 - 0.2 /100WBC [facility] Neutrophils Absolute Auto 3.3 2.0 - 8.3 x10*3/uL [facility] Imm Gran Abs Auto 0.01 0.00 - 0.03 X10*3/uL [facility] Lymphocytes Absolute Auto 2.1 1.2 - 4.9 X10*3/uL [facility] Monocytes Absolute Auto 0.4 0.1 - 1.2 X10*3/uL [facility] Eosinophils Absolute Auto 0.2 0.0 - 0.4 X10*3/uL [facility] Basophils Absolute Auto 0.0 0.0 - 0.2 X10*3/uL [facility] NRBC Abs Auto 0.000 0.0 - 0.012 X10*3/uL [facility] Blood Venous blood specimen / Unknown 01/23/2025 11:26 AM EDT 01/23/2025 12:56 PM EDT us Alejandra Morris MD LAB BLOOD ORDERABLES Fin al Result Performing Organization Address [facility] de Phone Number [facility] [address] [place] [phone] * (ABNORMAL) Basic Metabolic Panel (01/23/2025 11:26 AM EDT) Sodium 141 135 - 145 mmol/L [facility] Potassium 4.0 3.3 - 5.1 mmol/L [facility] Chloride 108 96 - 108 mmol/L [facility] Carbon Dioxide 25 22 - 29 mmol/L [facility] Anion Gap 12 12 - 20 [facility] Urea Nitrogen (BUN) 8(L) 9 - 16 mg/dL [facility] Creatinine, Serum 0.78 0.5 - 1.4 mg/dL [facility] Estimated Glomerular Filt Rate >60 [facility] Comment:Chronic Kidney Disea se: Estimated GFR < 60 mL/min/[id number] Kidney Disease: Estimated GFR < 15 mL/min/1.73m2 Glucose 90 60 - 115 mg/dL [facility] Calcium 9.1 8.4 - 10.2 mg/dL [facility] Blood Venous blood specimen / Unknown 01/23/2025 11:26 AM EDT 01/23/2025 12:56 PM EDT us Alejandra Morris MD LAB BLOOD ORDERABLES Fin al Result Performing Organization Address City/[facility] Co de Phone Number [facility] [address] [place] [phone] * MR Abdomen w/ and w/o Contrast (01/19/2025 2:57 PM EDT) Anatomical Region Laterality Modality Abdomen Magnetic Resonan ce 01/19/2025 2:57 PM EDT Narrative 01/22/2025 8:08 AM EDT [address] [address] Magnetic Resonance Report Signed Patient: Kristie Lane MR#: [id number] : 1975 Acct:[id number] Age/Sex: 49 / F ADM Date: 01/19/25 Loc: HO.MRI Attending Dr: Alejandra Morris MD Ordering Physician: Alejandra Morris MD Date of Service: 01/19/25 Procedure(s): MR abdomen wo/w con Accession Number(s): [id number] cc: Alejandra Morris MD EXAMINATION: MR ABDOMEN WITHOUT THEN WITH IV CONTRAST HISTORY: pancreatic cystic lesion incidentally found on pelvic MRI, please evaluate COMPARISON: Correlation is made with an MRI of the pelvis dated 01/01/2025. TECHNIQUE: Axial in and out of phase T1-weighted gradient echo, axial diffusion weighted, and axial and coronal HASTE T2 with fat saturation images were obtained through the abdomen. Subsequently, fat suppressed axial and coronal T1-weighted images were obtained after the intravenous administration of 8.5 mL Gadavist. FINDINGS: Liver: There is no loss of signal intensity in the liver on opposed phase imaging to suggest steatosis. There is no enhancing liver mass. The hepatic and portal veins are patent. There is no intra- or extrahepatic biliary dilatation. Gallbladder: The gallbladder is markedly distended and demonstrates numerous intraluminal calculi. The bile within the gallbladder is T1 hyperintense and T2 hypointense consistent with proteinaceous or hemorrhagic content. There are multiple calculi in the gallbladder neck the largest of which measures 2.1 cm in size. There is resultant mass effect and narrowing of the common bile duct. No pericholecystic inflammatory changes are identified. Spleen: The spleen is unremarkable. Pancreas: The pancreas is unremarkable. The pancreatic duct is normal in caliber. Adrenals: The right adrenal gland is unremarkable. There is a 2.1 x 1.5 x 1.5 cm cyst associated with the left adrenal gland. There is no associated enhancement. Kidneys: The right kidney is unremarkable. There is a 9 mm cyst in the interpolar region of the left kidney. There is no hydronephrosis. Lymph nodes: There is no retroperitoneal lymphadenopathy in the upper abdomen. Fluid: There is no ascites in the upper abdomen. Visualized bowel: There is wall thickening of the hepatic flexure of the colon with inflammatory stranding of the surrounding fat. Visualized bones: The visualized bones demonstrate normal marrow signal intensity. MR/MR abdomen wo/w con IMPRESSION: 1. The previously seen 2.1 x 1.5 x 1.5 cm cyst in the left upper quadrant is associated with the left adrenal gland, and likely represents a post traumatic or post infectious cyst. 2. Markedly distended gallbladder with cholelithiasis. There are multiple calculi in the gallbladder neck causing mass effect and narrowing of the common bile duct. 3. Wall thickening of the hepatic flexure of the colon with surrounding inflammatory changes. Findings may represent colitis or a mass. Further evaluation with colonoscopy is recommended if this has not recently been performed. Electronically signed by: Rickie Friedman MD 01/22/2025 08:05 AM EDT RP Dictated By: Rickie Friedman MD Signed By: <Electronically signed by Rickie Friedman MD in OV> 01/22/25 0805 DD/ 1457 TD/TT: 01/19/25 1621 Patrol Man: Procedure Note Donotuseinterpreter, Image - 01/22/2025 [place] [address] Magnetic Resonance Report Signed Patient: Javier Lane#: [id number] : 1975Acct:[id number] Age/Sex: 49 / FADM Date: 01/19/25 Loc: HO.MRI Attending Dr: Alejandra Morris MD Ordering Physician: Alejandra Morris MD Date of Service: 01/19/25 Procedure(s): MR abdomen wo/w con Accession Number(s): [id number] cc: Alejandra Morris MD EXAMINATION: MR ABDOMEN WITHOUT THEN WITH IV CONTRAST HISTORY: pancreatic cystic lesion incidentally found on pelvic MRI, please evaluate COMPARISON: Correlation is made with an MRI of the pelvis dated 01/01/2025. TECHNIQUE: Axial in and out of phase T1-weighted gradient echo, axial diffusion weighted, and axial and coronal HASTE T2 with fat saturation images were obtained through the abdomen. Subsequently, fat suppressed axial and coronal T1-weighted images were obtained after the intravenous administration of 8.5 mL Gadavist. FINDINGS: Liver: There is no loss of signal intensity in the liver on opposed phase imaging to suggest steatosis. There is no enhancing liver mass. The hepatic and portal veins are patent. There is no intra- or extrahepatic biliary dilatation. Gallbladder: The gallbladder is markedly distended and demonstrates numerous intraluminal calculi. The bile within the gallbladder is T1 hyperintense and T2 hypointense consistent with proteinaceous or hemorrhagic content. There are multiple calculi in the gallbladder neck the largest of which measures 2.1 cm in size. There is resultant mass effect and narrowing of the common bile duct. No pericholecystic inflammatory changes are identified. Spleen: The spleen is unremarkable. Pancreas: The pancreas is unremarkable. The pancreatic duct is normal in caliber. Adrenals: The right adrenal gland is unremarkable. There is a 2.1 x 1.5 x 1.5 cm cyst associated with the left adrenal gland. There is no associated enhancement. Kidneys: The right kidney is unremarkable. There is a 9 mm cyst in the interpolar region of the left kidney. There is no hydronephrosis. Lymph nodes: There is no retroperitoneal lymphadenopathy in the upper abdomen. Fluid: There is no ascites in the upper abdomen. Visualized bowel: There is wall thickening of the hepatic flexure of the colon with inflammatory stranding of the surrounding fat. Visualized bones: The visualized bones demonstrate normal marrow signal intensity. MR/MR abdomen wo/w con IMPRESSION: 1. The previously seen 2.1 x 1.5 x 1.5 cm cyst in the left upper quadrant is associated with the left adrenal gland, and likely represents a post traumatic or post infectious cyst. 2. Markedly distended gallbladder with cholelithiasis. There are multiple calculi in the gallbladder neck causing mass effect and narrowing of the common bile duct. 3. Wall thickening of the hepatic flexure of the colon with surrounding inflammatory changes. Findings may represent colitis or a mass. Further evaluation with colonoscopy is recommended if this has not recently been performed. Electronically signed by: Rickie Friedman MD 01/22/2025 08:05 AM EDT Dictated By: Rickie Friedman MD Signed By: <Electronically signed by Rickie Friedman MD in OV> 01/22/25 0805 DD/ 1457 TD/TT: 01/19/25 1621 Patrol Man: Alejandra Morris MD IMG MRI PROCEDURES Edite d Result - Final * BI Mammogram Screening Tomosynthesis Bilateral (11/27/2024 8:15 AM EDT) Anatomical Region Laterality Modality Breast Bilateral Mammography 11/27/2024 8:15 AM EDT Narrative 12/03/2024 11:39 AM EDT [facility] [place] [address] Mammography Report Signed Patient: Kristie Lane MR#: [id number] : 1975 Acct:[id number] Age/Sex: 49 / F ADM Date: 11/27/24 Loc: HO.MAMMO Attending Dr: Alejandra Morris MD Ordering Physician: Alejandra Morris MD Results: 1Ne gative Date of Service: 11/27/24 Follow Up: 1 Year From [facility] Mammogram Procedure(s): MM tomosynthesis screening BI Accession Number(s): [id number] cc: Alejandra Morris MD EXAMINATION: MM SCREENING [...] 12/03/24 1136 DD/ 0815 TD/TT: 11/27/24 0830 Patrol Man: Procedure Note Donotuseinterpreter, Image - [facility]03[facility] [address] [place] [address] Mammography Report Signed Patient: Javier Lane#: [id number] : 1975Acct:[id number] Age/Sex: 49 / FADM Date: 11/27/24 Loc: HO.MAMMO Attending Dr: Alejandra Morris MD Ordering Physician: Alejandra Morris MDResults: 1Ne gative Date of Service: 11/27/24Follow Up: 1 Year From Orig inal Mammogram Procedure(s): MM tomosynthesis screening BI Accession Number(s): [id number] cc: Alejandra Morris MD EXAMINATION: MM SCREENING [...] Kiersten Boyer DO 12/03/2024 11:36 AM EDT RP Dictated By: Kiersten Boyer DO Signed By: <Electronically signed by Kiersten Boyer DO in OV> 12/03/24 1136 DD/ 0815 TD/TT: 11/27/24 0830 Patrol Man: Alejandra Morris MD IMG BI PROCEDURES Edited Result - Final * Hepatitis C Ab (11/20/2022 9:35 AM EDT) Hepatitis C Antibody Nonreactive Nonreactive [facility] Comment:Antibodies to HCV no t detected; does not exclude early acuteHCV infection. 11/20/2022 9:35 AM EDT 11/20/2022 9:35 AM EDT [facility] External Provider LAB BLO OD ORDERABLES Final Result [facility] [address] [place] [address] [phone] * HIV Ab/Ag ([facility]) (11/20/2022 9:35 AM EDT) HIV AB/AG Nonreactive Nonreactive [facility] Comment:HIV-1 p24 Ag and/or HIV-1/HIV-2 Ab not detected.A test result that is nonreactive does not exclude thepossibility of exposure to or infection with HIV-1 and/orHIV-2. Nonreactive results in this assay for individualswith prior exposure to HIV-1 and/or HIV-2 may be due toantigen and antibody levels that are below the limit ofdetection of this assay.The Mandel Focus Puller HIV Ag/Ab Combo assay result andsupplemental assay results should be interpreted inconjunction with the patient's clinical presentation,history and other laboratory results. If the results areinconsistent with clinical evidence, additional testing issuggested to confirm the result. 11/20/2022 9:35 AM EDT 11/20/2022 9:35 AM EDT [facility] External Provider LAB BLO OD ORDERABLES Final Result [facility] [address] [place] [address] [phone] * HPV E6/E7 RFLX CARLEY 16 18/45 (07/04/2020 10:04 AM EST) HPV mRNA E6/E7 rflx Not Detected Not Detected [facility] Comment: This test was performed using the APTIMA HPV Assay ([employer] This assay detects E6/E7 viral messenger RNA (mRNA) from 14 high-risk HPV types (16,18,31,33,35,39,45,51,52,56,58,59,66,68). The analytical performance characteristics of this assay have been determined by [employer]. The modifications have not been cleared or approved by the FDA. This assay has been validated pursuant to the CLIA regulations and is used for clinical purposes. THIS TEST WAS PERFORMED AT: [facility] [address] [address] RIVKA DUPONT MD 07/04/2020 10:0 4 AM EST Omairagrady Diaz HISTORICAL/NON ORDERABLE LABS Fi nal Result Performing Organization Address City/[facility]/ZIP Co de Phone Number [facility] [address] from Last 3 Months or Most Recently Relevant to Health Maintenance Insurance [facility] HSN FULL (MEDICAID) Care Teams Optical Fabricator Relationship Specialty Start Date End Date Alejandra Morris MD [address] [place] [address] PCP - General Family Medicine 12/17/17 Jovan Porter, MichelleD [address] [place] [phone] Pharmacist Internal Medicine 05/24/23 Rhona Saldivar DDS [address] [place] [phone] Dental Yacht Captain 07/03/24
--- OUTSIDE RECORDS SUMMARY | 2025-04-18 08:02 | XMS_ITS | Encounter Summary ---
Author Organization [facility] Address [address] [place] [address] 7t [place] [address] Care Team Providers Care Medical Tech Name Role Phone Alejandra Morris MD Primary Care Provider + Jovan Porter PharmD Unavailable [phone] Rhona Saldivar DDS Unavailable Encounter Details Date Type Department Care Team ([facility] Contact Info) Description 10/02/2022 Abstract [facility] ADULT [facility] [address] [place] [address] Dharmesh Reyes DDS [address] [place] [address] Social History Tobacco Use Types Packs/Day Years [...] Upcoming Encounters Date Type Department Care Team ([facility] Contact Info) Description 06/12/2025 11:45 AM EST Office Visit [facility] [address] [place] [address] Alejandra Morris MD [address] [place], [place] [phone] 06/14/2025 1:00 PM EST Office Visit [facility] [address] [place], [place] [phone] Angie Young documented as of this encounter Visit Diagnoses Not on filedocumented in this encounter Care Teams Medical Tech Relationship Specialty Start Date End Date Alejandra Morris MD [address] [place] [address] [phone] PCP - General Family Medicine 12/17/17 Jovan Porter, Joaquín [address] [place] [address] [phone] Pharmacist Internal Medicine 05/24/23 Rhona Saldivar DDS [address] [place] [address] [phone] Dental Master Pilot 07/03/24 documented as of this encounter
--- OUTSIDE RECORDS SUMMARY | 2025-04-18 08:02 | XMS_ITS | Encounter Summary ---
Author Organization [facility] Address [address] [facility] 7t [place] [address] Care Team Providers Care Insurance Account Executive Name Role Phone Alejandra Morris MD Primary Care Provider + Jovan Porter PharmD Unavailable [phone] Rhona Saldivar DDS Unavailable [phone] Encounter Details Date Type Department Care Team (Late st Contact Info) Description 09/02/2022 Orders Only [facility] [address] [place] [address] Alejandra Morris MD [address] [place], [place] [phone] Vitamin D deficiency (Primary Dx) Social History [...] Description 06/12/2025 11:45 AM EST Office Visit [facility] [address] [place] [address] Alejandra Morris MD [address] [place] [address] 06/14/2025 1:00 PM EST Office Visit [facility] [address] [place] [address] Angie Young documented as of this encounter Visit Diagnoses Diagnosis Vitamin D deficiency- Primary documented in this encounter Care Teams Insurance Account Executive Relationship Specialty Start Date End Date Alejandra Morris MD [address] [place] [address] [phone] PCP - General Family Medicine 12/17/17 Jovan Porter PharmD [address] [place] [phone] Pharmacist Internal Medicine 05/24/23 Rhona Saldivar DDS [address] [place] [address] [phone] Dental Oracle Soa Architect 07/03/24 documented as of this encounter
--- OUTSIDE RECORDS SUMMARY | 2025-04-18 08:02 | XMS_ITS | Clinical Summary ---
Author Organization [facility] Address [address] [place] [address] Phone Care Team Providers Care Special Equipment Technician Name Role Phone Unavailable Primary Care Provider [...] Encounters Date Type Department Care Team Description 04/13/[address] [phone] Pat Dooley MA 02/15/2025 2:00 PM EDT Consult [address] [phone] Reymundo Rock MD Right ovarian [...] Care Team (Late st Contact Info) Description 04/26/2025 10:00 AM EDT Office Visit [facility] [place] [address] [place] [address] Reymundo Rock MD [address] [place] [address] Health Maintenance Due Date Last Done Comments Breast Cancer Screening 1975 Cervical Cancer Screening: Pap Smear 1998 Depression Screening 08/02/2024 Cholesterol Screening (Lipid Panel) 01/18/2025 Colorectal Cancer Screening: Colonoscopy 01/18/2025 HIV Screening 01/18/2025 Hepatitis C Screening 01/18/2025 Social Influencers of Health Screening 01/18/2025 COVID-19 Vaccine ( season) 2025 08/17/2021, 12/25/2020, [...] patient's age to complete this topic Insurance [facility]
--- OUTSIDE RECORDS SUMMARY | 2025-04-18 08:02 | XMS_ITS | Encounter Summary ---
Author Organization [facility] Address [address] [place] [address] Care Team Providers Care Hand Icer Name Role Phone Unavailable Primary Care Provider Unavailabl e Encounter Details Date Type Department Care Team (Late st Contact Info) Description 04/13/2025 Telephone Breast Care [facility] [address] [place] [phone] Pat Dooley MA Social History Tobacco Use Types Packs/Day Years Used Date Smoking Tobacco: Never Smokeless Tobacco: Never Alcohol Use Standard Drinks/Week Comments Never 0 (1 standard drink = 0.6 oz pur e alcohol) Comments Unknown Sex and Gender Information Value Date Recorded Sex Assigned at Not on file Legal Sex Female 11:04 AM EDT Gender Identity Not on file Sexual Orientation Not on file documented as of this encounter Progress Notes * Pat Dooley MA - 04/13/2025 8:40 AM EDT Patient was scheduled on 04/[address] Rock for a robot assisted laparoscopic right salpingo-oophorectomy. She did not end up coming in and informed Dr. Rock that she already had [facility]. I sent a cover sheet requesting the op note and path report and followed up before leaving for the day. [facility] has no record of this patient getting this procedure done. I then reached out to Dr. Starr office also stating the same thing. Dr. Starr's office referred this patient to Dr. Rock since Ro doesn't do those kind of procedures. I have also faxed a coversheet to [facility]. I called the pt on Wednesday, and this morning to see where she actually had this procedure done but I had to leave a voicemail each time with no call back. documented in this encounter Plan of Treatment Upcoming Encounters Date Type Department Care Team (Late st Contact Info) Description 04/26/2025 10:00 AM EDT Office Visit [facility] Care [facility] [address] [place] [address] Reymundo Rock MD [address] [place] [address] documented as of this encounter Visit Diagnoses Not on filedocumented in this encounter
--- OUTSIDE RECORDS SUMMARY | 2025-04-18 08:02 | XMS_ITS | Encounter Summary ---
Author Organization [facility] Address [address] [place] [address] 7t [place] [address] Care Team Providers Care Peat Shredder Tender Name Role Phone Alejandra Morris MD Primary Care Provider + Jovan Porter PharmD Unavailable [phone] Rhona Saldivar DDS Unavailable Encounter Details Date Type Department Care Team ([facility] Contact Info) Description 10/02/[address] [facility] ADULT DENT[facility] [address] [place] [address] Dharmesh Reyes DDS [address] [place] [address] Social History Tobacco Use Types Packs/Day Years [...] Upcoming Encounters Date Type Department Care Team ([facility] Contact Info) Description 06/12/2025 11:45 AM EST Office Visit [facility] [address] [place] [address] Alejandra Morris MD [address] [place], [place] [phone] 06/14/2025 1:00 PM EST Office Visit [facility] [address] [place], [place] [phone] Angie Young documented as of this encounter Visit Diagnoses Not on filedocumented in this encounter Care Teams Peat Shredder Tender Relationship Specialty Start Date End Date Alejandra Morris MD [address] [place] [address] [phone] PCP - General Family Medicine 12/17/17 Jovan Porter, Joaquín [address] [place] [address] [phone] Pharmacist Internal Medicine 05/24/23 Rhona Saldivar DDS [address] [place] [address] [phone] Dental Chairperson Anesthesiology 07/03/24 documented as of this encounter
--- OUTSIDE RECORDS SUMMARY | 2025-04-18 08:02 | XMS_ITS | Encounter Summary ---
Author Organization [employer] Address [address] [place] [address] 7t [place] [address] Care Team Providers Care Roll Reclaimer Name Role Phone Alejandra Morris MD Primary Care Provider + Jovan Porter PharmD Unavailable [phone] Rhona Saldivar DDS Unavailable Encounter Details Date Type Department Care Team (Late st Contact Info) Description 07/13/2022 Orders Only [facility] [address] [place] [address] Dara Bruno, RN [address] [place] [address] Social History Tobacco Use Types Packs/Day Years Used Date Smoking Tobacco: Never Assessed Comments Unknown Sex and Gender Information Value Date Recorded Sex Assigned at Female 06/01/2022 10:17 AM EDT Legal Sex Female 10:17 AM EDT Gender Identity Female 06/01/2022 10:17 AM EDT Sexual Orientation Straight 06/01/2022 10 :17 AM EDT documented as of this encounter Miscellaneous Notes * Result Encounter Note - Alejanrda Morris MD - 07/13/2022 9:59 AM EST [...] Description 06/12/2025 11:45 AM EST Office Visit [facility] [address] [place] [address] Alejandra Morris MD [address] [place] [address] 06/14/2025 1:00 PM EST Office Visit [facility] ADULT D[facility] [address] [place], [place] [phone] Angie Young documented as of this encounter Procedures Procedure Name Priority Date/Time Associated Diagnosis Comments BI MAMMOGRAM SCREENING TOMOSYNTHESIS BILATERAL Routine 07/13/2022 9:20 AM EST documented in this encounter Results * BI Mammogram Screening Tomosynthesis Bilateral (07/13/2022 9:20 AM EST) Anatomical Region Laterality Modality Breast Bilateral Mammography 07/13/2022 9:20 AM EST Narrative 07/14/2022 5:06 PM EST [facility] [address] [place] [address] Mammography Report Signed Patient: Candido Rivera MR#: [id number] : 1975 Acct:[id number] Age/Sex: 46 / F ADM Date: 07/13/22 Loc: HO.MAMMO Attending Dr: Alejandra Morris MD Ordering Physician: Alejandra Morris MD Results: 2Be nign Findings Date of Service: 07/13/22 Follow Up: 1 Year From Orig inal Mammogram Procedure(s): MM tomosynthesis screening BI Accession Number(s): [id number] cc: Alejandra Morris MD EXAMINATION: MM SCREENING [...] in OV> 07/14/22 1703 DD/ 0920 TD/TT: Director Of Social Media Marketing: BOLANOS Procedure Note Donotuseinterpreter, Image - 07/14/20[facility] [address] [place] [address] Mammography Report Signed Patient: Javier Rivera#: [id number] : 1975Acct:[id number] Age/Sex: 46 / FADM Date: 07/13/22 Loc: HO.MAMMO Attending Dr: Alejandra Morris MD Ordering Physician: Alejandra Morris MDResults: 2Be nign Findings Date of Service: 07/13/22Follow Up: 1 Year From Orig inal Mammogram Procedure(s): MM tomosynthesis screening BI Accession Number(s): [id number] cc: Alejandra Morris MD EXAMINATION: MM SCREENING [...] Axillary nodes is similar to prior exam 2018. The skin contours are smooth. MM/MM tomosynthesis screening BI IMPRESSION: No mammographic evidence of malignancy. ASSESSMENT: BI-RADS 2: Benign RECOMMENDATION: Routine annual mammography screening. This patient's information was entered into a reminder system with a target due date for their next mammogram. Dictated By: Alberto Vela MD Signed By: <Electronically signed by Alberto Vela MD in OV> 07/14/22 1703 DD/ 0920 TD/TT: Director Of Social Media Marketing: BOLANOS [facility] External Provider IMG BI PROCEDURES Final Result documented in this encounter Visit Diagnoses Not on filedocumented in this encounter Care Teams Roll Reclaimer Relationship Specialty Start Date End Date Alejandra Morris MD [address] [place] [address] PCP - General Family Medicine 12/17/17 Jovan Porter PharmD [address] [place] [address] Pharmacist Internal Medicine 05/24/23 Rhona Saldivar DDS [address] [place], [place] [phone] Dental Clinical Registered Nurse 07/03/24 documented as of this encounter
[2025-04-18 09:07] LABS: Anion Gap 14 (12-20); Blood Urea Nitrogen 12 mg/dL (9-16); Calcium 8.9 mg/dL (8.4-10.2); Carbon Dioxide 26 mmol/L (22-29); Chloride 105 mmol/L (96-108); Estimated Glomerular Filt Rate > 60; Potassium 3.7 mmol/L (3.3-5.1); Sodium 141 mmol/L (135-145)
[2025-04-26 11:03] LABS: Metanephrine, Free <25 pg/mL (<=57); Normetanephrines, Free 57 pg/mL (<=148); Total Metanephrine, Free 57 pg/mL (<=205)
== END 2025-04-18 07:57 | disposition home or self-care (01) ==
LOC: HO.LAB 07:56
PROVIDERS: PCP Internal Medicine; Visit Provider Student in an Organized Health Care Education/Training Program
DX: E27.9 Disorder of adrenal gland, unspecified (principal)
CPT/HCPCS: 36415; 80048; 80299; 82024; 82088; 82533; 82627; 83835; 84244

== ENCOUNTER 2025-04-25 08:08 | Outpatient (REF) | payer OTHER, SELFPAY ==
--- OUTSIDE RECORDS SUMMARY | 2025-04-25 08:41 | XMS_ITS | Encounter Summary ---
Author Organization [facility] Address [address] [facility] 7t [place] [address] Care Team Providers Care Penology Professor Name Role Phone Alejandra Morris MD Primary Care Provider + Jovan Porter PharmD Unavailable [phone] Rhona Saldivar DDS Unavailable [phone] Encounter Details Date Type Department Care Team (Late st Contact Info) Description 09/02/[address] [facility] [address] [place] [address] Alejandra Morris MD [address] [place], [place] [phone] Vitamin D deficiency (Primary Dx) Social History [...] 06/12/2025 11:45 AM EST Office Visit [facility] [address] [place] [address] Alejandra Morris MD [address] [place] [address] 06/14/2025 12:45 PM EST Office Visit [facility] [address] [place] [address] Angie Young documented as of this encounter Visit Diagnoses Diagnosis Vitamin D deficiency- Primary documented in this encounter Care Teams Penology Professor Relationship Specialty Start Date End Date Alejandra Morris MD [address] [place] [address] [phone] PCP - General Family Medicine 12/17/17 Jovan Porter PharmD [address] [place] [phone] Pharmacist Internal Medicine 05/24/23 Rhona Saldivar DDS [address] [place] [address] [phone] Dental Maintenance Director 07/03/24 documented as of this encounter
--- OUTSIDE RECORDS SUMMARY | 2025-04-25 08:41 | XMS_ITS | Encounter Summary ---
Author Organization [facility] Address [address] [place] [address] 7t [place] [address] Care Team Providers Care Account Associate Name Role Phone Alejandra Morris MD Primary Care Provider + Jovan Porter PharmD Unavailable [phone] Rhona Saldivar DDS Unavailable Encounter Details Date Type Department Care Team ([facility] Contact Info) Description 10/02/2022 Abstract [facility] [address] [place] [address] Dharmesh Reyes DDS [address] [place] [address] Social History Tobacco Use Types Packs/Day Years [...] Upcoming Encounters Date Type Department Care Team ([facility] Contact Info) Description 06/12/2025 11:45 AM EST Office Visit [facility] [address] [place] [address] Alejandra Morris MD [address] [place], [place] [phone] 06/14/2025 12:45 PM EST Office Visit [facility] [address] [place], [place] [phone] Angie Young documented as of this encounter Visit Diagnoses Not on filedocumented in this encounter Care Teams Account Associate Relationship Specialty Start Date End Date Alejandra Morris MD [address] [place] [address] [phone] PCP - General Family Medicine 12/17/17 Jovan oPrter, Joaquín [address] [place] [address] [phone] Pharmacist Internal Medicine 05/24/23 Rhona Saldivar DDS [address] [place] [address] [phone] Dental Vp Mobile Products 07/03/24 documented as of this encounter
--- OUTSIDE RECORDS SUMMARY | 2025-04-25 08:41 | XMS_ITS | Encounter Summary ---
Author Organization [employer] Address [address] [facility] 7t [place] [address] Care Team Providers Care Director Of Cardiology Service Line Name Role Phone Alejandra Morris MD Primary Care Provider + Jovan Porter PharmD Unavailable + [phone] Rhona Saldivar DDS Unavailable [phone] Reason for Visit * Reason Comments Med Refill Encounter Details Date Type Department Care Team (Late st Contact Info) Description 06/07/[address] [facility] [address] [place], [place] [phone] Alejandra Morris MD [address] [place], [place] [phone] Slow transit constipation Social History Tobacco Use [...] 06/12/2025 11:45 AM EST Office Visit [facility] [address] [place] [phone] Alejandra Morris MD [address] [place] [phone] 06/14/2025 12:45 PM EST Office Visit [facility] ADULT DENTAL [address] [place] [phone] Angie Young documented as of this encounter [...] documented as of this encounter Care Teams Director Of Cardiology Service Line Relationship Specialty Start Date End Date Alejandra Morris MD [address] [place] [phone] PCP - General Family Medicine 12/17/17 Jovan Porter, MichelleD [address] [place] [phone] Pharmacist Internal Medicine 05/24/23 Rhona Saldivar DDS [address] [place] [phone] Dental Rn Community 07/03/24 documented as of this encounter
--- OUTSIDE RECORDS SUMMARY | 2025-04-25 08:41 | XMS_ITS | Encounter Summary ---
Author Organization [facility] Address [address] [place] [address] 7t [place] [address] Care Team Providers Care Antique Repairer Name Role Phone Alejandra Morris MD Primary Care Provider + Jovan Porter PharmD Unavailable [phone] Rhona Saldivar DDS Unavailable Encounter Details Date Type Department Care Team ([facility] Contact Info) Description 10/02/2022 Abstract [facility] ADULT DENTAL [address] [place] [address] Dharmesh Reyes DDS [address] [place] [address] Social History Tobacco Use Types Packs/Day Years [...] Upcoming Encounters Date Type Department Care Team ([facility] Contact Info) Description 06/12/2025 11:45 AM EST Office Visit [facility] MEDICINE [address] [place] [address] Alejandra Morris MD [address] [place], [place] [phone] 06/14/2025 12:45 PM EST Office Visit [facility] ADULT DENTAL [address] [place], [place] [phone] Angie Young documented as of this encounter Visit Diagnoses Not on filedocumented in this encounter Care Teams Antique Repairer Relationship Specialty Start Date End Date Alejandra Mroris MD [address] [place] [address] [phone] PCP - General Family Medicine 12/17/17 Jovan Porter, Joaquín [address] [place] [address] [phone] Pharmacist Internal Medicine 05/24/23 Rhona Saldivar DDS [address] [place] [address] [phone] Dental Marketing Communication Manager 07/03/24 documented as of this encounter
--- OUTSIDE RECORDS SUMMARY | 2025-04-25 08:42 | XMS_ITS | Encounter Summary ---
Author Organization [facility] [facility] Address [address] [place] [address] 7t [place] [address] Care Team Providers Care Glucose And Syrup Weigher Name Role Phone Alejandra Morris MD Primary Care Provider + Jovan Porter PharmD Unavailable [phone] Rhona Saldivar DDS Unavailable [phone] Encounter Details Date Type Department Care Team (Latest Contact Info) Description 12/16/2018 Abstract [facility] CONVERSIONS Dental, Provider, DDS Social History [...] Description 06/12/2025 11:45 AM EST Office Visit [facility] MEDICINE [address] [place] [address] Alejandra Morris MD [address] [place], [place] [phone] 06/14/2025 12:45 PM EST Office Visit [facility] ADULT DENTAL [address] [place], [place] [phone] Angie Young documented as of this encounter Visit Diagnoses Not on filedocumented in this encounter Care Teams Glucose And Syrup Weigher Relationship Specialty Start Date End Date Alejandra Morris MD [address] [place] [phone] PCP - General Family Medicine 12/17/17 Jovan Porter, Joaquín [address] [place] [phone] Pharmacist Internal Medicine 05/24/23 Rhona Saldivar DDS [address] [place] [phone] Dental Housing Inspectors 07/03/24 documented as of this encounter
--- OUTSIDE RECORDS SUMMARY | 2025-04-25 08:42 | XMS_ITS | Encounter Summary ---
Author Organization [employer] Address [address] [place] [address] 7t [place] [address] Care Team Providers Care Quill Worker Name Role Phone Alejandra Morris MD Primary Care Provider + Jovan Porter PharmD Unavailable [phone] Rhona Saldivar DDS Unavailable Encounter Details Date Type Department Care Team (Late st Contact Info) Description 07/13/2022 Orders Only [facility] [address] [place] [address] Dara Bruno, RN [address] [place] [address] Social History Tobacco Use Types Packs/Day Years [...] Description 06/12/2025 11:45 AM EST Office Visit [facility] MEDICINE [address] [place] [address] Alejandra Morris MD [address] [place] [address] 06/14/2025 12:45 PM EST Office Visit [facility] ADULT DENTAL [address] [place], [place] [phone] Angie Young documented as of this encounter Procedures Procedure Name Priority Date/Time Associated Diagnosis Comments BI MAMMOGRAM SCREENING TOMOSYNTHESIS BILATERAL Routine 07/13/2022 9:20 AM EST documented in this encounter Results * BI Mammogram Screening Tomosynthesis Bilateral (07/13/2022 9:20 AM EST) Anatomical Region Laterality Modality Breast Bilateral Mammography 07/13/2022 9:20 AM EST Narrative 07/14/2022 5:06 PM EST [facility] [address] [place] [address] Mammography Report Signed Patient: Candido Rivera MR#: [id number] : 1975 Acct:[id number] Age/Sex: 46 / F ADM Date: 07/13/22 Loc: HO.MAMMO Attending Dr: Alejandra Morris MD Ordering Physician: Alejandra Morris MD Results: 2Be nign Findings Date of Service: 07/13/22 Follow Up: 1 Year From Orig inal Mammogram Procedure(s): MM tomosynthesis screening BI Accession Number(s): [id number] cc: Alejandra Morris MD EXAMINATION: MM SCREENING [...] in OV> 07/14/22 1703 DD/ 0920 TD/TT: Client Success Manager: BOLANOS Procedure Note Donotuseinterpreter, Image - 07/14/2022 [facility] [address] [place] [address] Mammography Report Signed Patient: Javier Rivera#: [id number] : 1975Acct:[id number] Age/Sex: 46 / FADM Date: 07/13/22 Loc: HO.MAMMO Attending Dr: Alejandra Morris MD Ordering Physician: Alejandra Morris MDResults: 2Be nign Findings Date of Service: 07/13/22Follow Up: 1 Year From Orig inal Mammogram Procedure(s): MM tomosynthesis screening BI Accession Number(s): [id number] cc: Alejandra Morris MD EXAMINATION: MM SCREENING [...] in OV> 07/14/22 1703 DD/ 0920 TD/TT: Client Success Manager: BOLANOS [facility] External Provider IMG BI PROCEDURES Final Result documented in this encounter Visit Diagnoses Not on filedocumented in this encounter Care Teams Quill Worker Relationship Specialty Start Date End Date Alejandra Morris MD [address] [place] [address] PCP - General Family Medicine 12/17/17 Jovan Porter PharmD [address] [place] [address] Pharmacist Internal Medicine 05/24/23 Rhona Saldivar DDS [address] [place], [place] [phone] Dental Information Assurance Analyst 07/03/24 documented as of this encounter
--- OUTSIDE RECORDS SUMMARY | 2025-04-25 08:42 | XMS_ITS | Clinical Summary ---
Author Organization [employer] Address [address] [facility] 7[address] [place] [address] Care Team Providers Care Meters Superintendent Name Role Phone Alejandra Morris MD Primary Care Provider + Jovan Porter PharmD Unavailable [phone] Rhona Saldivar DDS Unavailable [phone] Allergies Active Allergy Reactions Criticality Noted Date [...] Assessment & Plan (07/12/2023 10:24 AM EST): Internet Marketing Strategist regarding to apply heat to affected area Internet Marketing Strategist regarding stretch exercises Take Tylenol BID x1 week Internet Marketing Strategist regarding attending walk-in acupuncture Reconsult PRN and [...] me in 1 month refer to [facility] clinic, order labs Assessment & [...] Encounters Date Type Department Care Team Description 04/18/2025 Orders Only GENERIC EXTERNAL DATA DEPARTMENT Provider, Generic External Data 04/09/2025 Telephone [facility] [address] [place] [address] Halley Farmer RN Blood Pressure Medication 04/05/2025 Orders Only GENERIC EXTERNAL DATA DEPARTMENT Provider, Generic External Data 03/19/2025 2:30 PM EDT Clinical Support [facility] [address] [place] [address] Halley Farmer RN Hypertension, unspecified type; Primary hypertension 03/19/2025 Travel 03/13/2025 9:15 AM EDT Office Visit [facility] [address] [place] [address] Rhona Saldivar, DDS 02/26/2025 9:30 AM EDT Clinical Support [facility] [address] [place] [address] Allison Alva, RN Primary hypertension 02/26/2025 Refill [facility] [address] [place] [address] Allison Alva, CELIA Primary hypertension 02/26/2025 Travel 02/13/2025 Refill [facility] [address] [place] [address] Alejandra Morris MD 02/08/2025 12:15 PM EDT Office Visit [facility] [address] [place] [address] Alejandra Morris MD Calculus of gallbladder and bile duct without cholecystitis or obstruction (Primary Dx); Primary hypertension; Adrenal nodule (CMS/HCC); Pancreatic cyst; Encounter for screening colonoscopy 02/08/2025 Travel 02/07/2025 Telephone [facility] [address] [place] [address] Alejandra Morris MD Chart prep from Last 3 Months Immunizations Immunization Administration [...] Description 06/12/2025 11:45 AM EST Office Visit [facility] [address] [place] [address] Alejandra Morris MD [address] [place] [address] 06/14/2025 12:45 PM EST Office Visit [facility] [address] [place] [address] Angie Young Health Maintenance Due Date Last [...] 11/27/2025 11/27/2024, 11/01, 07/13/2022, Additional history exists Alcohol/Substance Use Screening 02/08/2026 02/08/2025 Depression Screening 02/08/2026 02/08/2025, 02/09/20 Disability Screening 02/08/2026 02/08/2025 Tobacco Screening 03/13/2026 03/13/2025 Dental X-Ray: Bitewings 03/14/2026 03/13/20, 06/27/2024, 04/21/2024, Additional history exists Dental X-Ray: Full Mouth 07/23/2026 07/22/2023, 11/30 Zoster Vaccines (1 of 2) 2027 Lipid Panel 01/23/2030 01/23/2025, 03/03, 08/31/2022, Additional history exists DTaP/Tdap/Td Vaccines (3 [...] Procedure Name Priority Date/Time Associated Diagnosis Comments ACTH, PLASMA Routine 04/18/2025 8:18 AM EDT ALDOSTERONE, LC/MS/MS Routine 04/18/2025 8:18 AM EDT DHEA SULFATE Routine 04/18/2025 8:18 AM EDT CORTISOL RANDOM Routine 04/18/2025 8:18 AM EDT BASIC METABOLIC PANEL Routine 04/18/2025 8:18 AM EDT GROSS AND MICROSCOPIC LEVEL 3 Routine 04/05/2025 [...] Routine 01/23/2025 11:26 AM EDT Primary hypertension BI MAMMOGRAM SCREENING TOMOSYNTHESIS BILATERAL Routine 11/27/2024 [...] Recently Relevant to Health Maintenance Results * Cortisol Random (04/18/2025 8:18 AM EDT) [facility] Cortisol Random 11.8 ug/dL [facility] Comment:Reference Range*: Be fore 10 am 6.2-19.4 ug/dL After 5 pm 2.3-11.9 ug/dL*Please interpret above results accordingly.This test was performed using the Mandel chemiluminescentmethod. Values obtained from different assay methods cannotbe used interchangeably.Patients receiving fludrocortisone, prednisolone orprednisone may show artificially elevated cortisol valuesdue to cross-reactivity. 04/18/2025 8:18 AM EDT 04/18/2025 8:18 AM EDT Generic External Data Provider LAB BLOOD ORDERAB LES Final Result Performing Organization Address [facility]/ZIP Co de Phone Number [facility] [address] [place] [phone] * ACTH, Plasma (04/18/2025 8:18 AM EDT) ACTH, Plasma 20 6 - 50 pg/mL [facility] Comment:Reference range appl ies only to specimens collectedbetween 7am-10am.THIS TEST WAS PERFORMED AT:[employer] [id number] [place] [address]RXDPPNC W. MASON,MD,PHD 04/18/2025 8:18 AM EDT 04/18/2025 8:18 AM EDT Generic External Data Provider LAB BLOOD ORDERAB LES Final Result Performing Organization Address [facility] Co de Phone Number [facility] [address] [place] [phone] * Basic Metabolic Panel (04/18/2025 8:18 AM EDT) Only the most recent of2 resultswithin the time period is included. Sodium 141 135 - 145 mmol/L [facility] Potassium 3.7 3.3 - 5.1 mmol/L [facility] Chloride 105 96 - 108 mmol/L [facility] Carbon Dioxide 26 22 - 29 mmol/L [facility] Anion Gap 14 12 - 20 [facility] Urea Nitrogen (BUN) 12 9 - 16 mg/dL [facility] Creatinine, Serum 0.67 0.5 - 1.4 mg/dL [facility] Estimated Glomerular Filt Rate >60 [facility] Comment:Chronic Kidney Disea se: Estimated GFR < 60 mL/min/1.37d1Uylwbg Kidney Disease: Estimated GFR < 15 mL/min/1.73m2 Glucose 96 60 - 115 mg/dL [facility] Calcium 8.9 8.4 - 10.2 mg/dL [facility] 04/18/2025 8:18 AM EDT 04/18/2025 8:18 AM EDT us Generic External Data Provider LAB BLOOD ORDERAB LES Final Result [facility] [address] [place] [phone] * Gross and Microscopic Level 3 (04/05/2025 12:18 PM EDT) 04/05/2025 12:1 8 PM EDT 04/05/2025 1:14 PM EDT Narrative [facility] - 04/06/2025 1:18 PM EDT ----- ------- Name: Kristie Lane Age/Sex: 49/F : 1975 Unit#: [id number] Attend Dr: Salbador Barriga MD Re04/05/25 Status: [facility] Location: [place] Disch: ----- ------- SPEC : [id number] RECD: 04/05/25 STATUS: JONAH BAPTISTE NUM: [id number] LISA: 04/05/[address] [facility] [address]: Salbador Barriga MD ENTERED: 04/05/25 SP [...] The wall measures 0.1 cm in thickness. [facility] sections are submitted in a cassette labeled A1 to include the margin of resection of the duct. CEDS IHC S/NG Disclaimer NOTE: Unless otherwise stated, all tissue is formalin-fixed and paraffin-embedded. Some or all of the immunohistochemical tests reported herein may have been developed and their performance characteristics determined by [facility]. They have not been cleared or approved by the U.S. Food and Drug Administration (FDA). However, the FDA has determined that such clearance or approval is not necessary. This laboratory is certified under the Clinical Laboratory Improvement Amendments of 1988 (CLIA) as qualified to perform high complexity clinical laboratory testing. CONTINUED ON NEXT PAGE ----- ------- Name: Lane,Betis Age/Sex: 49/F : 1975 Unit#: [id number] Attend Dr: Salbador Barriga MD Re04/05/25 Status: [facility] Location: [facility] Disch: ----- ------- SPEC : [id number] RECD: 04/05/25 STATUS: JONAH BPATISTE NUM: [id number] LISA: 04/05/25-[address] [facility] [address]: Salbador Barriga MD ENTERED: 04/05/25-1324 SP TYPE: Surgical OTHR DR: Alejandra Morris MD ORDERED: Gross Micro L3 Copies To: Alejandra Morris MD [address] [address] Salbador Barriga MD [facility] [address] [place] [address] [id number] ----- ------- Signed (signature on file) Lin Harris 04/06/25 1318 ----- ------- END OF REPORT Generic External Data Provider LAB CYTOLOGY ORDE RABLES Final Result Performing Organization Address [facility] Co de Phone Number [facility] [address] [place] [phone] * HCG, Qualitative, Urine (04/05/2025 9:35 AM EDT) Urine NEGATIVE NEGATIVE [facility] Comment:This test was develo ped to detect early . Falsenegative results may occur after the 5th - 7th week ofpregnancy when using this test method. If clinicallyindicated, consider a serum hCG. 04/05/2025 9:35 AM EDT 04/05/2025 9:58 AM EDT Generic External Data Provider LAB URINE ORDERAB LES Final Result Performing Organization Address [facility] Co de Phone Number [facility] [address] [place] [phone] * Vitamin D, 25-Hydroxy, Total, Immunoassay (01/23/2025 11:26 AM EDT) Vitamin D 25-OH Total 30.4 >30 ng/mL [facility] Comment: Health Based Reference Values*< 20 ng/mL Lriflbioc55-85 ng/mL Insufficient> 30 ng/mL Sufficient*Michael PETE. N [...] ORDERABLES Fin al Result Performing Organization Address [facility] Co de Phone Number [facility] [address] [place] [phone] * TSH with Reflex to Free T4 (01/23/2025 11:26 AM EDT) TSH reflex Free T4 2.73 0.32 - 4.0 uIU/mL [facility] Blood 01/23/2025 11:2 6 AM EDT 01/23/2025 12:56 PM EDT us Alejandra Morris MD LAB BLOOD ORDERABLES Fin al Result Performing Organization Address [facility] Co de Phone Number [facility] [address] [place] [phone] * (ABNORMAL) Lipid Panel with Reflex to Direct LDL (01/23/2025 11:26 AM EDT) Triglycerides 73 <150 mg/dL [facility] Comment:Desirable Triglyceri de: less than 150 mg/dLBorderline High Triglyceride 150-199 mg/dLHigh Triglyceride: 200-499 mg/dLVery High Triglyceride: greater than or equal to 5OO mg/dL Cholesterol 142 <200 mg/dL [facility] Comment:Desirable Cholestero l: less than 200 mg/dLBorderline High Cholesterol: 200-239 mg/dLHigh Cholesterol: greater than 239 mg/dL LDL Cholesterol Calculated 89 <100 mg/dL [facility] Comment:Desirable LDL: less than 100 mg/dLNear Optimal/Above Optimal LDL: 110- 129 mg/dLBorderline High LDL: 130-159 mg/dLHigh LDL: 160-189 mg/dLVery High LDL: greater than or equal to 190 mg/dL HDL Cholesterol 39(L) >40 mg/dL [facility] Comment:Desirable HDL: great er than 40 mg/dL Note: This HDL assay may give artificially low results in patients with liver disease. Blood 01/23/2025 11:2 6 AM EDT 01/23/2025 12:56 PM EDT us Alejandra Morris MD LAB BLOOD ORDERABLES Fin al Result [facility] [address] [place] [phone] * (ABNORMAL) CBC auto differential (01/23/2025 11:26 AM EDT) White Blood Count 6.1 4.8 - 10.8 X10*3/uL [facility] Red Blood Count 4.28 4.20 - 5.50 X10*6/uL [facility] Hemoglobin 12.7 12.0 - 16.0 g/dl [facility] Hematocrit 38.1 37.0 - 47.0 % [facility] Mean Corpuscular Volume 89.0 80.0 - 98.0 fL [facility] Mean Corpuscular Hemoglobin 29.7 27.0 - 33.0 pg [facility] Mean Corpuscular HGB Conc 33.3 31.0 - 35.0 g/dl [facility] Red Cell Distribution Width 12.5 11.0 - 16.0 % [facility] Platelet Count 192 160 - 400 X10*3/uL [facility] Mean Platelet Volume 12.7(H) 9.4 - 12.3 fL [facility] Neutrophils Percent Auto 54.8 45 - 73 % [facility] Imm Gran Pct Auto 0.2 0.0 - 0.4 % [facility] Lymphocytes Percent Auto 35.2 20 - 40 % [facility] Monocytes Percent Auto 6.3 2 - 11 % [facility] Eosinophils Percent Auto 2.8 0 - 4 % [facility] Basophils Percent Auto 0.7 0 - 2 % [facility] NRBC Pct Auto 0.0 0.0 - 0.2 /100WBC [facility] Neutrophils Absolute Auto 3.3 2.0 - 8.3 x10*3/uL [facility] Imm Gran Abs Auto 0.01 0.00 - 0.03 X10*3/uL [facility] Lymphocytes Absolute Auto 2.1 1.2 - 4.9 X10*3/uL [facility] Monocytes Absolute Auto 0.4 0.1 - 1.2 X10*3/uL [facility] Eosinophils Absolute Auto 0.2 0.0 - 0.4 X10*3/uL [facility] Basophils Absolute Auto 0.0 0.0 - 0.2 X10*3/uL [facility] NRBC Abs Auto 0.000 0.0 - 0.012 X10*3/uL [facility] Blood Venous blood specimen / Unknown 01/23/2025 11:26 AM EDT 01/23/2025 12:56 PM EDT us Alejandra Morris MD LAB BLOOD ORDERABLES Fin al Result [facility] [address] [place] [phone] * BI Mammogram Screening Tomosynthesis Bilateral (11/27/2024 8:15 AM EDT) Anatomical Region Laterality Modality Breast Bilateral Mammography 11/27/2024 8:15 AM EDT Narrative 12/03/2024 11:39 AM EDT [facility] [address] [place] [address] Mammography Report Signed Patient: Kristie Lane MR#: [id number] : 1975 Acct:[id number] Age/Sex: 49 / F ADM Date: 11/27/24 Loc: MAMMO Attending Dr: Alejandra Morris MD Ordering Physician: Alejandra Morris MD Results: 1Ne gative Date of Service: 11/27/24 Follow Up: 1 Year From Orig ina Mammogram Procedure(s): MM tomosynthesis screening BI Accession Number(s): [id number] cc: Alejandra Morris MD EXAMINATION: MM SCREENING [...] 12/03/24 1136 DD/ 0815 TD/TT: 11/27/24 0830 Densitometer Reader: Procedure Note Donotuseinterpreter, Image - 12/03/2024 [facility] [address] [place] [address] Mammography Report Signed Patient: Javier Lane#: [id number] : 1975Acct:[id number] Age/Sex: 49 / FADM Date: 11/27/24 Loc: MAMMO Attending Dr: Alejandra Morris MD Ordering Physician: Alejandra Morrisesults: 1Ne gative Date of Service: 11/27/24Follow Up: 1 Year From [facility] ina Mammogram Procedure(s): MM tomosynthesis screening BI Accession Number(s): [id number] cc: Alejandra Morris MD EXAMINATION: MM SCREENING [...] 12/03/24 1136 DD/ 0815 TD/TT: 11/27/24 0830 Densitometer Reader: Alejandra Morris MD IMG BI PROCEDURES Edited Result - Final * Hepatitis C Ab (11/20/2022 9:35 AM EDT) Hepatitis C Antibody Nonreactive Nonreactive [facility] Comment:Antibodies to HCV no t detected; does not exclude early acuteHCV infection. 11/20/2022 9:35 AM EDT 11/20/2022 9:35 AM EDT [facility] External Provider LAB BLO OD ORDERABLES Final Result [facility] [address] [place] [phone] * HIV Ab/Ag ([place] [facility]) (11/20/2022 9:35 AM EDT) HIV AB/AG Nonreactive Nonreactive [facility] Comment:HIV-1 p24 Ag and/or HIV-1/HIV-2 Ab not detected.A test result that is nonreactive does not exclude thepossibility of exposure to or infection with HIV-1 and/orHIV-2. Nonreactive results in this assay for individualswith prior exposure to HIV-1 and/or HIV-2 may be due toantigen and antibody levels that are below the limit ofdetection of this assay.The [employer] Team Leader HIV Ag/Ab Combo assay result andsupplemental assay results should be interpreted inconjunction with the patient's clinical presentation,history and other laboratory results. If the results areinconsistent with clinical evidence, additional testing issuggested to confirm the result. 11/20/2022 9:35 AM EDT 11/20/2022 9:35 AM EDT [facility] External Provider LAB BLO OD ORDERABLES Final Result Performing Organization Address [facility] Co de Phone Number [facility] [address] [place] [phone] * HPV E6/E7 RFLX CARLEY 16 18/45 (07/04/2020 10:04 AM EST) HPV mRNA E6/E7 rflx Not Detected Not Detected [facility] Comment: This test was performed using the APTIMA HPV Assay ([employer] This assay detects E6/E7 viral messenger RNA (mRNA) from 14 high-risk HPV types (16,18,31,33,35,39,45,51,52,56,58,59,66,68). The analytical performance characteristics of this assay have been determined by [employer]. The modifications have not been cleared or approved by the FDA. This assay has been validated pursuant to the CLIA regulations and is used for clinical purposes. THIS TEST WAS PERFORMED AT: [facility] [address] [place] [address] [address] [address] RIVKA DUPONT MD 07/04/2020 10:0 4 AM EST us Omaira Diaz HISTORICAL/NON ORDERABLE LABS Fi nal Result [facility] Anywhere [address] from Last 3 Months or Most Recently Relevant to Health Maintenance Insurance [facility] [place] ADULT DENTAL - [facility] FULL (MEDICAID) Care Teams Meters Superintendent Relationship Specialty Start Date End Date Alejandra Morris MD [address] [place], [place] PCP - General Family Medicine 12/17/17 Jovan Porter, MichelleD [address] [place], [place] Pharmacist Internal Medicine 05/24/23 Rhona Saldivar DDS [address] [place], [place] Dental Bead Wire Taper 07/03/24
--- OUTSIDE RECORDS SUMMARY | 2025-04-25 08:42 | XMS_ITS | Clinical Summary ---
Author Organization [facility] Address [address] [place] [address] Phone Care Team Providers Care Director Of Clinical Applications Name Role Phone Unavailable Primary Care Provider [...] Type Department Care Team Description 04/13/[address] [address] Pat Dooley MA 02/15/2025 2:00 PM EDT Consult [address] [phone] Reymundo Rock MD Right ovarian [...] 10:00 AM EDT Office Visit Breast Care [facility] [address] [place] [address] Reymundo Rock MD [address] [place] [address] Health Maintenance Due Date Last Done Comments [...] or Tdap) 05/24/2033 05/24/2023, 02/10/2011, 07/02/2005 RSV Immunization Adult Patients (1 - 1-dose 75+ series) 2052 MMR Vaccines Aged Out 07/02/2005 No longer [...] patient's age to complete this topic Insurance [facility] PLAN
--- OUTSIDE RECORDS SUMMARY | 2025-04-25 08:42 | XMS_ITS | Encounter Summary ---
Author Organization [facility] Address [address] [place] [address] Care Team Providers Care Shift Lab Technician Name Role Phone Unavailable Primary Care Provider Unavailabl e Encounter Details Date Type Department Care Team (Late st Contact Info) Description 04/13/2025 Telephone Breast Care Center [facility] [address] [place] [phone] Pat Dooley MA Social History Tobacco Use [...] that [facility] I sent a cover sheet requesting the op note and path report and followed up before leaving for the day. [facility] has no record of this patient getting this procedure done. I then reached out to Dr. Starr office also stating the same thing. Dr. Starr's office referred this patient to Dr. Rock since [facility] doesn't do those kind of procedures. I have also faxed a coversheet to [facility]. I called the pt on Wednesday, and this morning to see where she actually had this procedure done but I had to leave a voicemail each time with no call back. documented in this encounter Plan of Treatment Upcoming Encounters Date Type Department Care Team (Late st Contact Info) Description 04/26/2025 10:00 AM EDT Office Visit [facility] [address] [place] [address] Reymundo Rock MD [address] [place] [address] documented as of this encounter Visit Diagnoses Not on filedocumented in this encounter
== END 2025-04-25 08:09 | disposition home or self-care (01) ==
LOC: HO.LAB 08:08
PROVIDERS: PCP Internal Medicine; Visit Provider Student in an Organized Health Care Education/Training Program
DX: E27.9 Disorder of adrenal gland, unspecified (principal)
CPT/HCPCS: 36415; 80299; 82024; 82533

== ENCOUNTER 2025-07-04 07:38 | Outpatient (REF) | payer OTHER, SELFPAY ==
--- NOTE | ~2025-07-04 | CT_ITS ---
EXAMINATION: CT ABDOMEN WITHOUT AND WITH CONTRAST CLINICAL INFORMATION: E 27.9. Disorder of adrenal gland. COMPARISON: Correlated to IV contrast enhanced MRI abdomen dated January 19, 2025. TECHNIQUE: Contiguous axial thin section helical images of the abdomen were performed before and after the administration of 85 mL of Omnipaque 350 intravenous contrast during the portal venous and delayed phases. The data set was reformatted in the coronal and sagittal planes and reviewed on an independent workstation. This CT examination was performed using dose optimization techniques as appropriate, variously including the following: *Automated exposure control *Adjustment of mA and/or kV according to patient size (this includes techniques or standardized protocols for targeted exams where dose is matched to indication/reason for exam; i.e. extremities or head) *Use of iterative reconstruction technique DLP: 521 mGy-cm FINDINGS: LUNG BASES: No acute airspace disease or gross pulmonary nodules. Scarring, lingula. LIVER, GALLBLADDER, AND BILIARY TREE: Liver measures 17 cm. No solid or cystic mass. Main portal veins and hepatic veins are patent. No intrahepatic biliary ductal dilatation. Slight decreased enhancement pattern with respect to the spleen. Absent gallbladder and vascular clips in the isauro hepatic region. Common bile duct measures 4 mm. PANCREAS: No solid or cystic mass. No main pancreatic ductal dilatation. No peripancreatic fluid collection. SPLEEN: 10 cm. No solid or cystic mass. RIGHT ADRENAL GLAND: No nodular lesion. LEFT ADRENAL GLAND: There is a 19 x 25 x 17 mm, well-defined, partially calcified isodense lesion which measures 12 Hounsfield units in the non-IV contrast phase, 22 Hounsfield units in the portal venous phase and 14 Hounsfield units on the delayed phase. KIDNEYS: No hydronephrosis. No nephrolithiasis. No enhancing mass. Normal enhancement of the renal parenchyma and normal excretion into the collecting system. BOWEL LOOPS: Abundant stool, large intestine. Collapsed appearance of the descending colon no fully evaluated. Abundant stool in the rectosigmoid colon. Appendix is normal. Terminal ileum is normal. No intestinal wall thickening. No ascites. No pneumoperitoneum. No pneumatosis intestinalis. LYMPH NODES: No mesenteric or retroperitoneal lymphadenopathy. VASCULAR: No aneurysm or dissection, abdominal aorta. Mixed plaques in the abdominal aorta wall. BONES: Multilevel thoracolumbar spondylosis without acute fracture or gross listhesis. No lytic or blastic lesions. Bilateral neuroforamina stenosis at L5-S1 on a degenerative basis. 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 Hepatomegaly and steatosis. Status post cholecystectomy. Fleischner guidelines were followed. Electronically signed by: Miquel Blakely MD 07/04/2025 09:00 AM [facility]
--- OUTSIDE RECORDS SUMMARY | 2025-07-04 07:41 | XMS_ITS | Clinical Summary ---
Author Organization [facility] Address [address] [place] [address] Phone Care Team Providers Care Meeting/Event Planner Name Role Phone Unavailable Primary Care Provider [...] Type Department Care Team Description 04/13/2025 Telephone [facility] [address] [place] [address] Pat Dooley MA from Last 3 Months Surgical History Surgery [...] 02/15/2025 1:59 PM EDT Plan of Treatment Health Maintenance Due Date Last Done Comments Breast Cancer Screening 1975 Colorectal Cancer Screening: Colonoscopy 1975 Cervical Cancer Screening: Pap Smear 1998 Depression Screening 08/02/2024 Cholesterol Screening (Lipid Panel) 01/18/2025 HIV Screening 01/18/2025 Hepatitis C Screening 01/18/2025 Social Influencers of Health Screening 01/18/2025 COVID-19 Vaccine ( - 2024- season) 2025 08/17/2021, 12/25/2020, 11/27/2020 Influenza Vaccine [...] patient's age to complete this topic Insurance [facility] PLAN
--- OUTSIDE RECORDS SUMMARY | 2025-07-04 07:41 | XMS_ITS | Clinical Summary ---
Author Organization [employer] Address [address] [facility] [address] [place] [address] Care Team Providers Care Switchman Name Role Phone Alejandra Morris MD Primary Care Provider + Jovan Porter PharmD Unavailable [phone] Rhona Saldivar DDS Unavailable [phone] Allergies Active Allergy Reactions Criticality Noted Date Comments Flavoring Agent (Non-Screening) 07/02 Cat Dander Unknown 04/30/2020 Daucus Carota Unknown 04/30/2020 Dog Epithelium (Canis Lupus Familiaris) Unknown 04/30/2020 Medications Levonorgestrel (Mirena, 52 MG,) 20 MCG/DAY intrauterine device 1 Units by Intrauterine route continuously. Active omeprazole (PriLOSEC) [address] capsule TAKE 1 CAPSULE BY MOUTH DAILY 30-60 MINUTES BEFORE A MEAL 90 capsule 3 024 Active Ketotifen Fumarate 0.035 % solution Administer 1 drop into affected eye(s) 2 times daily. 10 mL 1 025 Active losartan-hydroC HLOROthiazide (Hyzaar) 100-25 MG tabletIndicatio ns:Primary hypertension Take 1 tablet by mouth Once per day. 90 tablet 3 025 Active cetirizine (ZyrTEC) 10 MG tablet TAKE 1 TABLET BY MOUTH EVERY DAY NEEDED FOR ALLERGIES 90 tablet 1 025 Active labetalol (Normodyne) 100 MG tabletIndicatio ns:Primary hypertension Take 2 tablets (200 mg) by mouth 2 times daily. 180 tablet 3 025 Active hydroCHLOROthia zide 12.5 MG tablet Take 1 tablet (12.5 mg) by mouth Once per day. 30 tablet 11 025 2025 Active fluticasone (Flonase) 50 MCG/ACT nasal spray INSTILL 1 SPRAY IN EACH NOSTRIL ONCE DAILY 48 g Active cyclobenzaprine (Flexeril) 10 MG tabletIndicatio ns:Spasm of thoracic back muscle Take 1 tablet (10 mg) by mouth at bedtime. 30 tablet 025 2024 Active acetaminophen (Tylenol Extra Strength) 500 MG tablet Take 1 tablet (500 mg) by mouth every 6 (six) hours if needed for mild pain. 120 tablet 025 2024 Active amLODIPine (Norvasc) 5 MG tabletIndicatio ns:Primary hypertension Take 1 tablet (5 mg) by mouth Once per day. 30 tablet 11 5:16 PM EST 2025 Active cyclobenzaprine (Flexeril) 10 MG tabletIndicatio ns:Spasm of thoracic back muscle Take 1 tablet (10 mg) by mouth at bedtime. 30 tablet 024 2024 Discontinued(R eorder (will not trigger notification to Pharmacy)) Active Problems Problem Noted Date Diagnosed Date Cervical paraspinal muscle spasm 06/12/2025 Assessment & Plan (06/19/2025 4:06 PM EST): Refer to PT Continue lidocaine + flexeril qt night Use heat patch on affected area Calculus of gallbladder and bile duct without [...] thoracic back muscle 07/12/2023 Assessment & Plan (06/19/2025 4:06 PM EST): Refer to PT Continue lidocaine + flexeril qt night Use heat patch on affected area Assessment & Plan (05/22/2024 10:44 AM EDT): Advised to rs PT appt, she has PT info. Take Meloxicam or flexeril prn, can alternate with tylenol. Assessment & Plan (11/11/2023 10:25 AM EDT): Recurrent, refer to PT Recommended acupuncture clinic Assessment & Plan (07/12/2023 10:24 AM EST): Senior Education Specialist regarding to apply heat to affected area Senior Education Specialist regarding stretch exercises Take Tylenol BID x1 week Senior Education Specialist regarding attending walk-in acupuncture Reconsult PRN [...] limited to enamel 10/01/2022 Atopic dermatitis 08/31/2022 Hypertriglyceridemia 08/31/2022 Assessment & Plan (11/09/2022 10:03 [...] Impaired glucose tolerance 08/31/2022 Assessment & Plan (06/19/2025 4:05 PM EST): Has strong Fam Hx DM Counseled re more frequent low calorie/carb meals. Encouraged physical activity as tolerated. FU in 6 months. Assessment & Plan (04/13/2023 4:42 PM EDT): [...] activity as tolerated. FU in 6 months Dental caries 08/28/2022 Dental plaque on multiple teeth 08/28/2022 Secondary oligomenorrhea 12/19/2018 Flexural eczema 12/19/2018 Angioedema 10/24/2018 Chronic low back pain 06/22/2018 Acute serous otitis media 04/20/2018 Primary hypertension 06/10/2015 Assessment & Plan (06/19/2025 4:05 PM EST): - Persistent elevated blood pressure despite medication adjustments. Blood pressure remains high, possibly influenced by pain from dental procedure right before coming here. - Continue Losartan/hydrochlorothiazide 100/25+ hydrochlorothiazide 12.5 + Labetalol 200mg bid daily and Monitor blood pressure at home. - FU with RN in 2 to 3 weeks. - Continue with a low sodium diet and regular exercise as tolerated. For BP < or = to 139/89 (or 129/79 for diabetic patients) continue current medication regimen and follow up with PCP in 8 weeks. For BP > or = to 140/90 (or 130/80 for diabetic patients) increase Start new medication Amlodipine 5 mg once a day Follow up with the Nurse for a second blood pressure check in 2-4 weeks if BP 140-150/90+ (or 130-150/80+ for diabetic patients). Refer to CDTM for BP >150/90+. If second Nurse visit is needed: For BP < or = to 139/89 (or 129/79 for diabetic patients) continue current medication regimen and follow up with the PCP in 4 weeks. For BP > or = to 140/90 (or 130/80 for diabetic patients) increase Amlodipine to 10 mg once a day Follow up with the PCP in 4 weeks. Assessment & Plan (02/08/2025 3:09 PM EDT): [...] month refer to [facility] clinic, order labs Assessment & Plan (11/09/2022 [...] Diagnosed Date Resolved Date Hyperglycemia 11/06/2022 04/12/2023 Greater trochanteric pain syndrome 08/31/2022 06/12/2025 Assessment & Plan (11/11/2023 10:24 AM EDT): Recurrent Refer to PT Tenosynovitis of finger 08/31/202206/02 Assessment & Plan (03/11/2023 12:15 PM EDT): [...] arthritis. FU with me in 3 months. Encounters Date Type Department Care Team Description 06/27/[address] [address] Alejandra Morris MD 06/25/2025 10:30 AM EST Clinical Support [address] [address] Tiana Vance RN Primary hypertension 06/25/[address] [address] Alejandra Morris MD Add new medication for B/P 06/25/2025 Travel 06/12/2025 11:45 AM EST Office Visit [address] [address] Alejandra Morris MD Primary hypertension (Primary Dx); Impaired glucose tolerance; Cervical paraspinal muscle spasm; Spasm of thoracic back muscle; Sprain of right rotator cuff capsule, initial encounter 06/12/2025 11:00 AM EST Office Visit [facility] [address] [place] [phone] Rhona Saldivar, DDS Dental crowns status (Primary Dx) 06/12/2025 Travel 06/11/[address] [phone] Alejandra Morris MD Chart Prep 05/02/[address] [address] Alejandra Morris MD 04/25/2025 Orders Only GENERIC EXTERNAL DATA DEPARTMENT Provider, Generic External Data 04/18/2025 Orders Only GENERIC EXTERNAL DATA DEPARTMENT Provider, Generic External Data 04/09/2025 Telephone [facility] MED[facility] [address] [place], [place] [phone] Halley Farmer RN Blood Pressure Medication 04/05/2025 Orders Only GENERIC EXTERNAL DATA DEPARTMENT Provider, Generic External Data from Last 3 Months Immunizations Immunization Administration [...] Date Recorded Patient Health Questionnaire-9 Score 0 06/12/2025 Patient Health Questionnaire-9 Score 0 06/12/2025 Last PHQ-9: Questionnaire Data Not on file 1 08/12/2024 Housing Stability Answer Date Recorded What is your housing situation today? I have nilsaadela gardner 11/10/[address] you [...] Date Recorded Patient Health Questionnaire-2 Score 0 06/12/2025 Internet Access Answer Date Recorded Internet Access [...] Sign Reading Time Taken Comments Blood Pressure 148/94 06/25/2025 10:55 AM EST ma nual b/p Pulse 77 06/25/2025 10:54 AM EST Temperature 36.5 C (97.7 F) 06/12/2025 12:13 PM EST Respiratory Rate 16 06/25/2025 10:54 AM EST Oxygen Saturation 98% 06/25/2025 10:54 AM EST Inhaled Oxygen Concentration - - Weight 80 kg (176 lb 6.4 oz) 06/12/2025 12:13 PM EST Height 154.9 cm (5' 1 ) 06/12/2025 12:13 PM EST Body Mass Index 33.33 06/12/2025 12:13 PM EST Plan of Treatment Upcoming Encounters Date Type Department Care Team (Late st Contact Info) Description 07/16/2025 2:00 PM EST Medication Management [address] [address] Jovan Porter, PharmD [address] [place] [phone] 07/23/2025 3:30 PM EST Clinical Support [address] [address] 08/21/2025 10:30 AM EST Office Visit [address] [place] [address] Alejandra Morris MD [address] [place] [address] Health Maintenance Due Date Last Done Comments [...] history exists Alcohol/Substance Use Screening 02/08/2026 02/08/2025 Disability Screening 02/08/2026 02/08/2025 Depression Screening 06/12/2026 06/12/2025, 06/12/20 Tobacco Screening 06/12/2026 06/12/2025 Dental X-Ray: Bitewings 06/13/2026 06/12/20, 03/13/2025, 06/27/2024, Additional history exists Dental X-Ray: Full Mouth 07/23/2026 07/22/2023, 11/30 Zoster Vaccines (1 of 2) 2027 Lipid Panel 01/23/2030 01/23/2025, 0808/2022, 08/31/2022, Additional history exists DTaP/Tdap/Td Vaccines (3 [...] Author Blood Pressure < 140/90 Blood Pressure 148/94( 025 10:55 AM EST) No Jovan Porter, PharmD Procedures Procedure Name Priority Date/Time Associated Diagnosis Comments INTRAORAL - PERIAPICAL EACH ADDITIONAL RADIOGRAPHIC IMAGE Routine 06/12/2025 11:00 AM EST INTRAORAL - PERIAPICAL FIRST RADIOGRAPHIC IMAGE Routine 06/12/2025 11:00 AM EST CASE PRESENTATION, DETAILED AND EXTENSIVE TREATMENT PLANNING Routine 06/12/2025 11:00 AM EST Dental crowns status BITEWING - SINGLE RADIOGRAPHIC IMAGE Routine 06/12/2025 11:00 AM EST Dental crowns status 13 RE-CEMENT OR RE-SOLIS CROWN Routine 06/12/2025 11:00 AM EST Dental crowns status DEXAMETHASONE Routine 04/25/2025 8:18 AM EDT ACTH, PLASMA Routine 04/25/2025 8:18 AM EDT CORTISOL RANDOM Routine 04/25/2025 8:18 AM EDT PLASMA RENIN ACTIVITY, LC/MS/MS Routine 04/18/2025 8:18 AM EDT DEXAMETHASONE Routine 04/18/2025 8:18 AM EDT METANEPHRINES, FRACT, FREE, LC/MS/MS, PLASMA Routine 04/18/2025 8:18 AM EDT ACTH, PLASMA Routine 04/18/2025 8:18 AM EDT ALDOSTERONE, LC/MS/MS Routine 04/18/2025 8:18 AM EDT DHEA SULFATE Routine 04/18/2025 8:18 AM EDT CORTISOL RANDOM Routine 04/18/2025 8:18 AM EDT BASIC METABOLIC PANEL Routine 04/18/2025 8:18 AM EDT GROSS AND MICROSCOPIC LEVEL 3 Routine 04/05/2025 12:18 PM EDT HCG, QL, URINE Routine 04/05/2025 9:35 AM EDT LIPID PANEL WITH REFLEX TO DIRECT LDL [...] Recently Relevant to Health Maintenance Results * Dexamethasone (04/25/2025 8:18 AM EDT) Only the most recent of2 resultswithin the time period is included. Dexamethasone 566 ng/dL [facility] Comment:Reference Ranges for Dexamethasone:Baseline: Less than 20 ng/dL1 mg dexamethasone overnight: 180-550 ng/dL (8:00-10:00 AM)This test was developed and its analytical performancecharacteristics have been determined by [employer].It has not been cleared or approved by the FDA. This assayhas been validated pursuant to the CLIA regulations and isused for clinical purposes.THIS TEST WAS PERFORMED AT:[employer] [id number] [facility] [place] [place] [address]SJDJMTASHA BERNAL MD,PHD,EKATERINA 04/25/2025 8:18 AM EDT 04/25/2025 8:18 AM EDT us Generic External Data Provider LAB BLOOD ORDERAB LES Final Result [facility] [address] [place] [phone] * Cortisol Random (04/25/2025 8:18 AM EDT) Only the most recent of2 resultswithin the time period is included. Cortisol Random <1.0 ug/dL [facility] Comment:Reference Range*: Be fore 10 am 6.2-19.4 ug/dL After 5 pm 2.3-11.9 ug/dL*Please interpret above results accordingly.This test was performed using the [employer] chemiluminescentmethod. Values obtained from different assay methods cannotbe used interchangeably.Patients receiving fludrocortisone, prednisolone orprednisone may show artificially elevated cortisol valuesdue to cross-reactivity. 04/25/2025 8:18 AM EDT 04/25/2025 8:18 AM EDT Generic External Data Provider LAB BLOOD ORDERAB LES Final Result Performing Organization Address [facility] Co de Phone Number [facility] [address] [place] [phone] * (ABNORMAL) ACTH, Plasma (04/25/2025 8:18 AM EDT) Only the most recent of2 resultswithin the time period is included. ACTH, Plasma <5(A) 6 - 50 pg/mL [facility] Comment:Reference range appl ies only to specimens collectedbetween 7am-10am.THIS TEST WAS PERFORMED AT:[employer]/[id number] [place] [address]KJXWKTNCINDA JAY MD,PHD 04/25/2025 8:18 AM EDT 04/25/2025 8:18 AM EDT Generic External Data Provider LAB BLOOD ORDERAB LES Final Result Performing Organization Address [facility] Co de Phone Number [facility] [address] [place] [phone] * Metanephrines, Fractionated, Free, LC/MS/MS, Plasma (04/18/2025 8:18 AM EDT) Metanephrine, Free <25 <=57 pg/mL [facility] Comment:This test was devcarolyno denae and its analytical performancecharacteristics have been determined by [employer] [place], [place]. It hasnot been cleared or approved by the U.S. Food and DrugAdministration. This assay has been validated pursuantto the CLIA regulations and is used for clinicalpurposes. Normetanephrine, Free 57 <=148 pg/mL [facility] Comment:This test was develo ped and its analytical performancecharacteristics have been determined by [employer] [place], [place]. It hasnot been cleared or approved by the U.S. Food and DrugAdministration. This assay has been validated pursuantto the CLIA regulations and is used for clinicalpurposes. Total, Free (MN+NMN) 57 <=205 pg/mL [facility] Comment: For additional information, please refer tohttp://education.monEchelle/faq/MetFractFree(This link is being provided for informational/educatioinformational/educational purposes only.)Elevations >4-fold upper reference range: stronglysuggestive of a pheochromocytoma(1).Elevations >1- 4-fold upper reference range:significant but not diagnostic, may be due tomedications or stress. Suggest running 24 hr urinefractionated metanephrines and/or serum Chromagranin Afor confirmation.Reference:(1)Laura Topete et al, Plasma Chromogranin Aor Urine Fractionated Metanephrines Follow-Up TestingImproves the Diagnostic Accuracy of Plasma FractionatedMetanephrines for Pheochromocytoma. The Journal ofClinical Endocrinology # Metabolism 93(1), 91-95, 2008.This test was developed and its analytical performancecharacteristics have been determined by [employer] [place], [place]. It hasnot been cleared or approved by the U.S. Food and DrugAdministration. This assay has been validated pursuantto the CLIA regulations and is used for clinicalpurposes.THIS TEST WAS PERFORMED AT:[employer] [id number] [place] [address]SGIKRGPCINDA JAY MD,PHD 04/18/2025 8:18 AM EDT 04/18/2025 8:18 AM EDT us Generic External Data Provider LAB BLOOD ORDERAB LES Final Result [facility] [address] [place] [phone] * Aldosterone, LC/MS/MS (04/18/2025 8:18 AM EDT) [facility] Aldosterone, LC/MS/MS 13 see note ng/dL [facility] Comment:Unable to flag abnor mal result(s), please refer to reference range(s) below:Adult Reference Ranges for Aldosterone, LC/MS/MS: Upright 8:00 - 10:00 am < or = 28 ng/dL Upright 4:00 - 6:00 pm < or = 21 ng/dL Supine 8:00 - 10:00 am 3 - 16 ng/dLThis test was developed and its analytical performancecharacteristics have been determined by [employer] [place]. It hasnot been cleared or approved by the .S. Food and DrugAdministration. This assay has been validated pursuantto the CLIA regulations and is used for clinicalpurposes.THIS TEST WAS PERFORMED AT:[employer]/[id number] [place] [address]DZHOROTCINDA JAY MD,PHD 04/18/2025 8:18 AM EDT 04/18/2025 8:18 AM EDT us Generic External Data Provider LAB BLOOD ORDERAB LES Final Result [facility] [address] [place] [phone] * Plasma Renin Activity, LC/MS/MS (04/18/2025 8:18 AM EDT) [facility] Plasma Renin Activity, LC/MS/MS 3.57 0.25 - 5.82 ng/mL/h [facility] Comment:This test was develo ped and its analytical performancecharacteristics have been determined by [employer] [place]. It hasnot been cleared or approved by the U.S. Food and DrugAdministration. This assay has been validated pursuantto the CLIA regulations and is used for clinicalpurposes.THIS TEST WAS PERFORMED AT:[employer] [id number] [place] [address]GEDFCKACINDA JAY MD,PHD 04/18/2025 8:18 AM EDT 04/18/2025 8:18 AM EDT Generic External Data Provider LAB BLOOD ORDERAB LES Final Result Performing Organization Address [facility]/ZIP Co de Phone Number [facility] [address] [place] [phone] * DHEA Sulfate (04/18/2025 8:18 AM EDT) DHEA Sulfate 46 15 - 205 mcg/dL [facility] Comment:THIS TEST WAS PERFOR MED AT:[employer] [address] [address]PDDQKRIVKA DUPONT MD 04/18/2025 8:18 AM EDT 04/18/2025 8:18 AM EDT Generic External Data Provider LAB BLOOD ORDERAB LES Final Result Performing Organization Address [facility] de Phone Number [facility] [address] [place] [phone] * Basic Metabolic Panel (04/18/2025 8:18 AM EDT) Sodium 141 135 - 145 mmol/L [facility] Potassium 3.7 3.3 - 5.1 mmol/L [facility] Chloride 105 96 - 108 mmol/L [facility] Carbon Dioxide 26 22 - 29 mmol/L [facility] Anion Gap 14 12 - 20 [facility] Urea Nitrogen (BUN) 12 9 - 16 mg/dL [facility] Creatinine, Serum 0.67 0.5 - 1.4 mg/dL [facility] Estimated Glomerular Filt Rate >60 [facility] Comment:Chronic Kidney Disea se: Estimated GFR < 60 mL/min/1.57v1Khoqzq Kidney Disease: Estimated GFR < 15 mL/min/1.73m2 Glucose 96 60 - 115 mg/dL [facility] Calcium 8.9 8.4 - 10.2 mg/dL [facility] 04/18/2025 8:18 AM EDT 04/18/2025 8:18 AM EDT us Generic External Data Provider LAB BLOOD ORDERAB LES Final Result [facility] [address] [place] [phone] * Gross and Microscopic Level 3 (04/05/2025 12:18 PM EDT) 04/05/2025 12:1 8 PM EDT 04/05/2025 1:14 PM EDT Narrative [facility] - 04/06/2025 1:18 PM EDT ----- ------- Name: Kristie Lane Age/Sex: 49/F : 1975 Unit#: [id number] Attend Dr: Salbador Barriga MD Re04/05/25 [place] [facility] [place] Disch: ----- ------- SPEC : [id number] RECD: 04/05/25 STATUS: JONAH BAPTISTE NUM: [id number] LISA: 04/05/[address] [facility] DR: Salbador Barriga MD ENTERED: 04/05/25 [...] The wall measures 0.1 cm in thickness. Industrial Engineering Technologist sections are submitted in a cassette labeled A1 to include the margin of resection of the duct. CEDS IHC S/NG Disclaimer NOTE: Unless otherwise stated, all tissue is formalin-fixed and paraffin-embedded. Some or all of the immunohistochemical tests reported herein may have been developed and their performance characteristics determined by [facility]. They have not been cleared or [...] Name: Lane,Betis Age/Sex: 49/F : 1975 Unit#: [id number] Attend Dr: Salbador Barriga MD Re04/05/25 [place] [facility]: [place] Disch: ----- ------- SPEC : [id number] RECD: 04/05/25 STATUS: JONAH BAPTISTE NUM: [id number] LISA: 04/05/25-[address] [facility] DR: Salbador Barriga MD ENTERED: 04/05/25-1323 SP TYPE: Surgical OTHR DR: Alejandra Morris MD ORDERED: Gross Micro L3 Copies To: Alejandra Morris MD [address] [address] Salbador Barriga MD [facility] [address] [place] [phone] ----- ------- Signed (signature on file) Lin Harris 04/06/25 1318 ----- ------- END OF REPORT Generic External Data Provider LAB CYTOLOGY ORDE RABLES Final Result Performing Organization Address [facility] Co de Phone Number [facility] [address] [place] [phone] * HCG, Qualitative, Urine (04/05/2025 9:35 AM EDT) Urine NEGATIVE NEGATIVE [facility] Comment:This test was develo ped to detect early . Falsenegative results may occur after the 5th - 7th week ofpregnancy when using this test method. If clinicallyindicated, consider a serum hCG. 04/05/2025 9:35 AM EDT 04/05/2025 9:58 AM EDT Generic External Data Provider LAB URINE ORDERAB LES Final Result Performing Organization Address [facility] Co de Phone Number [facility] [address] [place] [phone] * (ABNORMAL) Lipid Panel with Reflex to Direct LDL (01/23/2025 11:26 AM EDT) Pathologist [facility] Triglycerides 73 <150 mg/dL [facility] Comment:Desirable Triglyceri de: less than 150 mg/dLBorderline High Triglyceride 150-199 mg/dLHigh Triglyceride: 200-499 mg/dLVery High Triglyceride: greater than or equal to 5OO mg/dL Cholesterol 142 <200 mg/dL [facility] Comment:Desirable Cholestero l: less than 200 mg/dLBorderline High Cholesterol: 200-239 mg/dLHigh Cholesterol: greater than 239 mg/dL LDL Cholesterol Calculated 89 <100 mg/dL [facility] Comment:Desirable LDL: less than 100 mg/dLNear Optimal/Above Optimal LDL: 110- 129 mg/dLBorderline High LDL: 130-159 mg/dLHigh LDL: 160-189 mg/dLVery High LDL: greater than or equal to 190 mg/dL HDL Cholesterol 39(L) >40 mg/dL [facility] Comment:Desirable HDL: great er than 40 mg/dL Note: This HDL assay may give artificially low results in patients with liver disease. Blood 01/23/2025 11:2 6 AM EDT 01/23/2025 12:56 PM EDT Alejandra Morris MD LAB BLOOD ORDERABLES Fin al Result [facility] [address] [place] [phone] * BI Mammogram Screening Tomosynthesis Bilateral (11/27/2024 8:15 AM EDT) Anatomical Region Laterality Modality Breast Bilateral Mammography 11/27/2024 8:15 AM EDT Narrative 12/03/2024 11:39 AM EDT [address] [place] [address] Mammography Report Signed Patient: Kristie Lane MR#: [id number] : 1975 Acct:[id number] Age/Sex: 49 / F ADM Date: 11/27/24 Loc: HO.MAMMO Attending Dr: Alejandra Morris MD Ordering Physician: Alejandra Morris MD Results: 1Ne gative Date of Service: 11/27/24 Follow Up: 1 Year From [facility] Mammogram Procedure(s): MM tomosynthesis screening BI Accession Number(s): [id number] cc: Alejandra Morris MD EXAMINATION: MM SCREENING [...] 12/03/24 1136 DD/ 0815 TD/TT: 11/27/24 0830 Vamp Seamer: Procedure Note Donotuseinterpreter, Image - 12/03/2024 [facility] [address] [place], [place] [address] Mammography Report Signed Patient: Javier Lane#: [id number] : 1975Acct:[id number] Age/Sex: 49 / FADM Date: 11/27/24 Loc: HO.MAMMO Attending Dr: Alejandra Morris MD Ordering Physician: Alejandra Morris MDResults: 1Ne gative Date of Service: 11/27/24Follow Up: 1 Year From [facility] Mammogram Procedure(s): MM tomosynthesis screening BI Accession Number(s): [id number] cc: lAejandra Morris MD EXAMINATION: MM SCREENING DIGITAL BREAST [...] 12/03/24 1136 DD/ 0815 TD/TT: 11/27/24 0830 Vamp Seamer: Alejandra Morris MD IMG BI PROCEDURES Edited Result - Final * Hepatitis C Ab (11/20/2022 9:35 AM EDT) Hepatitis C Antibody Nonreactive Nonreactive [facility] Comment:Antibodies to HCV no t detected; does not exclude early acuteHCV infection. 11/20/2022 9:35 AM EDT 11/20/2022 9:35 AM EDT [facility] External Provider LAB BLO OD ORDERABLES Final Result [facility] [address] [place] [phone] * HIV Ab/Ag ([facility]) (11/20/2022 9:35 AM EDT) HIV AB/AG Nonreactive Nonreactive [facility] Comment:HIV-1 p24 Ag and/or HIV-1/HIV-2 Ab not detected.A test result that is nonreactive does not exclude thepossibility of exposure to or infection with HIV-1 and/orHIV-2. Nonreactive results in this assay for individualswith prior exposure to HIV-1 and/or HIV-2 may be due toantigen and antibody levels that are below the limit ofdetection of this assay.The [employer] HIV Ag/Ab Combo assay result andsupplemental assay results should be interpreted inconjunction with the patient's clinical presentation,history and other laboratory results. If the results areinconsistent with clinical evidence, additional testing issuggested to confirm the result. 11/20/2022 9:35 AM EDT 11/20/2022 9:35 AM EDT [facility] External Provider LAB BLO OD ORDERABLES Final Result [facility] [address] [place] [address] [phone] * HPV E6/E7 RFLX CARLEY 16 18/45 (07/04/2020 10:04 AM EST) HPV mRNA E6/E7 rflx Not Detected Not Detected [facility] Comment: This test was performed using the APTIMA HPV Assay ([employer] This assay detects E6/E7 viral messenger RNA (mRNA) from 14 high-risk HPV types (16,18,31,33,35,39,45,51,52,56,58,59,66,68). The analytical performance characteristics of this assay have been determined by [employer]. The modifications have not been cleared or approved by the FDA. This assay has been validated pursuant to the CLIA regulations and is used for clinical purposes. THIS TEST WAS PERFORMED AT: [facility] [address] [address] RIVKA DUPONT MD 07/04/2020 10:0 4 AM EST Omaira Diaz HISTORICAL/NON ORDERABLE LABS Fi nal Result [facility] [address] from Last 3 Months or Most Recently Relevant to Health Maintenance Insurance [facility] 2 DENTAL - HSN FULL (MEDICAID) e [address] [place] [address] Care Teams Switchman Relationship Specialty Start Date End Date Alejandra Morris MD [address] [place] [phone] PCP - General Family Medicine 12/17/17 Jovan Porter, Joaquín [address] [place] [phone] Pharmacist Internal Medicine 05/24/23 Rhona Saldivar DDS [address] [place] [phone] Dental Programmable Logic Controller Assembler 07/03/24
--- OUTSIDE RECORDS SUMMARY | 2025-07-04 07:41 | XMS_ITS | Encounter Summary ---
Author Organization [employer] Address [address] [place] [address] 7t [place] [address] Care Team Providers Care Vice Admiral Name Role Phone Alejandra Morris MD Primary Care Provider + Jovan Porter PharmD Unavailable [phone] Rhona Saldivar DDS Unavailable [phone] Encounter Details Date Type Department Care Team (Late st Contact Info) Description 07/13/2022 Orders Only [facility] [address] [place], [place] [phone] Dara Bruno, RN Social History Tobacco Use Types Packs/Day Years [...] mammogram on 07/13/22, benign/BIRADs 2. Next one * Result Encounter Note - Alejandra Morris MD - 07/13/2022 9:59 AM EST Please update 07/13/22 mammogram -->neg/BIRADs 2, next one documented in this encounter Plan of Treatment Upcoming Encounters Date Type Department Care Team (Late st Contact Info) Description 07/16/2025 2:00 PM EST Medication Management [address] [address] Jovan Porter, PharmD [address] [place] [address] 07/23/2025 3:30 PM EST Clinical Support [address] [phone] 08/21/2025 10:30 AM EST Office Visit [address] [phone] Alejandra Morris MD [address] [place] [address] documented as of this encounter Procedures Procedure Name Priority Date/Time Associated Diagnosis Comments BI MAMMOGRAM SCREENING TOMOSYNTHESIS BILATERAL Routine 07/13/2022 9:20 AM EST documented in this encounter Results * BI Mammogram Screening Tomosynthesis Bilateral (07/13/2022 9:20 AM EST) Anatomical Region Laterality Modality Breast Bilateral Mammography 07/13/2022 9:20 AM EST Narrative 07/14/2022 5:06 PM EST [facility] [address] [place] [address] Mammography Report Signed Patient: Candido Rivera MR#: [id number] : 1975 Acct:[id number] Age/Sex: 46 / F ADM Date: 07/13/22 Loc: HO.MAMMO Attending Dr: Alejandra Morris MD Ordering Physician: Alejandra Morris MD Results: 2Be nign Findings Date of Service: 07/13/22 Follow Up: 1 Year From Orig inal Mammogram Procedure(s): MM tomosynthesis screening BI Accession Number(s): [id number] cc: Alejandra Morris MD EXAMINATION: MM SCREENING [...] in OV> 07/14/22 1703 DD/ 0920 TD/TT: Percussion Teacher: BOLANOS Procedure Note Donotuseinterpreter, Image - 07/14/2022 [facility] [address] [place], [place] [address] Mammography Report Signed Patient: Javier Rivera#: [id number] : 1975Acct:[id number] Age/Sex: 46 / FADM Date: 07/13/22 Loc: HO.MAMMO Attending Dr: Alejandra Morris MD Ordering Physician: Alejandra Morris MDResults: 2Be nign Findings Date of Service: 07/13/22Follow Up: 1 Year From Orig inal Mammogram Procedure(s): MM tomosynthesis screening BI Accession Number(s): [id number] cc: Alejandra Morris MD EXAMINATION: MM SCREENING [...] in OV> 07/14/22 1703 DD/ 0920 TD/TT: Percussion Teacher: BOLANOS [facility] External Provider IMG BI PROCEDURES Final Result documented in this encounter Visit Diagnoses Not on filedocumented in this encounter Care Teams Vice Admiral Relationship Specialty Start Date End Date Alejandra Morris MD [address] [place] [address] PCP - General Family Medicine 12/17/17 Jovan Porter PharmD [address] [place], [place] [phone] Pharmacist Internal Medicine 05/24/23 Rhona Saldivar DDS [address] [place] [address] Dental Order Management Specialist 07/03/24 documented as of this encounter
--- OUTSIDE RECORDS SUMMARY | 2025-07-04 07:41 | XMS_ITS | Encounter Summary ---
Author Organization [employer] [facility] Address [address] [facility] 7t [place] [address] Care Team Providers Care Practical Ministries Professor Name Role Phone Alejandra Morris MD Primary Care Provider + Jovan Porter PharmD Unavailable [phone] Rhona Saldivar DDS Unavailable [phone] Encounter Details Date Type Department Care Team (Late st Contact Info) Description 09/02/2022 Orders Only [facility] [address] [place] [address] Alejandra Morris MD [address] [place], [place] [phone] Vitamin D deficiency (Primary Dx) Social History [...] Description 07/16/2025 2:00 PM EST Medication Management [address] [address] Jovan Porter, PharmD [address] [place] [address] 07/23/2025 3:30 PM EST Clinical Support [address] [address] 08/21/2025 10:30 AM EST Office Visit [address] [address] Alejandra Morris MD [address] [place] [address] documented as of this encounter Visit Diagnoses Diagnosis Vitamin D deficiency- Primary documented in this encounter Care Teams Practical Ministries Professor Relationship Specialty Start Date End Date Alejandra Morris MD [address] [place] [phone] PCP - General Family Medicine 12/17/17 Jovan Porter, PharmD [address] [place] [address] [phone] Pharmacist Internal Medicine 05/24/23 Rhona Saldivar DDS [address] [place] [address] [phone] Dental Literacy Education Professor 07/03/24 documented as of this encounter
--- OUTSIDE RECORDS SUMMARY | 2025-07-04 07:41 | XMS_ITS | Encounter Summary ---
Author Organization [employer] [facility] Address [address] [place] [address] 7t [place] [address] Care Team Providers Care Founding Partner Name Role Phone Alejandra Morris MD Primary Care Provider + Jovan Porter PharmD Unavailable [phone] Rhona Saldivar DDS Unavailable Encounter Details Date Type Department Care Team ([facility] Contact Info) Description 10/02/2022 Abstract [facility] [address] [place] [address] Dharmesh Reyes DDS [address] [place] [address] Social History Tobacco Use Types Packs/Day Years [...] Department Care Team ([facility] Contact Info) Description 07/16/2025 2:00 PM EST Medication Management [address] [address] Jovan Porter, PharmD [address] [place] [address] 07/23/2025 3:30 PM EST Clinical Support [address] [address] 08/21/2025 10:30 AM EST Office Visit [address] [address] Alejandra Morris MD [address] [place] [address] documented as of this encounter Visit Diagnoses Not on filedocumented in this encounter Care Teams Founding Partner Relationship Specialty Start Date End Date Alejandra Morris MD [address] [place] [phone] PCP - General Family Medicine 12/17/17 Jovan Porter, PharmD [address] [place] [address] Pharmacist Internal Medicine 05/24/23 Rhona Saldivar DDS [address] [place] [address] [phone] Dental Rock Crusher 07/03/24 documented as of this encounter
--- OUTSIDE RECORDS SUMMARY | 2025-07-04 07:41 | XMS_ITS | Encounter Summary ---
Author Organization [employer] Address [address] [facility] 7t [place] [address] Care Team Providers Care Cylinder Press Operator Apprentice Name Role Phone Alejandra Morris MD Primary Care Provider + Jovan Porter PharmD Unavailable [phone] Rhona Saldivar DDS Unavailable [phone] Reason for Visit * Reason Comments Med Refill Encounter Details Date Type Department Care Team (Late st Contact Info) Description 06/07/2023 Refill [facility] [address] [place], [place] [phone] Alejandra Morris MD [address] [place], [place] [phone] Slow transit constipation Social History Tobacco Use [...] Description 07/16/2025 2:00 PM EST Medication Management [address] [address] Jovan Porter, PharmD [address] [place] [address] 07/23/2025 3:30 PM EST Clinical Support [address] [address] 08/21/2025 10:30 AM EST Office Visit [address] [address] Alejandra Morris MD [address] [place] [address] documented as of this encounter Goals Goal Patient Goal Type Associated Problems Recent Progress Patient-Stated? Author Blood Pressure < 140/90 Blood Pressure 148/94( 025 10:55 AM EST) No Jovan Porter PharmD documented as of this encounter Visit Diagnoses Diagnosis Slow transit constipation documented in this encounter Additional Health Concerns Assessment Noted Time PHQ-9 Depression Total Score: 0 11/10/19 23 9:18 AM EDT documented as of this encounter Care Teams Cylinder Press Operator Apprentice Relationship Specialty Start Date End Date Alejandra Morris MD [address] [place] [address] PCP - General Family Medicine 12/17/17 Jovan Porter, Joaquín [address] [place], [place] [phone] Pharmacist Internal Medicine 05/24/23 Rhona Saldivar DDS [address] [place], [place] [phone] Dental Nursery Attendant 07/03/24 documented as of this encounter
--- OUTSIDE RECORDS SUMMARY | 2025-07-04 07:41 | XMS_ITS | Encounter Summary ---
Author Organization [employer] [facility] Address [address] [place] [address] 7t [place] [address] Care Team Providers Care Fish Conservationist Name Role Phone Alejandra Morris MD Primary Care Provider + Jovan Porter PharmD Unavailable [phone] Rhona Saldivar DDS Unavailable [phone] Encounter Details Date Type Department Care Team (Latest Contact Info) Description 12/16/2018 Abstract [facility] CONVERSION[facility] Dental, Provider, DDS Social History Tobacco [...] Description 07/16/2025 2:00 PM EST Medication Management [address] [address] Jovan Porter, PharmD [address] [place] [place] [address] 07/23/2025 3:30 PM EST Clinical Support [address] [address] 08/21/2025 10:30 AM EST Office Visit [address] [address] Alejandra Morirs MD [address] [place] [place] [address] [phone] documented as of this encounter Visit Diagnoses Not on filedocumented in this encounter Care Teams Fish Conservationist Relationship Specialty Start Date End Date Alejandra Morris MD [address] [place] [place] [address] [phone] PCP - General Family Medicine 12/17/17 Jovan Porter, MichelleD [address] [place] [place] [address] [phone] Pharmacist Internal Medicine 05/24/23 Rhona Saldivar DDS [address] [place] [address] [phone] Dental Public Information Specialist 07/03/24 documented as of this encounter
--- OUTSIDE RECORDS SUMMARY | 2025-07-04 07:41 | XMS_ITS | Encounter Summary ---
Author Organization [employer] [facility] Address [address] [place] [address] 7t [place] [address] Care Team Providers Care Artisan Plasterer Name Role Phone Alejandra Morris MD Primary Care Provider + Jovan Porter PharmD Unavailable [phone] Rhona Saldivar DDS Unavailable Encounter Details Date Type Department Care Team ([facility] Contact Info) Description 10/02/2022 Abstract [facility] [address] [place] [address] Dharmesh Reyes DDS [address] [place] [address] Social History Tobacco Use Types Packs/Day Years [...] Upcoming Encounters Date Type Department Care Team ([facility] Contact Info) Description 07/16/2025 2:00 PM EST Medication Management [address] [address] Jovan Porter, PharmD [address] [place] [address] 07/23/2025 3:30 PM EST Clinical Support [address] [address] 08/21/2025 10:30 AM EST Office Visit [address] [address] Alejandra Morris MD [address] [place] [address] documented as of this encounter Visit Diagnoses Not on filedocumented in this encounter Care Teams Artisan Plasterer Relationship Specialty Start Date End Date Alejandra Morris MD [address] [place] [address] PCP - General Family Medicine 12/17/17 Jovan Porter, PharmD [address] [place] [phone] Pharmacist Internal Medicine 05/24/23 Rhona Saldivar DDS [address] [place] [address] [phone] Dental Supervisor Shop 07/03/24 documented as of this encounter
[2025-07-04] MEDS: iohexoL 350 MG/ML 100 ML INFUS..BTL IV (08:35)
== END 2025-07-04 07:39 | disposition home or self-care (01) ==
LOC: HO.CT 07:38
PROVIDERS: PCP Internal Medicine; Visit Provider Student in an Organized Health Care Education/Training Program
DX: E27.9 Disorder of adrenal gland, unspecified (principal)
CPT/HCPCS: 74170; Q9967

== ENCOUNTER → 2025-07-04 07:42 | Outpatient (BNV) | payer OTHER, SELFPAY | PROVIDERS: PCP Internal Medicine; Visit Provider Radiology Diagnostic Radiology | DX: E27.9 Disorder of adrenal gland, unspecified (principal); K76.0 Fatty (change of) liver, not elsewhere classified; R16.0 Hepatomegaly, not elsewhere classified | CPT/HCPCS: 74170 ==

== ENCOUNTER 2025-07-31 09:01 | Outpatient (AMB) | payer OTHER, SELFPAY ==
--- NOTE | 2025-07-31 09:04 | MHC.OFFVIS ---
Vital Signs 07/31/25 09:06 Height 5 ft 1 in Weight 174 lb 3.91 oz BMI 32.9 BP 102/70 Blood Pressure Location Lt brachial Position Sitting Pulse 75 Pulse Source Pulse Oximeter Pulse Oximetry (%) 97 Oxygen Delivery Method Room Air Intake Visit Reasons: Adrenal nodule Intake Note: Patient present today for Adrenal nodule follow up. Battery Charger Tester Required: Yes Battery Charger Tester Language: Chaplain Resident Services: Battery Charger Tester Present Battery Charger Tester [place] [facility] [place] Information Interpreted: non-clinical & clinical Accompanied by: Self / Same As Patient Allergies carrot Allergy (Unknown, Verified 07/31/25 09:07) Unknown Medication List - Last Reconciled 07/31/25 by Rickie Henry MD betamethasone dipropionate 0.05% 1 appl topical BID 2 weeks cetirizine 10 mg PO DAILY PRN clotrimazole-betamethasone 1-0.05 % 1 appl topical BID 7 days dexamethasone 1 mg PO ONCE ergocalciferol (vitamin D2) 1,250 mcg PO QWEEK fluticasone propionate 50 mcg/actuation 2 sprays intranasal DAILY PRN ibuprofen 800 mg PO Q8H PRN labetalol 300 mg PO BID levonorgestrel (Mirena) intrauterine loratadine 10 mg PO DAILY losartan-hydrochlorothiazide 100-25 mg 1 tab PO DAILY miconazole nitrate 2% (Monistat 7) 1 appful vaginal BEDTIME 7 days omeprazole 20 mg PO DAILY oxycodone 5 mg PO Q6H PRN polyvinyl alcohol 1.4% 1 drp ophthalmic (eye) HPI Comments Details: 29-year-old female here today for initial evaluation of left adrenal gland nodule. pt last saw Dr. Slater 04/17/25 MR abdomen 01/22/2025: I reviewed the images myself which Showed left adrenal gland 2.1 X1.5 X1.5 cm cyst. Right adrenal gland unremarkable. Symptoms: -Pt denies any weight gain, lost 20 lbs since Jun 2024, more activity , avoiding fatty foods -denies hirsutism,severe acne ,headaches , , -denies any hx of proximal muscle weakness, easy bruisability ,no abdominal striae,no headache,diaphoresis -History of hypertension On losartan/hydrochlorothiazide 100-25 daily, labetalol 300 mg twice daily? -Denies history of glucose intolerance,no abdominal pain ,skin infection or hyperpigmentation. -no recent vertebra or fragility fracture, -No truncal obesity,facial plethora or recent mood change. No hx of depression. - no episodic palpitaions, pallor, abdominal pain, diaphoresis . (2 months ago one episode of sharp stabbing pain that was sudden, self resolved, isolated episode) ? Laboratory Tests 01/23/25 11:26 Potassium 4.0 Creatinine 0.78 Estimated GFR > 60 TSH 2.73 EXAMINATION: MR ABDOMEN WITHOUT THEN WITH IV CONTRAST 01/19/25 HISTORY: pancreatic cystic lesion incidentally found on pelvic MRI, please evaluate COMPARISON: Correlation is made with an MRI of the pelvis dated 01/01/2025. TECHNIQUE: Axial in and out of phase T1-weighted gradient echo, axial diffusion weighted, and axial and coronal HASTE T2 with fat saturation images were obtained through the abdomen. Subsequently, fat suppressed axial and coronal T1-weighted images were obtained after the intravenous administration of 8.5 mL Gadavist. FINDINGS: Liver: There is no loss of signal intensity in the liver on opposed phase imaging to suggest steatosis. There is no enhancing liver mass. The hepatic and portal veins are patent. There is no intra- or extrahepatic biliary dilatation. Gallbladder: The gallbladder is markedly distended and demonstrates numerous intraluminal calculi. The bile within the gallbladder is T1 hyperintense and T2 hypointense consistent with proteinaceous or hemorrhagic content. There are multiple calculi in the gallbladder neck the largest of which measures 2.1 cm in size. There is resultant mass effect and narrowing of the common bile duct. No pericholecystic inflammatory changes are identified. Spleen: The spleen is unremarkable. Pancreas: The pancreas is unremarkable. The pancreatic duct is normal in caliber. Adrenals: The right adrenal gland is unremarkable. There is a 2.1 x 1.5 x 1.5 cm cyst associated with the left adrenal gland. There is no associated enhancement. Kidneys: The right kidney is unremarkable. There is a 9 mm cyst in the interpolar region of the left kidney. There is no hydronephrosis. Lymph nodes: There is no retroperitoneal lymphadenopathy in the upper abdomen. Fluid: There is no ascites in the upper abdomen. Visualized bowel: There is wall thickening of the hepatic flexure of the colon with inflammatory stranding of the surrounding fat. Visualized bones: The visualized bones demonstrate normal marrow signal intensity. MR/MR abdomen wo/w con IMPRESSION: 1. The previously seen 2.1 x 1.5 x 1.5 cm cyst in the left upper quadrant is associated with the left adrenal gland, and likely represents a post traumatic or post infectious cyst. 2. Markedly distended gallbladder with cholelithiasis. There are multiple calculi in the gallbladder neck causing mass effect and narrowing of the common bile duct. 3. Wall thickening of the hepatic flexure of the colon with surrounding inflammatory changes. Findings may represent colitis or a mass. Further evaluation with colonoscopy is recommended if this has not recently been performed. Electronically signed by: Rickie Friedman MD 01/22/2025 08:05 AM EDT RP CAT scan with adrenal protocol showed indeterminate mass with LEFT ADRENAL GLAND: There is a 19 x 25 x 17 mm, well-defined, partially calcified isodense lesion which measures 12 Hounsfield units in the non-IV contrast phase, 22 Hounsfield units in the portal venous phase and 14 Hounsfield units on the delayed phase. [facility] Medical History (Updated 04/17/25 @ 08:40 by Vivi Slater MD) Adrenal nodule Fibroid Ovarian cyst IUD (intrauterine device) in place HTN (hypertension) Surgical History Hx laparoscopic cholecystectomy (04/05/25) H/O wrist surgery Family History Mother HTN (hypertension) Social History Household Members: Spouse and Children Housing: House Alcohol intake: never Comment: counts correct Patient Tobacco Use Status: Never used Tobacco Current occupational status: unemployed Sexual orientation: Straight/Heterosexual Gender identity: Female Physical Exam Vital Signs: Last Vital Signs Pulse 75 07/31/25 09:06 BP 102/70 07/31/25 09:06 Pulse Ox 97 07/31/25 09:06 Oxygen Delivery Method Room Air 07/31/25 09:06 BMI result Body Mass Index 32.9 Assessment & Plan Assessment & Plan (1) Adrenal nodule: Code(s): E27.9 - Disorder of adrenal gland, unspecified Category: Medical Plan: This is a 49-year-old female with a history of left adrenal mass indeterminate on washout CAT scan. Appears to be non secretory . Considering patient's age and appearance on CAT scan with inappropriate washout, would recommend the patient to have left adrenalectomy. Discuss with the patient in detail with the help of a data technician. We will have patient follow up after her meeting with Dr. Hoover Orders: Referrals General Surgery Referral E27.9 - Disorder of adrenal gland, unspecified Coding Level of Care Code Est Pt Level 3 (37813) Add On Problem Visit Only Diagnoses Adrenal nodule E27.9
[2025-07-31 09:06] VITALS: BP 102/70; PULSE 75; O2SAT 97; BMI 32.9
--- OUTSIDE RECORDS SUMMARY | 2025-07-31 11:13 | XMS_ITS | Encounter Summary ---
Author Organization [facility] Address [address] [place] [address] Care Team Providers Care Recycling Manager Name Role Phone Alejandra Morris MD Primary Care Provider + Jovan Porter PharmD Unavailable + 0 Rhona Saldivar DDS Unavailable +1 Jovan Porter PharmD Unavailable + 0 Reason for Visit * Reason Comments Med Refill Encounter Details Date Type Department Care Team (Late st Contact Info) Description 06/07/2023 Refill [facility] [address], [place] [phone] Alejandra Morris MD [address], [place] [phone] Slow transit constipation Social History Tobacco Use [...] Care Team (Late st Contact Info) Description 08/06/2025 10:30 AM EST Medication Management [facility] [address] [place] [phone] Jovan Porter, PharmD [address] [place] [phone] 08/21/2025 10:30 AM EST Office Visit [facility] [address] [place] [phone] Alejandra Morris MD [address] [place] [phone] documented as of this encounter Goals Goal Patient Goal Type Associated Problems Recent Progress Patient-Stated? Author Blood Pressure < 140/90 Blood Pressure 142/88( 025 2:20 PM EST) No Jovan Porter, PharmD documented as of this encounter Visit Diagnoses Diagnosis Slow transit constipation documented in this encounter Additional Health Concerns Assessment Noted Time PHQ-9 Depression Total Score: 0 11/10/19 23 9:18 AM EDT documented as of this encounter Care Teams Recycling Manager Relationship Specialty Start Date End Date Alejandra Morris MD [address] [place] [phone] PCP - General Family Medicine 12/17/17 Jovan Porter, PharmD [address] [place] [address] Pharmacist Internal Medicine 05/24/23 11/24/23 Rhona Saldivar DDS [address] [place] [address] Dental Production Shift Supervisor 07/03/24 Jovan Porter, PharmD [address] [place] [address] Pharmacist Pharmacy 07/16/25 documented as of this encounter
--- OUTSIDE RECORDS SUMMARY | 2025-07-31 11:14 | XMS_ITS | Clinical Summary ---
Author Organization [employer] Address [address] [facility] 7[address] [place] [address] Care Team Providers Care Information Receptionist Name Role Phone Alejandra Morris MD Primary Care Provider + Rhona Saldivar DDS Unavailable [phone] Jovan Porter PharmD Unavailable [phone] Allergies Active Allergy Reactions Criticality Noted Date [...] mouth Once per day. 90 tablet 3 5 3:06 PM EST 025 Active cetirizine (ZyrTEC) 10 MG tablet TAKE 1 TABLET BY MOUTH EVERY DAY NEEDED FOR ALLERGIES 90 tablet 1 5 3:06 PM EST 025 Active fluticasone (Flonase) 50 MCG/ACT nasal spray INSTILL 1 SPRAY IN EACH NOSTRIL ONCE DAILY 48 g 12/15/202 5 3:06 PM EST Active cyclobenzaprine (Flexeril) 10 MG tabletIndicatio ns:Spasm of thoracic back muscle Take 1 tablet (10 mg) by mouth at bedtime. 30 tablet Active labetalol (Normodyne) 100 MG tabletIndicatio ns:Primary hypertension Take 1 tablet (100 mg) by mouth 2 times daily. 180 tablet 3 Active labetalol (Normodyne) 100 MG tabletIndicatio ns:Primary hypertension Take 2 tablets (200 mg) by mouth 2 times daily. 180 tablet 3 2024 Discontinued(R eorder (will not trigger notification to Pharmacy)) hydroCHLOROthia zide 12.5 MG tablet Take 1 tablet (12.5 mg) by mouth Once per day. 30 tablet 11 2024 Discontinued(A lternate therapy) acetaminophen (Tylenol Extra Strength) 500 MG tablet Take 1 tablet (500 mg) by mouth every 6 (six) hours if needed for mild pain. 120 tablet 2024 amLODIPine (Norvasc) 5 MG tabletIndicatio ns:Primary hypertension Take 1 tablet (5 mg) by mouth Once per day. 30 tablet 11 5:16 PM EST 2024 Discontinued(S lino effects) Active Problems Problem [...] Assessment & Plan (07/12/2023 10:24 AM EST): Art Therapist regarding to apply heat to affected area Art Therapist regarding stretch exercises Take Tylenol BID x1 week Art Therapist regarding attending walk-in acupuncture Reconsult PRN and [...] me in 1 month refer to [facility] clinic, order labs Assessment & Plan [...] Encounters Date Type Department Care Team Description 07/16/2025 Travel 07/10/2025 Results Follow-Up [facility] [address] [place] [phone] adrenal wo/w IV con 07/04/2025 Orders Only [facility] External Provider, [facility] 06/27/2025 Telephone [facility] [address] [place] [phone] Alejandra Morris MD 06/25/2025 10:30 AM EST Clinical Support [facility] [address] [place] [phone] Tiana Vance RN Primary hypertension 06/25/[address] [address] Alejandra Morris MD Add new medication for B/P 06/25/2025 Travel 06/12/2025 11:45 AM EST Office Visit [facility] [address] [place] [phone] Alejandra Morris MD Primary hypertension (Primary Dx); Impaired glucose tolerance; Cervical paraspinal muscle spasm; Spasm of thoracic back muscle; Sprain of right rotator cuff capsule, initial encounter 06/12/2025 11:00 AM EST Office Visit [facility] [address], [place] [phone] Rhona Saldivar, DDS Dental crowns status (Primary Dx) 06/12/2025 Travel 06/11/2025 Telephone [facility] [address] [place] [address] Alejandra Morris MD Chart Prep 05/02/2025 Refill [facility] [address] [place] [address] Alejandra Morris MD from Last 3 Months Immunizations Immunization Administration Dates Next Due Hep B, adult 06/04/2016,01/17/2016,11/11/2015 Influenza injectable quadriv alent IIV4 with preservative 04/20/2018,07/05/2017,06/04/2016,2014 Influenza injectable quadriv alent preservative free 06/10/2021,10/09/2019 Influenza, IIV3, injectable 05/03/2014, 1,05/31/2008 Influenza, Split (incl. doretha fied surface antigen) 05/01/2013,04/12/2012 Influenza, seasonal, injecta ble, preservative free 07/16/2025,05/22/2024,04/12/2023 MMRV 07/02/2005 TD (adult), 2 Lf tetanus [...] Sign Reading Time Taken Comments Blood Pressure 142/88 07/16/2025 2:20 PM EST Pulse 93 07/16/2025 2:20 PM EST Temperature 36.5 C (97.7 F) 06/12/2025 [...] Description 08/06/2025 10:30 AM EST Medication Management [facility] [address] [place] [phone] Jovan Porter, PharmD [address] [place] [address] 08/21/2025 10:30 AM EST Office Visit [facility] [address] [place] [phone] Alejandra Morris MD [address] [place] [address] Health Maintenance Due Date Last Done Comments CT Colonography 1975 Colonoscopy 1975 Colorectal Cancer Screening 1975 FIT DNA/Cologuard 1975 FIT 1975 FOBT 1975 Sigmoidoscopy 1975 Family Planning (PISQ) 1992 Pap Smear 1998 Dental Prophylaxis 01/22/2024 07/22/2023, 08/28/2022 Dental Oral Exam 02/22/2024 08/23/2023 COVID-19 Vaccine ( season) 2025 08/17/2021, 12/25/2020, 11/27/2020 Cervical Cancer Screening 07/04/2025 HPV/Cotest 07/04/2025 07/04/2020, 04/14/2016 SDOH Screening 11/21/2025 11/21/2024 Mammogram 11/27/2025 11/27/2024, 11/01, 07/13/2022, Additional history exists Alcohol/Substance Use Screening 02/08/2026 02/08/2025 Disability Screening 02/08/2026 02/08/2025 Depression Screening 06/12/2026 06/12/2025, 06/12/20 Tobacco Screening 06/12/2026 06/12/2025 Dental X-Ray: Bitewings 06/13/2026 06/12/20 25, 03/13/2025, 06/27/2024, Additional history exists Dental X-Ray: [...] C Screening Completed 11/20/2022 Influenza Vaccine Completed 07/16/2025, , 04/12/2023, Additional history exists HIB Vaccines Aged Out [...] 2:20 PM EST) No Jovan Porter, PharmD Procedures Procedure Name Priority Date/Time Associated Diagnosis Comments CT ADRENAL WO/W IV CON Routine 07/04/2025 7:49 AM EST INTRAORAL - PERIAPICAL EACH ADDITIONAL RADIOGRAPHIC IMAGE [...] 06/12/2025 11:00 AM EST Dental crowns status LIPID PANEL WITH REFLEX TO DIRECT LDL [...] Recently Relevant to Health Maintenance Results * CT adrenal wo/w IV con (07/04/2025 7:49 AM EST) Anatomical Region Laterality Modality Kidney Computed Tomogra phy 07/04/2025 7:49 AM EST Narrative 07/04/2025 9:02 AM EST [place] [address] CT Scan Report Signed Patient: Kristie Lane MR#: [id number] : 1975 Acct:[id number] Age/Sex: 49 / F ADM Date: 07/04/25 Loc: HO.CT Attending Dr: Vivi Slater MD Ordering Physician: Vivi Slater MD Date of Service: 07/04/25 Procedure(s): CT adrenal wo/w IV con Accession Number(s): [id number] cc: Alejandra Morris MD; Vivi Slater MD Report Number: [id number]: Total DLP = 521.00 mGy-cm Reason for Exam: E27.9 - Disorder of adrenal gland, unspecified EXAMINATION: CT ABDOMEN WITHOUT AND WITH CONTRAST CLINICAL INFORMATION: E 27.9. Disorder of adrenal gland. COMPARISON: Correlated to IV contrast enhanced MRI abdomen dated January 19, 2025. TECHNIQUE: Contiguous axial thin section helical images of the abdomen were performed before and after the administration of 85 mL of Omnipaque 350 intravenous contrast during the portal venous and delayed phases. The data set was reformatted in the coronal and sagittal planes and reviewed on an independent workstation. This CT examination was performed using dose optimization techniques as appropriate, variously including the following: *Automated exposure control *Adjustment of mA and/or kV according to patient size (this includes techniques or standardized protocols for targeted exams where dose is matched to indication/reason for exam; i.e. extremities or head) *Use of iterative reconstruction technique DLP: 521 mGy-cm FINDINGS: LUNG BASES: No acute airspace disease or gross pulmonary nodules. Scarring, lingula. LIVER, GALLBLADDER, AND BILIARY TREE: Liver measures 17 cm. No solid or cystic mass. Main portal veins and hepatic veins are patent. No intrahepatic biliary ductal dilatation. Slight decreased enhancement pattern with respect to the spleen. Absent gallbladder and vascular clips in the isauro hepatic region. Common bile duct measures 4 mm. PANCREAS: No solid or cystic mass. No main pancreatic ductal dilatation. No peripancreatic fluid collection. SPLEEN: 10 cm. No solid or cystic mass. RIGHT ADRENAL GLAND: No nodular lesion. LEFT ADRENAL GLAND: There is a 19 x 25 x 17 mm, well-defined, partially calcified isodense lesion which measures 12 Hounsfield units in the non-IV contrast phase, 22 Hounsfield units in the portal venous phase and 14 Hounsfield units on the delayed phase. KIDNEYS: No hydronephrosis. No nephrolithiasis. No enhancing mass. Normal enhancement of the renal parenchyma and normal excretion into the collecting system. BOWEL LOOPS: Abundant stool, large intestine. Collapsed appearance of the descending colon no fully evaluated. Abundant stool in the rectosigmoid colon. Appendix is normal. Terminal ileum is normal. No intestinal wall thickening. No ascites. No pneumoperitoneum. No pneumatosis intestinalis. LYMPH NODES: No mesenteric or retroperitoneal lymphadenopathy. VASCULAR: No aneurysm or dissection, abdominal aorta. Mixed plaques in the abdominal aorta wall. BONES: Multilevel thoracolumbar spondylosis without acute fracture or gross listhesis. No lytic or blastic lesions. Bilateral neuroforamina stenosis at L5-S1 on a degenerative basis. 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 Hepatomegaly and steatosis. Status post cholecystectomy. Fleischner guidelines were followed. Electronically signed by: Miquel Blakely MD 07/04/2025 09:00 AM EST Dictated By: Miquel Willoughby MD Signed By: <Electronically signed by Miquel Oconnor MD in OV> 07/04/25 0900 DD/ 0749 TD/TT: 07/04/25 0837 Sheet Metal Duct Installer Helper: Procedure Note Donotuseinterpreter, Image - 07/04/[address] [place] [address] [address] Scan Report Signed Patient: Javier Lane#: [id number] : 1975Acct:[id number] Age/Sex: 49 / FADM Date: 07/04/25 Loc: HO.CT Attending Dr: Vivi Slater MD Ordering Physician: Vivi Slater MD Date of Service: 07/04/25 Procedure(s): CT adrenal wo/w IV con Accession Number(s): [id number] cc: Alejandra Morris MD; Vivi Slater MD Report Number: [id number]: Total DLP = 521.00 mGy-cm Reason for Exam: E27.9 - Disorder of adrenal gland, unspecified EXAMINATION: CT ABDOMEN WITHOUT AND WITH CONTRAST CLINICAL INFORMATION: E 27.9. Disorder of adrenal gland. COMPARISON: Correlated to IV contrast enhanced MRI abdomen dated January 19, 2025. TECHNIQUE: Contiguous axial thin section helical images of the abdomen were performed before and after the administration of 85 mL of Omnipaque 350 intravenous contrast during the portal venous and delayed phases. The data set was reformatted in the coronal and sagittal planes and reviewed on an independent workstation. This CT examination was performed using dose optimization techniques as appropriate, variously including the following: *Automated exposure control *Adjustment of mA and/or kV according to patient size (this includes techniques or standardized protocols for targeted exams where dose is matched to indication/reason for exam; i.e. extremities or head) *Use of iterative reconstruction technique DLP: 521 mGy-cm FINDINGS: LUNG BASES: No acute airspace disease or gross pulmonary nodules. Scarring, lingula. LIVER, GALLBLADDER, AND BILIARY TREE: Liver measures 17 cm. No solid or cystic mass. Main portal veins and hepatic veins are patent. No intrahepatic biliary ductal dilatation. Slight decreased enhancement pattern with respect to the spleen. Absent gallbladder and vascular clips in the isauro hepatic region. Common bile duct measures 4 mm. PANCREAS: No solid or cystic mass. No main pancreatic ductal dilatation. No peripancreatic fluid collection. SPLEEN: 10 cm. No solid or cystic mass. RIGHT ADRENAL GLAND: No nodular lesion. LEFT ADRENAL GLAND: There is a 19 x 25 x 17 mm, well-defined, partially calcified isodense lesion which measures 12 Hounsfield units in the non-IV contrast phase, 22 Hounsfield units in the portal venous phase and 14 Hounsfield units on the delayed phase. KIDNEYS: No hydronephrosis. No nephrolithiasis. No enhancing mass. Normal enhancement of the renal parenchyma and normal excretion into the collecting system. BOWEL LOOPS: Abundant stool, large intestine. Collapsed appearance of the descending colon no fully evaluated. Abundant stool in the rectosigmoid colon. Appendix is normal. Terminal ileum is normal. No intestinal wall thickening. No ascites. No pneumoperitoneum. No pneumatosis intestinalis. LYMPH NODES: No mesenteric or retroperitoneal lymphadenopathy. VASCULAR: No aneurysm or dissection, abdominal aorta. Mixed plaques in the abdominal aorta wall. BONES: Multilevel thoracolumbar spondylosis without acute fracture or gross listhesis. No lytic or blastic lesions. Bilateral neuroforamina stenosis at L5-S1 on a degenerative basis. 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 Hepatomegaly and steatosis. Status post cholecystectomy. Fleischner guidelines were followed. Electronically signed by: Miquel Blakely MD 07/04/2025 09:00 AM [facility] Dictated By: Miquel Willoughby MD Signed By: <Electronically signed by Miquel Oconnor MDin OV> 07/04/25 0900 DD/ 0749 TD/TT: 07/04/25 0837 Sheet Metal Duct Installer Helper: [facility] External Provider IMG CT PROCEDURES Final Result * (ABNORMAL) Lipid Panel with Reflex to Direct LDL (01/23/2025 11:26 AM EDT) Triglycerides 73 <150 mg/dL [facility] Comment:Desirable Triglyceri de: less than 150 mg/dLBorderline High Triglyceride 150-199 mg/dLHigh Triglyceride: 200-499 mg/dLVery High Triglyceride: greater than or equal to 5OO mg/dL Cholesterol 142 <200 mg/dL [facility] Comment:Desirable Cholestero l: less than 200 mg/dLBorderline High Cholesterol: 200-239 mg/dLHigh Cholesterol: greater than 239 mg/dL LDL Cholesterol Calculated 89 <100 mg/dL [facility] Comment:Desirable LDL: less than 100 mg/dLNear Optimal/Above Optimal LDL: 110- 129 mg/dLBorderline High LDL: 130-159 mg/dLHigh LDL: 160-189 mg/dLVery High LDL: greater than or equal to 190 mg/dL HDL Cholesterol 39(L) >40 mg/dL [facility] Comment:Desirable HDL: great er than 40 mg/dL Note: This HDL assay may give artificially low results in patients with liver disease. Blood 01/23/2025 11:2 6 AM EDT 01/23/2025 12:56 PM EDT Alejandra Morris MD LAB BLOOD ORDERABLES Fin al Result [facility] [address] [place] [phone] * BI Mammogram Screening Tomosynthesis Bilateral (11/27/2024 8:15 AM EDT) Anatomical Region Laterality Modality Breast Bilateral Mammography 11/27/2024 8:15 AM EDT Narrative 12/03/2024 11:39 AM EDT [facility] [address] [place] [address] Mammography Report Signed Patient: Kristie Lane MR#: [id number] : 1975 Acct:[id number] Age/Sex: 49 / F ADM Date: 11/27/24 Loc: MAMMO Attending Dr: Alejandra Morris MD Ordering Physician: Alejandra Morris MD Results: 1Ne gatefren Date of Service: 11/27/24 Follow Up: 1 Year From Orig inal Mammogram Procedure(s): MM tomosynthesis screening BI Accession Number(s): [id number] cc: Alejandra Morris MD EXAMINATION: MM SCREENING [...] 12/03/24 1136 DD/ 0815 TD/TT: 11/27/24 0830 Sheet Metal Duct Installer Helper: Procedure Note Donotuseinterpreter, Image - 12/03/2024 [facility] [address] [place] [address] Dr. [place], [place] [address] Mammography Report Signed Patient: Javier Lane#: [id number] : 1975Acct:[id number] Age/Sex: 49 / FADM Date: 11/27/24 Loc: HO.MAMMO Attending Dr: Alejandra Morris MD Ordering Physician: Alejandra Morris MDResults: 1Ne gative Date of Service: 11/27/24Follow Up: 1 Year From Orig ina Mammogram Procedure(s): MM tomosynthesis screening BI Accession Number(s): [id number] cc: Alejandra Morris MD EXAMINATION: MM SCREENING [...] 12/03/24 1136 DD/ 0815 TD/TT: 11/27/24 0830 Sheet Metal Duct Installer Helper: Alejandra Morris MD IMG BI PROCEDURES Edited Result - Final * Hepatitis C Ab (11/20/2022 9:35 AM EDT) Hepatitis C Antibody Nonreactive Nonreactive [facility] Comment:Antibodies to HCV no t detected; does not exclude early acuteHCV infection. 11/20/2022 9:35 AM EDT 11/20/2022 9:35 AM EDT [facility] External Provider LAB BLO OD ORDERABLES Final Result Performing Organization Address [facility] Co de Phone Number [facility] [address] [place] [phone] * HIV Ab/Ag ([place] SQUIRES) (11/20/2022 9:35 AM EDT) HIV AB/AG Nonreactive Nonreactive [facility] Comment:HIV-1 p24 Ag and/or HIV-1/HIV-2 Ab not detected.A test result that is nonreactive does not exclude thepossibility of exposure to or infection with HIV-1 and/orHIV-2. Nonreactive results in this assay for individualswith prior exposure to HIV-1 and/or HIV-2 may be due toantigen and antibody levels that are below the limit ofdetection of this assay.The [employer] HIV Ag/Ab Combo assay result andsupplemental assay results should be interpreted inconjunction with the patient's clinical presentation,history and other laboratory results. If the results areinconsistent with clinical evidence, additional testing issuggested to confirm the result. 11/20/2022 9:35 AM EDT 11/20/2022 9:35 AM EDT [facility] External Provider LAB BLO OD ORDERABLES Final Result Performing Organization Address [facility] Co de Phone Number [facility] [address] [place] [phone] * HPV E6/E7 RFLX CARLEY 16 18/45 (07/04/2020 10:04 AM EST) HPV mRNA E6/E7 rflx Not Detected Not Detected [facility] Comment: This test was performed using the APTIMA HPV Assay ([employer] This assay detects E6/E7 viral messenger RNA (mRNA) from 14 high-risk HPV types (16,18,31,33,35,39,45,51,52,56,58,59,66,68). The analytical performance characteristics of this assay have been determined by [employer]. The modifications have not been cleared or approved by the FDA. This assay has been validated pursuant to the CLIA regulations and is used for clinical purposes. THIS TEST WAS PERFORMED AT: [facility] [address] [place] [address] [address],[place] [address] RIVKA DUPONT MD 07/04/2020 10:0 4 AM EST us Omaira Diaz HISTORICAL/NON ORDERABLE LABS Fi nal Result [facility] [address] from Last 3 Months or Most Recently Relevant to Health Maintenance Insurance [facility] Address: [facility] [address] [place] [address] [facility] AD[facility] - HSN FULL (MEDICAID) Care Teams Information Receptionist Relationship Specialty Start Date End Date Alejandra Morris MD [address], [place] PCP - General Family Medicine 12/17/17 Rhona Saldivar DDS [address], [place] Dental Paint Mixer Machine 07/03/24 Jovan Porter, Joaquín [address], [place] Pharmacist Pharmacy 07/16/25
--- OUTSIDE RECORDS SUMMARY | 2025-07-31 11:14 | XMS_ITS | Encounter Summary ---
Author Organization [employer] Address [address] [facility] 7t [place] [address] Care Team Providers Care Clinical Athletic Instructor Name Role Phone Alejandra Morris MD Primary Care Provider + Jovan Porter PharmD Unavailable [phone] Rhona Saldivar DDS Unavailable [phone] Jovan Porter PharmD Unavailable [phone] Encounter Details Date Type Department Care Team (Late st Contact Info) Description 07/13/2022 Orders Only [facility] [address] [place] [address] Dara Bruno, CELIA Social History Tobacco Use Types Packs/Day Years [...] on 07/13/22, benign/BIRADs 2. Next one on * Result Encounter Note - Alejandra Morris MD - 07/13/2022 9:59 AM EST Please update 07/13/22 mammogram -->neg/BIRADs 2, next one on '23 documented in this encounter Plan of Treatment Upcoming Encounters Date Type Department Care Team (Late st Contact Info) Description 08/06/2025 10:30 AM EST Medication Management [facility] [address] [place] [phone] Jovan Porter, PharmD [address] [place] [address] 08/21/2025 10:30 AM EST Office Visit [facility] [address] [place], [place] [phone] Alejandra Morris MD [address] [place], [place] [phone] documented as of this encounter Procedures Procedure Name Priority Date/Time Associated Diagnosis Comments BI MAMMOGRAM SCREENING TOMOSYNTHESIS BILATERAL Routine 07/13/2022 9:20 AM EST documented in this encounter Results * BI Mammogram Screening Tomosynthesis Bilateral (07/13/2022 9:20 AM EST) Anatomical Region Laterality Modality Breast Bilateral Mammography 07/13/2022 9:20 AM EST Narrative 07/14/2022 5:06 PM EST [facility] [address] [place] [address] Mammography Report Signed Patient: Candido Rivera MR#: [id number] : 1975 Acct:[id number] Age/Sex: 46 / F ADM Date: 07/13/22 Loc: HO.MAMMO Attending Dr: Alejandra Morris MD Ordering Physician: Alejandra Morris MD Results: 2Be nign Findings Date of Service: 07/13/22 Follow Up: 1 Year From Orig inal Mammogram Procedure(s): MM tomosynthesis screening BI Accession Number(s): [id number] cc: Alejandra Morris MD EXAMINATION: MM SCREENING [...] 07/14/22 1703 DD/ 0920 TD/TT: Director Of Corporate Communications: BOLANOS Procedure Note Donotuseinterpreter, Image - 07/14/2022 [facility] [address] [place], [place] [address] Mammography Report Signed Patient: Javier Rivera#: [id number] : 1975Acct:[id number] Age/Sex: 46 / FADM Date: 07/13/22 Loc: HO.MAMMO Attending Dr: Alejandra Morris MD Ordering Physician: Alejandra Morris MDResults: 2Be nign Findings Date of Service: 07/13/22Follow Up: 1 Year From Orig inal Mammogram Procedure(s): MM tomosynthesis screening BI Accession Number(s): [id number] cc: Alejandra Morris MD EXAMINATION: MM SCREENING [...] 07/14/22 1703 DD/ 0920 TD/TT: Director Of Corporate Communications: BOLANOS [facility] External Provider IMG BI PROCEDURES Final Result documented in this encounter Visit Diagnoses Not on filedocumented in this encounter Care Teams Clinical Athletic Instructor Relationship Specialty Start Date End Date Alejandra Morris MD [address] [place] [address] PCP - General Family Medicine 12/17/17 Jovan Porter, MichelleD [address] [place] [address] Pharmacist Internal Medicine 05/24/23 11/24/23 Rhona Saldivar DDS [address] [place] [address] Dental Vp Product 07/03/24 Jovan Porter PharmD [address] [place] [address] Pharmacist Pharmacy 07/16/25 documented as of this encounter
--- OUTSIDE RECORDS SUMMARY | 2025-07-31 11:14 | XMS_ITS | Clinical Summary ---
Author Organization [facility] Address [address] [place] [address] Phone Care Team Providers Care Photo Lab Technician Name Role Phone Unavailable Primary [...] Date Diagnosed Date Right ovarian cyst 02/15/2025 Surgical History Surgery Date Site/Laterality Comments CARPAL [...] on file Sexual Orientation Not on file Last Filed Vital Signs Vital Sign Reading [...] patient's age to complete this topic Insurance [facility]
--- OUTSIDE RECORDS SUMMARY | 2025-07-31 11:14 | XMS_ITS | Encounter Summary ---
Author Organization [employer] Address [address] [employer] [address] [place] [address] Care Team Providers Care Regulator Pin Inserter Name Role Phone Alejandra Morris MD Primary Care Provider + Rhona Saldivar DDS Unavailable [phone] Jovan Porter PharmD Unavailable [phone] Encounter Details Date Type Department Care Team (Late st Contact Info) Description 07/10/2025 Results Follow-Up [facility] [address] [place] [address] Alejandra Morris MD [address] [place], [place] [phone] CT adrenal wo/w IV con Social History Tobacco Use Types Packs/Day Years [...] Encounter Note - Alejandra Morris MD - 07/10/2025 9:[address] scan abdominal ordered by endocrinology to FU adrenal adenoma. They should fu with patient re result. documented in this encounter Plan of Treatment Upcoming Encounters Date Type Department Care Team (Late st Contact Info) Description 08/06/2025 10:30 AM EST Medication Management [facility] [address] [place] [phone] Jovan Porter, PharmD [address] [place] [address] 08/21/2025 10:30 AM EST Office Visit [facility] [address] [place] [address] Alejandra Morris MD [address] [place] [address] documented as of this encounter Goals Goal Patient Goal Type Associated Problems Recent Progress Patient-Stated? Author Blood Pressure < 140/90 Blood Pressure 142/88( 2:20 PM EST) No Jovan Porter, Joaquín documented as of this encounter Visit Diagnoses Not on filedocumented in this encounter Additional Health Concerns Assessment Noted Time PHQ-9 Depression Total Score: 0 06/12/20 12:14 PM EST documented as of this encounter Care Teams Regulator Pin Inserter Relationship Specialty Start Date End Date Alejandra Morris MD [address] [place] [phone] PCP - General Family Medicine 12/17/17 Rhona Saldivar DDS [address] [place] [address] Dental Increment Manager 07/03/24 Jovan Porter, PharmD [address] [place] [phone] Pharmacist Pharmacy 07/16/25 documented as of this encounter
--- OUTSIDE RECORDS SUMMARY | 2025-07-31 11:14 | XMS_ITS | Encounter Summary ---
Author Organization [facility] Address [address] [facility] 7t [place] [address] Care Team Providers Care Intelligent Systems Engineer Name Role Phone Alejandra Morris MD Primary Care Provider + Jovan Porter PharmD Unavailable Rhona Saldivar DDS Unavailable [phone] Jovan Porter PharmD Unavailable [phone] Encounter Details Date Type Department Care Team (Late st Contact Info) Description 10/02/2022 Abstract [facility] [address] [place], [place] [phone] Dharmesh Reyes DDS [address] [place], [place] [phone] Social History Tobacco Use Types Packs/Day Years [...] Description 08/06/2025 10:30 AM EST Medication Management [facility] [address] [place] [address] Jovna Porter, PharmD [address] [place] [address] 08/21/2025 10:30 AM EST Office Visit [facility] [address] [place] [address] Alejandra Morris MD [address] [place] [address] 284[address] documented as of this encounter Visit Diagnoses Not on filedocumented in this encounter Care Teams Intelligent Systems Engineer Relationship Specialty Start Date End Date Alejandra Morris MD [address] [place] [phone] PCP - General Family Medicine 12/17/17 Jovan Porter, PharmD [address] [place] [address] 23754 Pharmacist Internal Medicine 05/24/23 11/24/23 Rhona Saldivar DDS [address] [place] [address] Dental Agile Developer 07/03/24 Jovan Porter, PharmD [address] [place] [phone] Pharmacist Pharmacy 07/16/25 documented as of this encounter
--- OUTSIDE RECORDS SUMMARY | 2025-07-31 11:14 | XMS_ITS | Encounter Summary ---
Author Organization [employer] [facility] Address [address] [facility] 7t [place] [address] Care Team Providers Care Refinery Operator Helper Name Role Phone Alejandra Morris MD Primary Care Provider + Jovan Porter PharmD Unavailable [phone] Rhona Saldivar DDS Unavailable [phone] Jovan Porter PharmD Unavailable [phone] Encounter Details Date Type Department Care Team ([facility] Contact Info) Description 09/02/2022 Orders Only [facility] [address] [place], [place] [phone] Alejandra Morris MD [address] [place], [place] [phone] Vitamin D deficiency (Primary Dx) Social History [...] Description 08/06/2025 10:30 AM EST Medication Management [facility] [address] [place] [address] Jovan Porter, PharmD [address] [place] [address] 08/21/2025 10:30 AM EST Office Visit [facility] [address] [place] [address] Alejandra Morris MD [address] [place] [address] documented as of this encounter Visit Diagnoses Diagnosis Vitamin D deficiency- Primary documented in this encounter Care Teams Refinery Operator Helper Relationship Specialty Start Date End Date Alejandra Morris MD [address] [place] [phone] PCP - General Family Medicine 12/17/17 Jovan Porter, PharmD [address] [place] [phone] Pharmacist Internal Medicine 05/24/23 11/24/23 Rhona Saldivar DDS [address] [place] [phone] Dental Power Cleaner Operator 07/03/24 Jovan Porter, PharmD [address] [place] [address] [phone] Pharmacist Pharmacy 07/16/25 documented as of this encounter
--- OUTSIDE RECORDS SUMMARY | 2025-07-31 11:14 | XMS_ITS | Encounter Summary ---
Author Organization [facility] Address [address] [facility] 7t [place] [address] Care Team Providers Care Marketing Instructor Name Role Phone Alejandra Morris MD Primary Care Provider + Jovan Porter PharmD Unavailable Rhona Sadlivar DDS Unavailable [phone] Jovan Porter PharmD Unavailable [phone] Encounter Details Date Type Department Care Team (Late st Contact Info) Description 10/02/2022 Abstract [facility] [address] [place], [place] [phone] Dharmesh Reyes DDS [address] [place], [place] [phone] Social History Tobacco Use Types Packs/Day Years [...] Description 08/06/2025 10:30 AM EST Medication Management [facility] [address] [place] [address] Jovan Porter, PharmD [address] [place] [phone] 08/21/2025 10:30 AM EST Office Visit [facility] [address] [place] [address] Alejandra Morris MD [address] [place] [phone] documented as of this encounter Visit Diagnoses Not on filedocumented in this encounter Care Teams Marketing Instructor Relationship Specialty Start Date End Date Alejandra Morris MD [address] [place] [phone] PCP - General Family Medicine 12/17/17 Jovan Porter, PharmD [address] [place] [address] 97835 Pharmacist Internal Medicine 05/24/23 11/24/23 Rhona Saldivar DDS [address] [place] [address] Dental Portfolio Accountant 07/03/24 Jovan Porter, PharmD [address] [place] [address] [phone] Pharmacist Pharmacy 07/16/25 documented as of this encounter
--- OUTSIDE RECORDS SUMMARY | 2025-07-31 11:14 | XMS_ITS | Encounter Summary ---
Author Organization [employer] [facility] Address [address] [place] [address] 7t [place] [address] Care Team Providers Care Manager Sas Name Role Phone Alejandra Morris MD Primary Care Provider + Jovan Porter PharmD Unavailable [phone] Rhona Saldivar DDS Unavailable [phone] Jovan Porter PharmD Unavailable [phone] Encounter Details Date Type Department Care Team (Latest Contact Info) Description 12/16/2018 Abstract [facility] CONVERSIONS Dental, Provider, DDS Social History [...] Description 08/06/2025 10:30 AM EST Medication Management [facility] [address] [place] [address] Jovan Porter, PharmD [address] [place], [place] [phone] 08/21/2025 10:30 AM EST Office Visit [facility] [address] [place] [address] [phone] Alejandra Morris MD [address] [place], [place] [phone] documented as of this encounter Visit Diagnoses Not on filedocumented in this encounter Care Teams Manager Sas Relationship Specialty Start Date End Date Alejandra Morris MD [address] [place] [phone] PCP - General Family Medicine 12/17/17 Jovan Porter, PharmD [address] [place] [address] [phone] Pharmacist Internal Medicine 05/24/23 11/24/23 Rhona Saldivar DDS [address] [place] [address] 16183 Dental Stapling Machine Operator 07/03/24 Jovan Porter, PharmD [address] [place] [phone] Pharmacist Pharmacy 07/16/25 documented as of this encounter
== END 2025-07-31 09:37 | disposition home or self-care (01) ==
LOC: HO.ENCR 09:01
PROVIDERS: PCP Internal Medicine; Visit Provider Internal Medicine Endocrinology, Diabetes & Metabolism
DX: E27.9 Disorder of adrenal gland, unspecified (principal)
CPT/HCPCS: 99213

== ENCOUNTER → 2025-07-31 09:01 | Outpatient (BNVA) | payer OTHER, SELFPAY | PROVIDERS: PCP Internal Medicine; Visit Provider Internal Medicine Endocrinology, Diabetes & Metabolism | DX: E27.9 Disorder of adrenal gland, unspecified (principal) | CPT/HCPCS: 99212 ==